=== PATIENT | female | born 1945 | race Caucasian/White ===

== ENCOUNTER 2022-07-03 14:50 | Outpatient (CLI) | payer MEDICARE, BC, SELFPAY ==
--- NOTE | 2022-07-03 15:00 | CRLHL7_ITS ---
For Patients: As a result of the 21st Century Cures Act, medical imaging exams and procedure reports are released immediately into your electronic medical record. You may view this report before your referring provider. If you have questions, please contact your health care provider. Indication: FOLLOW UP COLON/LUNG CANCER Technique: Noncontrast CT chest Please note that all CT scans at this facility use dose modulation, iterative reconstruction, and/or weight-based dosing when appropriate to reduce radiation dose to as low as reasonably achievable. Comparison: CT PET 10/20/2021. CT chest 10/04/2021 Findings: Large lobulated mass upper outer quadrant left breast adjacent to the implant is similar, measuring approximately 4.6 cm. Densely calcified breast implants bilaterally with chronic densities associated with the left breast implant, as before. Persistent small pericardial effusion. New left pleural effusion. Incidental splenule in the left upper quadrant. Small exophytic cyst arising from the upper pole of the right kidney. Fatty infiltration liver. Stable areas of low density within the left hepatic lobe adjacent to the falciform ligament. Streak artifact present from postop changes of the upper abdomen. Dense calcifications in the aorta. Mild fullness of the subcarinal space is similar. Similar bandlike density within the lingula extending from the hilum to the anterior pleura. Persistent air bronchograms adjacent to the left inferior hilum. Patchy ill-defined nodularity within the periphery of the left upper lobe is similar. Improved airspace opacities throughout the left lower lobe. Postop changes noted to the left chest. Similar appearance of bandlike scarring extending from the right hilum to the superolateral apical pleura. Linear scarring within the right middle lobe. Increased degenerative disc disease upper lumbar spine. Impression: Interval postoperative changes to the left lung. Moderate-size left pleural effusion is now present. Persistent densities extending from the left hilum to the anterior lateral left basilar pleura. Stable parenchymal densities extending from the right hilum to the superolateral apical pleura. Few scattered ill-defined nodular densities in the periphery of the lung are similar. Stable mild pericardial effusion, fullness of the subcarinal space and a large mass in the upper outer quadrant of the left breast. Please note that all CT scans at this facility use dose modulation, iterative reconstruction, and/or weight-based dosing when appropriate to reduce radiation dose to as low as reasonably achievable. Dictated by Branden Church MD @ 07/04/2022 11:20:47 AM (Electronically Signed)
== END 2022-07-03 14:51 | disposition home or self-care (01) ==
LOC: CT 14:54
PROVIDERS: PCP Family Medicine
DX: J84.9 Interstitial pulmonary disease, unspecified (principal); I31.39 Other pericardial effusion (noninflammatory); R91.1 Solitary pulmonary nodule
CPT/HCPCS: 71250

== ENCOUNTER 2023-08-09 15:39 | Outpatient (CLI) | payer MEDICARE, BC, SELFPAY ==
--- NOTE | 2023-08-09 16:00 | CRLHL7_ITS ---
For Patients: As a result of the Century Cures Act, medical imaging exams and procedure reports are released immediately into your electronic medical record. You may view this report before your referring provider. If you have questions, please contact your health care provider. Indication: infiltrate pulmonary not eosinophilic follow up and follow up effusion hx: lung and colon cancer Technique: CT chest without contrast Please note that all CT scans at this facility use dose modulation, iterative reconstruction, and/or weight-based dosing when appropriate to reduce radiation dose to as low as reasonably achievable. Comparison: 01/09/2023 Findings: Large left breast mass is similar measuring 3.7 cm. Chronic changes to the left breast implant again noted. Small pericardial effusion again noted. Left pleural effusion is slightly diminished. Extensive atherosclerotic changes. Hepatic steatosis is present. No adrenal lesion. Postop changes upper abdomen. Stable parenchymal densities in the left infrahilar lung and within the right suprahilar lung. No pneumothorax. No CHF. No destructive osseous lesion or fracture. Degenerative changes are present. Decreased size/conspicuity of density within the right middle lobe compared to the prior exam, series 3, image 56 Impression: Slightly decreased left pleural effusion since the prior study. Persistent small pericardial effusion. Decreased size/conspicuity of nodular density in the right middle lobe. Chronic areas of scarring within the right suprahilar lung and left infrahilar lung, unchanged. Stable large left breast parenchymal mass. Please note that all CT scans at this facility use dose modulation, iterative reconstruction, and/or weight-based dosing when appropriate to reduce radiation dose to as low as reasonably achievable. Dictated by Branden Church MD @ 08/10/2023 3:03:35 PM (Electronically Signed)
== END 2023-08-09 15:40 | disposition home or self-care (01) ==
LOC: CT 15:40
PROVIDERS: PCP Family Medicine; Visit Provider Internal Medicine
DX: R91.8 Other nonspecific abnormal finding of lung field (principal); J90 Pleural effusion, not elsewhere classified; N63.20 Unspecified lump in the left breast, unspecified quadrant
CPT/HCPCS: 71250

== ENCOUNTER 2024-05-30 13:14 | Outpatient (CLI) | payer MEDICARE, BC, SELFPAY | END 2024-05-30 13:15 | disposition home or self-care (01) | LOC: NFLDREF 06-03 23:25 | PROVIDERS: PCP Family Medicine; Referring Provider Family Medicine; Visit Provider Nurse Practitioner | DX: R30.0 Dysuria (principal) | CPT/HCPCS: 87086 ==

== ENCOUNTER 2024-06-09 15:14 | Emergency (ER) | payer MEDICARE, BC, SELFPAY ==
[2024-06-09 15:16] VITALS: BP 165/80; PULSE 94; RESP 18; TEMP 36.8; O2SAT 97; BMI 21.7
--- NOTE | 2024-06-09 15:47 | ED.GENADULT ---
HPI - General Adult General Chief complaint: Unspecified Complaint, Adult Stated complaint: Dark urine/Jaundice Time Seen by Provider: 06/09/24 15:30 Source: patient, RN notes reviewed and old records reviewed Mode of arrival: ambulatory Limitations: no limitations History of Present Illness HPI narrative: Patient is a 78-year-old woman with pertinent medical history of lung cancer with last note here documented in 2017, last imaging in 2021. She was seen in urgent care earlier last week with dark urine, a UA was done which showed bilirubin but no evidence of infection. She return to urgent care today because of jaundice and was sent here. She denies any abdominal pain. She has not noted easy bruising or bleeding. She has not had any fevers, vomiting or diarrhea. No history of jaundice. She denies alcohol use, denies significant Tylenol use. No recent travel. Related Data Home Medications ?Medication ?Instructions ?Recorded ?Confirmed amlodipine 5 mg tablet 5 mg PO DAILY 05/30/24 06/09/24 lisinopril 20 mg tablet 20 mg PO DAILY 05/30/24 06/09/24 Previous Rx's ?Medication ?Instructions ?Recorded potassium chloride 20 mEq 20 meq PO DIRECTED #20 tabs 06/09/24 tablet,extended release Allergies Allergy/AdvReac Type Severity Reaction Status Date / Time No Known Drug Allergies Allergy Verified 05/30/24 13:33 Review of Systems Status of ROS: Reports: 10 or more systems reviewed and unremarkable except as noted in History and below [facility] Social History Smoking Status: Never smoker How often do you have a drink containing alcohol: never How often do you have six or more drinks on one occasion: Never AUDIT-C Alcohol total score: 0 Non-prescribed substance use: denies use service: No Exam Narrative: Exam Narrative: Vital signs as noted above. In general, an alert, well-appearing patient. Head: Normocephalic, atraumatic. Eyes: Pupils are equal reactive. Extraocular movements are full. Scleral icterus. ENT: Mucous membranes are moist. Throat is normal. Neck: Supple without lymphadenopathy. Heart: Regular rate and rhythm. No murmur or rub. Lungs: Clear bilaterally. No increased work of breathing, crackles or wheezes. Abdomen: Soft and nontender. I do not feel significant organomegaly or masses. Extremities: Well perfused. No edema. No calf tenderness. Pulses intact. Neurologic: Patient is alert and oriented to person and place. Speech is fluent. Face is symmetric. Moves all extremities equally. Affect: Normal. Skin: Warm and dry. Well perfused. Jaundice noted particularly in her face. Const: Vital Signs, click to edit/add: Vital Signs - 24 hr 06/09/24 15:16 Temperature 98.2 F Pulse Rate [Right Pulse Oximeter] 94 Respiratory Rate 18 Blood Pressure [Ri ght Upper Arm] 165/80 H Pulse Oximetry 97 Oxygen Delivery Me thod Room Air Documenting provider has reviewed patient's vital signs: yes Course Course ED Course: Basic labs ordered to start as well as CT scan of the chest abdomen pelvis. My concern would be that this may be related to her prior diagnosis of lung cancer. Secondary cancers such as pancreatic cancer would be a consideration as well with painless jaundice. Will rule out hemolytic anemia as well. At this point she does not describe symptoms that are strongly suggestive of hepatitis otherwise, will await results of further testing before ordering additional liver testing. Lab and CT pending at the time of my departure, signed out to Dr. Vega to follow up on results and determine final diagnosis and plan. Vital Signs Vital signs: Initial Vital Signs Temperature 98.2 F 06/09/24 15:16 Temperature Source Temporal Artery Scan 06/09/24 15:16 Pulse Rate 94 06/09/24 15:16 Respiratory Rate 18 06/09/24 15:16 Blood Pressure 165/80 H 06/09/24 15:16 Blood Pressure Mean 108 H 06/09/24 15:16 Blood Pressure Position Sitting 06/09/24 15:16 Pulse Oximetry 97 06/09/24 15:16 Oxygen Delivery Method Room Air 06/09/24 15:16 Vital Signs Temperature 98.2 F 06/09/24 15:16 Pulse Rate 94 06/09/24 15:16 Respiratory Rate 18 06/09/24 15:16 Blood Pressure 165/80 H 06/09/24 15:16 Pulse Oximetry 97 06/09/24 15:16 Oxygen Delivery Method Room Air 06/09/24 15:16 Temperature 98.2 F 06/09/24 15:16 Pulse Rate 94 06/09/24 15:16 Respiratory Rate 18 06/09/24 15:16 Blood Pressure 165/80 H 06/09/24 15:16 Pulse Oximetry 97 06/09/24 15:16 Oxygen Delivery Method Room Air 06/09/24 15:16 Medications Administered Medications: Discontinued Medications Generic Name Dose Route Start Last Admin Trade Name Freq PRN Reason Stop Dose Admin Potassium Chloride 40 meq 06/09/24 16:20 06/09/24 16:31 Potassium Chloride 10 Meq Capsule Er PO 06/09/24 16:21 40 meq ONCE ONE Administration Medical Decision Making Lab Data Labs: Lab Results 06/09/24 06/09/24 Range/Units 15:52 16:36 WBC 6.77 (4.50-11.00) K/uL RBC 4.18 (4.00-5.20) m/uL Hgb 11.7 L (12.0-16.0) gm/dL Hct 35.9 (33.0-51.0) % MCV 86 (80-100) fL MCH 28 (26-34) pg MCHC 33 (32-36) gm/dL RDW Coeff of Shayan 14.7 (11.5-15.5) % Plt Count 298 (140-440) K/uL Neut % (Auto) 79.2 H (42.0-72.0) % Lymph % (Auto) 8.7 L (20-44) % [place] % (Auto) 10.3 (0.0-11.0) % Eos % (Auto) 0.7 (0.0-7.0) % Baso % (Auto) 0.7 (0.0-3.0) % Neut # (Auto) 5.40 (1.7-7.0) K/uL Lymph # (Auto) 0.60 L (0.90-2.90) K/uL [place] # (Auto) 0.70 (0.00-0.90) K/UL Eos # (Auto) 0.05 (0.00-0.50) K/uL Baso # (Auto) 0.05 (0.00-0.30) K/uL Abs Immat Gran (auto) 0.03 (0.00-0.30) K/uL Imm/Tot Granulo (auto) 0.4 % INR 0.94 (0.91-1.10) Sodium 139 (135-149) mmol/L Potassium 2.5 L* (3.6-5.1) mmol/L Chloride 99 (96-114) mmol/L Carbon Dioxide 27 (20-32) mmol/L Anion Gap 13 (7-15) mEq/L BUN 13 (7-30) mg/dL Creatinine 0.5 (0.5-1.5) mg/dL Estimated Creat Clear 34.99 Estimated GFR 96 ml/min Glucose 137 H (60-115) mg/dL Calcium 9.8 (8.4-10.6) mg/dL Total Bilirubin 12.7 H (0.1-1.5) mg/dL Direct Bilirubin 11.2 H (0.0-0.5) mg/dL AST 129 H (12-35) U/L ALT 71 H (4-35) U/L Alkaline Phosphatase 804 H (40-150) U/L C-Reactive Protein 0.6 (0.5-1.0) mg/dL Total Protein 7.9 (6.0-8.3) g/dL Albumin 4.5 (3.3-5.0) g/dL Lipase 575 H (23-300) U/L Urine Color Brown A (Yellow) Urine Appearance Clear (Clear) Urine pH 6.0 (5.0-8.5) Ur Specific [place] 1.020 (1.000-1.030) Urine Protein 1+ A (Negative) Urine Glucose (UA) Trace A (Negative) Urine Ketones Trace A (Negative) Urine Blood Negative (Negative) Urine Nitrite Negative (Negative) Urine Bilirubin 3+ A (Negative) Urine Urobilinogen 0.2 (0.2-1.0) Ur Leukocyte Esterase Negative (Negative) Urine RBC 0-2 (0-2) Urine WBC 2-5 (0-5) Ur Squamous Epith Cells Few (None-Few) Urine Bacteria Moderate A (None) Ethyl Alcohol < 0.01 L (0.01-0.03) % Lab Acknowledgement Test Added Discharge Plan Discharge Clinical Impression: Biliary obstruction, Jaundice Patient Disposition: Home w/ Parent or Adult Condition: Stable Instructions: Endoscopic Biliary Stent Placement (DC) Additional Instructions: As we discussed, there seems to be some sort of obstruction as to why your gallbladder, pancreas and liver are not draining properly. This is the cause of your jaundice. Unfortunately, the pictures that we were able to take were not ideal. This is because of the prior embolism coils that you had from your duodenal bleed. They create a large bladder over the area that we need to see. I am not certain what is causing the obstruction. It could be a tumor but it could be something more innocent like scar tissue from her prior bleed or a cyst. We need more information. The best way to do this is with an endoscopic ultrasound. Likely discussed, this is an ultrasound that is done through the endoscopy. Often, a stent will then be placed. This is an outpatient procedure. I spoke with Dr. Glez from the [facility] team. They will be calling you within the next 48 hours to set up an appointment this week. Remember that there will be nothing to eat or drink 8 hours before the procedure. They will give you additional information over the phone. If they do call tomorrow which I suspect that they will, please try to answer if you are able, otherwise call them back as soon as possible. Your potassium levels were low. I suspect that this is related to whatever is causing the obstruction. Your given oral potassium to replace this here in the emergency department. Take 2 more pills tonight before bed. He will then continue taking 1 pill 2 times daily for the next 3 days and then once daily until gone for the next couple of weeks. Remember not to take any the morning of your procedure. If you do not hear back from the GI team for some reason, please work with her primary care provider to set this up outpatient. Activity Level: No Restrictions Discharge Diet: Regular Prescriptions: New potassium chloride 20 mEq tablet extended release 20 meq PO DIRECTED Qty: 20 2RF Rx Instructions: 1 pill by mouth 2 times daily for the next 3 days, then once daily until gone. No Action amlodipine 5 mg tablet 5 mg PO DAILY lisinopril 20 mg tablet 20 mg PO DAILY Follow Up/Referrals: Candis Mars DO [Primary Care Provider] - Stand Alone Forms: [facility] Info Instructions
--- NOTE | 2024-06-09 15:50 | CRLHL7_ITS ---
For Patients: As a result of the 21st Century Cures Act, medical imaging exams and procedure reports are released immediately into your electronic medical record. You may view this report before your referring provider. If you have questions, please contact your health care provider. Indication: jaundice, no abd pain, hx lung CA Technique: CT of the chest, abdomen, and pelvis was obtained with 56 mL of Isovue 370 intravenous contrast. Please note that all CT scans at this facility use dose modulation, iterative reconstruction, and/or weight-based dosing when appropriate to reduce radiation dose to as low as reasonably achievable. Comparison: 08/09/2023, 07/30/2017. Findings: CHEST: Medical devices: None. Thyroid: Normal. Lymph nodes: No supraclavicular, axillary, mediastinal, or hilar lymphadenopathy. Vasculature: Aorta and main pulmonary artery diameters are within normal range. Moderate aortic calcification. 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 Heart: Mild coronary artery calcification. Small to moderate pericardial effusion. Other mediastinal structures: No significant abnormality. Lung parenchyma and pleura: Redemonstration of right upper lobe and left lower lobe areas of linear bandlike scarring. Mild centrilobular emphysema. Small cluster of nodules with the largest measuring 5 millimeter in the left upper lobe (3/33). Redemonstration of small to moderate left pleural effusion. Postsurgical changes of the left lung. Airways: No significant abnormality. Chest wall: Calcified bilateral breast prostheses. 3.6 centimeter left breast mass is again seen. ABDOMEN/PELVIS: Liver and biliary tree: Moderate intrahepatic biliary ductal dilation. Dilated common bile duct measuring up to 1.3 centimeter (2/141). Gallbladder: Mildly distended gallbladder. Spleen: Normal. Pancreas: Mildly prominent pancreatic duct measuring 3 millimeter (2/137). Streak artifact from adjacent embolic coils limit evaluation of the pancreatic head. Adrenal glands: Normal. Kidneys and ureters: No hydronephrosis. No obstructing renal calculi. 1.1 centimeter right renal cyst (2/142). Gastrointestinal tract: Postsurgical changes from partial sigmoid colectomy. Mild sigmoid colonic diverticulosis without CT evidence of acute diverticulitis. Moderate stool burden. Status post appendectomy. No evidence of bowel obstruction. Peritoneal cavity: Normal. Bladder: Normal. Pelvic organs: Postsurgical changes from hysterectomy. Vasculature: Moderate calcification. Lymph nodes: Normal. Abdominal wall: Normal. Musculoskeletal: Moderate degenerative changes of the bilateral hips. Moderate degenerative changes of the visualized spine. Mild anterolisthesis of L4 on L5. Impression: 1. Dilated common bile duct measuring up to 1.3 centimeter with moderate intrahepatic biliary ductal dilation. Mildly distended gallbladder and mildly prominent pancreatic duct measuring 3 millimeter. Streak artifact from adjacent embolic coils limit evaluation of the pancreatic head. Obstructing pancreatic head lesion is difficult to exclude. Consider further evaluation with ultrasound or MRCP, especially if there is bilirubinemia to suggest biliary obstruction. 2. 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 3. Redemonstration of right upper lobe and left lower lobe areas of pulmonary linear bandlike scarring may represent posttreatment change. 4. Small cluster of nodules with the largest measuring 5 millimeter in the left upper lobe. 5. Redemonstration of small to moderate left pleural effusion. 6. 3.6 centimeter left breast mass is again seen. Consider correlation with prior mammographic evaluation. Please note that all CT scans at this facility use dose modulation, iterative reconstruction, and/or weight-based dosing when appropriate to reduce radiation dose to as low as reasonably achievable. Dictated by Alberto Last MD @ 06/09/2024 5:25:47 PM (Electronically Signed)
[2024-06-09 16:00] LABS: Basophils Absolute Auto 0.05 K/uL (0.00-0.30); Basophils Percent Auto 0.7 % (0.0-3.0); Eosinophils Absolute Auto 0.05 K/uL (0.00-0.50); Eosinophils Percent Auto 0.7 % (0.0-7.0); Hematocrit 35.9 % (33.0-51.0); Hemoglobin* 11.7 gm/dL (12.0-16.0); Immature Granulocytes Abs Auto 0.03 K/uL (0.00-0.30); Immature Granulocytes Pct Auto 0.4 %; Lymphocytes Percent Auto 8.7 % (20-44); Mean Corpuscular HGB Conc 33 gm/dL (32-36); Mean Corpuscular Hemoglobin 28 pg (26-34); Mean Corpuscular Volume 86 fL (80-100); Monocytes Percent Auto 10.3 % (0.0-11.0); Neutrophils Percent Auto 79.2 % (42.0-72.0); Platelet Count* 298 K/uL (140-440); RDW Coefficient of Variation % 14.7 % (11.5-15.5); Red Blood Count 4.18 m/uL (4.00-5.20); White Blood Count* 6.77 K/uL (4.50-11.00)
[2024-06-09 16:03] LABS: Slide Review Reflex No
[2024-06-09 16:12] LABS: Albumin* 4.5 g/dL (3.3-5.0)
[2024-06-09 16:13] LABS: Chloride* 99 mmol/L (96-114); Sodium* 139 mmol/L (135-149)
[2024-06-09 16:15] LABS: Alkaline Phosphatase* 804 U/L (40-150); Aspartate Amino Transferase* 129 U/L (12-35); Bilirubin Direct* 11.2 mg/dL (0.0-0.5); Bilirubin Total* 12.7 mg/dL (0.1-1.5); Total Protein* 7.9 g/dL (6.0-8.3)
[2024-06-09 16:16] LABS: Alanine Aminotransferase* 71 U/L (4-35); Anion Gap 13 mEq/L (7-15); Carbon Dioxide* 27 mmol/L (20-32); Creatinine* 0.5 mg/dL (0.5-1.5); Est. Creatinine Clearance* 34.99; Estimated Glomerular Filt Rate 96 ml/min; Lipase* 575 U/L (23-300)
[2024-06-09 16:17] LABS: Blood Urea Nitrogen* 13 mg/dL (7-30); Calcium* 9.8 mg/dL (8.4-10.6); Glucose* 137 mg/dL (60-115)
[2024-06-09 16:18] LABS: C Reactive Protein* 0.6 mg/dL (0.5-1.0)
[2024-06-09 16:19] LABS: Ethanol* < 0.01 % (0.01-0.03); Potassium* 2.5 mmol/L (3.6-5.1)
[2024-06-09] MEDS: POTASSIUM CHLORIDE 10 MEQ CAPSULE ER 40 MEQ PO (16:31)
[2024-06-09 16:51] LABS: Appearance Urine Clear (Clear); Bilirubin Urine 3+ (Negative); Blood Urine Negative (Negative); Color Urine Brown (Yellow); Glucose Urine Trace (Negative); Ketones Urine Trace (Negative); Leukocyte Esterase Urine Negative (Negative); Nitrite Urine Negative (Negative); Protein Urine 1+ (Negative); Urobilinogen Urine 0.2 (0.2-1.0)
[2024-06-09 17:09] LABS: Bacteria Urine Moderate; RBC Urine 0-2 (0-2); Squamous Epithelial Cell Urine Few (None-Few)
[2024-06-09 19:03] LABS: INR 0.94 (0.91-1.10); Prothrombin Time 13.1 Seconds
== END 2024-06-09 19:10 | disposition home or self-care (01) ==
PROVIDERS: Emergency Medicine; Emergency Provider Family Medicine; PCP Family Medicine
DX: R17 Unspecified jaundice (principal); K83.1 Obstruction of bile duct
CPT/HCPCS: 36415; 71260; 74177; 80048; 80076; 81001; 82077; 83690; 85025; 85610; 86140; 87086; 99284; A9270; Q9967

== ENCOUNTER 2024-08-14 10:34 | Day surgery (SDC) | payer MEDICARE, BC, SELFPAY ==
[2024-08-14 10:56] VITALS: BP 109/63; PULSE 86; RESP 20; TEMP 36.6; O2SAT 100; BMI 21.7
[2024-08-14] MEDS: SODIUM CHLORIDE 0.9 % (FLUSH) 10 ML SYRINGE IVF (10:59)
--- NOTE | 2024-08-14 12:00 | CRLHL7_ITS ---
For Patients: As a result of the Century Cures Act, medical imaging exams and procedure reports are released immediately into your electronic medical record. You may view this report before your referring provider. If you have questions, please contact your health care provider. Indication: IBRAHIMA CATH PLACEMENT Technique: One fluoroscopic image of the chest. Fluoroscopic time 21.2 sec. IMPRESSION: Fluoroscopic guidance for Port-A-Cath placement. Dictated by Branden Church MD @ 08/14/2024 3:51:49 PM (Electronically Signed)
--- NOTE | 2024-08-14 12:11 | CRLHL7_ITS ---
For Patients: As a result of the Century Cures Act, medical imaging exams and procedure reports are released immediately into your electronic medical record. You may view this report before your referring provider. If you have questions, please contact your health care provider. INDICATION: Chest pain. TECHNIQUE: Chest 1 views. COMPARISON: CT chest abdomen and pelvis June 2024 FINDINGS/IMPRESSION: Interval placement of the right-sided Cieile-A-Wuzc catheter, tip projecting over the lower SVC. Redemonstration of moderate volume of left pleural effusion with adjacent compressive atelectasis. Chronic scarring/atelectasis at the right apex. Vascular calcification is identified along the left apex. Peripherally calcified breast implants are seen. Stable mild cardiomegaly without pulmonary edema. Dictated by Homer Jonas MD @ 08/14/2024 2:57:16 PM (Electronically Signed)
--- NOTE | 2024-08-14 12:16 | PM.GSCN ---
History of Present Illness Consult details Date Seen: 08/14/24 Consult date: 08/14/24 Narrative: The patient is a 78 year-old female with pancreatic cancer who presents today for a port. 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 She is undergoing chemotherapy for her new diagnosis of pancreatic cancer. Port placement was requested for chemotherapy. She has never had a port previously. No chest pain or shortness of breaths today. [facility] Social History Smoking Status: Former smoker How often do you have a drink containing alcohol: monthly or less How often do you have six or more drinks on one occasion: Never AUDIT-C Alcohol total score: 1 Non-prescribed substance use: denies use Caffeine: Yes service: No Meds Home Medications and Allergies Home Medications ?Medication ?Instructions ?Recorded ?Confirmed ?Type acetaminophen 500 mg tablet 500 mg PO Q6H PRN 07/07/24 08/14/24 History (Tylenol Extra Strength) albuterol sulfate 90 mcg/actuation 2 puff inhalation Q6H PRN 07/07/24 08/14/24 History aerosol inhaler hydroxyzine HCl 25 mg tablet 25 mg PO TID PRN 07/07/24 08/14/24 History diphenhydramine HCl 50 mg capsule 25 - 50 mg PO QHS PRN 07/21/24 08/14/24 History furosemide 20 mg tablet (Lasix) 20 mg PO QAM 07/21/24 08/14/24 History oxycodone 5 mg tablet 2.5 mg PO DAILY PRN 07/23/24 08/14/24 History pantoprazole 40 mg tablet,delayed 40 mg PO DAILY 07/23/24 08/14/24 History release Allergies Allergy/AdvReac Type Severity Reaction Status Date / Time amoxicillin (From Augmentin) Allergy Severe Anaphylaxis Verified 08/14/24 10:48 clavulanic acid (From Allergy Severe Anaphylaxis Verified 08/14/24 10:48 Augmentin) Penicillins Allergy Unknown Verified 08/14/24 10:48 prochlorperazine AdvReac Verified 08/14/24 10:48 Blood group specific Allergy Severe TREJO Uncoded 07/07/24 11:19 substance Exam Narrative: Exam Narrative: General: No acute distress HEENT: Patient with scleral icterus Skin: Patient appears jaundiced Respiratory: Breathing nonlabored on room air CV: Regular rate Chest: No scars noted in the upper chest. Const: Vital Signs, click to edit/add: Vital Signs - 24 hr 08/14/24 10:56 Temperature 97.9 F Pulse Rate 86 Respiratory Rate 20 Blood Pressure 109/63 Pulse Oximetry 100 Oxygen Delivery Me thod Room Air Results Labs Labs: Patient is anemic with a hemoglobin of 8.9. Platelets within normal limits at 177. Electrolytes within normal limits. Bilirubin is elevated at 2.9. This is down from 07/07/24 when it was 24. Imaging Additional studies: CT scan chest abdomen pelvis from 06/09/2024 was reviewed with the radiologist. Impression: 1. Dilated common bile duct measuring up to 1.3 centimeter with moderate intrahepatic biliary ductal dilation. Mildly distended gallbladder and mildly prominent pancreatic duct measuring 3 millimeter. Streak artifact from adjacent embolic coils limit evaluation of the pancreatic head. Obstructing pancreatic head lesion is difficult to exclude. Consider further evaluation with ultrasound or MRCP, especially if there is bilirubinemia to suggest biliary obstruction. 2. 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 3. Redemonstration of right upper lobe and left lower lobe areas of pulmonary linear bandlike scarring may represent posttreatment change. 4. Small cluster of nodules with the largest measuring 5 millimeter in the left upper lobe. 5. Redemonstration of small to moderate left pleural effusion. 6. 3.6 centimeter left breast mass is again seen. Consider correlation with prior mammographic evaluation. Please note that all CT scans at this facility use dose modulation, iterative reconstruction, and/or weight-based dosing when appropriate to reduce radiation dose to as low as reasonably achievable. Dictated by Alberto Last MD @ 06/09/2024 5:25:47 PM Progress Note:A&P Assessment and plan (1) Pancreatic cancer: Status: Acute Plan The patient is a 78-year-old female with pancreatic cancer here today for port placement. Risks and benefits as well as recovery were discussed with the patient. No contraindications to proceeding. The patient signed informed consent.
[2024-08-14] MEDS: 0.9 % SODIUM CHLORIDE 500 ML 500 ML 100 ML IV (12:45)
--- NOTE | 2024-08-14 13:11 | W.ANESCHARGE ---
Anesthesia Charges Start Date/Time Anesthesia Start Date: 08/14/24 Anesthesia Start Time: 13:14 Stop Date/Time Anesthesia Stop Date: 08/14/24 Anesthesia Stop Time: 14:16 Summary Extremes of Age - Over 70 or under 1: MDA
[2024-08-14] MEDS: CLINDAMYCIN 900 MG/50 ML-D5W IVPB (13:21)
[2024-08-14] MEDS: LIDOCAINE 1% MDV 20 ML INJECTION (13:41)
[2024-08-14] MEDS: HEPARIN 500 UNIT/5 ML SYRINGE IVF (13:41)
[2024-08-14] MEDS: BUPIVACAINE 0.5% 30 ML INJECTION (13:41)
[2024-08-14] MEDS: 0.9% SODIUM CHL 50 ML VIAL INJECTION (13:41)
--- NOTE | 2024-08-14 14:10 | PM.GSPRC ---
Operative Note Date of procedure: 08/14/24 Pre-op diagnosis: Pancreatic cancer Post-op diagnosis: Same Type of Procedure: Right IJ power port placement with ultrasound and fluoroscopic guidance Indications: The patient is a 78-year-old female who is undergoing chemotherapy for pancreatic cancer. The port has been requested for administration of this. After discussion, she has agreed to proceed. Procedure Description: After discussing the risks and benefits of the procedure, the patient signed informed consent.? The operative site was marked and the patient was brought to the operating room and placed on the operating table in supine position.? Care was taken to pad the patient's pressure points.?? The patient was then given sedation by anesthesia.?? The operative site was then prepped and draped in the usual sterile fashion.? A time-out was then performed. The patient's right internal jugular vein was visualized using ultrasound. Local anesthetic was injected into the skin overlying the vein. This was accessed percutaneously using ultrasound guidance. Using Seldinger technique, a guidewire was threaded through the needle. A skin juan carlos was made around the wire. Next, local anesthetic was injected into the skin below the clavicle and along the proposed tract to the neck incision. A skin incision was then made with a 15 blade and a pocket created in the subcutaneous tissue with cautery. A tunneler was then used to thread the catheter from the chest wall pocket to the neck incision. Once this was done fluoroscopy was brought into the field. Over the wire the tract was dilated using fluoroscopy. The wire and the dilator were then removed leaving the sheath in the vein. Through this, the catheter was threaded. Using fluoroscopy, the catheter was positioned into the distal SVC. The catheter was noted to flush and aspirate easily. The catheter was then connected to the port. The port was placed in the pocket and secured in place with 2 0 Prolene sutures. It was noted to flush and aspirate easily. This was then locked with heparinized saline. The skin was closed with absorbable suture. Glue was then applied. Instrument sponge and needle counts were correct at the end of the case. The patient was woken and taken to the recovery area in stable condition. ? The patient tolerated the procedure well. Findings: Right IJ power port placed in the low SVC Implants: Power port Anesthesia: MAC Surgeon: Domi Luna MD Estimated blood loss (mL): 5 Condition: stable Disposition: same day
--- NOTE | 2024-08-14 14:17 | W.ANESCHARGE ---
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
[2024-08-14 14:21] VITALS: BP 110/60; PULSE 82; RESP 16; TEMP 35.9; O2SAT 100
[2024-08-14 14:35] VITALS: BP 112/62; PULSE 80; RESP 16; TEMP 36.1; O2SAT 100
[2024-08-14 14:50] VITALS: BP 108/56; PULSE 76; RESP 16; O2SAT 98
--- NOTE | 2024-08-14 15:13 | CRLHL7_ITS ---
For Patients: As a result of the Century Cures Act, medical imaging exams and procedure reports are released immediately into your electronic medical record. You may view this report before your referring provider. If you have questions, please contact your health care provider. INDICATION: Status post port placement TECHNIQUE: 1 view chest radiograph COMPARISON: 08/14/2024, earlier the same day FINDINGS: Devices: New right IJ chest port distal tip is at the lower SVC. Lung volumes are overall good. Unchanged left mid to lower lung opacity. Unchanged small to moderate left pleural effusion. No pneumothorax. Heart size is similar to prior. Atherosclerotic vascular calcifications. Calcified breast prostheses. IMPRESSION: The right IJ chest port distal tip is at the low SVC. No pneumothorax. Dictated by Bev Mcfadden MD @ 08/14/2024 3:47:42 PM (Electronically Signed)
[2024-08-14 15:14] VITALS: BP 110/60; PULSE 77; RESP 18; O2SAT 99
[2024-08-14 15:30] VITALS: BP 119/63; PULSE 77; RESP 18; O2SAT 99
== END 2024-08-14 15:53 | disposition home or self-care (01) ==
PROVIDERS: PCP Family Medicine; Visit Provider Surgery
PROC: (CPT 36561; principal; 2024-08-14 12:00)
DX: Z45.2 Encounter for adjustment and management of vascular access device (principal); C25.9 Malignant neoplasm of pancreas, unspecified
CPT/HCPCS: 36561; 00532; 71045; 76000; 76998; 99100; J2003; C1788; J0665; J0736; J1100; J1642; J2704; J3010; J7030

== ENCOUNTER 2024-09-03 09:43 | Inpatient (IN) | payer MEDICARE, BC, SELFPAY ==
[2024-09-03] VITALS (33 sets, daily range): BP systolic 92–155; BP diastolic 70–90; PULSE 87–122; RESP 18–32; TEMP 36.4–37.4; O2SAT 90–99; BMI 21.7; BMI 22.3
--- OUTSIDE RECORDS SUMMARY | 2024-09-03 09:45 | XMS_ITS | Clinical Summary ---
Author Organization [facility] Address [place], [place] [address] Care Team Providers Care Clay Artist Name Role Phone Candis Mars DO Primary Care Provider [phone] Allergies Active Allergy Reactions Criticality Noted Date Comments Amoxicillin-Pot Clavulanate Throat Swelling/Closing 06/10/2013 Blood-Group Specific Substance *Unknown 06/30/2013 Patient has Anti-Jkb (Eagle b) and Non-specific antibodies. Blood product orders may be delayed. Please draw two red top and two purple top tubes for Type and Screen orders. Penicillins Anaphylaxis High 07/25/2016 Medications albuterol HFA (ProAir HFA) 90 mcg/actuation inhalerIndicati ons:Exercise-in duced bronchospasm,Ch ronic obstructive pulmonary disease, unspecified COPD type (HC) Inhale 1-2 Puffs by mouth every 4 hours if needed for Shortness Of Breath or Wheezing. 8.5 g 11 09/10/19 24 Active oxyCODONE (ROXICODONE) 5 mg immediate release tabletIndicatio ns:Cancer associated pain Take 1 Tablet (5 mg) by mouth every 4 hours if needed for Pain (Severe pain). 20 Tablet 08/13/20 24 Active hydrOXYzine HCL (ATARAX) 25 mg tabletIndicatio ns:Pruritus,Granda creatic mass,Hyperbilir ubinemia Take 1 Tablet (25 mg) by mouth every 8 hours if needed for Itching. 90 Tablet 2 08/13/20 24 Active potassium chloride (K-TAB) 20 mEq extended-releas e tablet Take 20 mEq by mouth. 06/09/20 24 Active pantoprazole (PROTONIX) 40 mg delayed-release tablet Take 40 mg by mouth. 07/15/20 24 Active furosemide (LASIX) 20 mg tablet Take 20 mg by mouth. 07/15/20 24 Active sertraline (ZOLOFT) 50 mg tablet Take 50 mg by mouth. 07/12/20 24 Active amLODIPine (NORVASC) 5 mg tabletIndicatio ns:Hypertension Take 1 Tablet (5 mg) by mouth once daily. 90 Tablet 3 09/10/19 24 024 Discontinued(*P atient states no longer taking) lisinopriL (PRINIVIL; ZESTRIL) 20 mg tabletIndicatio ns:Hypertension Take 1 Tablet (20 mg) by mouth once daily. 90 Tablet 3 09/10/19 24 024 Discontinued(*P atient states no longer taking) hydrOXYzine HCL (ATARAX) 25 mg tabletIndicatio ns:Pruritus,Granda creatic mass,Hyperbilir ubinemia Take 1 Tablet (25 mg) by mouth every 8 hours if needed for Itching (sleep). 20 Tablet 06/20/20 24 024 Discontinued hydrOXYzine HCL (ATARAX) 25 mg tabletIndicatio ns:Pruritus,Granda creatic mass,Hyperbilir ubinemia TAKE ONE TABLET BY MOUTH EVERY 8 HOURS NEEDED FOR ITCHING (SLEEP) 30 Tablet 08/08/20 24 024 Discontinued(*M edication adjustment) Active Problems Problem Noted Date Diagnosed Date Primary pancreatic cancer 08/13/2024 Malignant neoplasm metastatic to lung 03/28/2021 Chronic obstructive pulmonary disease 10/08/2017 Adenocarcinoma, lung 12/15/2016 Osteopenia 07/22/2015 GI bleed 06/23/2013 Hx of duodenal ulcer 06/23/2013 Overview (12/29/2013): EGD 06/2013 large duodenal ulcer, H. Pylori negative EGD 12/2013 complete healing of the ulcer Anemia 06/23/2013 ACP (advance care planning) 06/23/2013 Overview (06/23/2013): Patient has identified Health Care Agent(s): Yes Add Health Care Agents: Yes Health Care Agent(s): Patient does not want to be proxy Primary Health Care Agent: Yoselin Rivera Relationship: daughter Secondary Health Care Agent: Relationship: Phone: Conservator: Relationship: Phone: Guardian: Relationship: Phone: Patient has Advance Care Plan Documents (Health Care Directive, POLST): Yes Advance Care Plan Documents: Health Care Directive - old, from [place] Patient has identified Specific Treatment Preferences: Yes Specific Treatment Preferences: a.) Code Status: CPR/Attempt Resuscitation Hypertension 06/05/2011 History of colon cancer 06/09/2010 Overview (09/30/2015): Colonoscopy 06/09/10 - repeat in 5 years Colonoscopy 09/2015 polyp repeat in 5 years Encounters Date Type Department Care Team Description 08/14/2024 9:00 AM SUPERVISOR GAS METER REPAIR Office Visit [facility] [address] [place] [address] Domi Luna MD 08/14/2024 Orders Only [facility] Scanner 1 scan: (1-Ord) [facility], RT IJ POWER PORT PLACEMENT WITH US AND FLUOROSCOPIC GUIDANCE, 08/14/2024 08/13/2024 3:00 PM SUPERVISOR GAS METER REPAIR Office Visit [facility] [address] [place] [address] Candis Mars, DO Preoperative Exam (08/14/24 - Port placement - [facility] - Dr. 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) 08/13/2024 Travel 08/12/2024 Telephone [facility] [address] [place] [address] Domi Luna MD 08/04/2024 Refill [facility] [address] [place] [address] Candis Mars, Refill Request (Hydroxyzine Hcl) 06/09/2024 Nurse Triage [facility] Centralized Nurse Triage Pcp, No Jaundice from Last 3 Months Immunizations Name Administration Dates Next Due AMB Influenza, IIV3 (Age >=3 years)(Flu Clinic Only) 06/23/2008 COVID-19 VACCINE SPIKEVAX (M ODERNA 50MCG/0.5ML) 12YO+ PFS 06/18/2023 COVID-19 vaccine (Pfizer-Bio NTech 30mcg/0.3mL) PF, MDV 10/23/2020 Influenza A (H1N1), Inactiva steve (Age >=3 Years) 08/20/2009 Influenza, High-dose Inactivated 019,07/08/2018,06/20/2017,2015,07/07/2015,06/03/2015,05/27/2014 Influenza, High-dose Quadriv alent Inactivated 06/18/2023,07/28/2022,06/23/2021,2018,07/08/2018,06/25/2017,06/20/2017,1 ,07/07/2015,06/03/2015, 014,06/27/2013,06/05/2011,05/25/2010,,06/23/2008,06/14/2007 Influenza, IIV3 (Age 6-35 mos) 06/05/2011,2009 Influenza, IIV3 (Age >=3 years) 06/27/20 13,06/05/2011,06/23/2008,2006 Influenza, Inactivated AIIV4 (Age 65+ Years) Preserv Free 06/18/2023 Influenza, Inactivated IIV3 (Age 65+ Years) Preserv Free 07/08/2018 Pneumococcal Poly,23-Valent (Pneumovax) 07/20/2011 Pneumococcal conj 13-Valent (Prevnar 13) 07/22/2015 Td (Age >=7 Years) 10/08/2007 Td, Preservative Free (age > = 7 Years) 10/08/2007 Tdap 05/27/2014 Zoster (Shingrix-RZV, recombinant) 03/24/2024, Zoster (Zostavax-ZVL, live) 06/03/2012 Family History Medical History Relation Name Comments GI Disease Father duodenal ulcer Stroke Maternal Grandmother Cancer Mother lung Cancer-breast Other Maternal Cousin Cancer-breast Paternal Grandmother Cancer-ovarian No Family History Relation Name Status Comments Brother Alive Daughter 1 Alive Daughter 2 Alive Father accident Maternal Grandmother Mother lung Other Maternal Cousin Alive Paternal Grandmother Social History Tobacco Use Types Packs/Day Years Used Date Smoking Tobacco: Former Cigarettes Q uit: 09/03/2002 Smokeless Tobacco: Never Tobacco Cessation:Counseling Given: Yes Comments:15 pack year hx - quit 2002 Alcohol Use Standard Drinks/Week Comments Yes 0 (1 standard drink = 0.6 oz pur e alcohol) PHQ-2 Answer Date Recorded PHQ-2 TOTAL SCORE 0 09/10/2023 Financial Resource Strain Answer Date R ecorded Difficulty of Paying Living Expenses Not on file 09/03/2021 Difficulty of Paying Living Expenses Not on file 09/03/2021 Comments No Sex and Gender Information Value Date Recorded Sex Assigned at Not on file Legal Sex Female 7:15 AM SUPERVISOR GAS METER REPAIR Gender Identity Not on file Sexual Orientation Not on file Obstetrics History Last Filed Vital Signs Vital Sign Reading Time Taken Comments Blood Pressure 138/73 08/13/2024 3:17 PM SUPERVISOR GAS METER REPAIR Pulse 92 08/13/2024 3:17 PM SUPERVISOR GAS METER REPAIR Temperature 36.6 C (97.9 F) 01/06/2019 2:34 PM CDT Respiratory Rate 18 07/22/2015 1:00 PM SUPERVISOR GAS METER REPAIR Oxygen Saturation 100% 08/13/2024 3:17 PM SUPERVISOR GAS METER REPAIR Inhaled Oxygen Concentration - - Weight 52 kg (114 lb 9.6 oz) 08/13/2024 3:17 PM SUPERVISOR GAS METER REPAIR Height 160 cm (5' 2.99) 09/10/2023 3:28 PM SUPERVISOR GAS METER REPAIR Body Mass Index 20.31 09/10/2023 3:28 PM SUPERVISOR GAS METER REPAIR Plan of Treatment Health Maintenance Due Date Last Done Comments RSV vaccine for adults or (1 - 1-dose 75+ series) 2020 Medicare Wellness for age 65+ 06/01/2023, 03/28/2021, 07/22/2015, Additional history exists COVID-19 vaccine series ( season) 2024 06/18/2023, 05/30/2022, 12/27/2021, Additional history exists Influenza for age 65+ 05/04/2024 06/18/2023 , 06/18/2023, 07/28/2022, Additional history exists Tetanus booster 05/27/2024 05/27/2014, 01/2008, 10/08/2007 BMI (ht and wt on same day) for age 18+ 09/10/2024 09/10/2023, 05/31/2022, 03/28/2021, Additional history exists Depression screening for age 12+ 09/13/2024 09/13/2023, 09/10/2023, 05/31/2022, Additional history exists Tdap Completed 05/27/2014 Pneumococcal series for age 50+ Completed 5, 07/20/2011 DEXA/DXA scan for age 65+ Completed 08/03/2015, Hepatitis C screening for ag e 18-79 Completed 01/06/2019 Zoster (shingles) series for age 50+ Completed 03/24/2024, 12/27/2023, 06/03/2012 Goals Goal Patient Goal Type Associated Problems Recent Progress Patient-Stated? Author BLOOD PRESSURE - MAINTAINS BP less than 140/90 Blood Pressure No Digna Barney MD Procedures Procedure Name Priority Date/Time Associated Diagnosis Comments SCAN-OPERATIVE/PROC EDURE REPORT 08/14/2024 12:00 AM SUPERVISOR GAS METER REPAIR ANTI HCV Routine 01/06/2019 3:23 PM CDT Need for hepatitis C screening test XR DXA BONE DENSITY 2 SITES AXIAL Routine 08/03/2015 3:32 PM SUPERVISOR GAS METER REPAIR Osteopenia from Last 3 Months or Most Recently Relevant to Health Maintenance Results * SCAN-OPERATIVE/PROCEDURE REPORT (08/14/2024 12:00 AM SUPERVISOR GAS METER REPAIR) us Scanner OTHER Final Result * ANTI HCV (01/06/2019 3:23 PM CDT) HEPATITIS C ANTIBODY Non-React [place] Non-React [place] 01/06/2019 8:29 PM CDT [facility] Comment:Antibodies to HCV no t detected; does not exclude the possibility of exposure to HCV. Blood BLOOD SPECIMEN / Unknown Venipuncture / Unknown 01/06/2019 3:23 PM CDT 01/06/2019 3:23 PM CDT Digna Barney MD SEND OUTS Final Result [facility] [address] [place] [address], [place] * (ABNORMAL) XR DEXA BONE DENSITY 2 SITES [63953.1] (08/03/2015 3:32 PM SUPERVISOR GAS METER REPAIR) Anatomical Region Laterality Modality Spine, HIPS, HIPL, HIPR Other Narrative 08/04/2015 8:02 AM SUPERVISOR GAS METER REPAIR Please see scanned document for results of this study. Digna Barney MD DEXA Final Result from Last 3 Months or Most Recently Relevant to Health Maintenance Insurance MEDICARE PART A HB ONLY BLUE [employer] [place] BLUE MR PB ONLY MEDICARE PART B HB ONLY [employer] [place] [place] BLUE HB ONLY Advance Directives * Full Code (Latest Code Status on File) Date Activated Date Inactivated Comments 06/23/2013 6:16 PM 07/04/2013 3:49 PM Care Teams Clay Artist Relationship Specialty Start Date End Date Candis Mars DO [address] [place] [address] PCP - General Family Practice 08/13/24
--- OUTSIDE RECORDS SUMMARY | 2024-09-03 09:45 | XMS_ITS | Continuity of Care Document ---
Author Name [facility] User [facility] Address Unknown Organization Unknown Address Unknown Procedures FILTER APPLIED:Only known Procedures with Onset Date within the last 5 years Procedure Date Procedure Provider Additional Inform ation Status CT THORAX DX C- (88529) Completed Encounters FILTER APPLIED:Only known Encounters with Admission Date within the last 5 years Encounter Location Admission Discharge Billing Code Nipping Machine Operator [facility] In[facility]
--- OUTSIDE RECORDS SUMMARY | 2024-09-03 09:46 | XMS_ITS | Encounter Summary ---
Author Organization [facility] Address [address] [place] [id number] Care Team Providers Care Ball Racker Name Role Phone Elsewhere, Pcp Primary Care Provider Unavailabl e Encounter Details Date Type Department Care Team (Late st Contact Info) Description 06/30/2024 Clinical Communication Department of Oncology in [place], [place] [address] [place] [phone] eLo Cervantes M.D., Ph.D. [address] [place] [phone] Social History Tobacco Use Types Packs/Day Years Used Date Smoking Tobacco: Former Cigarettes 1 15 0 01/31/1988 - 01/30/2003 Smokeless Tobacco: Never Alcohol Use Standard Drinks/Week Comments Yes 7 (1 standard drink = 0.6 oz pur e alcohol) [facility] Utilities Answer Date Recorded In the past 12 months has e [employer], gas, oil, or water [employer] threatened to shut off services in your home? No 07/11/2024 Humiliation, Afraid, Rape, and Kick questionnair e Answer Date Recorded Within the last year, have y ou been afraid of your partner or ex-partner? No 07/11/2024 Within the last year, have y ou been humiliated or emotionally abused in other ways by your partner or ex-partner? No Within the last year, have y ou been kicked, hit, slapped, or otherwise physically hurt by your partner or ex-partner? No 07/11/2024 Within the last year, have y ou been raped or forced to have any kind of sexual activity by your partner or ex-partner? No 07/11/2024 Exercise Vital Sign Answer Date Recorde d On average, how many days pe r week do you engage in moderate to strenuous exercise (like a brisk walk)? 2 days 06/19/2024 On average, how many minutes do you engage in exercise at this level? 20 min 06/19/2024 Hunger Vital Sign Answer Date Recorded Within the past 12 months, y ou worried that your food would run out before you got the money to buy more. Never true 07/11/20 Within the past 12 months, t he food you bought just didn't last and you didn't have money to get more. Never true 07/11/2024 PRAPARE - Transportation Answer Date Re corded In the past 12 months, has l ack of transportation kept you from medical appointments or from getting medications? No 04/2024 In the past 12 months, has l ack of transportation kept you from meetings, work, or from getting things needed for daily living? No 07/11/2024 Nutrition Answer Date Recorded On average, how many serving s of fruits and vegetables do you eat per day (serving size is equal to 1 cup or approximately the size of a tennis ball)? 3-5 06/19/2024 Dental Answer Date Recorded Dental: Regular Dentist Yes 06/19/20 Employment Answer Date Recorded Employment status Retired 06/19/2024 Housing Stability Answer Date Recorded What is your living situation today? I have a [facility] place to live 07/11/2024 Comments No Sex and Gender Information Value Date Recorded Sex Assigned at Female 01/29/2018 3:57 PM CDT Legal Sex Female 11:37 PM MILLINERY WORKER Gender Identity Female 01/29/2018 3:57 PM CDT Sexual Orientation Straight 01/29/2018 3: 57 PM CDT documented as of this encounter Plan of Treatment Upcoming Encounters Date Type Department Care Team (Latest Contact Info) Description 09/11/2024 11:30 AM MILLINERY WORKER Clinical Communication Virtual Review in [place] [address] [place] [phone] 09/15/2024 7:50 AM MILLINERY WORKER Lab Department of Laboratory Medicine and Pathology, [facility], in [place], [place] [address] [place] [phone] Alexia Aguilar APRN, C.N.P., M.S. [address] [place] [phone] 09/15/2024 9:45 AM MILLINERY WORKER Appointment Department of Radiology, [facility], in [place], [place] [address] [place] [phone] Alexia Aguilar APRN, C.N.P., M.S. [address] [place] [phone] 09/15/2024 10:30 AM MILLINERY WORKER Office Visit Department of Medical Genetics in [place], [place] [address] [place] [phone] Eddy Byrd M.D. [address] [place] [phone] Stefani Montenegro M.S., [facility] [address] [place] [phone] 09/15/2024 12:00 PM MILLINERY WORKER Appointment Department of Radiology, [facility], in [place], [place] [address] [place] [phone] Alexia Aguilar APRN, C.N.P., M.S. [address] [place] [phone] 09/16/2024 9:20 AM MILLINERY WORKER Office Visit Department of Oncology in [place], [place] [address] [place] [phone] Alexia Aguilar APRN, C.NPierce., M.S. [address] [place] [phone] 09/16/2024 11:00 AM MILLINERY WORKER Comprehensive Visit Division of Hepatobiliary and Pancreas Surgery in [place], [place] [address] [place] [phone] Asiya Catalan M.D. [address] [place] [phone] 09/17/2024 10:42 AM MILLINERY WORKER Hospital Encounter [facility] 01 4 AM ADMIT [address] [place] [phone] Asiya Catalan M.D. [address] [place] [phone] 09/17/2024 10:42 AM MILLINERY WORKER - 09/17/2024 12:22 PM MILLINERY WORKER Surgery [facility] MAIN OR [address] [place] [phone] Asiya Catalan M.D. [address] [place] [phone] LAPAROSCOPIC EXPLORATION - DIAGNOSTIC - cytology - including peritoneal CEA, CA 19-9 & KRAS 10/30/2024 2:20 PM MILLINERY WORKER Virtual Visit Division of Gastroenterology in [place], [place] [address] [place] [phone] Shira Mendiola M.B.B.S., M.S. [address] [place] [phone] Scheduled Procedures Name Priority Associated Diagnoses Date/Ti me LAPAROSCOPIC EXPLORATION - DIAGNOSTIC Malignant Neoplasm Of Pancreas Head (HCC) 09/17/2024 10:42 AM MILLINERY WORKER documented as of this encounter Visit Diagnoses Not on filedocumented in this encounter Care Teams Ball Racker Relationship Specialty Start Date End Date Elsewhere, Pcp PCP - General Internal Medicine 11/14/21 documented as of this encounter
--- OUTSIDE RECORDS SUMMARY | 2024-09-03 09:46 | XMS_ITS ---
Author Organization [facility] Address [address] [place] [address] Care Team Providers Care Corporate Sales Representative Name Role Phone Elsewhere, Pcp Primary Care Provider Unavailabl e Active Problems * This document contains information received from the source organization and may not represent a complete record from that organization. 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 on 02/13/2022 Cancer Lung Primary Personal History 08/21/2016 Cancer Staging:Clinical:Stage IIIA(T2b, N2, M0) - Signed by Alka Collier M.SSkyla, R.N., C.M.S.R.N. on 02/13/2022 Anemia 06/23/2013 Hypertension Essential Primary 06/05/2011 Hypertension Essential Primary Current Oncology Plans Gemcitabine / Paclitaxel Protein - Bound (Biweekly) (GI)* Plan Start Date: 07/02/2024 Plan Provider:Leo Cervantes M.D., Ph.D. Linked Problems Malignant Neoplasm Of Pancre as Head (HCC) Treatment Medications Current Day (Pre-T reatment Tasks - Planned for 07/02/2024) Next Day (Day 1, Cycle 1 - Planned for 07/16/2024) gemcitabine (Gemzar)gemcitabine (Gemzar) IVPB (Gemzar)PACLitaxel protein-bound (Abraxane) No medications scheduled. gemcitabine 1,600 mg in NaCl 0.9% 292.08 mL IVPB (Gemzar) Past Plans No past plan information found. Radiation Treatments * No radiation treatments are documented for this patient in [facility]. Treatments may have been administered in another system. Lifetime Dose Tracking * Chemical Lifetime Dose Automatic Entry Manual Entr y Radiation 309.12 mGy 309.12 mGy 0 mGy Fluoro Time 23.95 minutes 23.95 minutes 0 minutes Resolved Problems Problem Noted Date Diagnosed Date Resolved Date Malignant Neoplasm Of Unspec ified Part Of Lung Laterality Unknown 08/16/2016 10/06/2021
--- OUTSIDE RECORDS SUMMARY | 2024-09-03 09:46 | XMS_ITS | Clinical Summary ---
Author Organization [facility] Address [address] [place] [address] Care Team Providers Care Children'S Counselor Name Role Phone Elsewhere, Pcp Primary Care Provider Unavailabl e Source Comments Patient records contain information from all sites at [facility]. For routine questions regarding patient records, call [phone] during business hours, M-F 8:00 AM - 5:00 PM Central Time. Record requests for emergency care only can be directed to [phone] at any time.[facility] Allergies Active Allergy Reactions Criticality Noted Date Comments Amoxicillin-Pot Clavulanate Anaphylaxis High 06/10/2013 Blood-Group Specific Substance Other (see comments) High 06/30/2013 Patient has Anti-Jkb (Eagle b) and Non-specific antibodies. Blood product orders may be delayed. Penicillins Anaphylaxis High 07/25/2016 Medications * This document contains information received from the source organization and may not represent a complete record from that organization. albuterol (for_PROVENTIL HFA,VENTOLIN HFA) 90 mcg/actuation inhaler Inhale 1-2 puffs every 6 (six) hours as needed for wheezing or shortness of breath. 7 Active diphenhydrAMINE (BENADRYL) 50 mg capsule Take 50 mg by mouth daily as needed for allergies. Active hydrOXYzine (Atarax) 25 mg tablet Take 1 tablet (25 mg total) by mouth every 8 (eight) hours as needed for itching. 60 tablet 4 Active sertraline (Zoloft) 50 mg tablet Take 1 tablet (50 mg total) by mouth daily. 30 tablet 4 Active furosemide (Lasix) 20 mg tablet Take 1 tablet (20 mg total) by mouth daily. 30 tablet 5 4 Active pantoprazole (Protonix) 40 mg EC tablet Take 1 tablet (40 mg total) by mouth daily before morning meal. 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 on 02/13/2022 Cancer Lung Primary Personal History 08/21/2016 Cancer Staging:Clinical:Stage IIIA(T2b, N2, M0) - Signed by Alka Collier M.S.N., R.N., C.M.S.R.N. on 02/13/2022 Anemia 06/23/2013 Hypertension Essential Primary 06/05/2011 Hypertension Essential Primary Resolved Problems Problem Noted Date Diagnosed Date Resolved Date Malignant Neoplasm Of Unspec ified Part Of Lung Laterality Unknown 08/16/2016 10/06/2021 Encounters * This document contains information received from the source organization and may not represent a complete record from that organization. Date Type Department Care Team Description 08/21/2024 Clinical Communication Division of Hepatobiliary and Pancreas Surgery in [place], [place] [address] [place] [address] Asiya Catalan M.D. 07/15/2024 2:20 PM DIRECTOR INDEX Office Visit Division of Gastroenterology in [place], [place] [address] [place] [address] Shira Mendiola M.B.B.S., M.S. Obstruction Common Bile Duct (HCC) (Primary Dx) 07/15/2024 10:40 AM DIRECTOR INDEX Office Visit Department of Oncology in [place], [place] [address] [place] [address] Alexia Aguilar, Dandy WORRELL., M.S. Malignant Neoplasm Of Pancreas Head (HCC) (Primary Dx) 07/11/2024 Orders Only Department of Oncology in [place], [place] [address] [place] [address] Octavio Maciel M.D. 07/11/2024 Orders Only Pharmacy Prior Auth RO [phone] Riya Armijo 07/11/2024 Clinical Communication [facility] [address] [place] [phone] Benjamin Hart PPerlita.-C., M.S. 07/10/2024 Clinical Communication Division of Gastroenterology in [place], [place] [address] [place] [address] Tia Reynaga M.D. 07/09/2024 Orders Only Department of Medical Genetics in [place], [place] [address] [place] [address] Stefani Montenegro M.S., [facility] 07/07/2024 3:23 PM DIRECTOR INDEX - 07/11/2024 2:11 PM DIRECTOR INDEX Hospital Encounter [facility], [facility], Fifth Floor [address] [place] [address] Jeovany Padilla M.D. Meehan, Anne M, M.B., B.Ch., Ph.D. Ely Alves M.D., M.B.A. Jaundice (Primary Dx); Hypokalemia; Hypomagnesemia; Cancer Pancreas Primary Personal History Discharge Disposition: Home or Self Care 07/02/2024 12:59 PM CDT Anesthesia Event [facility] [address] [place] [address] Paresh Isabel APRN, CRNA, DNAP Randell Jovel M.D. 07/02/2024 12:10 PM CDT Ancillary Procedure Department of Gastroenterology 07/02/2024 11:56 AM CDT - 07/02/2024 11:59 PM CDT Hospital Encounter Department of Radiology, [facility] in [address] [phone] Katia Issa APRN, C.NPierce., M.S.N. Malignant Neoplasm Of Pancreas Head (HCC) Discharge Disposition: Home or Self Care 07/02/2024 10:04 AM CDT - 07/02/2024 3:24 PM CDT Hospital Encounter Division of Gastroenterology in [address] [address] Katia Issa APRN, Shyla.N.P., M.S.N. Paresh Isabel APRN, CRNA, DNAEmmie Malignant Neoplasm Of Pancreas Head (HCC) Discharge Disposition: Home or Self Care 07/02/2024 Orders Only Division of Hepatobiliary and Pancreas Surgery in [place], [place] [address] [place] [phone] Katia Issa APRN, C.N.P., M.S.N. 07/02/2024 Orders Only Division of Hepatobiliary and Pancreas Surgery in [place], [place] [address] [place] [phone] Katia Issa APRN, C.N.PSalo, M.S.N. Malignant Neoplasm Of Pancreas Head (HCC) (Primary Dx) 07/01/2024 4:09 PM CDT - 07/01/2024 11:59 PM CDT Hospital Encounter Department of Laboratory Medicine and Pathology, [facility], in [place], [place] [address] [place] [address] Asiya Catalan M.D. Mass Pancreas Discharge Disposition: Home or Self Care 07/01/2024 2:30 PM CDT Comprehensive Visit Division of Hepatobiliary and Pancreas Surgery in [place], [place] [address] [place] [address] Asiya Catalan M.D. Mass Pancreas (Primary Dx) 07/01/2024 8:54 AM CDT - 07/01/2024 4:08 PM CDT Hospital Encounter Department of Laboratory Medicine and Pathology, [facility], in [place], [place] [address] [place] [address] Radha Najera APRN, C.N.P., D.N.P. Anemia Discharge Disposition: Home or Self Care 07/01/2024 8:00 AM CDT Comprehensive Visit Preoperative Evaluation Center in [place], [place] [address] [place] [address] Asiya Catalan M.D. Lizbeth Guan APRN, C.N.P. Preanesthetic Medical Exam (Primary Dx); Mass Pancreas; Malignant Neoplasm Of Pancreas Head (HCC); Chronic Obstructive Pulmonary Disease (HCC); Cancer Lung Primary Personal History; Anemia; Hypertension Essential Primary; Allergy Penicillin Antibiotic Personal History 06/30/2024 Orders Only Department of Oncology in [place], [place] [address] [place] [phone] Leo Cervantes M.D., Ph.D. 06/30/2024 Clinical Communication Department of Oncology in [place], [place] [address] [place] [phone] Leo Cervantes M.D., Ph.D. 06/26/2024 11:50 AM CDT Comprehensive Visit Department of Oncology in [place], [place] [address] [place] [phone] Leo Cervantes M.D., Ph.D. Malignant Neoplasm Of Pancreas Head (HCC) (Primary Dx); Mass Pancreas 06/26/2024 Orders Only Preoperative Evaluation Center in [place], [place] [address] [place] [phone] Abdullahi Conner M.S.N., R.N. Anemia (Primary Dx) 06/26/2024 Orders Only Preoperative Evaluation Center in [place], [place] [address] [place] [phone] Bertha Norman APRN, C.NSaloPSalo Anemia (Primary Dx); Allergy Penicillin Antibiotic Personal History 06/26/2024 Clinical Communication Division of Hepatobiliary and Pancreas Surgery in [address] [phone] Asiya Catalan M.D. 06/25/2024 1:35 PM CDT Ancillary Procedure Department of Gastroenterology 06/25/2024 1:31 PM CDT Anesthesia Event Division of Gastroenterology in [address] [phone] Bridget Almonte APRN, CRNA, Aziza Aden M.D. 06/25/2024 1:30 PM CDT Ancillary Procedure Department of Gastroenterology 06/25/2024 12:22 PM CDT - 06/25/2024 11:59 PM CDT Hospital Encounter Department of Radiology, [facility] in [address] [phone] Magali Cui M.D. Mass Pancreas Discharge Disposition: Home or Self Care 06/25/2024 10:13 AM CDT - 06/25/2024 12:21 PM CDT Hospital Encounter Division of Gastroenterology in [address] [phone] Magali Cui M.D. Law, Ryan J, D.O. Ballenger, Erin R, APRN, CRNA, DNAP Mass Pancreas Discharge Disposition: Home or Self Care 06/23/2024 12:50 PM CDT - 06/23/2024 11:59 PM CDT Hospital Encounter Department of Radiology, [facility] in [place], [place] [address] [place] [address] Alexia Aguilar APRN, C.N.P., M.S. Mass Pancreas Discharge Disposition: Home or Self Care 06/20/2024 Orders Only Department of Oncology in [place], [place] [address] [place] [phone] Alexia Aguilar APRN, C.N.P., M.S. Mass Pancreas (Primary Dx) 06/19/2024 10:22 AM CDT - 06/19/2024 11:59 PM CDT Hospital Encounter Department of Laboratory Medicine and Pathology, [place], [place] [address] [place] [phone] Eddy Byrd M.D. Malignant Neoplasm Of Lung Upper Lobe Or Bronchus Left (HCC) Discharge Disposition: Home or Self Care 06/19/2024 10:00 AM CDT Comprehensive Visit Department of Medical Genetics in [place], [place] [address] [place] [phone] Magali Cui M.D. Kalscheur, Carolyn S, M.S., CGC Malignant Neoplasm Of Lung Upper Lobe Or Bronchus Left (HCC) (Primary Dx) 06/19/2024 9:30 AM CDT Comprehensive Visit Department of Medical Genetics in [place], [place] [address] [place] [phone] Magali Cui M.D. Ruchi Singh Mass Pancreas 06/19/2024 7:40 AM CDT Comprehensive Visit Division of Gastroenterology in [place], [place] [address] [place] [phone] Shira Mendiola M.B.BSaloS., M.S. Mass Pancreas (Primary Dx) 06/19/2024 Clinical Communication Department of Medical Genetics in [place], [place] [address] [place] [phone] Stefani Montenegro, M.S., CGC genetic testing 06/18/2024 11:03 AM CDT - 06/18/2024 11:59 PM CDT Hospital Encounter Department of Radiology, [facility], in [place], [place] [address] [place] [phone] Magali Cui M.D. Mass Pancreas Discharge Disposition: Home or Self Care 06/18/2024 8:44 AM CDT - 06/18/2024 11:02 AM CDT Hospital Encounter Department of Laboratory Medicine and Pathology, [facility], in [place], [place] [address] [place] [address] Magali Cui M.D. Mass Pancreas Discharge Disposition: Home or Self Care 06/12/2024 1:20 PM CDT Virtual Visit Division of Gastroenterology in [place], [place] [address] [place] [address] Rochelle Mejia R.N. Mass Pancreas 06/10/2024 Clinical Communication Division of Gastroenterology in [place], [place] [address] [place] [phone] Prescheduling, Provider 06/10/2024 Orders Only Division of Gastroenterology in [place], [place] [address] [place] [address] [facility], Provider, Mass Pancreas from Last 3 Months Immunizations Name Administration Dates Next Due H1N1 Inj 08/20/2009 HZV (ZOSTAVAX) 06/03/2012 Influenza TIV (IM) 07/08/2018, 3,06/05/2011,2006 Influenza high dose QV(65 ye ars or older) (PF) 06/23/2021,06/07/2020 PCV13 07/22/2015 PPSV23 07/20/2011 RZV (SHINGRIX) 03/13/2022(Deferred: Other - WILL GET AT A LATER TIME) Td Preservative Free (TENIVA C, DECAVAC) 10/08/2007 Tdap 05/27/2014 influenza trivalent high dos e (HD)(PF) 05/12/2019,07/08/2018,06/25/2017,2016,06/06/2016,07/07/2015,06/03/2015,0 05/27/2014 Family History Medical History Relation Name Comments Lung cancer Maternal Cousin 1 Non-smoker Brain cancer Maternal Cousin 2 Lung cancer Mother Tobacco use, Me ts to bone and brain Breast cancer Paternal Grandmother Relation Name Status Comments Brother Alive Hx of prostate issues a while back Daughter 1 Alive Daughter 2 Alive Father (Age 50s) d. accide nt Father's Brother Alive Limited inf ormation Grandchild Alive THREE Grandson Alive Maternal Cousin 1 (Age 70) Maternal Cousin 2 (Age 60s) Maternal Cousin 3 Alive Maternal Grandfather Maternal Grandmother Mother (Age 62) d. cancer Mother's Brother Mother's Sister Niece/Nephew Alive TWO Paternal Cousin 1 Alive Paternal Cousin 2 Alive Paternal Grandfather d. alco holism Paternal Grandmother (Age 80s) d . other concerns Social History Tobacco Use Types Packs/Day Years Used Date Smoking Tobacco: Former Cigarettes 1 15 0 01/31/1988 - 01/30/2003 Smokeless Tobacco: Never Alcohol Use Standard Drinks/Week Comments Not Currently 7 (1 standard drink = 0.6 oz pur e alcohol) [facility] Utilities Answer Date Recorded In the past 12 months has [facility] waygum, gas, oil, or water [employer] threatened to shut off services in your [...] money to buy more. Never true 07/11/20 24 Within the past 12 months, t he [...] your living situation today? I have a [facility] place to live 07/11/2024 Comments No Sex and Gender Information Value Date Recorded Sex Assigned at Female 01/29/2018 3:57 PM CDT Legal Sex Female 11:37 PM DIRECTOR INDEX Gender Identity Female 01/29/2018 3:57 PM CDT Sexual Orientation Straight 01/29/2018 3: 57 PM CDT Last Filed Vital Signs Vital Sign Reading Time Taken Comments Blood Pressure 92/67 07/11/2024 1:46 PM DIRECTOR INDEX Pulse 67 07/11/2024 1:46 PM DIRECTOR INDEX Temperature 36.5 C (97.7 F) 07/11/2024 1:46 PM DIRECTOR INDEX Respiratory Rate 19 07/11/2024 1:46 PM DIRECTOR INDEX Oxygen Saturation 97% 07/11/2024 1:46 PM DIRECTOR INDEX Inhaled Oxygen Concentration - - Weight 54.4 kg (119 lb 14.9 oz) 07/11/2024 3:38 AM DIRECTOR INDEX Height 154 cm (5' 0.63) 07/08/2024 3:57 PM DIRECTOR INDEX Body Mass Index 22.94 07/08/2024 3:57 PM DIRECTOR INDEX Plan of Treatment Upcoming Encounters Date Type Department Care Team (Latest Contact Info) Description 09/11/2024 11:30 AM DIRECTOR INDEX Clinical Communication Virtual Review in [place], [place] [address] [place] [address] 09/15/2024 7:50 AM DIRECTOR INDEX Lab Department of Laboratory Medicine and Pathology, [facility], in [place], [place] [address] [place] [address] Alexia Aguilar APRN, C.N.P., M.S. [address] [place] [phone] 09/15/2024 9:45 AM DIRECTOR INDEX Appointment Department of Radiology, [facility], in [place], [place] [address] [place] [address] Alexia Aguilar APRN, C.N.P., M.S. [address] [place] [phone] 09/15/2024 10:30 AM DIRECTOR INDEX Office Visit Department of Medical Genetics in [place], [place] [address] [place] [address] Eddy Byrd M.D. [address] [place] [phone] Stefani Montenegro M.S., [facility] [address] [place] [phone] 09/15/2024 12:00 PM DIRECTOR INDEX Appointment Department of Radiology, [facility], in [place], [place] [address] [place] [address] Alexia Aguilar APRN, C.N.P., M.S. [address] [place] [phone] 09/16/2024 9:20 AM DIRECTOR INDEX Office Visit Department of Oncology in [place], [place] [address] [place] [address] Alexia Aguilar APRN, C.N.P., M.S. [address] [place] [phone] 09/16/2024 11:00 AM DIRECTOR INDEX Comprehensive Visit Division of Hepatobiliary and Pancreas Surgery in [place], [place] [address] [place] [address] Asiya Catalan M.D. [address] [place] [phone] 09/17/2024 10:42 AM DIRECTOR INDEX Hospital Encounter [facility] 01 4 AM ADMIT [address] [place] [phone] Asiya Catalan M.D. [address] [place] [phone] 09/17/2024 10:42 AM DIRECTOR INDEX - 09/17/2024 12:22 PM DIRECTOR INDEX Surgery [facility] [address] [place] [address] Asiya Catalan M.D. [address] [place] [phone] LAPAROSCOPIC EXPLORATION - DIAGNOSTIC - cytology - including peritoneal CEA, CA 19-9 & KRAS 10/30/2024 2:20 PM DIRECTOR INDEX Virtual Visit Division of Gastroenterology in [place], [place] [address] [place] [phone] Shira Mendiola M.B.B.S., M.S. [address] [place] [phone] Scheduled Procedures Name Priority Associated Diagnoses Date/Ti me LAPAROSCOPIC EXPLORATION - DIAGNOSTIC Malignant Neoplasm Of Pancreas Head (HCC) 09/17/2024 10:42 AM DIRECTOR INDEX Health Maintenance Due Date Last Done Comments Hepatitis C Screening 1945 RSV vaccine - (32-36 weeks) or 60+ years (1 - 1-dose 75+ series) 2020 Depression Screening (Annual PHQ-2) 09/03/2023 COVID-19 Vaccine ( season) 2024 06/18/2023, 05/30/2022, 12/27/2021, Additional history exists DTaP,Tdap,and Td Vaccines (2 - Td or Tdap) 05/27/2024 05/27/2014, 10/08/2007 Influenza Vaccine (#1) 2024 , 07/28/2022, 06/23/2021, Additional history exists Office Visit for Blood Pressure Check / Re-check 07/01/2025 07/01/2024 Creatinine Level (Kidney Function Test) 07/15/2025 07/15/2024, 07/11/2024, 07/10/2024, Additional history exists Potassium Level 07/15/2025 07/15/2024, 11/0 04/2024, 07/10/2024, Additional history exists Sodium Level 07/15/2025 07/15/2024, 11/0 04/2024, 07/10/2024, Additional history exists Pneumococcal vaccine (50+ years) Completed 07/22/2015, 07/20/2011 Bone Density Scan (Osteoporosis Screen) Discontinued 08/03/2015 Mammogram Discontinued 03/14/2022, 11/02, 03/28/2021, Additional history exists Zoster Vaccines Completed 03/24/2024, 12/03, 06/03/2012 Fall Risk Screen (Annual) Completed 07/02/2024 IPV Vaccines Aged Out No longer eligi ble based on patient's age to complete this topic Medical Devices Implanted Type Area Software Technician Device Identifier Shelf Expiration Date Model / Serial / Lot Stnt Phuc Vbl Shrt Wr 10x40 - [id number] Implanted:Qty : 1 on 07/02/2024 by Sonu Correa M.D. at [facility] Biliary Stent N/A: Bile Duct [place] [id number] / / Stneileen Zmm Otw 7x7 - [id number] Implanted:Qty : 1 on 07/02/2024 by Sonu Correa M.D. at [facility] Biliary Stent N/A: Bile Duct [employer] 12/30/2026 [id number] / / [id number] Breast Implant Breast Implant Bilateral : Breast Explanted Type Area Software Technician Device Identifier Shelf Expiration Date Model / Serial / Lot Stnt Phuc Vbl Shrt Wr 10x40 - [id number] - [id number] Implanted:Qty: 1 on 06/25/2024 by Leo Rockwell D.O. at [facility] Dial/Gonda Explanted:Qty: 1 on 07/02/2024 by Sonu Correa M.D. at [facility] Biliary Stent [place] 04/06/2027 [id number] / [id number] / Procedures Procedure Name Priority Date/Time Associated Diagnosis Comments PROTHROMBIN TIME (PT), P Routine 07/15/2024 11:49 AM DIRECTOR INDEX Jaundice COMPREHENSIVE METABOLIC PANEL, S/P Routine 07/15/2024 11:49 AM DIRECTOR INDEX Jaundice COMPREHENSIVE METABOLIC PANEL, S/P Timed 07/11/2024 8:06 AM DIRECTOR INDEX CBC NO CALL BACK, REFLEX T/S Timed 07/11/2024 8:06 AM DIRECTOR INDEX DX CHEST AP OR PA AND LATERAL 2 VIEWS RAD - Emergent (Fastest; for the most critically ill patients) 07/11/2024 3:34 AM DIRECTOR INDEX DX CHEST PORTABLE 1 VIEW RAD - Semiurgent (Fast; most ED patients; some inpatients) 07/11/2024 1:25 AM DIRECTOR INDEX CBC NO CALL BACK, REFLEX T/S Routine 07/10/2024 12:17 AM DIRECTOR INDEX COMPREHENSIVE METABOLIC PANEL, S/P Routine 07/10/2024 12:17 AM DIRECTOR INDEX LACTATE DEHYDROGENASE (LD), S Routine 07/10/2024 12:17 AM DIRECTOR INDEX TRANSFUSE RED BLOOD CELLS Routine 07/09/2024 8:38 PM DIRECTOR INDEX PREPARE RED BLOOD CELLS Routine 07/09/2024 3:37 PM DIRECTOR INDEX ANTIBODY IDENTIFICATION STAT 07/09/2024 3:37 PM DIRECTOR INDEX TYPE AND SCREEN STAT 07/09/2024 3:37 PM DIRECTOR INDEX MR ABDOMEN MRCP WITHOUT AND WITH IV CONTRAST RAD - Routine (most inpatients and all outpatients) 07/09/2024 2:04 PM DIRECTOR INDEX MAGNESIUM, S Routine 07/09/2024 11:22 AM DIRECTOR INDEX PHOSPHORUS (INORGANIC), S Routine 07/09/2024 11:22 AM DIRECTOR INDEX CBC NO CALL BACK, REFLEX T/S Routine 07/09/2024 11:22 AM DIRECTOR INDEX COMPREHENSIVE METABOLIC PANEL, S/P Routine 07/09/2024 11:22 AM DIRECTOR INDEX US THORACENTESIS LEFT WITH IMAGING GUIDANCE RAD - Routine (most inpatients and all outpatients) 07/08/2024 11:17 AM DIRECTOR INDEX CYTOLOGY NON-EVENT HOST Timed 07/08/2024 10:54 AM DIRECTOR INDEX Jaundice Hypokalemia Hypomagnesemia Cancer Pancreas Primary Personal History CELL COUNT AND DIFFERENTIAL, BF Timed 07/08/2024 10:54 AM DIRECTOR INDEX Jaundice Hypokalemia Hypomagnesemia Cancer Pancreas Primary Personal History PROTEIN, TOTAL, BF Timed 07/08/2024 10:54 AM DIRECTOR INDEX Jaundice Hypokalemia Hypomagnesemia Cancer Pancreas Primary Personal History LACTATE DEHYDROGENASE (LD), BF Timed 07/08/2024 10:54 AM DIRECTOR INDEX Jaundice Hypokalemia Hypomagnesemia Cancer Pancreas Primary Personal History BACTERIAL CULTURE, AEROBIC + SUSC Timed 07/08/2024 10:54 AM DIRECTOR INDEX Jaundice Hypokalemia Hypomagnesemia Cancer Pancreas Primary Personal History GRAM STAIN Timed 07/08/2024 10:54 AM DIRECTOR INDEX Jaundice Hypokalemia Hypomagnesemia Cancer Pancreas Primary Personal History PROTHROMBIN TIME (PT), P STAT 07/08/2024 10:13 AM DIRECTOR INDEX (TTE) 2D ECHO DOPPLER COLOR Routine 07/08/2024 9:40 AM DIRECTOR INDEX PROCALCITONIN, S STAT 07/08/2024 12:53 AM DIRECTOR INDEX NT-PRO B-TYPE NATRIURETIC PEPTIDE (BNP), S Routine 07/08/2024 12:53 AM DIRECTOR INDEX POTASSIUM, S/P STAT 07/08/2024 12:53 AM DIRECTOR INDEX CORTISOL, FREE AND TOTAL Routine 07/08/2024 12:53 AM DIRECTOR INDEX ACTH, P Routine 07/08/2024 12:53 AM DIRECTOR INDEX MAGNESIUM, S Routine 07/08/2024 12:53 AM DIRECTOR INDEX CBC WITH DIFFERENTIAL, B Routine 07/08/2024 12:53 AM DIRECTOR INDEX COMPREHENSIVE METABOLIC PANEL, S/P Routine 07/08/2024 12:53 AM DIRECTOR INDEX POTASSIUM, S/P STAT 07/07/2024 8:03 PM DIRECTOR INDEX DIPSTICK, U STAT 07/07/2024 5:11 PM DIRECTOR INDEX HC OSMOLALITY ASSAY URINE STAT 07/07/2024 5:11 PM DIRECTOR INDEX MICROSCOPIC MANUAL STAT 07/07/2024 5: 11 PM DIRECTOR INDEX PH, RANDOM, U STAT 07/07/2024 5:11 PM DIRECTOR INDEX URINALYSIS WITH MICROSCOPIC STAT 07/07/2024 5:11 PM DIRECTOR INDEX BACTERIAL CULTURE, AEROBIC + SUSC, URINE STAT 07/07/2024 5:11 PM DIRECTOR INDEX HEPATIC FUNCTION PANEL, S STAT 07/07/2024 4:52 PM DIRECTOR INDEX DX CHEST PORTABLE 1 VIEW RAD - Semiurgent (Fast; most ED patients; some inpatients) 07/07/2024 4:20 PM DIRECTOR INDEX VBG & LYTES CG8+, POCT, B STAT 07/07/2024 3:44 PM DIRECTOR INDEX GLUCOSE POCT, B STAT 07/07/2024 3:44 PM DIRECTOR INDEX MAGNESIUM, S STAT 07/07/2024 3:44 PM DIRECTOR INDEX CBC WITH DIFFERENTIAL, B STAT 07/07/2024 3:44 PM DIRECTOR INDEX BASIC METABOLIC PANEL, S/P STAT 07/07/2024 3:44 PM DIRECTOR INDEX ECG STAT 07/07/2024 3:33 PM DIRECTOR INDEX FL FLUORO LESS THAN 1 HOUR RAD - Routine (most inpatients and all outpatients) 07/02/2024 1:48 PM CDT Malignant Neoplasm Of Pancreas Head (HCC) LDA ANE ENDOTRACHEAL AIRWAY Routine 07/02/2024 1:08 PM CDT GASTROENTEROLOGY IMAGE EXAM Routine 07/02/2024 12:10 PM CDT ERCP Routine 07/02/2024 12:07 PM CDT Malignant Neoplasm Of Pancreas Head (HCC) ERCP Routine 07/02/2024 12:07 PM CDT Malignant Neoplasm Of Pancreas Head (HCC) PROTHROMBIN TIME (PT), P Routine 07/01/2024 4:22 PM CDT Mass Pancreas HEPATIC FUNCTION PANEL, S Routine 07/01/2024 4:22 PM CDT Mass Pancreas RETICULOCYTE PROFILE, B Routine 07/01/2024 9:07 AM CDT IRON AND TOT IRON-BINDING CAPACITY, S/P Routine 07/01/2024 9:07 AM CDT FERRITIN, S Routine 07/01/2024 9:07 AM CDT C-REACTIVE PROTEIN (CRP), S/P Routine 07/01/2024 9:07 AM CDT CBC-PREOP WITH REFLEX ANEMIA PANEL Routine 07/01/2024 9:07 AM CDT Anemia FL FLUORO LESS THAN 1 HOUR RAD - Routine (most inpatients and all outpatients) 06/25/2024 2:56 PM CDT Mass Pancreas CYTOLOGY FINE NEEDLE ASPIRATION (INCLUDES CORE BIOPSIES Routine 06/25/2024 2:10 PM CDT LDA ANE ENDOTRACHEAL AIRWAY Routine 06/25/2024 1:39 PM CDT GASTROENTEROLOGY IMAGE EXAM Routine 06/25/2024 1:35 PM CDT ERCP Routine 06/25/2024 1:30 PM CDT Mass Pancreas ERCP Routine 06/25/2024 1:30 PM CDT Mass Pancreas UPPER EUS Routine 06/25/2024 1:30 PM CDT Mass Pancreas ENDOSCOPIC ULTRASOUND (EUS) Routine 06/25/2024 1:30 PM CDT Mass Pancreas GASTROENTEROLOGY IMAGE EXAM Routine 06/25/2024 1:30 PM CDT MMR PROTEIN, IHC ONLY, TUMOR Routine 06/25/2024 10:[address] SKULL TO THIGH RAD - Routine (most inpatients and all outpatients) 06/23/2024 3:29 PM CDT Mass Pancreas MISC AMBRY GENETICS Routine 06/19/2024 10:[address] ABDOMEN PELVIS WITH IV CONTRAST RAD - Routine (most inpatients and all outpatients) 06/18/2024 12:17 PM CDT Mass Pancreas CT CHEST WITH IV CONTRAST RAD - Routine (most inpatients and all outpatients) 06/18/2024 12:17 PM CDT Mass Pancreas PROTHROMBIN TIME (PT), P Routine 06/18/2024 9:05 AM CDT Mass Pancreas COMPREHENSIVE METABOLIC PANEL, S/P Routine 06/18/2024 9:05 AM CDT Mass Pancreas CBC WITH DIFFERENTIAL, B Routine 06/18/2024 9:05 AM CDT Mass Pancreas CARBOHYDRATE AG 19-9 (CA 19-9), S Routine 06/18/2024 9:05 AM CDT Mass Pancreas PREALBUMIN (PAB), S Routine 06/18/2024 9 :05 AM CDT Mass Pancreas HEMOGLOBIN A1C, B Routine 06/18/2024 9:0 5 AM CDT Mass Pancreas CFDNA KRAS 12, 13, 61, 146 BLOOD Routine 06/18/2024 9:05 AM CDT Mass Pancreas BILIRUBIN DIRECT, S/P Routine 06/18/2024 9:05 AM CDT Mass Pancreas OUTSIDE CT BODY Routine 06/09/2024 4:30 PM CDT MR BREAST BILATERAL WITHOUT AND WITH IV CONTRAST RAD - Routine (most inpatients and all outpatients) 03/14/2022 9:00 AM CDT Rupture Breast Implant Subsequent Lump In The Left Breast Unspecified Quadrant from Last 3 Months or Most Recently Relevant to Health Maintenance Results * Prothrombin Time (PT) (07/15/2024 11:49 AM DIRECTOR INDEX) Only the most recent of4 resultswithin the time period is included. Prothrombin Time, P 11.2 9.4 - 12.5 sec 07/15/2024 12:03 PM DIRECTOR INDEX METH INR 1.0 0.9 - 1.1 07/15/2024 12:03 PM DIRECTOR INDEX METH Comment: ----ADDITIONAL INFORMATION---- Standard intensity warfarin therapeutic range: 2.0 to 3.0 High intensity warfarin therapeutic range: 2.5 to 3.5 Blood (Blood, Venous) 07/15/2024 11:49 AM DIRECTOR INDEX 07/15/2024 11:55 AM DIRECTOR INDEX Benjamin Hart P.A.-C., M.S. LAB BLOOD ADD-ON Fin al Result [facility] [address] [place] [address], [facility] METH [facility] [address] [place] [address] * (ABNORMAL) Comprehensive Metabolic Panel (07/15/2024 11:49 AM DIRECTOR INDEX) Only the most recent of6 resultswithin the time period is included. Potassium, S 3.6 3.6 - 5.2 mmol/L 07/15/2024 12:40 PM DIRECTOR INDEX DTL Sodium, S 141 135 - 145 mmol/L 07/15/2024 12:40 PM DIRECTOR INDEX DTL Chloride, S 107 98 - 107 mmol/L 07/15/2024 12:40 PM DIRECTOR INDEX DTL Bicarbonate, S 22 22 - 29 mmol/L 07/15/2024 12:40 PM DIRECTOR INDEX DTL Anion Gap 12 7 - 15 07/15/2024 12:40 PM DIRECTOR INDEX DTL BUN (Blood Urea Nitrogen), S 19 6 - 21 mg/dL 07/15/2024 12:40 PM DIRECTOR INDEX DTL Creatinine 0.76 0.59 - 1.04 mg/dL 07/15/2024 12:40 PM DIRECTOR INDEX DTL Estimated GFR (eGFR) 80 >=60 mL/min/BS A 07/15/2024 12:40 PM DIRECTOR INDEX DTL Comment: Estimated GFR calculated using the 2020 CKD_EPI creatinine equation. Calcium, Total, S 8.6(L) 8.8 - 10.2 mg/dL 07/15/2024 12:40 PM DIRECTOR INDEX DTL Glucose, S 104 70 - 140 mg/dL 07/15/2024 12:40 PM DIRECTOR INDEX DTL Protein, Total, S 5.6(L) 6.3 - 7.9 g/dL 07/15/2024 12:40 PM DIRECTOR INDEX DTL Albumin, S 3.5 3.5 - 5.0 g/dL 07/15/2024 12:40 PM DIRECTOR INDEX DTL Aspartate Aminotransferase (AST), S 34 8 - 43 U/L 07/15/2024 12:40 PM DIRECTOR INDEX DTL Alkaline Phosphatase, S 506(H) 35 - 104 U/L 07/15/2024 12:40 PM DIRECTOR INDEX DTL Alanine Aminotransferase (ALT), S 16 7 - 45 U/L 07/15/2024 12:40 PM DIRECTOR INDEX DTL Bilirubin, Total, S 12.1(H) 0.0 - 1.2 mg/dL 07/15/2024 12:40 PM DIRECTOR INDEX DTL Blood (Blood, Venous) 07/15/2024 11:49 AM DIRECTOR INDEX 07/15/2024 12:22 PM DIRECTOR INDEX Benjamin Hart P.A.-C., M.S. LAB BLOOD ADD-ON Fin al Result [facility] [address] [place] [address], [facility] [address] [place] [address] * (ABNORMAL) CBC no call back, reflex T/S HGB <8 (07/11/2024 8:06 AM DIRECTOR INDEX) Only the most recent of3 resultswithin the time period is included. Hemoglobin 8.0(L) 11.6 - 15.0 g/dL 07/11/2024 8:38 AM DIRECTOR INDEX DTL Hematocrit 23.6(L) 35.5 - 44.9 % 07/11/2024 8:38 AM DIRECTOR INDEX DTL Erythrocytes 2.81(L) 3.92 - 5.13 x10(12)/L 07/11/2024 8:38 AM DIRECTOR INDEX DTL MCV 84.0 78.2 - 97.9 fL 07/11/2024 8:38 AM DIRECTOR INDEX DTL RBC Distrib Width 18.7(H) 12.2 - 16.1 % 07/11/2024 8:38 AM DIRECTOR INDEX DTL Platelet Count 341 157 - 371 x10(9)/L 07/11/2024 8:38 AM DIRECTOR INDEX DTL Leukocytes 8.7 3.4 - 9.6 x10(9)/L 07/11/2024 8:38 AM DIRECTOR INDEX DTL Neutrophils 6.92(H) 1.56 - 6.45 x10(9)/L 07/11/2024 8:38 AM DIRECTOR INDEX DHPM Lymphocytes 0.64(L) 0.95 - 3.07 x10(9)/L 07/11/2024 8:38 AM DIRECTOR INDEX DTL Monocytes 1.01(H) 0.26 - 0.81 x10(9)/L 07/11/2024 8:38 AM DIRECTOR INDEX DTL Eosinophils 0.10 0.03 - 0.48 x10(9)/L 07/11/2024 8:38 AM DIRECTOR INDEX DTL Basophils 0.04 0.01 - 0.08 x10(9)/L 07/11/2024 8:38 AM DIRECTOR INDEX DTL Blood (Blood, Venous) 07/11/2024 8:06 AM DIRECTOR INDEX 07/11/2024 8:22 AM DIRECTOR INDEX Benjamin Hart P.A.-C., M.S. LAB BLOOD NON ADD-ON Final Result [facility] [address] [place] [address], [facility] DTL [facility] [address] [place] [address] DHPM [facility] [address] [place] [address] * DX Chest AP or PA and Lateral 2 Views (07/11/2024 3:34 AM DIRECTOR INDEX) Anatomical Region Laterality Modality Chest, Thoracic RST LOS, Tho racic ARZ LOS, Thoracic FLA LOS N/A Digital Radiography Impressions 07/11/2024 9:36 AM DIRECTOR INDEX Since earlier today, resolved apparent widening of the superior mediastinum, which was likely positional. Remainder relatively unchanged. Moderate layering left pleural effusion with compressive atelectasis. Superimposed consolidation cannot entirely be excluded. Postoperative changes left midlung. Right lung apex postradiation fibrosis. Calcified and tortuous aorta. Cardiac silhouette is obscured. Bilateral breast implants with peripheral calcifications. Upper abdominal embolization coils and stent. Narrative 07/11/2024 9:36 AM DIRECTOR INDEX EXAM: DX CHEST AP OR PA AND LATERAL 2 VIEWS Procedure Note Linda Vital M.D. - 07/11/2024 EXAM: DX CHEST AP OR PA AND LATERAL 2 VIEWS IMPRESSION: Since earlier today, resolved apparent widening of the superiormediastinum, which was likely positional. Remainder relatively unchanged.Moderate layering left pleural effusion with compressive atelectasis.Superimposed consolidation cannot entirely be excluded. Postoperative changes left midlung. Right lung apexpostradiation fibrosis. Calcified and tortuous aorta. Cardiac silhouetteis obscured. Bilateral breast implants with peripheral calcifications.Upper abdominal embolization coils and stent. Hayley Christianson M.D. IMMaru DIAGNOSTIC IMAGIN G PROCEDURES Final Result * DX Chest Portable 1 View (07/11/2024 1:25 AM DIRECTOR INDEX) Only the most recent of2 resultswithin the time period is included. Anatomical Region Laterality Modality Chest, Thoracic RST LOS, Tho racic ARZ LOS, Thoracic FLA LOS N/A Digital Radiography Impressions 07/11/2024 9:52 AM DIRECTOR INDEX Since 07/07/2024, mild relative widening of the upper mediastinum is indeterminate and may be related to position versus pulmonary vascular congestion, among other entities. Remainder relatively unchanged. Moderate layering left pleural effusion with compressive atelectasis. Superimposed consolidation cannot entirely be excluded. Postoperative changes left midlung. Right apex postradiation fibrosis. Cardiac silhouette is obscured. Aortic calcifications. Bilateral breast implants with peripheral calcifications. Narrative 07/11/2024 9:52 AM DIRECTOR INDEX EXAM: DX CHEST PORTABLE 1 VIEW Procedure Note Linda Vital M.D. - 07/11/2024 EXAM: DX CHEST PORTABLE 1 VIEW IMPRESSION: Since 07/07/2024, mild relative widening of the upper mediastinum isindeterminate and may be related to position versus pulmonary vascularcongestion, among other entities. Remainder relatively unchanged. Moderatelayering left pleural effusion with compressive atelectasis. Superimposed consolidation cannotentirely be excluded. Postoperative changes left midlung. Right apexpostradiation fibrosis. Cardiac silhouette is obscured. Aorticcalcifications. Bilateral breast implants with peripheral calcifications. Hayley Christianson M.D. IMG DIAGNOSTIC IMAGIN G PROCEDURES Final Result * LD (Lactate Dehydrogenase) (07/10/2024 12:17 AM DIRECTOR INDEX) [facility] LD 208 122 - 222 U/L 07/10/2024 1:16 AM DIRECTOR INDEX DTL Blood (Blood, Venous) 07/10/2024 12:17 AM DIRECTOR INDEX 07/10/2024 1:00 AM DIRECTOR INDEX Benjamin Hart P.A.-C., M.S. LAB BLOOD NON ADD-ON Final Result [facility] [address] [place] [address], [facility] [address] [place] [address] * Transfuse Red Blood Cells : (07/09/2024 10:48 PM DIRECTOR INDEX) Benjamin Hart P.A.-C., M.S. BLOOD TRANSFUSION OR DERABLES Final Result * Antibody Identification, Erythrocytes (07/09/2024 3:37 PM DIRECTOR INDEX) [facility] Antibody Identification Anti-Jkb, Anti-K 07/09/2024 8:26 PM DIRECTOR INDEX DT 07/09/2024 3:37 PM DIRECTOR INDEX 07/09/2024 3:48 PM DIRECTOR INDEX Narrative [facility] - 07/09/2024 8:26 PM DIRECTOR INDEX Specimen Information: Specimen ID: [id number] Specimen Collection Start Date: 07/09/2024 3:37 PM Specimen Received Date: 07/09/2024 3:48 PM Specimen ID: [id number] Specimen Collection Start Date: 07/09/2024 3:37 PM Specimen Received Date: 07/09/2024 3:48 PM Benjamin Hart P.A.-C., M.S. LAB BLOOD BANK TEST ORDERABLES Final Result Performing Organization Address City/[facility]/ZIP Co de Phone Number [facility] [address] [place] [address], [facility] DTL [facility] [address] [place] [address] * Type and Screen (with Reflex Antibody ID) (07/09/2024 3:37 PM DIRECTOR INDEX) ABORh O Neg Not applicable 07/09/2024 4:50 PM DIRECTOR INDEX ETRM Antibody Screen Positive Negative 07/09/2024 5:26 PM DIRECTOR INDEX ETRM Type & Screen Expiration 07/12/2024 23:59 07/09/2024 4:50 PM DIRECTOR INDEX ETRM Testing Location [place] 07/09/2024 3:48 PM DIRECTOR INDEX ETRM Blood 07/09/2024 3:37 PM DIRECTOR INDEX 07/09/2024 3:48 PM DIRECTOR INDEX Benjamin Hart P.A.-C., M.S. LAB BLOOD BANK TEST ORDERABLES Final Result [facility] [address] [place] [address], [facility] ETRM [facility] [address] [place] [address] * MR Abdomen MRCP without and with IV Contrast (07/09/2024 2:04 PM DIRECTOR INDEX) Anatomical Region Laterality Modality Abdomen, Abdominal RST LOS, Abdominal ARZ LOS, Abdominal FLA LOS N/A Magnetic Resonance Impressions 07/09/2024 3:14 PM DIRECTOR INDEX 1. Redemonstrated is mass in the pancreatic uncinate process measuring up to 24 mm, consistent with pancreatic ductal adenocarcinoma. Abutment of the superior mesenteric artery and vein: Not significantly changed since 06/18/2024. 2. Interval placement of common bile duct stent with resolution of intrahepatic and extra hepatic biliary dilatation. Soft tissue extends into the distal aspect of the stent with near occlusion. 3. No evidence of metastatic disease in the abdomen. Narrative 07/09/2024 3:14 PM DIRECTOR INDEX EXAM: MR ABDOMEN MRCP WITHOUT AND WITH IV CONTRAST 3D maximum intensity projections/volume renderings were created on an independent workstation with or without AI assistance as ordered by the treating provider and reviewed by the radiologist for biliary and pancreatic duct visualization. COMPARISON: FDG PET/CT 06/23/[address] abdomen 06/18/2024. FINDINGS: Mass in the uncinate process of the pancreas measuring 22 x 24 x 10 mm (series 12, image 213/series 13, image 70) Associated obstructive atrophy of the pancreas with dilatation of the pancreatic duct. Interval placement of common bile duct stent with resolution of intrahepatic and extra hepatic bile duct dilatation appreciated on 06/23/2024. Soft tissue extends into the distal aspect of the stent with near occlusion. Local staging is best performed on dedicated CT pancreas. Solid soft-tissue abuts the superior mesenteric vein. This remains widely patent. Soft tissue extends the 1st branch. Subtle abutment of the superior mesenteric artery is best appreciated on CT 06/18/2024. No definite abutment of the portal vein. 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 No solid soft tissue tumor abutment of any artery. No abdominal lymphadenopathy. No peritoneal nodularity or thickening in the abdomen. No ascites. No suspicious hepatic lesions. Cyst in the right liver. The spleen, adrenals are negative. Bilateral renal cysts. No suspicious osseous lesions. Procedure Note Gage Bowen M.B., B.Ch., B.A.O. - 07/09/2024 EXAM: MR ABDOMEN MRCP WITHOUT AND WITH IV CONTRAST 3D maximum intensity projections/volume renderings were created on anindependent workstation with or without AI assistance as ordered by thetreating provider and reviewed by the radiologist for biliary andpancreatic duct visualization. COMPARISON: FDG PET/CT 06/23/[address] abdomen 06/18/2024. FINDINGS: Mass in the uncinate process of the pancreas measuring 22 x 24 x 10 mm(series 12, image 213/series 13, image 70) Associated obstructive atrophy of the pancreas with dilatation of thepancreatic duct. Interval placement of common bile duct stent with resolution ofintrahepatic and extra hepatic bile duct dilatation appreciated on06/23/2024. Soft tissue extends into the distal aspect of the stent withnear occlusion. Local staging is best performed on dedicated CT pancreas. Solid soft-tissue abuts the superior mesenteric vein. This remains widelypatent. Soft tissue extends the 1st branch. Subtle abutment of the superior mesenteric artery is best appreciated onCT 06/18/2024. No definite abutment of the portal vein. 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 Nosolid soft tissue tumor abutment of any artery. No abdominal lymphadenopathy. No peritoneal nodularity or thickening in the abdomen. No ascites. No suspicious hepatic lesions. Cyst in the right liver. The spleen,adrenals are negative. Bilateral renal cysts. No suspicious osseous lesions. IMPRESSION: 1. Redemonstrated is mass in the pancreatic uncinate process measuring upto 24 mm, consistent with pancreatic ductal adenocarcinoma. Abutment ofthe superior mesenteric artery and vein: Not significantly changed since06/18/2024. 2. Interval placement of common bile duct stent with resolution ofintrahepatic and extra hepatic biliary dilatation. Soft tissue extendsinto the distal aspect of the stent with near occlusion. 3. No evidence of metastatic disease in the abdomen. Benjamin Hart P.A.-C., M.S. IMG MRI PROCEDURES F inal Result * Phosphorus Inorganic (07/09/2024 11:22 AM DIRECTOR INDEX) Phosphorus (Inorganic), S 3.5 2.5 - 4.5 mg/dL 07/09/2024 12:14 PM DIRECTOR INDEX DTL Blood (Blood, Venous) 07/09/2024 11:22 AM DIRECTOR INDEX 07/09/2024 11:52 AM DIRECTOR INDEX Benjamin Hart P.A.-C., M.S. LAB BLOOD ADD-ON Fin al Result Performing Organization Address City/[facility] Co de Phone Number [facility] [address] [place] [address] * Magnesium (07/09/2024 11:22 AM DIRECTOR INDEX) Only the most recent of3 resultswithin the time period is included. Magnesium, S 1.9 1.7 - 2.3 mg/dL 07/09/2024 12:14 PM DIRECTOR INDEX DTL Blood (Blood, Venous) 07/09/2024 11:22 AM DIRECTOR INDEX 07/09/2024 11:52 AM DIRECTOR INDEX us Benjamin Hart P.A.-C., M.S. LAB BLOOD ADD-ON Fin al Result Performing Organization Address [facility] Co de Phone Number [facility] [address] [place] [address] * US Thoracentesis Left with Imaging Guidance (07/08/2024 11:17 AM DIRECTOR INDEX) Anatomical Region Laterality Modality Chest, Ultrasound RST LOS, U ltrasound ARZ LOS, Procedure FLA LOS, Abdominal FLA LOS, Procedural, Procedural NWWI LOS Left Ultrasound Impressions 07/08/2024 11:43 AM DIRECTOR INDEX Ultrasound-guided left pleural space thoracentesis. EP Narrative 07/08/2024 11:43 AM DIRECTOR INDEX EXAM: US THORACENTESIS LEFT WITH IMAGING GUIDANCE PRE-PROCEDURE: Patient seen and evaluated. Allergies, pertinent medications, and history reviewed. Discussed risks, benefits, alternatives for procedure, and obtained informed consent. Patient understands information and questions answered. Immediately prior to starting the procedure, in the presence of the assisting personnel, procedural pause was conducted to verify correct patient identity and verification of procedure to be performed, and as applicable, correct side and site, correct patient position, availability of implants, special equipment, or special requirements, and all image and specimen identification data. The roles and responsibilities of care team members, residents, and fellows were discussed. TECHNIQUE: Sterile. 1% lidocaine for local anesthesia. Location: Left pleural space. Needle size: 5 Fr centesis catheter. Volume aspirated: 250 cc Appearance of aspirate: Clear, light brown. Complication: None. Blood loss: None. Purpose: Diagnostic and therapeutic. PATIENT INSTRUCTIONS: Patient may be dismissed from the radiology department when dismissal criteria met. POST-PROCEDURE DIAGNOSIS: Pleural effusion. Procedure Note Octavio Reich M.B., B.Ch. - 07/08/2024 EXAM: US THORACENTESIS LEFT WITH IMAGING GUIDANCE PRE-PROCEDURE: Patient seen and evaluated. Allergies, pertinentmedications, and history reviewed. Discussed risks, benefits, alternativesfor procedure, and obtained informed consent. Patient understandsinformation and questions answered. Immediately prior to starting the procedure, in the presence of the assistingpersonnel, procedural pause was conducted to verify correct patientidentity and verification of procedure to be performed, and as applicable,correct side and site, correct patient position, availability of implants, special equipment, or specialrequirements, and all image and specimen identification data. The rolesand responsibilities of care team members, residents, and fellows werediscussed. TECHNIQUE: Sterile. 1% lidocaine for local anesthesia. Location: Left pleural space. Needle size: 5 Fr centesis catheter. Volume aspirated: 250 cc Appearance of aspirate: Clear, light brown. Complication: None. Blood loss: None. Purpose: Diagnostic and therapeutic. PATIENT INSTRUCTIONS: Patient may be dismissed from the radiologydepartment when dismissal criteria met. POST-PROCEDURE DIAGNOSIS: Pleural effusion. IMPRESSION: Ultrasound-guided left pleural space thoracentesis. EP us Benjamin Hart P.A.-C. M.S. IMG US PROCEDURES Fi nal Result * Cytology Non-EVENT HOST (07/08/2024 10:54 AM DIRECTOR INDEX) 07/09/2024 3:07 PM DIRECTOR INDEX DTL Participated in the Interpretation Patricia LiraBSaloS. -Pathology Resident 07/09/2024 3:07 PM DIRECTOR INDEX DTL Report electronically signed by Hernan Espino M.D. I verify that I have examined all relevant slides/materi als for the specimen(s) and rendered or confirmed the diagnosis. 07/09/2024 3:07 PM DIRECTOR INDEX DTL Gross Description Received 100 cc of bloody fluid. 07/09/2024 3:07 PM DIRECTOR INDEX DTL Source A. Pleural, Left, fluid 07/09/2024 3:07 PM DIRECTOR INDEX DTL Interpretation A. Pleural, Left, fluid (ThinPrep): Negative for malignancy. Acute on chronic inflammation. 07/09/2024 3:07 PM DIRECTOR INDEX DTL Fluid (Pleural Fluid, Left) 07/08/2024 10:54 AM DIRECTOR INDEX us Benjamin Hart P.A.-C., M.S. LAB SURG PATH ORDERA BLES Final Result [facility] [address] [place] [address], [facility] DTL [address] [facility] [address] [place] [address] * Protein, Total, Body Fluid (07/08/2024 10:54 AM DIRECTOR INDEX) Protein, Total, BF See Below See Comment g/dL 07/08/2024 2:11 PM DIRECTOR INDEX DTL Comment: Sample received icteric. The measured total protein was 1.8 g/dL, however, internal [facility] validation studies show this values to be about 0.4 g/dL falsely low given the elevated bilirubin. A total protein concentration of 2.2 g/dL should be used for clinical interpretation. ----ADDITIONAL INFORMATION---- A pleural fluid total protein to serum total protein ratio >0.5 is most consistent with exudative effusion. A peritoneal fluid total protein > 2.5 g/dL in patients with a high serum ascites albumin gradient can be caused by heart failure. A peritoneal fluid total protein > 1.0 g/dL helps to differentiate secondary from spontaneous bacterial peritonitis in conjunction with other laboratory, imaging, and clinical findings. All other fluids refer to [email or web address].com for further interpretive information. This test has been modified from the granulator operator's instructions. Its performance characteristics were determined by [facility] in a manner consistent with CLIA requirements. This test has not been cleared or approved by the U.S. Food and Drug Administration. Fluid Type, Protein, Total Fluid, Pleural Fluid, Left 07/08/2024 11:28 AM DIRECTOR INDEX DTL Fluid (Pleural Fluid, Left) 07/08/2024 10:54 AM DIRECTOR INDEX Benjamin Hart P.A.-C., M.S. LAB BODY FLUIDS AND STOOLS ORDERABLES Final Result Performing Organization Address [facility] Co de Phone Number [address] [address], [address] [address] * Bacterial Culture, Aerobic + Susceptibility (07/08/2024 10:54 AM DIRECTOR INDEX) Bacterial Culture, Aerobic + Susc No growth after 5 days of incubation. 07/13/2024 8:48 AM DIRECTOR INDEX DTL Fluid (Pleural Fluid, Left) 07/08/2024 10:54 AM DIRECTOR INDEX Narrative [facility] - 07/13/2024 8:48 AM DIRECTOR INDEX Bacterial Culture: Received Bactec aerobic and Bactec anaerobic bottles Benjamin Hart P.A.-C., M.S. LAB MICROBIOLOGY - G ENERAL ORDERABLES Final Result Performing Organization Address City/[facility] Co de Phone Number [facility] [address] [place] [address], [address] [address] * Cell Count and Differential, Body Fluid (07/08/2024 10:54 AM DIRECTOR INDEX) Fluid Type Left; Pleural/Th oracentesi s 07/08/2024 11:51 AM DIRECTOR INDEX DHPM Gross Appearance Serous 07/08/20 11:51 AM DIRECTOR INDEX DHPM Total Nucleated Cells 570 /mcL 07/08/2024 11:51 AM DIRECTOR INDEX DHPM Comment: ----REFERENCE VALUE---- Synovial: <150 /mcL Peritoneal: <500 /mcL Pleural: <500 /mcL Pericardial: <500 /mcL ----ADDITIONAL INFORMATION---- This test has been modified from the granulator operator's instructions. Its performance characteristics were determined by [facility] in a manner consistent with CLIA requirements. This test has not been cleared or approved by the U.S. Food and Drug Administration. Neutrophils 34 % 07/08/2024 12:20 PM DIRECTOR INDEX DHPM Comment: ----REFERENCE VALUE---- Synovial: <25% Peritoneal: <25% Pleural: <25% Pericardial: <25% Lymphocytes 34 Synovial <75% % 07/08/2024 12:20 PM DIRECTOR INDEX DHPM Monocytes/Macropha ges 32 Synovial <70% % 07/08/2024 12:20 PM DIRECTOR INDEX DHPM Comment See Comment 07/08/2024 12:20 PM DIRECTOR INDEX DHPM Comment:No blasts or maligna nt cells seen. Reviewed by: Tech 07/08/2024 12:20 PM DIRECTOR INDEX DHPM Fluid (Pleural Fluid, Left) 07/08/2024 10:54 AM DIRECTOR INDEX Benjamin Hart P.A.-C., M.S. LAB BODY FLUIDS AND STOOLS ORDERABLES Final Result [address] [address], [facility] [address] [place] [address] * Gram Stain (07/08/2024 10:54 AM DIRECTOR INDEX) Gram Stain No organisms seen. White blood cells, Rare 07/08/2024 5:25 PM DIRECTOR INDEX DTL Fluid (Pleural Fluid, Left) 07/08/2024 10:54 AM DIRECTOR INDEX Narrative [facility] - 07/08/2024 5:25 PM DIRECTOR INDEX Bacterial Culture: Received Bactec aerobic and Bactec anaerobic bottles us Benjamin Hart P.A.-C., M.S. LAB MICROBIOLOGY - G ENERAL ORDERABLES Final Result Performing Organization Address [facility]/State/ZIP Co de Phone Number [facility] [address] [place] [address], [facility] [address] [place] [address] * Lactate Dehydrogenase (LD), Body Fluid (07/08/2024 10:54 AM DIRECTOR INDEX) Pathologist [facility] Lactate Dehydrogenase (LD), BF 157 See Comment U/L 07/08/2024 12:38 PM DIRECTOR INDEX DTL Comment: ----ADDITIONAL INFORMATION---- Pleural fluid lactate dehydrogenase (LDH) to serum LDH ratio >0.6 are most consistent with exudative effusions. Peritoneal fluid LDH > 220 U/L suggest secondary rather than spontaneous bacterial peritonitis in conjunction with other laboratory, imaging, and clinical findings. Synovial fluid lactate dehydrogenase (LDH) may be elevated greater than plasma or serum LDH due to inflammatory causes. Values should be interpreted in conjunction with other clinical findings. All other fluids refer to [email or web address] for further interpretive information. This test has been modified from the granulator operator's instructions. Its performance characteristics were determined by [facility] in a manner consistent with CLIA requirements. This test has not been cleared or approved by the U.S. Food and Drug Administration. Fluid Type, Lactate Dehydrogenase Fluid, Pleural Fluid, Left 07/08/2024 11:28 AM DIRECTOR INDEX DTL Fluid (Pleural Fluid, Left) 07/08/2024 10:54 AM DIRECTOR INDEX Benjamin Hart P.A.-C., M.S. LAB BODY FLUIDS AND STOOLS ORDERABLES Final Result [facility] [address] [place] [address], [facility] [address] [place] [address] * (TTE) 2D ECHO DOPPLER COLOR (07/08/2024 9:40 AM DIRECTOR INDEX) Pathologist [facility] Ejection Fraction 65 MC CV EIMS Mid-Ascending Aorta 33 MC CV EIMS LV Mass Index 60 MC CV EIMS LV End-Diastolic Diameter 46 MC CV EIMS LV End-Systolic Diameter 31 MC CV EIMS LV End-Diastolic Volume 93 MC CV EIMS LV End-Systolic Volume 32 MC CV EIMS MV E Velocity 0.8 MC CV EIMS MV A Velocity 0.6 MC CV EIMS MV E/A 1.33 MC CV EIMS MV e' Velocity Medial 0.07 MC CV EIMS MV e' Velocity Lateral 0.08 MC CV EIMS MV E/e' Medial 11.4 MC CV EIMS MV E/e' Lateral 10 MC CV EIMS Left ventricular stroke volume index 46 MC CV EIMS Cardiac Output 4.89 MC CV EIMS Cardiac Index 3.28 MC CV EIMS LV Global Longitudinal Strain -24 MC CV EIMS LV Interventricular Septal Wall Thickness 7 MC CV EIMS LV Posterior Wall Thickness 6 MC CV EIMS LV Relative Wall Thickness 26 MC CV EIMS RV 4-Chamber Basal Diameter 42 MC CV EIMS RV 4-Chamber Mid Diameter 23 MC CV EIMS RV 4-Chamber Length 71 MC CV EIMS Tricuspid Annular S 0.13 MC CV EIMS TR Vmax 2.94 MC CV EIMS RA Pressure 10 MC CV EIMS RV Systolic Pressure 45 MC CV EIMS Estimated diastolic pulmonary artery pressure 13 MC CV EIMS AV mean gradient 2 MC CV EIMS Aortic valve area 2.87 MC CV EIMS Aortic Valve Dimensionless Index 0.83 MC CV EIMS LA Volume Index 31 MC CV EIMS Aortic Valve Systolic Peak Velocity 1.1 MC CV EIMS Anatomical Region Laterality Modality Other 07/08/2024 8:02 AM DIRECTOR INDEX Impressions 07/08/2024 10:35 AM DIRECTOR INDEX There are no previous [facility] echocardiograms available for comparison. LEFT VENTRICLE:Normal left ventricular chamber size. Focal thickening of the mid anterior and lateral levy of unclear clinical significance. Clinical correlation recommended. Calculated 2-D biplane volumetric left ventricular ejection fraction of 65% with the use of ultrasound enhancing agent. Global averaged left ventricular longitudinal peak systolic strain is normal at -24% (normal = more negative than -18%). No regional wall motion abnormalities. Normal left ventricular filling pressure. Anomalous left ventricular chord. RIGHT VENTRICLE:Mildly enlarged right ventricular chamber size. Normal right ventricular systolic function. Estimated right ventricular systolic pressure 45 mmHg (right atrial pressure of 10 mmHg). ATRIA:Normal left atrial size. Left atrial volume index 31 ml/m2. Enlarged right atrial size by visual estimate. CARDIAC VALVES:Trileaflet aortic valve. Sclerotic aortic valve. Trivial aortic valve regurgitation. Thickened mitral valve. Mild mitral valve regurgitation. Normal pulmonary valve. Normal pulmonary valve systolic velocities. Trivial pulmonary valve regurgitation. Normal tricuspid valve. Mild-moderate tricuspid valve regurgitation. OTHER ECHO FINDINGS:Normal inferior vena cava size with reduced inspiratory collapse (<50%). Normal mid ascending aorta diameter of 33 mm. Abdominal aorta incompletely visualized. Normal abdominal aorta Doppler flow pattern. No atrial level shunt by color flow imaging. No intracardiac mass or thrombus, but the left atrial appendage cannot be visualized adequately with transthoracic echo to exclude thrombus in this location. No pericardial effusion. Attempts were made to optimize the echocardiographic images and two or more left ventricular segments were not visualized adequately to evaluate cardiac structure. The patient's current allergies and medications have been screened. Intravenous Definity ultrasound enhancement agent(s) administered to enhance endocardial border definition. Imaging enhancement agent administered per Echocardiography Contrast Administration Protocol Reference Document [id number] Rev 12/15/2021. Patient met an inclusion criterion and did not have contraindications in screening sections. For the complete report, see the Order-Level Documents. Narrative 07/08/2024 10:35 AM DIRECTOR INDEX For the complete report, see the Order-Level Documents. Hemodynamics Heart Rate: 65 BPM Blood Pressure: 117 / 60 mmHg ECG: Sinus rhythm with ectopics Final Impressions 1. Normal left ventricular chamber size , no regional wall motion abnormalities. Calculated ejection fraction 65%. 2. Focal thickening of the mid anterior and lateral levy of unclear clinical significance suspected. Se comments. 3. Global averaged left ventricular longitudinal peak systolic strain is normal at -24% (normal = more negative than -18%). 4. Mildly enlarged right ventricular chamber size with normal systolic function. Estimated right ventricular systolic pressure 45 mmHg. 5. Mild-moderate tricuspid valve regurgitation. 6. Normal inferior vena cava size with reduced inspiratory collapse (<50%). 7. No pericardial effusion. 8. There are no previous [facility] echocardiograms available for comparison. Comments Focal thickening of the mid anterior and lateral levy of unclear clinical significance. Artifactual changes not excluded, particularly when we take the short axis ultrasound-enhanced images into account. Clinical and radiographic correlation recommended. [facility] Chong Bailey M.D. - 07/08/2024 For the complete report, see the Order-Level Documents. Hemodynamics Heart Rate: 65 BPM Blood Pressure: 117 / 60 mmHg ECG: Sinus rhythm with ectopics Final Impressions 1. Normal left ventricular chamber size , no regional wall motionabnormalities. Calculated ejection fraction 65%. 2. Focal thickening of the mid anterior and lateral levy of unclearclinical significance suspected. Se comments. 3. Global averaged left ventricular longitudinal peak systolic strain isnormal at -24% (normal = more negative than -18%). 4. Mildly enlarged right ventricular chamber size with normal systolicfunction. Estimated right ventricular systolic pressure 45 mmHg. 5. Mild-moderate tricuspid valve regurgitation. 6. Normal inferior vena cava size with reduced inspiratory collapse(<50%). 7. No pericardial effusion. 8. There are no previous [facility] echocardiograms available forcomparison. Comments Focal thickening of the mid anterior and lateral levy of unclear clinicalsignificance. Artifactual changes not excluded, particularly when we takethe short axis ultrasound-enhanced images into account. Clinical andradiographic correlation recommended. Bssp Findings There are no previous [facility] echocardiograms available forcomparison. LEFT VENTRICLE:Normal left ventricular chamber size. Focal thickening ofthe mid anterior and lateral levy of unclear clinical significance.Clinical correlation recommended. Calculated 2-D biplane volumetric leftventricular ejection fraction of 65% with the use of ultrasound enhancingagent. Global averaged left ventricular longitudinal peak systolic strainis normal at -24% (normal = more negative than -18%). No regional wallmotion abnormalities. Normal left ventricular filling pressure. Anomalousleft ventricular chord. RIGHT VENTRICLE:Mildly enlarged right ventricular chamber size. Normalright ventricular systolic function. Estimated right ventricular systolicpressure 45 mmHg (right atrial pressure of 10 mmHg). ATRIA:Normal left atrial size. Left atrial volume index 31 ml/m2. Enlargedright atrial size by visual estimate. CARDIAC VALVES:Trileaflet aortic valve. Sclerotic aortic valve. Trivialaortic valve regurgitation. Thickened mitral valve. Mild mitral valveregurgitation. Normal pulmonary valve. Normal pulmonary valve systolicvelocities. Trivial pulmonary valve regurgitation. Normal tricuspid valve.Mild-moderate tricuspid valve regurgitation. OTHER ECHO FINDINGS:Normal inferior vena cava size with reducedinspiratory collapse (<50%). Normal mid ascending aorta diameter of 33 mm.Abdominal aorta incompletely visualized. Normal abdominal aorta Dopplerflow pattern. No atrial level shunt by color flow imaging. No intracardiacmass or thrombus, but the left atrial appendage cannot be visualizedadequately with transthoracic echo to exclude thrombus in this location.No pericardial effusion. Attempts were made to optimize theechocardiographic images and two or more left ventricular segments werenot visualized adequately to evaluate cardiac structure. The patient'scurrent allergies and medications have been screened. Intravenous Definityultrasound enhancement agent(s) administered to enhance endocardial borderdefinition. Imaging enhancement agent administered per EchocardiographyContrast Administration Protocol Reference Document [id number] Rev12/15/2021. Patient met an inclusion criterion and did not havecontraindications in screening sections. For the complete report, see the Order-Level Documents. us Feroz Tierney M.D. CV ECHO PROCEDURES Final Result * (ABNORMAL) Cortisol, Free and Total (07/08/2024 12:53 AM DIRECTOR INDEX) Cortisol, Free, S 1.455(H) 6:00-10:30 AM Collection 0.121-1.065 mcg/dL mcg/dL 07/15/2024 4:01 PM [facility] Comment: ----ADDITIONAL INFORMATION---- This test was developed and its performance characteristics determined by [facility] in a manner consistent with CLIA requirements. This test has not been cleared or approved by the U.S. Food and Drug Administration. Cortisol, S, LC-MS/MS 25 mcg/dL 07/08/2024 11:18 PM [facility] Comment: ----REFERENCE VALUE---- Pediatric ranges not established Adult ranges: a.m.: 5-25 p.m.: 2-14 Blood (Blood, Venous) 07/08/2024 12:53 AM DIRECTOR INDEX 07/08/2024 12:06 PM DIRECTOR INDEX us Feorz Tierney M.D. LAB BLOOD NON ADD-ON Final Resul t [facility] [address] [place] [address] [facility] [address] [place] [address] [place] [address] * (ABNORMAL) NT-Pro B-Type Natriuretic Peptide (BNP) (07/08/2024 12:53 AM DIRECTOR INDEX) Pathologist [facility] NT-Pro BNP 2036(H) <=540 pg/mL 07/08/2024 3:29 AM DIRECTOR INDEX DTL Comment: NT-proBNP values less than 300 pg/mL have a 99% negative predictive value for excluding acute congestive heart failure. A cutoff of 1200 pg/mL for patients with an eGFR<60 yields a diagnostic sensitivity and specificity of 89% and 72% for acute congestive heart failure. A diagnostic NT-proBNP cutoff of 1800 pg/mL has been suggested in adults over 75 years of age in the absence of renal failure. Blood (Blood, Venous) 07/08/2024 12:53 AM DIRECTOR INDEX 07/08/2024 1:23 AM DIRECTOR INDEX eFroz Tierney M.D. LAB BLOOD ADD-ON Final Result Performing Organization Address City/[facility]/ZIP Co de Phone Number [facility] [address] [place] [address], [facility] DTL [facility] [address] [place] [address] * Procalcitonin (07/08/2024 12:53 AM DIRECTOR INDEX) [facility] Procalcitonin, S 0.18 0.00 - 0.24 ng/mL 07/08/2024 1:48 AM DIRECTOR INDEX DTL Comment: Procalcitonin <0.25 ng/mL may indicate lower probability of bacteremia or bacterial pneumonia. Intracellular bacteria, viruses, and fungi do not cause elevation of procalcitonin, so low values (<0.25 ng/mL) do not rule out other infections. Blood (Blood, Venous) 07/08/2024 12:53 AM DIRECTOR INDEX 07/08/2024 1:23 AM DIRECTOR INDEX Feroz Tierney M.D. LAB BLOOD ADD-ON Final Result Performing Organization Address [facility]/ZIP Co de Phone Number [facility] [address] [place] [address], [place] DTL [facility] [address] [place] [address] * ACTH (Adrenocorticotropic Hormone) (07/08/2024 12:53 AM DIRECTOR INDEX) [facility] Adrenocorticotropic Hormone, P 26 7.2-63 (a.m. collectio n) pg/mL 07/08/2024 3:57 PM DIRECTOR INDEX [facility] Blood (Blood, Venous) 07/08/2024 12:53 AM DIRECTOR INDEX 07/08/2024 7:56 AM DIRECTOR INDEX us Feroz Tierney M.D. LAB BLOOD NON ADD-ON Final Resul t [facility] [address] [place] [address] [facility] [address] [place] [address] * (ABNORMAL) CBC with Differential, Blood (07/08/2024 12:53 AM DIRECTOR INDEX) Only the most recent of3 resultswithin the time period is included. [facility] Hemoglobin 8.0(L) 11.6 - 15.0 g/dL 07/08/2024 1:14 AM DIRECTOR INDEX DTL Hematocrit 22.7(L) 35.5 - 44.9 % 07/08/2024 1:14 AM DIRECTOR INDEX DTL Erythrocytes 2.93(L) 3.92 - 5.13 x10(12)/L 07/08/2024 1:14 AM DIRECTOR INDEX DTL MCV 77.5(L) 78.2 - 97.9 fL 07/08/2024 1:14 AM DIRECTOR INDEX DTL RBC Distrib Width 19.9(H) 12.2 - 16.1 % 07/08/2024 1:14 AM DIRECTOR INDEX DTL Platelet Count 418(H) 157 - 371 x10(9)/L 07/08/2024 1:14 AM DIRECTOR INDEX DTL Leukocytes 13.1(H) 3.4 - 9.6 x10(9)/L 07/08/2024 1:14 AM DIRECTOR INDEX DTL Neutrophils 11.06(H) 1.56 - 6.45 x10(9)/L 07/08/2024 1:14 AM DIRECTOR INDEX DHPM Lymphocytes 0.54(L) 0.95 - 3.07 x10(9)/L 07/08/2024 1:14 AM DIRECTOR INDEX DTL Monocytes 1.40(H) 0.26 - 0.81 x10(9)/L 07/08/2024 1:14 AM DIRECTOR INDEX DTL Eosinophils 0.07 0.03 - 0.48 x10(9)/L 07/08/2024 1:14 AM DIRECTOR INDEX DTL Basophils 0.05 0.01 - 0.08 x10(9)/L 07/08/2024 1:14 AM DIRECTOR INDEX DTL Blood (Blood, Venous) 07/08/2024 12:53 AM DIRECTOR INDEX 07/08/2024 1:08 AM DIRECTOR INDEX Feroz Tierney M.D. LAB BLOOD ADD-ON Final Result [facility] [address] [place] [address], [facility] DTL [facility] [address] [place] [address] DHPM [facility] [address] [place] [address] * (ABNORMAL) Potassium (07/08/2024 12:53 AM DIRECTOR INDEX) Only the most recent of2 resultswithin the time period is included. [facility] Potassium, P 3.1(L) 3.6 - 5.2 mmol/L 07/08/2024 1:12 AM DIRECTOR INDEX METH Blood (Blood, Venous) 07/08/2024 12:53 AM DIRECTOR INDEX 07/08/2024 1:12 AM DIRECTOR INDEX us Feroz Tierney M.D. LAB BLOOD ADD-ON Final Result [facility] [address] [place] [address], [facility] [place] [address] * Osmolality, Urine (07/07/2024 5:11 PM DIRECTOR INDEX) [facility] Osmolality, U 512 150 - 1150 mOsm/kg 07/07/2024 6:15 PM DIRECTOR INDEX DTL Urine 07/07/2024 5:11 PM DIRECTOR INDEX 07/07/2024 5:39 PM DIRECTOR INDEX Danny Pearson P.A.-C. LAB URINE ORDERABLES Jazzmine l Result Performing Organization Address City/[facility] Co de Phone Number [facility] [address] [place] [address], [facility] [address] [place] [address] * (ABNORMAL) Dipstick, Urine (07/07/2024 5:11 PM DIRECTOR INDEX) Pathologist [facility] Hemoglobin, QL, U Negative Negative 07/07/2024 5:54 PM DIRECTOR INDEX DTL Leukocyte Esterase, U Trace(A) Negative 07/07/2024 5:54 PM DIRECTOR INDEX DTL Nitrite, U Negative Negative 07/07/2024 5:54 PM DIRECTOR INDEX DTL Ketone, U Negative Negative mg/dL 07/07/2024 5:54 PM DIRECTOR INDEX DTL Glucose, U 70(A) Negative mg/dL 07/07/2024 5:54 PM DIRECTOR INDEX DTL Urine 07/07/2024 5:11 PM DIRECTOR INDEX 07/07/2024 5:39 PM DIRECTOR INDEX Danny JaffeCSalo LAB URINE ORDERABLES Jazzmine l Result Performing Organization Address [facility] Co de Phone Number [facility] [address] [place] [address], [facility] [address] [place] [address] * pH, Random, Urine (07/07/2024 5:11 PM DIRECTOR INDEX) Pathologist [facility] pH, Random, U 5.9 4.5 - 8.0 07/07/2024 6:15 PM DIRECTOR INDEX DTL Urine 07/07/2024 5:11 PM DIRECTOR INDEX 07/07/2024 5:39 PM DIRECTOR INDEX Danny Pearson P.A.-C. LAB URINE ORDERABLES Jazzmine l Result Performing Organization Address City/[facility] Co de Phone Number [facility] [address] [place] [address], [facility] [address] [place] [address] * (ABNORMAL) Microscopic Manual (07/07/2024 5:11 PM DIRECTOR INDEX) Microscopy Abnormal 07/07/2024 6:19 PM DIRECTOR INDEX DTL RBC <3 <3 /hpf 07/07/2024 6:19 PM DIRECTOR INDEX DTL WBC 4-10 /hpf 07/07/2024 6:19 PM DIRECTOR INDEX DTL Comment: ----REFERENCE VALUE---- <4 (Males) <11 (Females) Casts, Hyaline 1-3 /lpf 07/07/2024 6:19 PM DIRECTOR INDEX DTL Renal Epithelial Cells 1-3(A) /hpf 07/07/2024 6:19 PM DIRECTOR INDEX DTL Squamous Epithelial Cells, U 4-10 /hpf 07/07/2024 6:19 PM DIRECTOR INDEX DTL Bacteria Present(A) 07/07/2024 6:19 PM DIRECTOR INDEX DTL Crystals Leucine crystals present 07/07/2024 6:19 PM DIRECTOR INDEX DTL Urine 07/07/2024 5:11 PM DIRECTOR INDEX 07/07/2024 5:39 PM DIRECTOR INDEX Danny Pearson P.A.-C. LAB URINE ORDERABLES Jazzmine l Result Performing Organization Address City/[facility]/ZIP Co de Phone Number [facility] [address] [place] [address], [facility] [address] [place] [address] * Bacterial Culture, Aerobic + Susceptibility, Urine (07/07/2024 5:11 PM DIRECTOR INDEX) Urine Culture No growth after 1 day of incubation. 07/09/2024 7:10 AM DIRECTOR INDEX DTL Urine (Urine, Midstream) 07/07/2024 5:11 PM DIRECTOR INDEX 07/07/2024 7:40 PM DIRECTOR INDEX Comment:Specimen Source Site : Urine Jeovany Padilla M.D. LAB MICROBIOLOGY - GENERAL ORDERABLES Final Result Performing Organization Address [facility] Co de Phone Number [facility] [address] [place] [address], [facility] [address] [place] [address] * (ABNORMAL) Urinalysis, with Microscopic: Urine, Midstream (07/07/2024 5:11 PM DIRECTOR INDEX) Source Urine, Urine, Midstream 07/07/2024 5:38 PM DIRECTOR INDEX DTL Color, U Anika(A) 07/07/2024 5:39 PM DIRECTOR INDEX DTL Clarity, U Cloudy(A) 07/07/2024 5:39 PM DIRECTOR INDEX DTL Protein, U 47(H) <26 mg/dL 07/07/2024 6:25 PM DIRECTOR INDEX DTL Protein/Osmol ality 0.92(H) <0.42 ratio 07/07/2024 6:25 PM DIRECTOR INDEX DTL Predicted 24 HR Protein, U 619(H) <229 mg/24 h 07/07/2024 6:25 PM DIRECTOR INDEX DTL Predicted Range 153-2506 mg/24 h 07/07/2024 6:25 PM DIRECTOR INDEX DTL Urine (Urine, Midstream) 07/07/2024 5:11 PM DIRECTOR INDEX 07/07/2024 5:38 PM DIRECTOR INDEX Jeovany Padilla M.D. LAB URINE ORDERABLE S Final Result Performing Organization Address City/[facility]/ZIP Co de Phone Number [facility] [address] [place] [address], [facility] [address] [place] [address] * (ABNORMAL) Hepatic Function Panel (07/07/2024 4:52 PM DIRECTOR INDEX) Only the most recent of2 resultswithin the time period is included. Bilirubin, Total, S 23.8(H) 0.0 - 1.2 mg/dL 07/07/2024 5:49 PM DIRECTOR INDEX DTL Bilirubin, Direct, S 20.7(H) 0.0 - 0.3 mg/dL 07/07/2024 7:05 PM DIRECTOR INDEX DTL Aspartate Aminotransferase (AST), S 36 8 - 43 U/L 07/07/2024 5:49 PM DIRECTOR INDEX DTL Alanine Aminotransferase (ALT), S 14 7 - 45 U/L 07/07/2024 5:49 PM DIRECTOR INDEX DTL Alkaline Phosphatase, S 623(H) 35 - 104 U/L 07/07/2024 5:49 PM DIRECTOR INDEX DTL Albumin, S 3.2(L) 3.5 - 5.0 g/dL 07/07/2024 5:49 PM DIRECTOR INDEX DTL Protein, Total, S 4.7(L) 6.3 - 7.9 g/dL 07/07/2024 5:49 PM DIRECTOR INDEX DTL Blood (Blood, Venous) 07/07/2024 4:52 PM DIRECTOR INDEX 07/07/2024 5:19 PM DIRECTOR INDEX us Tricia Steele M.D. LAB BLOOD ADD-ON Final Re sult [address] [address], [address] [address] * (ABNORMAL) Venous Blood Gas and Electrolytes CG8+, POCT (07/07/2024 3:44 PM DIRECTOR INDEX) Pathologist [facility] Sample Site, POCT Venstick 07/07/2024 3:53 PM DIRECTOR INDEX PCSM Comment: ----ADDITIONAL INFORMATION---- Performed at the Point of Care pH, Venous, POCT, B 7.38 7.32 - 7.43 07/07/2024 3:53 PM DIRECTOR INDEX PCSM Comment: ----ADDITIONAL INFORMATION---- Performed at the Point of Care pCO2, Venous, POCT, B 41 41 - 51 mm Hg 07/07/2024 3:53 PM DIRECTOR INDEX PCSM Comment: ----ADDITIONAL INFORMATION---- Performed at the Point of Care pO2, Venous, POCT, B 23 Not Applicable mm Hg 07/07/2024 3:53 PM DIRECTOR INDEX PCSM Comment: ----ADDITIONAL INFORMATION---- Performed at the Point of Care Base Excess, Venous, POCT, B -1 Not Applicable mmol/L 07/07/2024 3:53 PM DIRECTOR INDEX PCSM Comment: ----ADDITIONAL INFORMATION---- Performed at the Point of Care HCO3, Venous, POCT, B 24 Not Applicable mmol/L 07/07/2024 3:53 PM DIRECTOR INDEX PCSM Comment: ----ADDITIONAL INFORMATION---- Performed at the Point of Care Sodium, POCT, B 137 135 - 145 mmol/L 07/07/2024 3:53 PM DIRECTOR INDEX PCSM Comment: ----ADDITIONAL INFORMATION---- Performed at the Point of Care Potassium, POCT, B 2.2(CL) 3.6 - 5.2 mmol/L 07/07/2024 3:53 PM DIRECTOR INDEX PCSM Comment: ----ADDITIONAL INFORMATION---- Performed at the Point of Care Calcium, Ionized, POCT, B 4.30(L) 4.65 - 5.30 mg/dL 07/07/2024 3:53 PM DIRECTOR INDEX PCSM Comment: ----ADDITIONAL INFORMATION---- Performed at the Point of Care Glucose, POCT, B 136 70 - 140 mg/dL 07/07/2024 3:53 PM DIRECTOR INDEX PCSM Comment: ----ADDITIONAL INFORMATION---- Performed at the Point of Care Hematocrit, POCT, B 27.0(L) 35.5 - 44.9 % 07/07/2024 3:53 PM DIRECTOR INDEX PCSM Comment: ----ADDITIONAL INFORMATION---- Performed at the Point of Care Blood (Blood, Venous) 07/07/2024 3:44 PM DIRECTOR INDEX 07/07/2024 3:45 PM DIRECTOR INDEX us Danny Pearson P.A.-C. LAB POCT ORDERABLES - DEV ICE Final Result POC RST [facility] [address] [place] [address], [facility] [address] [place] [address] * Glucose, POCT (07/07/2024 3:44 PM DIRECTOR INDEX) Pathologist [facility] Glucose, POCT, B 139 70 - 140 mg/dL 07/07/2024 3:48 PM DIRECTOR INDEX PCLX Site Artstick 07/07/2024 3:48 PM DIRECTOR INDEX PCLX Blood (Blood, Capillary) 07/07/2024 3:44 PM DIRECTOR INDEX 07/07/2024 3:44 PM DIRECTOR INDEX us Jeovany Padilla M.D. LAB POCT ORDERABLES -MANUAL Final Result POC [facility] [address] [place] [address], [place] PCLX [facility] POC [address] [place] [address] * (ABNORMAL) Basic Metabolic Panel (07/07/2024 3:44 PM DIRECTOR INDEX) Pathologist [facility] Potassium, P 2.3(CL) 3.6 - 5.2 mmol/L 07/07/2024 4:53 PM DIRECTOR INDEX STMA Sodium, P 136 135 - 145 mmol/L 07/07/2024 4:53 PM DIRECTOR INDEX STMA Chloride, P 97(L) 98 - 107 mmol/L 07/07/2024 4:53 PM DIRECTOR INDEX STMA Bicarbonate, P 24 22 - 29 mmol/L 07/07/2024 4:40 PM DIRECTOR INDEX STMA Anion Gap, P 15 7 - 15 07/07/2024 4:53 PM DIRECTOR INDEX STMA BUN (Blood Urea Nitrogen), P 17 6 - 21 mg/dL 07/07/2024 4:40 PM DIRECTOR INDEX STMA Creatinine 0.63 0.59 - 1.04 mg/dL 07/07/2024 5:22 PM DIRECTOR INDEX DTL Estimated GFR (eGFR) >90 >=60 mL/min/BSA 07/07/2024 5:22 PM DIRECTOR INDEX DTL Comment: Estimated GFR calculated using the 2020 CKD_EPI creatinine equation. Calcium, Total, P 8.0(L) 8.8 - 10.2 mg/dL 07/07/2024 4:40 PM DIRECTOR INDEX STMA Glucose, P 142(H) 70 - 140 mg/dL 07/07/2024 4:40 PM DIRECTOR INDEX STMA Blood (Blood, Venous) 07/07/2024 3:44 PM DIRECTOR INDEX 07/07/2024 3:54 PM DIRECTOR INDEX Jeovany Padilla M.D. LAB BLOOD ADD-ON Fi nal Result Performing Organization Address [facility] Co de Phone Number [facility] [address] [place] [address], [facility] STMA [facility] [address] [place] [address] DTL [facility] [address] [place] [address] * ECG 12 Lead (07/07/2024 3:33 PM DIRECTOR INDEX) Ventricular Rate ECG/Min 71 BPM MUSE [place] Interval 156 ms MUSE QRSD Interval 90 ms MUSE QT Interval 362 ms MUSE QTC Interval 393 ms MUSE P [place] 98 degrees MUSE R [place] 80 degrees MUSE T Wave [place] 143 degrees MUSE 07/07/2024 3:33 PM DIRECTOR INDEX 07/07/2024 3:47 PM DIRECTOR INDEX Impressions MUSE - 07/07/2024 3:47 PM DIRECTOR INDEX Normal sinus rhythm ST and T wave abnormality, consider inferolateral ischemia When compared with ECG of 21-Mar-2022 09:22, T wave inversion now evident in Inferior leads Reviewed by PRATIMA York Narrative Procedure Note Branden Roger M.D., Ph.D. - 07/07/2024 IMPRESSION: Normal sinus rhythm ST and T wave abnormality, consider inferolateral ischemia When compared with ECG of 21-Mar-2022 09:22, T wave inversion now evident in Inferior leads Reviewed by PRATIMA York Jeovany Padilla M.D. ECG ORDERABLES Fin al Result Performing Organization Address [facility] Co de Phone Number MUSE NA * FL Fluoro Less Than 1 Hour (07/02/2024 1:48 PM CDT) Only the most recent of2 resultswithin the time period is included. Narrative ERCP LOS RST - 07/02/2024 1:57 PM CDT This exam does not require a radiologist review or interpretation. Please refer to the patient's medical record on this date for clinical details. us Katia Issa APRN, C.N.P., M.S.N. IMG FLUOROS COPY PROCEDURES Final Result ERCP LOS RST * LDA ANE ENDOTRACHEAL AIRWAY (07/02/2024 1:08 PM CDT) Narrative Paresh Isabel APRN, CRNA, DNAP - 07/02/2024 1:08 PM CDT Paresh Isabel APRN, CRNA, DNAP 07/02/2024 1:14 PM Airway Date/Time: 07/02/2024 1:08 PM Performed by: Paresh Isabel APRN, CRNA, DNAP Authorized by: Paresh Isabel APRN, CRNA, DNAP Patient location during procedure: OR / Procedure Area PROCEDURE DETAILS: Mask difficulty assessment: easy mask Final airway type: video laryngoscope Laryngeal Manipulation: no Final best view of glottic structures - Cormack/Lehane Score: grade 1 ETT location: oral VL device: glide scope Marion scope blade size: 3 Tube size: 7 ETT distance at teeth/gum: 21 Oral tube type: standard ETT Cuffed: yes Number of attempt to successful placement: 1 Airway confirmation: bilateral breath sounds, positive ETCO2 and bilateral chest rise Other previous techniques attempted: none PRE PROCEDURE DETAILS: Pre evaluation for airway management: procedure Urgency: elective Preop assessment of probable difficulty: no difficulty anticipated Preoxygenation: bag valve mask SEDATION / ANESTHESIA Anesthesia method: anesthesia POST PROCEDURE DETAILS: Procedure outcome: successful Notable Events: no complications us Paresh Isabel APRN, CRNA, DNAP ANESTHESIA ORDER ELSA Final Result * ERCP-Gastroenterology Image Exam (07/02/2024 12:10 PM CDT) Only the most recent of3 resultswithin the time period is included. Narrative [facility] - 07/02/2024 5:09 PM CDT This order has been created and auto-finalized to support the import of images acquired without order. The clinical documentation to support these images can be found on the encounter that produced images. us Provider Not In System IMG NON RAD IMAGING PROCE DURES Final Result [facility] NA * ERCP (07/02/2024 12:07 PM CDT) 07/02/2024 12:0 7 PM CDT Impressions [facility] - 07/02/2024 5:00 PM CDT Post-op Diagnoses: - Benign-appearing esophageal stenosis. Balloon dilated to facilitate duodenoscope insertion. - No gross lesions in the entire stomach. - Non-bleeding malignant appearing medial D2 duodenal ulcer with no stigmata of bleeding. - Lateral D2 duodenal ulcer, suspect related to metal stent impaction. - One down migrated and impacted stent from the biliary tree was seen extending from the major papilla. Removed. - Dual localized biliary strictures in the lower third of the main bile duct within pancreatic mass. - The cystic duct, middle and proximal extrahepatic duct, left and right main hepatic ducts were dilated. - One covered metal stent was placed into the common bile duct from middle third to 1 cm above duodenum. - One plastic double pigtail stent was placed through metal stent to prevent upward or downward impaction. Narrative [facility] - 07/02/2024 5:00 PM CDT Jac 6 GI GI Patient Name: Gladys Tejada Date of : 1945 Age: 78 Procedure Date: 07/02/2024 Procedure: ERCP Providers: Sonu Correa MD Referring Provider: Katia Issa Pre-op Diagnoses: Periampullary tumor, Jaundice, Malignant tumor of the head of pancreas Recommendation: - Observe patient's clinical course. - Return to referring physician. Findings: A single metal biliary stent was visible on the public relations coordinator film. The esophagus was successfully intubated under direct vision without detailed examination of the pharynx, larynx, and associated structures. As on the prior procedure, advancement beyond the most proximal esophagus was not feasible to start. Contrast through the endoscope demonstrated a modestly narrowed proximal duodenum to about 10-12 mm, beginning around 25 cm from the incisors. This stenosis measured 1 cm (inner diameter) x 5 cm (in length). A TTS dilator was passed through the duodenoscope with a lengthy leading guidewire. Dilation with a 12-13.5-15 mm balloon dilator was performed to 13.5 mm under fluoroscopic guidance in the entire esophagus. The upper GI tract was then traversed under direct vision with the guidewire and deflated dilation balloon leading the way to maintain appropriate longitudinal direction, without detailed examination. No gross lesions were noted in the entire examined stomach. Two non-bleeding cratered duodenal ulcers with no stigmata of bleeding was found in the second portion of the duodenum. One 10 mm lesion in largest dimension was on the lateral duodenal wall just below the ampulla, with the recently placed biilary stent impacted against the floor of the ulcer. The second excavating ulcer overlay the proximal end of a very large minor papilla, presumably a consequence of malignancy. A short angled hydrophilic (Navipro) guidewire was through the downward migrated stent and passed into the biliary tree. The 12 mm occlusion balloon catheter was passed over the guidewire and the bile duct was then deeply cannulated. Contrast was injected. I personally interpreted the bile duct images. There was brisk flow of contrast through the ducts. Image quality was excellent. Contrast extended to the entire biliary tree. The upper half of the main bile duct, the downstream cystic duct near the common duct, and the left and right main hepatic ducts were diffusely dilated upstream from the stenosis and the impacted stent. The metal stent was removed from the common bile duct using a snare. A wire was passed into the biliary tree. The bile duct was then deeply cannulated over the guidewire. Contrast was injected. The lower third of the main bile duct contained multiple localized stenoses. One 10 mm by 4 cm covered metal Viabil stent was placed 5 cm into the common bile duct. Bile flowed through the stent, which was in good position. One 7 Fr by 7 cm double pigtail stent was then placed through the new SEMS into the common bile duct. Pigtail loops at the upper and lower ends above and below the metal stent should prevent obstruction from impaction of the fully covered stent. Bile flowed through the pigtail stent, which was also in good position. Procedural Details: The patient was seen, evaluated, history reviewed, airway and heart-lung exams were performed by licensed provider and were satisfactory for planned level of sedation care. The risks, benefits and alternatives for the procedure and sedation were discussed and informed consent was obtained. A procedural pause was conducted in the presence of assisting personnel to verify the correct patient identity and procedure to be performed. Throughout the procedure, the patient's blood pressure, pulse, and oxygen saturations were monitored continuously. The Duodenoscope was introduced under direct vision through the mouth, and used to inject contrast into the bile duct. The ERCP was somewhat difficult due to the nature of the pathologic findings. The patient tolerated the procedure well. Estimated Blood Loss: Estimated blood loss was minimal. Complications: No immediate complications. 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 Sonu Correa MD 07/02/2024 5:00:01 PM This report has been signed electronically. Number of Addenda: 0 us Katia Issa APRN, C.N.P., M.S.N. GI PROCEDUR E ORDERABLES Final Result Performing Organization Address City/State/[facility] Co [facility] Number [facility] NA * (ABNORMAL) Reticulocyte Profile (07/01/2024 9:07 AM CDT) Reticulocytes, B 2.10 0.60 - 2.71 % 07/01/2024 11:43 AM CDT DTL Absolute Reticulocyte 76.0 30.4 - 110.9 x10(9)/L 07/01/2024 11:43 AM CDT DTL Immature Reticulocyte Fraction 5.8 3.0 - 15.9 % 07/01/2024 11:43 AM CDT DTL Reticulocyte Hemoglobin 31.4 30.0 - 37.6 pg 07/01/2024 11:43 AM CDT DTL Erythrocytes 3.59(L) 3.92 - 5.13 x10(12)/L 07/01/2024 10:44 AM CDT DTL Blood 07/01/2024 9:07 AM CDT 07/01/2024 9:29 AM CDT us Radha Najera APRN, C.N.P., D.N.P. LAB BLOO D ADD-ON Final Result [facility] [address] [place] [address], [facility] DTL [facility] [address] [place] [address] * (ABNORMAL) CBC-Preop with reflex anemia panel (07/01/2024 9:07 AM CDT) Hemoglobin 9.7(L) 11.6 - 15.0 g/dL 07/01/2024 10:44 AM CDT DTL Hematocrit 27.9(L) 35.5 - 44.9 % 07/01/2024 10:44 AM CDT DTL Erythrocytes 3.59(L) 3.92 - 5.13 x10(12)/L 07/01/2024 10:44 AM CDT DTL MCV 77.7(L) 78.2 - 97.9 fL 07/01/2024 10:44 AM CDT DTL RBC Distrib Width 20.6(H) 12.2 - 16.1 % 07/01/2024 10:44 AM CDT DTL Platelet Count 546(H) 157 - 371 x10(9)/L 07/01/2024 10:44 AM CDT DTL Leukocytes 11.3(H) 3.4 - 9.6 x10(9)/L 07/01/2024 10:44 AM CDT DTL Blood (Blood, Venous) 07/01/2024 9:07 AM CDT 07/01/2024 9:39 AM CDT Narrative [facility] - 07/01/2024 10:44 AM CDT Specimen Information: Specimen ID: [id number] Specimen Type: Blood Specimen Collection Start Date: 07/01/2024 9:07 AM Specimen Received Date: 07/01/2024 9:39 AM Specimen ID: [id number] Specimen Type: Blood Specimen Collection Start Date: 07/01/2024 9:07 AM Specimen Received Date: 07/01/2024 9:29 AM us Radha Najera APRN C.N.P., D.N.P. LAB BLOO D ADD-ON Final Result [facility] [address] [place] [address] * Iron and Total Iron-Binding Capacity (07/01/2024 9:07 AM CDT) Iron 75 35 - 145 mcg/dL 07/01/2024 11:09 AM CDT DTL Total Iron Binding Capacity 300 250 - 400 mcg/dL 07/01/2024 11:09 AM CDT DTL Percent Saturation 25 14 - 50 % 07/01/2024 11:09 AM CDT DT Blood 07/01/2024 9:07 AM CDT 07/01/2024 9:39 AM CDT us Radha Najera APRN, Shyla.N.P., D.N.P. LAB BLOO D ADD-ON Final Result Performing Organization Address City/[facility]/ZIP Co de Phone Number [facility] [address] [facility] [address] [place] [address] * CRP (C-Reactive Protein) (07/01/2024 9:07 AM CDT) C-Reactive Protein (CRP), S <3.0 <5.0 mg/L 07/01/2024 11:09 AM CDT DTL Blood 07/01/2024 9:07 AM CDT 07/01/2024 9:39 AM CDT us Radha Najera APRN, C.N.P., D.N.P. LAB BLOO D ADD-ON Final Result [facility] [address] DTL [facility] [address] * (ABNORMAL) Ferritin (07/01/2024 9:07 AM CDT) Ferritin, S 2488(H) 11 - 328 mcg/L 07/01/2024 11:28 AM CDT DTL Blood 07/01/2024 9:07 AM CDT 07/01/2024 9:39 AM CDT us Radha Najera APRN, C.N.P., D.N.P. LAB BLOO D ADD-ON Final Result [address] [address], [facility] [place] [address] * (ABNORMAL) Cytology Fine Needle Aspiration (including core biopsies) (06/25/2024 2:10 PM CDT) (A ) 06/27/2024 4:06 PM CDT DTL Participated in the Interpretation Robel Fonseca M.D.-Patholog y Fellow(A) 06/27/2024 4:06 PM CDT DTL Report electronically signed by Ro Stuart M.D. I verify that I have examined all relevant slides/materi als for the specimen(s) and rendered or confirmed the diagnosis. (A) 06/27/2024 4:06 PM CDT DTL Gross Description Received 4 spray-fixed smears, 4 Diff-Quik stained smears, and 5cc of blood-tinged fluid. Specimen evaluated for adequacy on site. (A) 06/27/2024 4:06 PM CDT DTL Source A. Pancreas, Uncinate mass, EUS fine needle aspiration(A) 06/27/2024 4:06 PM CDT DTL Addendum The following test(s) will be performed in the [facility]: MMR Protein, IHC Only, Tumor (IHC) Results will be reported separately in the patient's medical record. Signed by Mildred Baca M.D. 07/04/2024 5:42 PM (A) 07/04/2024 5:42 PM CDT DTL Comment:REVISED RESULTS Interpretation REVISION DESCRIPTION: to correct clerical error; no change in diagnosis A. Pancreas, Uncinate mass, EUS fine needle aspiration (smears/cell block): Positive for malignancy. Adenocarcinom a. Immunohistoch emical stains were performed at [facility] (block A1). Neoplastic cells are positive for CDX2 and negative for TTF1(8G7G3/1) , supporting the above diagnosis. Digital imaging was used in the diagnostic assessment of this case. (A) 07/04/2024 5:42 PM CDT DTL Comment: REVISED RESULTS ----PREVIOUSLY REPORTED ---- A. Pancreas, Uncinate mass, EUS fine needle aspiration (smears/cell block): Positive for malignancy. Adenocarcinoma, c Digital imaging was used in the diagnostic assessment of this case. with pancreas primary. Immunohistochemical stains were performed at [facility] (block A1). Neoplastic cells are positive for CDX2 and negative for TTF1(8G7G3/1), supporting the above diagnosis. Flagged as: Abnormal (Reported 06/26/2024 17:50) Aspirate (Pancreas) 06/25/2024 2:10 PM CDT us Leo Rockwell D.O. LAB SURG PATH ORDERABLES Edited Result - Final [facility] [address] [place] [address], [facility] DT 200 [facility] [address] [place] [address] * LDA ANE ENDOTRACHEAL AIRWAY (06/25/2024 1:39 PM CDT) Narrative Bridget Almonte APRN, CRNA DNAP - 06/25/2024 1:39 PM CDT Bridget Almonte APRN, CRNA, DNAP 06/25/2024 1:49 PM Airway Date/Time: 06/25/2024 1:39 PM Performed by: Bridget Almonte APRN, CRNA, DNAP Authorized by: Bridget Almonte APRN, CRNA, DNAP Patient location during procedure: OR / Procedure Area PROCEDURE DETAILS: Mask difficulty assessment: easy mask Final airway type: video laryngoscope Laryngeal Manipulation: no Final best view of glottic structures - Cormack/Lehane Score: grade 1 ETT location: oral VL device: glide scope Marion scope blade size: 3 Tube size: 7 ETT distance at teeth/gum: 21 Oral tube type: standard ETT Cuffed: yes Number of attempt to successful placement: 1 Airway confirmation: bilateral breath sounds, positive ETCO2 and bilateral chest rise Other previous techniques attempted: none PRE PROCEDURE DETAILS: Pre evaluation for airway management: procedure Urgency: elective Preop assessment of probable difficulty: no difficulty anticipated Preoxygenation: bag valve mask SEDATION / ANESTHESIA Anesthesia method: anesthesia POST PROCEDURE DETAILS: Procedure outcome: successful Notable Events: no complications us Bridget Almonte MANAGER GROUP, EXECUTIVE CONSULTANT, DNAP ANESTHESIA ORD ERABLES Final Result * ERCP (06/25/2024 1:30 PM CDT) 06/25/2024 1:[address] [facility] - 06/25/2024 5:43 PM CDT Post-op Diagnoses: - Distal malignant biliary stricture - Sphincterotomy and 10mm x 4cm covered metal stent (Viabil) placed - There was excellent flow of bile and contrast endoscopically and radiographically at the conclusion of the procedure. [facility]ative 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 - Discharge patient to home. - Watch for pancreatitis, bleeding, perforation, and cholangitis. - This stent can remain in place and does not require routine exchange in the absence of recurrent biliary symptoms or liver enzyme abnormalities. Findings: The public relations coordinator film was normal. The esophagus was successfully intubated under direct vision. The scope was advanced to a normal major papilla in the descending duodenum without detailed examination of the pharynx, larynx and associated structures, and upper GI tract. The upper GI tract was grossly normal. A 0.035 inch angled Glidewire was passed into the ventral pancreatic duct initially. The guidewire was brought back and then passed into the biliary tree. The short-nosed traction sphincterotome was passed over the guidewire and the bile duct was then deeply cannulated. Contrast was injected. I personally interpreted the bile duct images. Ductal flow of contrast was adequate. Image quality was adequate. Contrast extended to the bifurcation. The common bile duct contained a single severe stenosis. The upstream main bile duct, cystic duct and hepatic duct bifurcation were diffusely dilated. A 5 mm biliary sphincterotomy was made with a monofilament traction (standard) sphincterotome using [employer] electrocautery. There was no post-sphincterotomy bleeding. One 10 mm by 4 cm covered metal stent (Viabil) was placed into the common bile duct. Bile flowed through the stent. The stent was in good position. Procedural Details: The patient was seen, evaluated, history reviewed, airway and heart-lung exams were performed by licensed provider and were satisfactory for planned level of sedation care. The risks, benefits and alternatives for the procedure and sedation were discussed and informed consent was obtained. A procedural pause was conducted in the presence of assisting personnel to verify the correct patient identity and procedure to be performed. Throughout the procedure, the patient's blood pressure, pulse, and oxygen saturations were monitored continuously. The Duodenoscope was introduced through the mouth, and advanced to the duodenum and used to inject contrast into the bile duct. The ERCP was accomplished without difficulty. The patient tolerated the procedure well. Complications: No immediate complications. Estimated Blood Loss: none. Attending Participation: I was present and participated during the entire procedure, including non-dunham portions. Leo Rockwell DO 06/25/2024 5:43:41 PM This report has been signed electronically. Number of Addenda: 0 Note Initiated On: 06/25/2024 1:30 PM us Magali Cui M.D. GI PROCEDURE ORDERABLES Final Result [facility] * Upper EUS (06/25/2024 1:30 PM CDT) 06/25/2024 1:30 PM CDT Impressions [facility] - 06/25/2024 5:43 PM CDT Post-op Diagnoses: - 26mm pancreatic uncinate mass with upstream biliary dilation - preliminary cytology diagnostic for adenocarcinoma - Benign-appearing esophageal stenosis which prevented initial passage of endosonoscope (14.7mm maximum diameter) - dilated to 15mm with gastroscope prior to EUS exam Narrative [facility] - 06/25/2024 5:43 PM CDT Gonda 2 GI Patient Name: Gladys Tejada Date of : 1945 Age: 78 Procedure Date: 06/25/2024 Procedure: Upper EUS Providers: Leo Rockwell DO, Allyssa Lea MD (Fellow) Referring Provider: Magali Cui MD Pre-op Diagnoses: Suspected mass in pancreas on CT scan, Elevated liver enzymes, Suspected solid pancreatic neoplasm Recommendation: - Await cytology results. - Referral to oncology. - Perform an ERCP today. - See ERCP notes for details on follow up. Findings: ENDOSCOPIC FINDING: : There was initial resistance to passage of the endosonoscope. We thus switched out to gastroscope. One benign-appearing, intrinsic moderate stenosis was found 28 to 32 cm from the incisors. This stenosis measured 1.1 cm (inner diameter). The stenosis was traversed. A TTS dilator was passed through the scope. Dilation with a 12-13.5-15 mm balloon dilator was performed to 15 mm under fluoroscopic guidance. ENDOSONOGRAPHIC FINDING: : An irregular mass was identified in the uncinate process of the pancreas. The mass was hypoechoic. The mass measured 26 mm in maximal cross-sectional diameter. The endosonographic borders were poorly-defined. The remainder of the pancreas was examined. The endosonographic appearance of parenchyma and the upstream pancreatic duct indicated duct dilation, a maximum duct diameter of 5 mm and parenchymal atrophy. Fine needle aspiration for cytology was performed. Color Doppler imaging was utilized prior to needle puncture to confirm a lack of significant vascular structures within the needle path. Four passes were made with the 22 gauge needle using a transduodenal approach. A stylet was used. A set up mechanic coil winding machines was present to evaluate the adequacy of the specimen. Preliminary cytology is suspicious for adenocarcinoma (final results are pending). There was dilation in the common bile duct, in the cystic duct and diffusely throughout the intrahepatic bile duct(s). Procedural Details: The patient was seen, evaluated, history reviewed, airway and heart-lung exams were performed by licensed provider and were satisfactory for planned level of sedation care. The risks, benefits and alternatives for the procedure and sedation were discussed and informed consent was obtained. A procedural pause was conducted in the presence of assisting personnel to verify the correct patient identity and procedure to be performed. Throughout the procedure, the patient's blood pressure, pulse, and oxygen saturations were monitored continuously. The gastroscpe and then endosonoscope was introduced through the mouth, and advanced to the second part of duodenum. The upper EUS was accomplished without difficulty. The patient tolerated the procedure well. Complications: No immediate complications. Estimated Blood Loss: none. Attending Participation: I was present and participated during the entire procedure, including non-dunham portions. Leo Rockwell DO 06/25/2024 5:43:13 PM This report has been signed electronically. Number of Addenda: 0 Note Initiated On: 06/25/2024 1:30 PM us Magali Cui M.D. GI PROCEDURE ORDERABLES Final Result [facility] NA * Mismatch Repair (MMR) Protein Immunohistochemistry Only, Tumor (06/25/2024 10:27 AM CDT) MLH1 IHC Performed 07/10/2024 4:50 PM DIRECTOR INDEX DTL MSH2 IHC Performed 07/10/2024 4:50 PM DIRECTOR INDEX DTL MSH6 IHC Performed 07/10/2024 4:50 PM DIRECTOR INDEX DTL PMS2 IHC Performed 07/10/2024 4:50 PM DIRECTOR INDEX DTL Result Provided diagnosis: pancreas adenocarcinoma IHC: Normal expression of MLH1, MSH2, MSH6, and PMS2 07/10/2024 4:50 PM DIRECTOR INDEX DTL Specimen Tissue, Tumor 07/10/2024 4:50 PM DIRECTOR INDEX DTL Tissue ID [id number] 07/10/2024 4:50 PM DIRECTOR INDEX DTL Released By Sabine Leija M.D., Ph.D. 07/10/2024 4:50 PM DIRECTOR INDEX DTL Result Summary INTACT PROTEIN EXPRESSION 07/10/2024 4:50 PM DIRECTOR INDEX DTL Interpretation These results suggest the presence of normal DNA mismatch repair function within the tumor. However, these results do not completely rule out the possibility of defective DNA mismatch repair within the tumor because approximately 5% of cases with defective mismatch repair do not show absence of protein expression by IHC (Mod Pathol. 2019;33(5):871-879 (PMID: [id number])). THERAPEUTIC IMPLICATIONS Current data suggest that in advanced stage solid tumors, targeted immunotherapies such as anti-PD-1 therapies are more likely to be effective in mismatch repair-deficient tumors than in mismatch repair-proficient tumors (Science. 2017 Mar 30;357(9125):409- 413 (PMID 64103042); J Clin Oncol. 2018 Sep 22:[id number] (PMID 85477418)). For interpretation of therapeutic implications of these results, consider MSI analysis to confirm ÁNGEL/MSI-L status in this tumor due to the possibility of discordance between IHC and MSI results. HEREDITARY IMPLICATIONS These results do not rule out a diagnosis of Emmanuel syndrome (LS) since the majority of information available on the ability of MSI/IHC testing to identify individuals with LS relates to testing that is performed on colon cancer. Although colon tumors are the preferred specimen for assessing an individual's risk, testing of other tumors typically associated with LS (e.g. endometrial, sebaceous carcinoma, gastric, or upper tract urothelial carcinoma) may be useful if a colon tumor is unavailable. This additional testing may provide more definitive evidence regarding whether or not this individual or family is likely to have an inherited colon cancer syndrome due to defective DNA mismatch repair (Emmanuel syndrome). These results also do not rule out the possibility that this individual's tumor is due to an inherited defect in another gene not involved in mismatch repair. A significant fraction of clinically defined LS cases (30% or more) do not have defective DNA mismatch repair as the underlying genetic basis of their disease. Additionally, these results do not rule out the possibility that this tumor could represent a sporadic occurrence. A genetic consultation may be of benefit. ADDITIONAL INFORMATION Consideration of these results, in light of other clinical information, may aid in clinical management decisions for this patient. These data should be interpreted in the context of the histopathologic findings. A surgical pathology consult may be ordered separately. 07/10/2024 4:50 PM DIRECTOR INDEX DTL Comment: ----ADDITIONAL INFORMATION---- Immunohistochemical staining (IHC) is used to determine the presence or absence of protein expression for one or more of the following: MLH1, MSH2, MSH6, and PMS2. Lymphocytes and normal epithelium exhibit strong nuclear staining to serve as positive internal controls for staining of these proteins. Test results should be interpreted in the context of clinical findings, family history, and other laboratory data. If results obtained do not match other clinical or laboratory findings, please contact the laboratory for possible interpretation. Misinterpretation of results may occur if the information provided is inaccurate or incomplete. This test was developed and its performance characteristics determined by [facility] in a manner consistent with CLIA requirements. This test has not been cleared or approved by the U.S. Food and Drug Administration. 06/25/2024 10:2 7 AM CDT 07/09/2024 11:51 AM DIRECTOR INDEX us Ryan Fried M.D. LAB GENETIC TESTING Fin al Result Performing Organization Address City/State/[facility] Co de Phone Number [facility] [address] [place] [address], [facility] [address] [place] [address] * PET CT Skull to Thigh FDG (06/23/2024 3:29 PM CDT) Anatomical Region Laterality Modality Body, Nuclear Medicine PET R ST LOS, PET ARZ LOS, Nuclear Medicine PET FLA LOS, Nuclear Medicine N/A Positron Emission Tomography (PET), Positron Emission Tomography (PET) Impressions 06/23/2024 5:07 PM CDT 1. Moderate to intensely FDG avid primary pancreatic malignancy in the uncinate. 2. Mild focal uptake to the left of the mass near midline could be secondary to locoregional extension or metastasis. 3. No other evidence of FDG avid metastatic disease. Narrative 06/23/2024 5:07 PM CDT EXAM: PET CT SKULL TO THIGH FDG Serum glucose at time of F-18 FDG injection was 106 mg/dL. Patient followed standard dietary/fasting requirements for this exam. RADIOPHARMACEUTICAL/MEDS: Route: intravenous fludeoxyglucose F 18 injection HALFWAY (FDG F-18),14.92 millicurie TECHNIQUE: F-18 FDG PET/CT scan was performed from the orbits through the thighs with low dose, non-contrast, free-breathing CT images for attenuation correction and anatomic localization (AC/AL), with imaging beginning at approximately 60 minutes after radiotracer injection. COMPARISON: Recent diagnostic CT chest and abdomen/pelvis 06/18/2024. Multiple prior PET/CT examinations, most recently 10/15/2018. INDICATION: Staging newly diagnosed pancreatic cancer in the uncinate process. Initial treatment strategy. 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 Additional history of colon cancer status post resection. The patient reports no recent vaccinations. FINDINGS: Ill-defined mass in the uncinate process of the pancreas seen on CT is moderate-intensely avid with SUVmax 6.3. Apparent separate mild uptake to the left of the mass between the aorta and SMA (image 150; see screen capture), potentially representing locoregional extension or metastasis. Dilation of the upstream biliary system. No other evidence of FDG avid metastatic disease. Similar heterogeneous FDG avid soft tissue in the left upper outer breast and left axilla, likely benign given stability since 2018, potentially representing silicosis or other inflammatory/granulomatous response in the setting of breast implants. Postradiation/posttreatment changes in both lungs. Scattered physiologic or inflammatory bowel activity. Significant incidental findings on the low-dose unenhanced CT images: No significant incidental findings in the head/neck. Incidental findings otherwise not significantly changed since recent diagnostic CT exams. Procedure Note Seth Delaney M.D. - 06/23/2024 EXAM: PET CT SKULL TO THIGH FDG Serum glucose at time of F-18 FDG injection was 106 mg/dL. Patientfollowed standard dietary/fasting requirements for this exam. RADIOPHARMACEUTICAL/MEDS: Route: intravenous fludeoxyglucose F 18 injection HALFWAY (FDG F-18),14.92 millicurie TECHNIQUE: F-18 FDG PET/CT scan was performed from the orbits through thethighs with low dose, non-contrast, free-breathing CT images forattenuation correction and anatomic localization (AC/AL), with imagingbeginning at approximately 60 minutes after radiotracer injection. COMPARISON: Recent diagnostic CT chest and abdomen/pelvis 06/18/2024.Multiple prior PET/CT examinations, most recently 10/15/2018. INDICATION: Staging newly diagnosed pancreatic cancer in the uncinateprocess. Initial treatment strategy. Prior history of synchronousadenocarcinoma of the lungs status post chemotherapy and bilateralradiation. Additional history of colon cancer status post resection. The patient reports no recent vaccinations. FINDINGS: Ill-defined mass in the uncinate process of the pancreas seen on CT ismoderate-intensely avid with SUVmax 6.3. Apparent separate mild uptake tothe left of the mass between the aorta and SMA (image 150; see screencapture), potentially representing locoregional extension or metastasis. Dilation of the upstream biliarysystem. No other evidence of FDG avid metastatic disease. Similar heterogeneous FDG avid soft tissue in the left upper outer breastand left axilla, likely benign given stability since 2018, potentiallyrepresenting silicosis or other inflammatory/granulomatous response in thesetting of breast implants. Postradiation/posttreatment changes in both lungs. Scattered physiologicor inflammatory bowel activity. Significant incidental findings on the low-dose unenhanced CT images: Nosignificant incidental findings in the head/neck. Incidental findingsotherwise not significantly changed since recent diagnostic CT exams. IMPRESSION: 1. Moderate to intensely FDG avid primary pancreatic malignancy in theuncinate. 2. Mild focal uptake to the left of the mass near midline could besecondary to locoregional extension or metastasis. 3. No other evidence of FDG avid metastatic disease. Alexia Aguilar APRN C.N.P., M.S. [facility] ZAYRA DOBBS Final Result * [facility] [employer] (06/19/2024 10:43 AM CDT) Test Name [employer]- Cancer +RNAinsight 06/19/2024 2:48 PM CDT AMBR Result SEE COMMENT 07/25/2024 10:14 AM DIRECTOR INDEX AMBR Comment: REVISED RESULTS Revised Report has been issued by performing laboratory. The revision has been sent to the patient record. ----PREVIOUSLY REPORTED ---- For final report, select Lab-Send Out Lab Results hyperlink below. Flagged as: N/A (Reported 07/08/2024 14:28) 06/19/2024 10:4 3 AM CDT 06/19/2024 2:48 PM CDT us Eddy Byrd M.D. LAB MISC ORDERABLES Edited Result - Final [facility] [address], [place] [address], [facility] AMBR [employer] [address] [place] [address] * CT Abdomen Pelvis with IV Contrast (06/18/2024 12:17 PM CDT) Anatomical Region Laterality Modality Abdomen, Pelvis, Abdominal R ST LOS, Abdominal ARZ LOS, Abdominal FLA LOS N/A Computed Tomograp hy, Computed Tomography 06/18/2024 12:1 7 PM CDT Impressions 06/18/2024 2:49 PM CDT 1. Ill-defined hypoenhancing mass in the uncinate process of the pancreas, concerning for pancreatic ductal adenocarcinoma. A lung cancer metastasis is less likely. The mass abuts the superior mesenteric vein and superior mesenteric artery for less than or equal to 180 degrees. The mass causes marked intrahepatic and extrahepatic biliary ductal dilation. 2. No evidence of metastatic disease in the abdomen or pelvis. Narrative 06/18/2024 2:49 PM CDT EXAM: CT ABDOMEN PELVIS WITH IV CONTRAST COMPARISON: Outside CT of the abdomen and pelvis 06/09/2024 FINDINGS: There is an ill-defined hypoenhancing mass in the uncinate process of the pancreas that measures 2.5 x 2.3 x 1.7 cm (series 3, image 151; series 5, image 72). The full extent of the mass is partially obscured by streak artifact from a nearby embolization coil. The upstream main pancreatic duct is dilated up to 5 mm. No substantial atrophy of the body and tail of the pancreas. The mass abuts the superior mesenteric vein and superior mesenteric artery for less than or equal to 180 degrees. There is marked intrahepatic and extrahepatic biliary ductal dilation to the level of the pancreatic mass. The extrahepatic bile duct measures 2.1 cm. No calcified common bile duct stone. The gallbladder is moderately distended. An ill-defined area of hypoattenuation in hepatic segment 4B likely is focal steatosis (series 4, image 101). No worrisome liver lesion. No enlarged lymph nodes. No peritoneal nodularity. No ascites. The spleen and adrenal glands are normal in appearance. Right renal cyst. Mild bilateral renal parenchymal scarring. No hydronephrosis. Normal caliber aorta with extensive atherosclerotic calcification. Rectal anastomotic staple line. The small bowel and colon are normal caliber. Hysterectomy. No adnexal mass. The urinary bladder appears normal. Multilevel degenerative disc disease of the lumbar spine. No worrisome bone lesion. This examination was performed in conjunction with a CT of the chest, which will be reported separately. Procedure Note Benjamin Murray M.D. - 06/18/2024 EXAM: CT ABDOMEN PELVIS WITH IV CONTRAST COMPARISON: Outside CT of the abdomen and pelvis 06/09/2024 FINDINGS: There is an ill-defined hypoenhancing mass in the uncinateprocess of the pancreas that measures 2.5 x 2.3 x 1.7 cm (series 3, ; series 5, image 72). The full extent of the mass is partiallyobscured by streak artifact from a nearby embolization coil. The upstream main pancreatic duct is dilated up to 5mm. No substantial atrophy of the body and tail of the pancreas. The massabuts the superior mesenteric vein and superior mesenteric artery for lessthan or equal to 180 degrees. There is marked intrahepatic and extrahepatic biliary ductal dilation tothe level of the pancreatic mass. The extrahepatic bile duct measures 2.1cm. No calcified common bile duct stone. The gallbladder is moderatelydistended. An ill-defined area of hypoattenuation in hepatic segment 4B likely isfocal steatosis (series 4, image 101). No worrisome liver lesion. No enlarged lymph nodes. No peritoneal nodularity. No ascites. The spleen and adrenal glands are normal in appearance. Right renal cyst.Mild bilateral renal parenchymal scarring. No hydronephrosis. Normalcaliber aorta with extensive atherosclerotic calcification. Rectal anastomotic staple line. The small bowel and colon are normalcaliber. Hysterectomy. No adnexal mass. The urinary bladder appearsnormal. Multilevel degenerative disc disease of the lumbar spine. No worrisomebone lesion. This examination was performed in conjunction with a CT of the chest,which will be reported separately. IMPRESSION: 1. Ill-defined hypoenhancing mass in the uncinate process of the pancreas,concerning for pancreatic ductal adenocarcinoma. A lung cancer metastasisis less likely. The mass abuts the superior mesenteric vein and superiormesenteric artery for less than or equal to 180 degrees. The mass causes marked intrahepatic andextrahepatic biliary ductal dilation. 2. No evidence of metastatic disease in the abdomen or pelvis. Magali GARCIA CT PROCEDURES Final Result * CT Chest with IV Contrast (06/18/2024 12:17 PM CDT) Anatomical Region Laterality Modality Chest, Thoracic RST LOS, Tho racic ARZ LOS, Thoracic ARZ LOS, Thoracic FLA LOS N/A Computed Tomography, Compute d Tomography 06/18/2024 12:1 7 PM CDT Impressions 06/18/2024 1:48 PM CDT 1. No interval change. A few stable small lung nodules and small left pleural effusion.. 2. No thoracic lymphadenopathy. Narrative 06/18/2024 1:48 PM CDT EXAM: CT CHEST WITH IV CONTRAST COMPARISON: 06/09/2024 FINDINGS: Trachea and central bronchi are patent. No central endobronchial lesion. Wedge resection changes in left lower lobe and lingula with adjacent scarring. Unchanged scarring in the right upper lobe. A few small lung nodules are unchanged. For example, 5 mm nodule in posterior left upper lobe (3/211). Persistent small left pleural effusion with atelectasis. No pleural thickening or nodularity. No pneumothorax. No thoracic lymphadenopathy. A few subcentimeter mediastinal and anterior diaphragmatic lymph nodes. Calcified right anterior diaphragmatic lymph node. Visualized thyroid gland is normal. Tiny hiatal hernia. No cardiomegaly. Small pericardial effusion. No pericardial thickening or calcifications. Small amount of coronary arterial calcifications. The thoracic aorta is normal in course and caliber with extensive atherosclerotic changes, especially in descending thoracic aorta. The central pulmonary arteries are normal in caliber. Degenerative changes of the spine. No suspicious osseous abnormality. Bilateral calcified breast implants. Unchanged 40 x 38 mm mass along the superior aspect of left implant. A few prominent left axillary lymph nodes are unchanged. This examination was performed in conjunction with a CT of the abdomen, which will be reported separately. Procedure Note Carroll Goldstein M.B.B.S., M.D. - 06/18/2024 EXAM: CT CHEST WITH IV CONTRAST COMPARISON: 06/09/2024 FINDINGS: Trachea and central bronchi are patent. No central endobronchial lesion.Wedge resection changes in left lower lobe and lingula with adjacentscarring. Unchanged scarring in the right upper lobe. A few small lungnodules are unchanged. For example, 5 mm nodule in posterior left upper lobe (3/211). Persistent small left pleuraleffusion with atelectasis. No pleural thickening or nodularity. Nopneumothorax. No thoracic lymphadenopathy. A few subcentimeter mediastinal and anteriordiaphragmatic lymph nodes. Calcified right anterior diaphragmatic lymphnode. Visualized thyroid gland is normal. Tiny hiatal hernia. No cardiomegaly. Small pericardial effusion. No pericardial thickening orcalcifications. Small amount of coronary arterial calcifications. Thethoracic aorta is normal in course and caliber with extensiveatherosclerotic changes, especially in descending thoracic aorta. The central pulmonary arteries are normal incaliber. Degenerative changes of the spine. No suspicious osseous abnormality.Bilateral calcified breast implants. Unchanged 40 x 38 mm mass along thesuperior aspect of left implant. A few prominent left axillary lymph nodesare unchanged. This examination was performed in conjunction with a CT of the abdomen,which will be reported separately. IMPRESSION: 1. No interval change. A few stable small lung nodules and small leftpleural effusion.. 2. No thoracic lymphadenopathy. Magali Cui M.D. [facility] CT PROCEDURES Final Result * Cell-free DNA KRAS 12, 13, 61,146, Blood (06/18/2024 9:05 AM CDT) Pathologist [facility] Result Summary NEGATIVE 06/25/2024 1:47 PM CDT DTL Result Negative 06/25/2024 1:47 PM CDT DTL Specimen WB, Whole Blood 06/25/2024 1:47 PM CDT DTL Released By Andry Pierce, MSc., Ph.D. 06/25/2024 1:47 PM CDT DTL Interpretation The absence of a detectable KRAS mutation in the blood of this patient does not rule out the presence of a KRAS mutation in the patient's tumor. Additional testing of the tumor sample is recommended if available. 06/25/2024 1:47 PM CDT DTL Comment: ----ADDITIONAL INFORMATION---- Cell-free DNA was isolated from the plasma and evaluated for the presence KRAS G12A, G12C, G12D, G12R, G12S, G12V, G13D, Q61K, Q61L, Q61R, Q61H, and A146 mutations using digital droplet PCR analysis. The limit of detection of this assay for the detection of the KRAS mutations (G12A, G12C, G12D, G12R, G12S, G12V, G13D, Q61K, Q61L, Q61R, Q61H, and A146T) is influenced by the amount of cfDNA in the blood. This is a biological variable that cannot be controlled. This assay was designed to detect the KRAS G12A, G12C, G12D, G12R, G12S, G12V, G13D, Q61K, Q61L, Q61R, Q61H, and A146 mutations. This test has been evaluated by our laboratory as an alternative to assessing paraffin embedded tumor specimens for KRAS mutations in patients with advanced colorectal cancer. Those studies revealed that this assay has a high positive predictive value (100% in our study) for the presence of a KRAS mutation in the patient's tumor and high concordance in the specific mutation type observed in the patient's plasma and tumor. Patients with a negative test result may still harbor a KRAS mutation at codons 12, 13, 61, or 146, and mutation testing of a tissue specimen for KRAS mutations is recommended. This test has not been clinically validated for use as a tool to monitor response to therapy or for early detection of tumors. TEST CLASSIFICATION This test was developed and its performance characteristics determined by [facility] in a manner consistent with CLIA requirements. This test has not been cleared or approved by the U.S. Food and Drug Administration. Blood (Blood, Venous) 06/18/2024 9:05 AM CDT 06/18/2024 10:48 AM CDT [facility] - 06/25/2024 1:47 PM CDT Specimen Information: Specimen ID: [id number] Specimen Type: Blood Specimen Collection Start Date: 06/18/2024 9:05 AM Specimen Received Date: 06/18/2024 10:48 AM Specimen ID: [id number] Specimen Type: Blood Specimen Collection Start Date: 06/18/2024 9:05 AM Specimen Received Date: 06/18/2024 10:48 AM Magali Cui M.D. LAB GENETIC TESTING Fin al Result Performing Organization Address [facility] Co de Phone Number [facility] [address] [place] [address], [facility] [address] [facility] [address] [place] [address] * (ABNORMAL) Carbohydrate Antigen 19-9 (CA 19-9) (06/18/2024 9:05 AM CDT) Carbohydrate Ag 19-9, S 519(H) <35 U/mL 06/18/2024 3:08 PM CDT [facility] Comment: ----ADDITIONAL INFORMATION---- The testing method is an immunoenzymatic assay manufactured by [employer] and performed on the [employer] D[employer]I 800. Values obtained with different assay methods or kits may be different and cannot be used interchangeably. Test results cannot be interpreted as absolute evidence for the presence or absence of malignant disease. Blood (Blood, Venous) 06/18/2024 9:05 AM CDT 06/18/2024 2:15 PM CDT Magali Cui M.D. LAB BLOOD ADD-ON Final Result Performing Organization Address City/[facility] Co de Phone Number [facility] [address] [place] [address] [facility] [address] [place] [address] * (ABNORMAL) Prealbumin (PAB) (06/18/2024 9:05 AM CDT) Prealbumin (PAB), S 15(L) 19 - 38 mg/dL 06/19/2024 10:08 AM CDT [facility] Blood (Blood, Venous) 06/18/2024 9:05 AM CDT 06/19/2024 6:13 AM CDT us Magali Cui M.D. LAB BLOOD ADD-ON Final Result [facility] [address] [place] [address] [facility] [address] [place] [place] [address] * Hemoglobin A1c (06/18/2024 9:05 AM CDT) Hemoglobin A1c, B 4.9 4.0 - 5.6 % 06/18/2024 10:24 AM CDT DTL Blood (Blood, Venous) 06/18/2024 9:05 AM CDT 06/18/2024 9:31 AM CDT us Magali Cui M.D. LAB BLOOD ADD-ON Final Result [facility] [address] [place] [address], [facility] [address] [place] [address] * (ABNORMAL) Bilirubin, Direct (06/18/2024 9:05 AM CDT) Bilirubin, Direct, S 15.7(H) 0.0 - 0.3 mg/dL 06/18/2024 11:32 AM CDT DTL Blood (Blood, Venous) 06/18/2024 9:05 AM CDT 06/18/2024 9:49 AM CDT us Magali Cui M.D. LAB BLOOD ADD-ON Final Result [facility] [address] [place] [address], [facility] [address] [place] [address] * CT chest abdomen pelv w con-Outside CT Body (06/09/2024 4:30 PM CDT) 06/09/2024 4:28 PM CDT Narrative [facility]IM[facility] - 06/09/2024 5:57 PM CDT This order has been created and auto-finalized to support the import of outside images. If available, original interpretation can be found on the Media Tab in Chart Review, in Document Viewer, as an image in QREADS or as an Addendum. If a re-interpretation or overread is required please follow defined workflow. us Provider Not In System IMG CT PROCEDURES Final R esult [facility]IMS NA * (ABNORMAL) MR Breast Bilateral without and with IV Contrast (03/14/2022 9:00 AM CDT) Anatomical Region Laterality Modality Breast, Breast Imaging RST L OS, Breast Imaging ARZ LOS, Breast Imaging FLA LOS Bilateral Magnetic Resonance 03/14/2022 10:4 4 AM CDT Impressions 03/14/2022 3:53 PM CDT 1. Bilateral intra- and extracapsular rupture of the retroglandular silicone implants. 2. Multiple bilateral mildly enhancing areas of extracapsular silicone, the largest in the upper left breast. 3. Probable silicone within low left axillary/left axillary tail lymph nodes. These will be further evaluated with ultrasound. 4. Probably benign enhancing foci within nonenhancing intracapsular masses in the inferior medial and inferior lateral left breast. RECOMMENDATION: Short-Term Follow-Up 6 Month A 6 month follow-up breast MRI is recommended to assess stability of the probably benign enhancing foci in the medial and lateral left breast. Ultrasound (and possibly biopsy) of the palpable mass/lymph node in the low left axilla/axillary tail is scheduled for later today. ASSESSMENT: BI-RADS: 3: Probably Benign. Narrative 03/14/2022 3:53 PM CDT EXAM: MR BREAST BILATERAL WITHOUT AND WITH IV CONTRAST INDICATION: Abnormal outside breast MRI. HISTORY: 76-year-old female with bilateral ruptured silicone implants and other abnormalities identified on outside breast MRI and outside PET/CT. HORMONAL STATUS: Postmenopausal. COMPARISON: Outside breast MRI dated 12/16/2021, outside PET/CT dated 10/20/2021 and prior mammograms and breast ultrasound examinations. TECHNIQUE: Dynamic enhanced protocol using IV contrast administration with T1 and T2- weighted images and CAD image analysis. FIBROGLANDULAR TISSUE: c. Heterogeneous fibroglandular tissue. BACKGROUND PARENCHYMAL ENHANCEMENT: b. Mild FINDINGS: RIGHT BREAST: No MRI findings of malignancy in the right breast. The retroglandular silicone implant is ruptured and there is extracapsular silicone superior/posterior, medial and lateral to the implant capsule. There is mild enhancement of the extracapsular silicone. RIGHT AXILLA: No right axillary lymphadenopathy. LEFT BREAST: Intracapsular and extracapsular rupture of the retroglandular silicone implant. In the upper breast there is a 4.3 x 4.2 x 3.0 cm mildly enhancing mass of extracapsular silicone adjacent to the fibrous capsule. Posterior to this mass of extracapsular silicone is a 1.2 cm mildly enhancing mass of extracapsular silicone/silicone granuloma (series 4 image 5) which I believe corresponds with a focal area of FDG uptake on the outside PET/CT. Just below or along the inferior aspect of a normal-appearing low axillary/axillary tail lymph node there is a 2.2 x 1.4 mass that may contain extracapsular silicone (series 4 image 10). This area may correspond with the palpable abnormality. Within the lower medial and lower outer breast there are 2 heterogeneous, nonenhancing masses that appear to be within the fibrous capsule. These masses do not signal like silicone on the silicone selective sequences and are causing mass effect on the residual central silicone. Within each of these masses there are small foci of enhancement which are T2 hyperintense and have not changed in appearance since the outside MRI dated 12/16/2021 (medial foci seen on post Lit images 79- 80 and lateral foci on images 84 - 85). LEFT AXILLA: No left axillary lymphadenopathy. CHEST WALL: Mildly prominent left internal mammary lymph nodes unchanged since outside MRI. Procedure Note Kaity Quinones M.D. - 03/14/2022 EXAM: MR BREAST BILATERAL WITHOUT AND WITH IV CONTRAST INDICATION: Abnormal outside breast MRI. HISTORY: 76-year-old female with bilateral ruptured silicone implants andother abnormalities identified on outside breast MRI and outside PET/CT. HORMONAL STATUS: Postmenopausal. COMPARISON: Outside breast MRI dated 12/16/2021, outside PET/CT dated10/20/2021 and prior mammograms and breast ultrasound examinations. TECHNIQUE: Dynamic enhanced protocol using IV contrast administrationwith T1 and T2-weighted images and CAD image analysis. FIBROGLANDULAR TISSUE: c. Heterogeneous fibroglandular tissue. BACKGROUND PARENCHYMAL ENHANCEMENT: b. Mild FINDINGS: RIGHT BREAST: No MRI findings of malignancy in the right breast. Theretroglandular silicone implant is ruptured and there is extracapsular siliconesuperior/posterior, medial and lateral to the implant capsule. There is mild enhancement of the extracapsularsilicone. RIGHT AXILLA: No right axillary lymphadenopathy. LEFT BREAST: Intracapsular and extracapsular rupture of theretroglandular silicone implant. In the upper breast there is a 4.3 x 4.2 x 3.0 cm mildly enhancing mass ofextracapsular silicone adjacent to the fibrous capsule. Posterior to this mass of extracapsular siliconeis a 1.2 cm mildly enhancing mass of extracapsular silicone/silicone granuloma (series 4image 5) which I believe corresponds with a focal area of FDG uptake on the outside PET/CT. Just below or along the inferior aspect of a normal-appearing lowaxillary/axillary tail lymph node there is a 2.2 x 1.4 mass that may contain extracapsular silicone (series4 image 10). This area may correspond with the palpable abnormality. Within the lower medial and lower outer breast there are 2 heterogeneous,nonenhancing masses that appear to be within the fibrous capsule. These masses do not signal likesilicone on the silicone selective sequences and are causing mass effect on the residual centralsilicone. Within each of these masses there are small foci of enhancement which are T2 hyperintenseand have not changed in appearance since the outside MRI dated 12/16/2021 (medial foci seen onpost Lit images 79- 80 and lateral foci on images 84 - 85). LEFT AXILLA: No left axillary lymphadenopathy. CHEST WALL: Mildly prominent left internal mammary lymph nodes unchangedsince outside MRI. IMPRESSION: 1. Bilateral intra- and extracapsular rupture of the retroglandularsilicone implants. 2. Multiple bilateral mildly enhancing areas of extracapsular silicone,the largest in the upper left breast. 3. Probable silicone within low left axillary/left axillary tail lymphnodes. These will be further evaluated with ultrasound. 4. Probably benign enhancing foci within nonenhancing intracapsular massesin the inferior medial and inferior lateral left breast. RECOMMENDATION: Short-Term Follow-Up 6 Month A 6 month follow-up breast MRI is recommended to assess stability of theprobably benign enhancing foci in the medial and lateral left breast. Ultrasound (and possibly biopsy) of the palpable mass/lymph node in thelow left axilla/axillary tail is scheduled for later today. ASSESSMENT: BI-RADS: 3: Probably Benign. Jodee GARCIA MRI PROCEDURES Final R esult from Last 3 Months or Most Recently Relevant to Health Maintenance Insurance [facility] MEDIC[facility] Advance Directives For more information, please contact: [phone] * Full Code (Latest Code Status on File) Date Activated Date Inactivated Comments 07/08/2024 12:31 AM 07/11/2024 4:16 PM Question Answer Comments Full Code: Discussed * Full Code Date Activated Date Inactivated Comments 03/23/2022 11:46 AM 03/24/2022 4:08 PM Question Answer Comments Full Code: Not Discussed Due to: Patient not available Care Teams Children'S Counselor Relationship Specialty Start Date End Date Elsewhere, Pcp PCP - General Internal Medicine 11/14/21
--- OUTSIDE RECORDS SUMMARY | 2024-09-03 09:46 | XMS_ITS | Encounter Summary ---
Author Organization [facility] Address [address] [place] [id number] Care Team Providers Care Janitor Cleaner Name Role Phone Elsewhere, Pcp Primary Care Provider Unavailabl e Reason for Referral * Outpatient (Routine) - Authorized Specialty Diagnoses / Procedures Referred By Contact Referred To Contact Gastroenterology and Hepatology Ivan Mendiola M.B.B.S., M.S. [address] [place] [phone] Phone: tel: fax: [facility] Referral ID Status Reason Start Date Expiration Date V isits Requested Visits Authorized [id number] Authorized 07/23/2024 01/22/2026 1 1 FILER Encounter Details Date Type Department Care Team (Latest Contact Info) Description 07/15/2024 2:20 PM CARD FILER Office Visit Division of Gastroenterology in [place], [place] [address] [place] [phone] Ivan Mendiola M.B.BSaloS., M.S. [address] [place] [phone] Obstruction Common Bile Duct (HCC) (Primary Dx) Social History Tobacco Use Types Packs/Day Years Used Date Smoking Tobacco: Former Cigarettes 1 15 0 01/31/1988 - 01/30/2003 Smokeless Tobacco: Never Alcohol Use Standard Drinks/Week Comments Not Currently 7 (1 standard drink = 0.6 oz pur e alcohol) [facility] Utilities Answer Date Recorded In the past 12 months has e electric, gas, oil, or water company threatened to shut off services in your [...] your living situation today? I have a [facility] place to live 07/11/2024 Comments No Sex and Gender Information Value Date Recorded Sex Assigned at Female 01/29/2018 3:57 PM CDT Legal Sex Female 11:37 PM CARD FILER Gender Identity Female 01/29/2018 3:57 PM CDT Sexual Orientation Straight 01/29/2018 3: 57 PM CDT documented as of this encounter Consult Notes * Ivan Mendiola M.B.B.S., M.S. - 07/15/2024 2:20 PM CST Gastroenterology & Hepatology Clinic Note DATE: 07/15/2024 REFERRING PROVIDER: No ref. provider found PRIMARY CARE PROVIDER: Primary Care Providers: Elsewhere, Pcp (General) No address on file SUBJECTIVE Supervising Inventory Assistant: Dr. Brandt CHIEF COMPLAINT / REASON FOR VISIT Follow up for biliary obstruction secondary to pancreatic cancer HISTORY OF PRESENT ILLNESS Ms. Tejada is a 78 y.o. female from [facility] [place] [facility] who presents to [facility] for follow up of pancreatic cancer. I met with Gladys 06/19/2024 when she presented to [facility] for second opinion regarding obstructive jaundice in the setting of suspected pancreatic cancer. Please see my note 06/19/2024 for more details. 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 For the biliary obstruction she underwent 2 ERCPs. First one was on 06/25/24 with sphincterotomy and placement of covered metal stent with excellent flow. Due to persistent obstruction and high bilirubin, another ERCP was pursued 07/02/2024 showing esophageal stenosis s/p dilation, malignant appearing duodenal ulcer and another duodenal ulcer suspect 2/2 metal stent impaction, migrated blocked stent s/p removal and placement covered metal stent coaxial plastic double pigtail stent placement to prevent upward or downward impaction. Patient reports eating well. She still suffers from itching on p.r.n. hydroxyzine but does feel thatitching is overall somewhat better. Bilirubin downtrending from 25.8 (07/01/2024) to 12.1 today. Patient is planned to start neoadjuvant gemcitabine and nab-paclitaxel and [facility] and is followingwith [facility] surgeon Dr. Catalan. OBJECTIVE VITAL SIGNS There were no vitals filed for this visit. PHYSICAL EXAMINATION Physical Exam DIAGNOSTIC WORKUP: Labs: Reviewed. ASSESSMENT / PLAN It was a pleasure to meet Ms. Tejada, a 78 y.o. female who presents to [facility] for evaluation of biliary obstruction in the setting of pancreatic malignancy. # Biliary obstruction in the setting of pancreatic adenocarcinoma s/p ERCP with covered metallic stent with coaxial plastic double pigtail stent # Duodenal ulcer # Hyperbilirubinemia, improving # Itching Patient has biliary obstruction in the setting of pancreatic adenocarcinoma. Bilirubin is downtrending after recent ERCP with covered metallic stent placement and coaxial plastic double pigtail stent. There seemed to have evidence of duodenal ulceration, one of which was malignant appearing and the second was likely related to direct pressure from the metal stent. On most recent ERCP, the plasticcoaxial stent was placed to prevent stent impaction. Patient is planned to receive local neoadjuvant therapy at [facility]. I have ordered next ERCP for end of August to exchange the plastic stent.I also advised him to receive a PPI daily for at least 6-8 weeks hoping that this helps with duodenal ulcer healing. Patient will continue to follow with oncology for further care. They can assist with we ordering ERCP if needed. Recommendations: Daily Protonix to assist with duodenal ulcer healing. ERCP for plastic stent exchange. I ordered that for end august. Further care with our Oncology colleagues. No specific need for GI follow up. However, can be referred back if needed or if any concern from the patient or providers. Addendum: Discussed with the advanced endoscopist. It seems that the plastic double pigtail was placed to prevent impaction of the fully covered stent against a mucosal wall either above or below. Hence, It does not need to be exchanged as a sole indication for a procedure, as the larger covered stent has a much larger channel and is intended to maintain patency. However Dr. Correa was a bit disappointedwith the slower decline in bilirubin 12. Recommended follow up of bilirubin and if this is not declining further, to perform an ERCP to potentially add a second metal stent extending downward a further 2-3 cm to duodenal wall. This is since the current stent is through the main stricture but still above the duodenal and perhaps is or could be partially obstructed with in the pancreas. If the bilirubin continued to down trend, favored observation. Update recommendation: Daily Protonix to assist with duodenal ulcer healing. Continue to monitor bilirubin. If it does not decline further or increase, could consider an ERCP to place a second metal stent extending downward into the duodenal wall. Further care with our Oncology colleagues. We will order a one time follow up to ensure bilirubin is downtrending. We will cancel the ERCP order for now. Update 07/29/2024 Called the patient. Seems like bilirubin has been going steadily and although the patient could notremember she said the most recent reading is almost 2. Thus, she does not need the scheduled ERCP and will only do it as needed if there is suspicion for infection or again biliary obstruction. I personally spent over half of total 25 minutes in counseling and discussion with the patient and coordination of care as described above. Patient and family including partner and daughter expressedunderstanding and agreement with the proposed care plan. I will forward this note to . Further recommendation will be communicated with the patient. CC: No ref. provider found -- Kranthi Carlisle, MSc PGY-4 Gastroenterology and Hepatology Fellow FILER FILER FILER documented in this encounter Miscellaneous Notes * Addendum Note - Ivan Mendiola M.B.B.S., M.S. - 07/15/2024 2:20 PM CARD FILER Addended by: IVAN MENDIOLA on: 07/23/2024 11:37 AM Modules accepted: Orders FILER documented in this encounter Plan of Treatment Upcoming Encounters Date Type Department Care Team (Latest Contact Info) Description 09/11/2024 11:30 AM CARD FILER Clinical Communication Virtual Review in [place], [place] [address] [place] [phone] 09/15/2024 7:50 AM CARD FILER Lab Department of Laboratory Medicine and Pathology, [facility], in [place], [place] [address] [place] [phone] Alexia Aguilar APRN, C.NPierce., M.S. [address] [place] [phone] 09/15/2024 9:45 AM CARD FILER Appointment Department of Radiology, [facility], in [place], [place] [address] [place] [phone] Alexia Aguilar APRN, C.NPierce., M.S. [address] [place] [phone] 09/15/2024 10:30 AM CARD FILER Office Visit Department of Medical Genetics in [place], [place] [address] [place] [phone] Eddy Byrd M.D. [address] [place] [phone] Stefani Montenegro M.S., [facility] [address] [place] [phone] 09/15/2024 12:00 PM CARD FILER Appointment Department of Radiology, [facility], in [place], [place] [address] [place] [phone] Alexia Aguilar APRN, C.N.P., M.S. [address] [place] [phone] 09/16/2024 9:20 AM CARD FILER Office Visit Department of Oncology in [place], [place] [address] [place] [phone] Alexia Aguilar APRN, C.Tiffany., M.S. [address] [place] [phone] 09/16/2024 11:00 AM CARD FILER Comprehensive Visit Division of Hepatobiliary and Pancreas Surgery in [place], [place] [address] [place] [phone] Asiya Catalan M.D. [address] [place] [phone] 09/17/2024 10:42 AM CARD FILER Hospital Encounter [facility] 01 4 AM ADMIT [address] [place] [phone] Asiya Catalan M.D. [address] [place] [phone] 09/17/2024 10:42 AM CARD FILER - 09/17/2024 12:22 PM CARD FILER Surgery [facility] [address] [place] [phone] Asiya Catalan M.D. [address] [place] [phone] LAPAROSCOPIC EXPLORATION - DIAGNOSTIC - cytology - including peritoneal CEA, CA 19-9 & KRAS 10/30/2024 2:20 PM CARD FILER Virtual Visit Division of Gastroenterology in [place], [place] [address] [place] [phone] Ivan Mendiola M.B.B.S., M.S. [address] [place] [phone] Scheduled Procedures Name Priority Associated Diagnoses Date/Ti me LAPAROSCOPIC EXPLORATION - DIAGNOSTIC Malignant Neoplasm Of Pancreas Head (HCC) 09/17/2024 10:42 AM CARD FILER Scheduled Referrals Name Type Priority Associated Diagnoses Order Schedule Gastroenterology and Hepatology office visit (clinic) Outpatient Referral Routine Expected: 10/23/2024, Expires: 10/23/2025 documented as of this encounter Visit Diagnoses Diagnosis Obstruction Common Bile Duct (HCC)- Primary Malignant Neoplasm Of Pancreas Head (HCC) documented in this encounter Care Teams Janitor Cleaner Relationship Specialty Start Date End Date Elsewhere, Pcp PCP - General Internal Medicine 11/14/21 documented as of this encounter
--- OUTSIDE RECORDS SUMMARY | 2024-09-03 09:46 | XMS_ITS | Encounter Summary ---
Author Organization [facility] Address [address] [place] [phone] Care Team Providers Care Coremaker Pipe Name Role Phone Elsewhere, Pcp Primary Care Provider Unavailabl e Encounter Details Date Type Department Care Team (Latest Contact Info) Description 08/21/2024 Clinical Communication Division of Hepatobiliary and Pancreas Surgery in [place], [place] [address] [place] [address] Asiya Catalan M.D. [address] [place] [address] Social History Tobacco Use Types Packs/Day Years Used Date Smoking Tobacco: Former Cigarettes 1 15 0 01/31/1988 - 01/30/2003 Smokeless Tobacco: Never Alcohol Use Standard Drinks/Week Comments Not Currently 7 (1 standard drink = 0.6 oz pur e alcohol) [facility] Utilities Answer Date Recorded In the past 12 months has e [employer], gas, oil, or water [employer] threatened to shut off services in your [...] your living situation today? [facility] live 07/11/2024 Comments No Sex and Gender Information Value Date Recorded Sex Assigned at Female 01/29/2018 3:57 PM CDT Legal Sex Female 11:37 PM POLICE CADET Gender Identity Female 01/29/2018 3:57 PM CDT Sexual Orientation Straight 01/29/2018 3: 57 PM CDT documented as of this encounter Miscellaneous Notes * Telephone Encounter - Jocelin Vidal R.N. - 08/21/2024 12:14 PM POLICE CADET SUBJECTIVE CHIEF COMPLAINT / REASON FOR CALL No chief complaint on file. PLAN The following information was provided: Called Mrs. Tejada to discuss scheduling a diagnostic laparoscopy after her visit with Dr. Catalan on 09/16. Mrs. Tejada was getting her chemo infusion so I spoke with her Floyd. Floyd sharedwith me how Gladys has been doing. She had her first round of chemo with only gemcitabine due to herelevated bilirubin, which Gladys tolerated well. She is currently receiving her second round with the other medication (abraxane) added. I shared with Floyd that we are looking ahead at Gladys's appointments and Dr. Catalan is recommendingthat we proceed with the diagnostic laparoscopy at her restaging visit. I shared that we can pre-list this so we have it on the books, and if appointments or things need to be adjusted, we would be happy to accommodate. We will plan to discuss this at her next restaging visit, but we will have her listed for the following day. Floyd shared he will discuss with Gladys, but he is sure she would like to undergo this procedure. I encouraged Floyd to call back with any questions or concerns they may have prior to their restaging visits. Floyd was appreciative for the call and had no further questions at this time. Information/Education: patient/caller able to teach back The following references were used: nursing clinical judgement CE CADET documented in this encounter Plan of Treatment Upcoming Encounters Date Type Department Care Team (Latest Contact Info) Description 09/11/2024 11:30 AM POLICE CADET Clinical Communication Virtual Review in [address] [phone] 09/15/2024 7:50 AM POLICE CADET Lab Department of Laboratory Medicine and Pathology, [address] [phone] Alexia Aguilar, GM, C.N.P., M.S. [address] [place] [phone] 09/15/2024 9:45 AM POLICE CADET Appointment Department of Radiology, [facility], in [address] [phone] Alexia Aguilar APRN, C.N.P., M.S. [address] [place] [phone] 09/15/2024 10:30 AM POLICE CADET Office Visit Department of Medical Genetics in [place], [place] [address] [place] [phone] Eddy Byrd M.D. [address] [place] [phone] Stefani Montenegro, M.S., [facility] [address] [place] [phone] 09/15/2024 12:00 PM POLICE CADET Appointment Department of Radiology, [facility], in [place], [place] [address] [place] [phone] Alexia Aguilar APRN, C.N.P., M.S. [address] [place] [phone] 09/16/2024 9:20 AM POLICE CADET Office Visit Department of Oncology in [place], [place] [address] [place] [phone] Alexia Aguilar APRN, C.NPierce., M.S. [address] [place] [phone] 09/16/2024 11:00 AM POLICE CADET Comprehensive Visit Division of Hepatobiliary and Pancreas Surgery in [place], [place] [address] [place] [phone] Asiya Catalan M.D. [address] [place] [phone] 09/17/2024 10:42 AM POLICE CADET Hospital Encounter [facility] 01 4 AM ADMIT 200 [facility] [address] Asiya Catalan M.D. [address] [place] [phone] 09/17/2024 10:42 AM POLICE CADET - 09/17/2024 12:22 PM POLICE CADET Surgery [facility]IN OR [address] [place] [address] Asiya Catalan M.D. [address] [place] [address] LAPAROSCOPIC EXPLORATION - DIAGNOSTIC - cytology - including peritoneal CEA, CA 19-9 & KRAS 10/30/2024 2:20 PM POLICE CADET Virtual Visit Division of Gastroenterology in [place], [place] [address] [place] [phone] Shira Mendiola M.B.B.S., M.S. [address] [place] [phone] Scheduled Procedures Name Priority Associated Diagnoses Date/Ti me LAPAROSCOPIC EXPLORATION - DIAGNOSTIC Malignant Neoplasm Of Pancreas Head (HCC) 09/17/2024 10:42 AM POLICE CADET documented as of this encounter Visit Diagnoses Diagnosis Malignant Neoplasm Of Pancreas Head (HCC)- Primary Malignant Neoplasm Of Pancreas Head (HCC)- Primary Malignant Neoplasm Of Pancreas Head (HCC) documented in this encounter Care Teams Coremaker Pipe Relationship Specialty Start Date End Date Elsewhere, Pcp PCP - General Internal Medicine 11/14/21 documented as of this encounter
--- OUTSIDE RECORDS SUMMARY | 2024-09-03 09:46 | XMS_ITS | Encounter Summary ---
Author Organization [facility] Address [address] [place] [address] Care Team Providers Care Wood Boatbuilder Name Role Phone Elsewhere, Pcp Primary Care Provider Unavailabl e Reason for Visit * Reason Onset Date Comments genetic testing 06/19/2024 Encounter Details Date Type Department Care Team (Latest Contact Info) Description 06/19/2024 Clinical Communication Department of Medical Genetics in [place], [place] [address] [place] [address] Stefani Montenegro M.S., [facility] [address] [place] [phone] genetic testing Social History Tobacco Use Types Packs/Day Years Used Date Smoking Tobacco: Former Cigarettes 1 15 0 01/31/1988 - 01/30/2003 Smokeless Tobacco: Never Alcohol Use Standard Drinks/Week Comments Yes 7 (1 standard drink = 0.6 oz pur e alcohol) [facility] Utilities Answer Date Recorded In the [...] your living situation today? [facility] live 07/11/2024 Comments No Sex and Gender Information Value Date Recorded Sex Assigned at Female 01/29/2018 3:57 PM CDT Legal Sex Female 11:37 PM POLICE CAPTAIN SENIOR Gender Identity Female 01/29/2018 3:57 PM CDT Sexual Orientation Straight 01/29/2018 3: 57 PM CDT documented as of this encounter Plan of Treatment Upcoming Encounters Date Type Department Care Team (Latest Contact Info) Description 09/11/2024 11:30 AM POLICE CAPTAIN SENIOR Clinical Communication Virtual Review in [place], [place] 200 [place] [address] 09/15/2024 7:50 AM POLICE CAPTAIN SENIOR Lab Department of Laboratory Medicine and Pathology, [facility], in [place], [place] [address] [place] [phone] Alexia Aguilar APRN, C.N.P., M.S. [address] [place] [phone] 09/15/2024 9:45 AM POLICE CAPTAIN SENIOR Appointment Department of Radiology, [facility], in [place], [place] [address] [place] [phone] Alexia Aguilar APRN, C.N.Emmie., M.S. [address] [place] [phone] 09/15/2024 10:30 AM POLICE CAPTAIN SENIOR Office Visit Department of Medical Genetics in [place], [place] [address] [place] [phone] Eddy Byrd M.D. [address] [place] [phone] Stefani Montenegro M.S., [facility] [address] [place] [phone] 09/15/2024 12:00 PM POLICE CAPTAIN SENIOR Appointment Department of Radiology, [facility], in [place], [place] [address] [place] [phone] Alexia Aguilar APRN, C.N.P., M.S. [address] [place] [phone] 09/16/2024 9:20 AM POLICE CAPTAIN SENIOR Office Visit Department of Oncology in [place], [place] [address] [place] [phone] Alexia Aguilar APRN, C.N.P., M.S. [address] [place] [phone] 09/16/2024 11:00 AM POLICE CAPTAIN SENIOR Comprehensive Visit Division of Hepatobiliary and Pancreas Surgery in [place], [place] [address] [place] [phone] Asiya Catalan M.D. [address] [place] [phone] 09/17/2024 10:42 AM POLICE CAPTAIN SENIOR Hospital Encounter [facility] 01 4 AM ADMIT [address] [place] [phone] Asiya Catalan M.D. [address] [place] [phone] 09/17/2024 10:42 AM POLICE CAPTAIN SENIOR - 09/17/2024 12:22 PM POLICE CAPTAIN SENIOR Surgery [facility] MAIN OR [address] [place] [phone] Asiya Catalan M.D. [address] [place] [phone] LAPAROSCOPIC EXPLORATION - DIAGNOSTIC - cytology - including peritoneal CEA, CA 19-9 & KRAS 10/30/2024 2:20 PM POLICE CAPTAIN SENIOR Virtual Visit Division of Gastroenterology in [place], [place] [address] [place] [phone] Shira Mendiola M.B.B.S., M.S. [address] [place] [phone] Scheduled Procedures Name Priority Associated Diagnoses Date/Ti me LAPAROSCOPIC EXPLORATION - DIAGNOSTIC Malignant Neoplasm Of Pancreas Head (HCC) 09/17/2024 10:42 AM POLICE CAPTAIN SENIOR documented as of this encounter Visit Diagnoses Not on filedocumented in this encounter Care Teams Wood Boatbuilder Relationship Specialty Start Date End Date Elsewhere, Pcp PCP - General Internal Medicine 11/14/21 documented as of this encounter
--- OUTSIDE RECORDS SUMMARY | 2024-09-03 09:46 | XMS_ITS ---
Author Organization [facility] Address [address] [place] [address] Care Team Providers Care Ship'S Surveyor Name Role Phone Unavailable Unavailable Unavailable Surgery Details Not on file Complications Check Surgery Details section. Procedure Estimated Blood Loss Check Surgery Details section. Procedure Findings Check Surgery Details section. Procedure Specimens Taken Check Surgery Details section.
--- OUTSIDE RECORDS SUMMARY | 2024-09-03 09:46 | XMS_ITS | Encounter Summary ---
Author Organization [facility] Address [address] [place] [address] Care Team Providers Care Supervisor Varnish Name Role Phone Elsewhere, Pcp Primary Care Provider Unavailabl e Reason for Referral * Outpatient (Routine) - Authorized Specialty Diagnoses / Procedures Referred By Contgil t Referred To Contact Diagnoses Mass Pancreas Alonzo Candelaria MD [facility] Referral ID Status Reason Start Date Expiration Date V isits Requested Visits Authorized [id number] Authorized 06/10/2024 12/10/2025 1 1 Encounter Details Date Type Department Care Team (Late st Contact Info) Description 06/10/2024 Orders Only Division of Gastroenterology in [place], [place] [address] [place] [address] Dial Alonzo Bowles MD Mass Pancreas Social History Tobacco Use Types Packs/Day Years Used Date Smoking Tobacco: Former Cigarettes 1 15 0 01/31/1988 - 01/30/2003 Smokeless Tobacco: Never Alcohol Use Standard Drinks/Week Comments Yes 5 (1 standard drink = 0.6 oz pur e alcohol) Nutrition Answer Date Recorded Nutrition: EVOO Fat Source 13 03/30 Nutrition: Servings of Fruits/Vegetables per Day Not on file 03/30/2020 Dental Answer Date Recorded Dental: Regular Dentist Unknown 10/26/19 21 Comments No Sex and Gender Information Value Date Recorded Sex Assigned at Female 01/29/2018 3:57 PM CDT Legal Sex Female 11:37 PM SOFTWARE DEVELOPMENT ANALYST Gender Identity Female 01/29/2018 3:57 PM CDT Sexual Orientation Straight 01/29/2018 3: 57 PM CDT documented as of this encounter Plan of Treatment Upcoming Encounters Date Type Department Care Team (Latest Contact Info) Description 09/11/2024 11:30 AM SOFTWARE DEVELOPMENT ANALYST Clinical Communication Virtual Review in [place], [place] 200 [place] [address] 09/15/2024 7:50 AM SOFTWARE DEVELOPMENT ANALYST Lab Department of Laboratory Medicine and Pathology, [facility] in [place], [place] [address] [place] [phone] Alexia Aguilar APRN, C.N.P., M.S. [address] [place] [phone] 09/15/2024 9:45 AM SOFTWARE DEVELOPMENT ANALYST Appointment Department of Radiology, [facility] in [place], [place] [address] [place] [phone] Alexia Aguilar APRN, C.N.P., M.S. [address] [place] [phone] 09/15/2024 10:30 AM SOFTWARE DEVELOPMENT ANALYST Office Visit Department of Medical Genetics in [address] [phone] Eddy Byrd M.D. [address] [place] [phone] Stefani Montenegro M.S., [facility] [address] [place] [phone] 09/15/2024 12:00 PM SOFTWARE DEVELOPMENT ANALYST Appointment Department of Radiology, [facility], in [place], [place] [address] [place] [phone] Alexia Aguilar APRN, C.N.P., M.S. [address] [place] [phone] 09/16/2024 9:20 AM SOFTWARE DEVELOPMENT ANALYST Office Visit Department of Oncology in [place], [place] [address] [place] [phone] Alexia Aguilar, GM CSaloNSaloP., M.S. [address] [place] [phone] 09/16/2024 11:00 AM SOFTWARE DEVELOPMENT ANALYST Comprehensive Visit Division of Hepatobiliary and Pancreas Surgery in [place], [place] [address] [place] [phone] Asiya Catalan M.D. [address] [place] [phone] 09/17/2024 10:42 AM SOFTWARE DEVELOPMENT ANALYST Hospital Encounter [facility] 01 4 AM ADMIT [address] [place] [phone] Asiya Catalan M.D. [address] [place] [phone] 09/17/2024 10:42 AM SOFTWARE DEVELOPMENT ANALYST - 09/17/2024 12:22 PM SOFTWARE DEVELOPMENT ANALYST Surgery T [facility] MAIN OR [address] [place] [phone] Asiya Catalan M.D. 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
--- OUTSIDE RECORDS SUMMARY | 2024-09-03 09:46 | XMS_ITS | Referral Summary ---
Author Organization [facility] Address [address] [place] [address] Care Team Providers Care Information Systems Supervisor Name Role Phone Elsewhere, Pcp Primary Care Provider Unavailabl e Source Comments Patient records contain information from all sites at [facility]. For routine questions regarding patient records, call [phone] during business hours, M-F 8:00 AM - 5:00 PM Central Time. Record requests for emergency care only can be directed to [phone] at any time.[facility] Encounters * This document contains information received from the source organization and may not represent a complete record from that organization. Date Type Department Care Team Description 08/21/2024 Clinical Communication Division of Hepatobiliary and Pancreas Surgery in [place], [place] [address] [place] [phone] Asiya Catalan M.D. 07/15/2024 10:40 AM [employer] Office Visit Department of Oncology in [place], [place] [address] [place] [phone] Alexia Aguilar, GM, C.N.P., M.S. 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 Obstruction Common Bile Duct (HCC) (Primary Dx) 07/11/2024 Orders Only Department of Oncology in [place], [place] [address] [place] [address] Octavio Maciel M.D. 07/11/2024 Orders Only Pharmacy Prior Auth [phone] Riya Armijo 07/11/2024 Clinical Communication [facility] [address] [place] [address] Benjamin Hart P.A.-C., M.S. 07/07/2024 3:23 PM [employer] - 07/11/2024 2:11 PM [employer] Hospital Encounter [facility], [facility], Fifth Floor [address] [place] [address] Jeovany Padilla M.D. Sandy Beal M.B., B.Ch., Ph.D. Ely Alves M.D., M.B.A. Jaundice (Primary Dx); Hypokalemia; Hypomagnesemia; Cancer Pancreas Primary Personal History Discharge Disposition: Home or Self Care 07/10/2024 Clinical Communication Division of Gastroenterology in [place], [place] [address] [place] [address] Tia Reynaga M.D. 07/09/2024 Orders Only Department of Medical Genetics in [place], [place] [address] [place] [address] Stefani Montenegro M.S., [facility] 07/02/2024 12:10 PM CDT Ancillary Procedure Department of Gastroenterology 07/02/2024 11:56 AM CDT - 07/02/2024 11:59 PM CDT Hospital Encounter Department of Radiology, [facility], in [place], [place] [address] [place] [address] Katia Issa APRN, C.N.P., M.S.N. Malignant Neoplasm Of Pancreas Head (HCC) Discharge Disposition: Home or Self Care 07/02/2024 Orders Only Division of Hepatobiliary and Pancreas Surgery in [place], [place] [address] [place] [address] Katia Issa APRN, C.N.P., M.S.N. 07/02/2024 10:04 AM CDT - 07/02/2024 3:24 PM CDT Hospital Encounter Division of Gastroenterology in [place], [place] [address] [place] [address] Katia Issa APRN, C.N.P., M.S.N. Paresh Isabel APRN, LASHAWN, DNAP Malignant Neoplasm Of Pancreas Head (HCC) Discharge Disposition: Home or Self Care 07/02/2024 Orders Only Division of Hepatobiliary and Pancreas Surgery in [place], [place] [address] [place] [address] Katia Issa APRN, C.N.P., M.S.N. 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 07/01/2024 4:09 PM CDT - 07/01/2024 11:59 PM CDT Hospital Encounter Department of Laboratory Medicine and Pathology, [place], [place] [address] [place] [address] Asiya Catalan M.D. Mass Pancreas Discharge Disposition: Home or Self Care 07/01/2024 8:54 AM CDT - 07/01/2024 4:08 PM CDT Hospital Encounter Department of Laboratory Medicine and Pathology, [facility] in [place], [place] [address] [place] [address] Radha Najera APRN C.NFlower, D.N.P. Anemia Discharge Disposition: Home or Self Care 07/01/2024 8:00 AM CDT Comprehensive Visit Preoperative Evaluation Center in [place], [place] [address] [place] [address] Asiya Catalan M.D. Nelson, Janelle R, APRN, C.N.P. Preanesthetic Medical Exam (Primary Dx); Mass Pancreas; Malignant Neoplasm Of Pancreas Head (HCC); Chronic Obstructive Pulmonary Disease (HCC); Cancer Lung Primary Personal History; Anemia; Hypertension Essential Primary; Allergy Penicillin Antibiotic Personal History 07/01/2024 2:30 PM CDT Comprehensive Visit Division of Hepatobiliary and Pancreas Surgery in [place], [place] [address] [place] [address] Asiya Catalan M.D. Mass Pancreas (Primary Dx) 06/30/2024 Orders Only Department of Oncology in [place], [place] [address] [place] [phone] Leo Cervantes M.D., Ph.D. 06/30/2024 Clinical Communication Department of Oncology in [place], [place] [address] [place] [phone] Leo Cervantes M.D., Ph.D. 06/26/2024 Orders Only Preoperative Evaluation Center in [place], [place] [address] [place] [phone] Abdullahi Conner M.S.Marixa., R.N. Anemia (Primary Dx) 06/26/2024 Orders Only Preoperative Evaluation Center in [place], [place] [address] [place] [address] Bertha Norman APRN C.N.P. Anemia (Primary Dx); Allergy Penicillin Antibiotic Personal History 06/26/2024 Clinical Communication Division of Hepatobiliary and Pancreas Surgery in [place], [place] [address] [place] [address] Asiya Catalan M.D. 06/26/2024 11:50 AM CDT Comprehensive Visit Department of Oncology in [place], [place] [address] [place] [phone] Loe Cervantes M.D., Ph.D. 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 Mass Pancreas Discharge Disposition: Home or Self Care 06/25/2024 10:13 AM CDT - 06/25/2024 12:21 PM CDT Hospital Encounter Division of Gastroenterology in [place], [place] [address] [place] [phone] Magali Cui M.D. Law, Ryan J, D.O. Ballenger, Erin R, APRN, LASHAWN, DNAEmmie Mass Pancreas Discharge Disposition: Home or Self Care 06/25/2024 1:31 PM CDT Anesthesia Event Division of Gastroenterology in [place], [place] [address] [place] [address] Bridget Almonte APRN, LASHAWN, DNAP Azzia Catalan M.D. 06/23/2024 12:50 PM CDT - 06/23/2024 11:59 PM CDT Hospital Encounter Department of Radiology, [facility] in [place], [place] [address] [place] [address] Alexia Aguilar APRN, C.N.P., M.S. Mass Pancreas Discharge Disposition: Home or Self Care 06/20/2024 Orders Only Department of Oncology in [place], [place] [address] [place] [phone] Alexia Aguilar APRN, C.N.P., M.S. Mass Pancreas (Primary Dx) 06/19/2024 10:22 AM CDT - 06/19/2024 11:59 PM CDT Hospital Encounter Department of Laboratory Medicine and Pathology, [facility] in [place], [place] [address] [place] [phone] Eddy Byrd M.D. 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 Ruchi Singh Mass Pancreas 06/19/2024 7:40 AM CDT Comprehensive Visit Division of Gastroenterology in [place], [place] [address] [place] [phone] Shira Mendiola M.B.B.S., M.S. Mass Pancreas (Primary Dx) 06/18/2024 8:44 AM CDT - 06/18/2024 11:02 AM CDT Hospital Encounter Department of Laboratory Medicine and Pathology, [facility] in [place], [place] [address] [place] [phone] Magali Cui M.D. Mass Pancreas Discharge Disposition: Home or Self Care 06/18/2024 11:03 AM CDT - 06/18/2024 11:59 PM CDT Hospital Encounter Department of Radiology, [facility], in [place], [place] [address] [place] [phone] Magali Cui M.D. Mass Pancreas Discharge Disposition: Home or Self Care 06/12/2024 1:20 PM CDT Virtual Visit Division of Gastroenterology in [place], [place] [address] [place] [phone] Rochelle Mejia R.N. Mass Pancreas 06/10/2024 Clinical Communication Division of Gastroenterology in [place], [place] [address] [place] [phone] Prescheduling, Provider 06/10/2024 Orders Only Division of Gastroenterology in [place], [place] [address] [place] [address] [facility], Provider, Mass Pancreas from Last 3 Months Allergies Active Allergy Reactions Criticality Noted Date [...] Allergy Penicillin Antibiotic Personal History 1 Other Cylinder Grinder Current Drug Therapy 06/26/2024 Nodule Pulmonary 03/14/2022 Overview (03/14/2022): Added automatically from request for surgery [id number] Rupture Breast Implant Subsequent 07/22/2018 Lymphadenopathy Axillary [...] Part Of Lung Laterality Unknown 08/16/2016 10/06/2021 Immunizations Name Administration Dates Next Due H1N1 Inj 08/20/2009 HZV (ZOSTAVAX) 06/03/2012 Influenza TIV (IM) 07/08/2018, 3,06/05/2011,2006 Influenza high dose QV(65 ye ars or older) (PF) 06/23/2021,06/07/2020 PCV13 07/22/2015 PPSV23 07/20/2011 RZV (SHINGRIX) 03/13/2022(Deferred: Other - WILL GET AT A LATER TIME) Td Preservative Free (TENIVA C, DECAVAC) 10/08/2007 Tdap 05/27/2014 influenza trivalent high dos e (HD)(PF) 05/12/2019,07/08/2018,06/25/2017,2016,06/06/2016,07/07/2015,06/03/2015,0 05/27/2014 Social History Tobacco Use Types Packs/Day Years Used Date Smoking Tobacco: Former Cigarettes 1 15 0 01/31/1988 - 01/30/2003 Smokeless Tobacco: Never Alcohol Use Standard Drinks/Week Comments Not Currently 7 (1 standard drink = 0.6 oz pur e alcohol) [facility] Utilities Answer Date Recorded In the past 12 months has e electric, gas, oil, or water Lynk threatened to [...] your living situation today? I have a [facility] place to live 07/11/2024 Comments No Sex and Gender Information Value Date Recorded Sex Assigned at Female 01/29/2018 3:57 PM CDT Legal Sex Female 11:37 PM [employer] Gender Identity Female 01/29/2018 3:57 PM CDT Sexual Orientation Straight 01/29/2018 3: 57 PM CDT Last Filed Vital Signs Vital Sign Reading Time Taken Comments Blood Pressure 92/67 07/11/2024 1:46 PM [employer] Pulse 67 07/11/2024 1:46 PM [employer] Temperature 36.5 C (97.7 F) 07/11/2024 1:46 PM [employer] Respiratory Rate 19 07/11/2024 1:46 PM [employer] Oxygen Saturation 97% 07/11/2024 1:46 PM [employer] Inhaled Oxygen Concentration - - Weight 54.4 kg (119 lb 14.9 oz) 07/11/2024 3:38 AM [employer] Height 154 cm (5' 0.63) 07/08/2024 3:57 PM [employer] Body Mass Index 22.94 07/08/2024 3:57 PM [employer] Plan of Treatment Upcoming Encounters Date Type Department Care Team (Latest Contact Info) Description 09/11/2024 11:30 AM [employer] Clinical Communication Virtual Review in [place], [place] [address] [place] [address] 09/15/2024 7:50 AM [employer] Lab Department of Laboratory Medicine and Pathology, [place], [place] [address] [place] [phone] Alexia Aguilar APRN, C.N.P., M.S. [address] [place] [phone] 09/15/2024 9:45 AM [employer] Appointment Department of Radiology, [facility] in [place], [place] [address] [place] [phone] Alexia Aguilar APRN, C.N.P., M.S. [address] [place] [phone] 09/15/2024 10:30 AM [employer] Office Visit Department of Medical Genetics in [place], [place] [address] [place] [address] Eddy Byrd M.D. [address] [place] [phone] Stefani Montenegro M.S., [facility] [address] [place] [phone] 09/15/2024 12:00 PM [employer] Appointment Department of Radiology, [facility], in [place], [place] [address] [place] [phone] Alexia Agiular APRN, C.N.P., M.S. [address] [place] [phone] 09/16/2024 9:20 AM [employer] Office Visit Department of Oncology in [place], [place] [address] [place] [phone] Alexia Aguilar APRN, C.N.P., M.S. [address] [place] [phone] 09/16/2024 11:00 AM [employer] Comprehensive Visit Division of Hepatobiliary and Pancreas Surgery in [place], [place] [address] [place] [phone] Asiya Catalan M.D. [address] [place] [phone] 09/17/2024 10:42 AM [employer] Hospital Encounter [facility] 01 4 AM ADMIT [address] [place] [phone] Asiya Catalan M.D. [address] [place] [phone] 09/17/2024 10:42 AM [employer] - 09/17/2024 12:22 PM [employer] Surgery [facility] OR [address] [place] [address] Asiya Catalan M.D. [address] [place] [phone] LAPAROSCOPIC EXPLORATION - DIAGNOSTIC - cytology - including peritoneal CEA, CA 19-9 & KRAS 10/30/2024 2:20 PM [employer] Virtual Visit Division of Gastroenterology in [place], [place] [address] [place] [address] Shira Mendiola M.B.B.S., M.S. [address] [place] [address] Scheduled Procedures Name Priority Associated Diagnoses Date/Ti mn LAPAROSCOPIC EXPLORATION - DIAGNOSTIC Malignant Neoplasm Of Pancreas Head (HCC) 09/17/2024 10:42 AM [employer] Medical Devices Implanted Type Area Machine Bander And Cellophaner Helper Device Identifier Shelf Expiration Date Model / Serial / Lot Stnt [facility]uc [facility]bl [facility] 10[facility] - [id number] Implanted:Qty : 1 on 07/02/2024 by Sonu Correa M.D. at [facility] Biliary Stent N/A: Bile Duct [place] [id number] / / Stnt [facility] Otw 7x7 - [id number] Implanted:Qty : 1 on 07/02/2024 by Sonu Correa M.D. at [facility] Biliary Stent N/A: Bile Duct [employer] 12/30/2026 [id number] / / [id number] Breast Implant Breast Implant Bilateral : Breast Explanted Type Area Machine Bander And Cellophaner Helper Device Identifier Shelf Expiration Date Model / Serial / Lot Stnt Phuc [facility]bl [facility] Wr 10x40 - [id number] - [id number] Implanted:Qty: 1 on 06/25/2024 by Leo Rockwell D.O. at [facility] Explanted:Qty: 1 on 07/02/2024 by Sonu Correa M.D. at [facility] Biliary Stent [place] 04/06/2027 [id number] / [id number] / Procedures Procedure Name Priority Date/Time Associated Diagnosis Comments PROTHROMBIN TIME (PT), P Routine 07/15/2024 11:49 AM [employer] Jaundice COMPREHENSIVE METABOLIC PANEL, S/P Routine 07/15/2024 11:49 AM [employer] Jaundice COMPREHENSIVE METABOLIC PANEL, S/P Timed 07/11/2024 8:06 AM [employer] CBC NO CALL BACK, REFLEX T/S Timed 07/11/2024 8:06 AM [employer] DX CHEST AP OR PA AND LATERAL 2 VIEWS RAD - Emergent (Fastest; for the most critically ill patients) 07/11/2024 3:34 AM [employer] DX CHEST PORTABLE 1 VIEW RAD - Semiurgent (Fast; most ED patients; some inpatients) 07/11/2024 1:25 AM [employer] CBC NO CALL BACK, REFLEX T/S Routine 07/10/2024 12:17 AM [employer] COMPREHENSIVE METABOLIC PANEL, S/P Routine 07/10/2024 12:17 AM [employer] LACTATE DEHYDROGENASE (LD), S Routine 07/10/2024 12:17 AM [employer] TRANSFUSE RED BLOOD CELLS Routine 07/09/2024 8:38 PM [employer] PREPARE RED BLOOD CELLS Routine 07/09/2024 3:37 PM [employer] ANTIBODY IDENTIFICATION STAT 07/09/2024 3:37 PM [employer] TYPE AND SCREEN STAT 07/09/2024 3:37 PM [employer] MR ABDOMEN MRCP WITHOUT AND WITH IV CONTRAST RAD - Routine (most inpatients and all outpatients) 07/09/2024 2:04 PM [employer] MAGNESIUM, S Routine 07/09/2024 11:22 AM [employer] PHOSPHORUS (INORGANIC), S Routine 07/09/2024 11:22 AM [employer] CBC NO CALL BACK, REFLEX T/S Routine 07/09/2024 11:22 AM [employer] COMPREHENSIVE METABOLIC PANEL, S/P Routine 07/09/2024 11:22 AM [employer] US THORACENTESIS LEFT WITH IMAGING GUIDANCE RAD - Routine (most inpatients and all outpatients) 07/08/2024 11:17 AM [employer] CYTOLOGY NON-SALES AND IN HOME DELIVERY SPECIALIST Timed 07/08/2024 10:54 AM [employer] Jaundice Hypokalemia Hypomagnesemia Cancer Pancreas Primary Personal History CELL COUNT AND DIFFERENTIAL, BF Timed 07/08/2024 10:54 AM [employer] Jaundice Hypokalemia Hypomagnesemia Cancer Pancreas Primary Personal History PROTEIN, TOTAL, BF Timed 07/08/2024 10:54 AM [employer] Jaundice Hypokalemia Hypomagnesemia Cancer Pancreas Primary Personal History LACTATE DEHYDROGENASE (LD), BF Timed 07/08/2024 10:54 AM [employer] Jaundice Hypokalemia Hypomagnesemia Cancer Pancreas Primary Personal History BACTERIAL CULTURE, AEROBIC + SUSC Timed 07/08/2024 10:54 AM [employer] Jaundice Hypokalemia Hypomagnesemia Cancer Pancreas Primary Personal History GRAM STAIN Timed 07/08/2024 10:54 AM [employer] Jaundice Hypokalemia Hypomagnesemia Cancer Pancreas Primary Personal History PROTHROMBIN TIME (PT), P STAT 07/08/2024 10:13 AM [employer] (TTE) 2D ECHO DOPPLER COLOR Routine 07/08/2024 9:40 AM [employer] PROCALCITONIN, S STAT 07/08/2024 12:53 AM [employer] NT-PRO B-TYPE NATRIURETIC PEPTIDE (BNP), S Routine 07/08/2024 12:53 AM [employer] POTASSIUM, S/P STAT 07/08/2024 12:53 AM [employer] CORTISOL, FREE AND TOTAL Routine 07/08/2024 12:53 AM [employer] ACTH, P Routine 07/08/2024 12:53 AM [employer] MAGNESIUM, S Routine 07/08/2024 12:53 AM [employer] CBC WITH DIFFERENTIAL, B Routine 07/08/2024 12:53 AM [employer] COMPREHENSIVE METABOLIC PANEL, S/P Routine 07/08/2024 12:53 AM [employer] POTASSIUM, S/P STAT 07/07/2024 8:03 PM [employer] DIPSTICK, U STAT 07/07/2024 5:11 PM [employer] HC OSMOLALITY ASSAY URINE STAT 07/07/2024 5:11 PM [employer] MICROSCOPIC MANUAL STAT 07/07/2024 5: 11 PM [employer] PH, RANDOM, U STAT 07/07/2024 5:11 PM [employer] URINALYSIS WITH MICROSCOPIC STAT 07/07/2024 5:11 PM [employer] BACTERIAL CULTURE, AEROBIC + SUSC, URINE STAT 07/07/2024 5:11 PM [employer] HEPATIC FUNCTION PANEL, S STAT 07/07/2024 4:52 PM [employer] DX CHEST PORTABLE 1 VIEW RAD - Semiurgent (Fast; most ED patients; some inpatients) 07/07/2024 4:20 PM [employer] VBG & LYTES CG8+, POCT, B STAT 07/07/2024 3:44 PM [employer] GLUCOSE POCT, B STAT 07/07/2024 3:44 PM [employer] MAGNESIUM, S STAT 07/07/2024 3:44 PM [employer] CBC WITH DIFFERENTIAL, B STAT 07/07/2024 3:44 PM [employer] BASIC METABOLIC PANEL, S/P STAT 07/07/2024 3:44 PM [employer] ECG STAT 07/07/2024 3:33 PM [employer] FL FLUORO LESS THAN 1 HOUR RAD [...] outpatients) 06/23/2024 3:29 PM CDT [facility] Routine 06/19/2024 10:43 AM CDT [...] * Prothrombin Time (PT) (07/15/2024 11:49 AM [employer]) Only the most recent of4 resultswithin the time period is included. Prothrombin Time, P 11.2 9.4 - 12.5 sec 07/15/2024 12:03 PM [employer] METH INR 1.0 0.9 - 1.1 07/15/2024 12:03 PM [employer] METH Comment: ----ADDITIONAL INFORMATION---- Standard intensity warfarin therapeutic range: 2.0 to 3.0 High intensity warfarin therapeutic range: 2.5 to 3.5 Blood (Blood, Venous) 07/15/2024 11:49 AM [employer] 07/15/2024 11:55 AM [employer] us Benjamin Hart P.A.-C., M.S. LAB BLOOD ADD-ON Fin al Result [facility] [address] [place] [address], [facility] [address] [place] [address] * (ABNORMAL) Comprehensive Metabolic Panel (07/15/2024 11:49 AM [employer]) Only the most recent of6 resultswithin the time period is included. Potassium, S 3.6 3.6 - 5.2 mmol/L 07/15/2024 12:40 PM [employer] DTL Sodium, S 141 135 - 145 mmol/L 07/15/2024 12:40 PM [employer] DTL Chloride, S 107 98 - 107 mmol/L 07/15/2024 12:40 PM [employer] DTL Bicarbonate, S 22 22 - 29 mmol/L 07/15/2024 12:40 PM [employer] DTL Anion Gap 12 7 - 15 07/15/2024 12:40 PM [employer] DTL BUN (Blood Urea Nitrogen), S 19 6 - 21 mg/dL 07/15/2024 12:40 PM [employer] DTL Creatinine 0.76 0.59 - 1.04 mg/dL 07/15/2024 12:40 PM [employer] DTL Estimated GFR (eGFR) 80 >=60 mL/min/BS A 07/15/2024 12:40 PM [employer] DTL Comment: Estimated GFR calculated using the 2020 CKD_EPI creatinine equation. Calcium, Total, S 8.6(L) 8.8 - 10.2 mg/dL 07/15/2024 12:40 PM [employer] DTL Glucose, S 104 70 - 140 mg/dL 07/15/2024 12:40 PM [employer] DTL Protein, Total, S 5.6(L) 6.3 - 7.9 g/dL 07/15/2024 12:40 PM [employer] DTL Albumin, S 3.5 3.5 - 5.0 g/dL 07/15/2024 12:40 PM [employer] DTL Aspartate Aminotransferase (AST), S 34 8 - 43 U/L 07/15/2024 12:40 PM [employer] DTL Alkaline Phosphatase, S 506(H) 35 - 104 U/L 07/15/2024 12:40 PM [employer] DTL Alanine Aminotransferase (ALT), S 16 7 - 45 U/L 07/15/2024 12:40 PM [employer] DTL Bilirubin, Total, S 12.1(H) 0.0 - 1.2 mg/dL 07/15/2024 12:40 PM [employer] DTL Blood (Blood, Venous) 07/15/2024 11:49 AM [employer] 07/15/2024 12:22 PM [employer] us Benjamin Hart P.A.-C., M.S. LAB BLOOD ADD-ON Fin al Result Performing Organization Address City/State/[facility] Co de Phone Number [facility] [address] [facility] [address] [place] [address] * (ABNORMAL) CBC no call back, reflex T/S HGB <8 (07/11/2024 8:06 AM [employer]) Only the most recent of3 resultswithin the time period is included. Hemoglobin 8.0(L) 11.6 - 15.0 g/dL 07/11/2024 8:38 AM [employer] DTL Hematocrit 23.6(L) 35.5 - 44.9 % 07/11/2024 8:38 AM [employer] DTL Erythrocytes 2.81(L) 3.92 - 5.13 x10(12)/L 07/11/2024 8:38 AM [employer] DTL MCV 84.0 78.2 - 97.9 fL 07/11/2024 8:38 AM [employer] DTL RBC Distrib Width 18.7(H) 12.2 - 16.1 % 07/11/2024 8:38 AM [employer] DTL Platelet Count 341 157 - 371 x10(9)/L 07/11/2024 8:38 AM [employer] DTL Leukocytes 8.7 3.4 - 9.6 x10(9)/L 07/11/2024 8:38 AM [employer] DTL Neutrophils 6.92(H) 1.56 - 6.45 x10(9)/L 07/11/2024 8:38 AM [employer] DHPM Lymphocytes 0.64(L) 0.95 - 3.07 x10(9)/L 07/11/2024 8:38 AM [employer] DTL Monocytes 1.01(H) 0.26 - 0.81 x10(9)/L 07/11/2024 8:38 AM [employer] DTL Eosinophils 0.10 0.03 - 0.48 x10(9)/L 07/11/2024 8:38 AM [employer] DTL Basophils 0.04 0.01 - 0.08 x10(9)/L 07/11/2024 8:38 AM [employer] DTL Blood (Blood, Venous) 07/11/2024 8:06 AM [employer] 07/11/2024 8:22 AM [employer] Benjamin Hart P.A.-C., M.S. LAB BLOOD NON ADD-ON Final Result [facility] [address] [place] [address], [facility] DTL [facility] [address] [place] [address] [facility] [address] [place] [address] * DX Chest AP or PA and Lateral 2 Views (07/11/2024 3:34 AM [employer]) Anatomical Region Laterality Modality Chest, Thoracic RST LOS, Tho racic ARZ LOS, Thoracic FLA LOS N/A Digital Radiography Impressions 07/11/2024 9:36 AM [employer] Since earlier today, resolved apparent widening of [...] coils and stent. Narrative 07/11/2024 9:36 AM [employer] EXAM: DX CHEST AP OR PA AND [...] embolization coils and stent. Hayley Christianson M.D. IMG DIAGNOSTIC IMAGIN G PROCEDURES Final Result * DX Chest Portable 1 View (07/11/2024 1:25 AM [employer]) Only the most recent of2 resultswithin the time period is included. Anatomical Region Laterality Modality Chest, Thoracic RST LOS, Tho racic ARZ LOS, Thoracic FLA LOS N/A Digital Radiography Impressions 07/11/2024 9:52 AM [employer] Since 07/07/2024, mild relative widening of the [...] with peripheral calcifications. Narrative 07/11/2024 9:52 AM [employer] EXAM: DX CHEST PORTABLE 1 VIEW Procedure [...] * LD (Lactate Dehydrogenase) (07/10/2024 12:17 AM [employer]) [facility] LD 208 122 - 222 U/L 07/10/2024 1:16 AM [employer] DTL Blood (Blood, Venous) 07/10/2024 12:17 AM [employer] 07/10/2024 1:00 AM [employer] Benjamin Hart P.A.-C., M.S. LAB BLOOD NON ADD-ON Final Result Performing Organization Address City/State/[facility] [place] [address], [facility] [address] [place] [address] * Transfuse Red Blood Cells : (07/09/2024 10:48 PM [employer]) Benjamin Hart P.A.-C., M.S. BLOOD TRANSFUSION OR DERABLES Final Result * Antibody Identification, Erythrocytes (07/09/2024 3:37 PM [employer]) [facility] Antibody Identification Anti-Jkb, Anti-K 07/09/2024 8:26 PM [employer] DTL 07/09/2024 3:37 PM [employer] 07/09/2024 3:48 PM [employer] Narrative [facility] - 07/09/2024 8:26 PM [employer] Specimen Information: Specimen ID: [id number] Specimen Collection Start Date: 07/09/2024 3:37 PM Specimen Received Date: 07/09/2024 3:48 PM Specimen ID: [id number] Specimen Collection Start Date: 07/09/2024 3:37 PM Specimen Received Date: 07/09/2024 3:48 PM Benjamin Hart P.A.-C., M.S. LAB BLOOD BANK TEST ORDERABLES Final Result Performing Organization Address [facility] Co de Phone Number [facility] [address] [place] [address], [facility] DTL [facility] [address] [place] [address] * Type and Screen (with Reflex Antibody ID) (07/09/2024 3:37 PM [employer]) ABORh O Neg Not applicable 07/09/2024 4:50 PM [employer] ETRM Antibody Screen Positive Negative 07/09/2024 5:26 PM [employer] ETRM Type & Screen Expiration 07/12/2024 23:59 07/09/2024 4:50 PM [employer] ETRM Testing Location [place] DEFAULT 07/09/2024 3:48 PM [employer] ETRM Blood 07/09/2024 3:37 PM [employer] 07/09/2024 3:48 PM [employer] Benjamin Hart P.A.-C., M.S. LAB BLOOD BANK TEST ORDERABLES Final Result Performing Organization Address [facility] Co de Phone Number [facility] [address] [place] [address], [facility] ETRM [facility] [address] [place] [address] * MR Abdomen MRCP without and with IV Contrast (07/09/2024 2:04 PM [employer]) Anatomical Region Laterality Modality Abdomen, Abdominal RST LOS, Abdominal ARZ LOS, Abdominal FLA LOS N/A Magnetic Resonance Impressions 07/09/2024 3:14 PM [employer] 1. Redemonstrated is mass in the pancreatic [...] in the abdomen. Narrative 07/09/2024 3:14 PM [employer] EXAM: MR ABDOMEN MRCP WITHOUT AND WITH [...] Result * Phosphorus Inorganic (07/09/2024 11:22 AM [employer]) Pathologist [facility] Phosphorus (Inorganic), S 3.5 2.5 - 4.5 mg/dL 07/09/2024 12:14 PM [employer] DTL Blood (Blood, Venous) 07/09/2024 11:22 AM [employer] 07/09/2024 11:52 AM [employer] Benjamin Hart P.A.-C., M.S. LAB BLOOD ADD-ON Fin al Result [facility] [address] [place] [address], [facility] [address] [place] [address] * Magnesium (07/09/2024 11:22 AM [employer]) Only the most recent of3 resultswithin the time period is included. Magnesium, S 1.9 1.7 - 2.3 mg/dL 07/09/2024 12:14 PM [employer] DTL Blood (Blood, Venous) 07/09/2024 11:22 AM [employer] 07/09/2024 11:52 AM [employer] Benjamin Hart P.A.-C., M.S. LAB BLOOD ADD-ON Fin al Result [facility] [address] [place] [address], [facility] [address] [place] [address] * US Thoracentesis Left with Imaging Guidance (07/08/2024 11:17 AM [employer]) Anatomical Region Laterality Modality Chest, Ultrasound RST LOS, U ltrasound ARZ LOS, Procedure FLA LOS, Abdominal FLA LOS, Procedural, Procedural NWWI LOS Left Ultrasound Impressions 07/08/2024 11:43 AM [employer] Ultrasound-guided left pleural space thoracentesis. EP Narrative 07/08/2024 11:43 AM [employer] EXAM: US THORACENTESIS LEFT WITH IMAGING GUIDANCE [...] met. POST-PROCEDURE DIAGNOSIS: Pleural effusion. Procedure Note Moynagh, Octavio R, M.B., B.. - 07/08/2024 EXAM: US THORACENTESIS LEFT WITH [...] pleural space thoracentesis. EP us Benjamin Hart P.A.-C., M.S. IMG US PROCEDURES Fi nal Result * Cytology Non-SALES AND IN HOME DELIVERY SPECIALIST (07/08/2024 10:54 AM [employer]) 07/09/2024 3:07 PM [employer] DTL Participated in the Interpretation Liza Lira.B.S. -Pathology Resident 07/09/2024 3:07 PM [employer] DTL Report electronically signed by Hernan Espino, M.D. I verify that I have examined all relevant slides/materi als for the specimen(s) and rendered or confirmed the diagnosis. 07/09/2024 3:07 PM [employer] DTL Gross Description Received 100 cc of bloody fluid. 07/09/2024 3:07 PM [employer] DTL Source A. Pleural, Left, fluid 07/09/2024 3:07 PM [employer] DTL Interpretation A. Pleural, Left, fluid (ThinPrep): Negative for malignancy. Acute on chronic inflammation. 07/09/2024 3:07 PM [employer] DTL Fluid (Pleural Fluid, Left) 07/08/2024 10:54 AM [employer] Benjamin Hart P.A.-C., M.S. LAB SURG PATH ORDERA BLES Final Result [facility] [address] [place] [address], [place] DTL [address] [place] [address] * Protein, Total, Body Fluid (07/08/2024 10:54 AM [employer]) Protein, Total, BF See Below See Comment g/dL 07/08/2024 2:11 PM [employer] DTL Comment: Sample received icteric. The measured total protein was 1.8 g/dL, however, internal [facility] validation studies show this values to be [...] clinical findings. All other fluids refer to [email or web address] for further interpretive information. This test has been modified from the parachute supervisor's instructions. Its performance characteristics were determined by [facility] in a manner consistent with CLIA requirements. This test has not been cleared or approved by the U.S. Food and Drug Administration. Fluid Type, Protein, Total Fluid, Pleural Fluid, Left 07/08/2024 11:28 AM [employer] DTL Fluid (Pleural Fluid, Left) 07/08/2024 10:54 AM [employer] Benjamin Hart P.A.-C., M.S. LAB BODY FLUIDS AND STOOLS ORDERABLES Final Result Performing Organization Address [facility] Co de Phone Number [facility] [address] [place] [address] * Bacterial Culture, Aerobic + Susceptibility (07/08/2024 10:54 AM [employer]) Bacterial Culture, Aerobic + Susc No growth after 5 days of incubation. 07/13/2024 8:48 AM [employer] DTL Fluid (Pleural Fluid, Left) 07/08/2024 10:54 AM [employer] Narrative [facility] - 07/13/2024 8:48 AM [employer] Bacterial Culture: Received Bactec aerobic and Bactec anaerobic bottles Benjamin Hart P.A.-C., M.S. LAB MICROBIOLOGY - G ENERAL ORDERABLES Final Result Performing Organization Address City/[facility] Co de Phone Number [facility] [address] [place] [address] * Cell Count and Differential, Body Fluid (07/08/2024 10:54 AM [employer]) Fluid Type Left; Pleural/Th oracentesi s 07/08/2024 11:51 AM [employer] DHPM Gross Appearance Serous 07/08/20 24 11:51 AM [employer] DHPM Total Nucleated Cells 570 /mcL 07/08/2024 11:51 AM [employer] DHPM Comment: ----REFERENCE VALUE---- Synovial: <150 /mcL Peritoneal: <500 /mcL Pleural: <500 /mcL Pericardial: <500 /mcL ----ADDITIONAL INFORMATION---- This test has been modified from the parachute supervisor's instructions. Its performance characteristics were determined by [facility] in a manner consistent with CLIA requirements. This test has not been cleared or approved by the U.S. Food and Drug Administration. Neutrophils 34 % 07/08/2024 12:20 PM [employer] DHPM Comment: ----REFERENCE VALUE---- Synovial: <25% Peritoneal: <25% Pleural: <25% Pericardial: <25% Lymphocytes 34 Synovial <75% % 07/08/2024 12:20 PM [employer] DHPM Monocytes/Macropha ges 32 Synovial <70% % 07/08/2024 12:20 PM [employer] DHPM Comment See Comment 07/08/2024 12:20 PM [employer] DHPM Comment:No blasts or maligna nt cells seen. Reviewed by: Tech 07/08/2024 12:20 PM [employer] DHPM Fluid (Pleural Fluid, Left) 07/08/2024 10:54 AM [employer] Benjamin Hart P.A.-C., M.S. LAB BODY FLUIDS AND STOOLS ORDERABLES Final Result Performing Organization Address [facility] Co de Phone Number [facility] [address] [place] [address], [facility] [address] [place] [address] * Gram Stain (07/08/2024 10:54 AM [employer]) Gram Stain No organisms seen. White blood cells, Rare 07/08/2024 5:25 PM [employer] DTL Fluid (Pleural Fluid, Left) 07/08/2024 10:54 AM [employer] Narrative [facility] - 07/08/2024 5:25 PM [employer] Bacterial Culture: Received Bactec aerobic and Bactec anaerobic bottles Benjamin Hart P.A.-C., M.S. LAB MICROBIOLOGY - G ENERAL ORDERABLES Final Result Performing Organization Address City/[facility]/ZIP Co de Phone Number [facility] [address] [place] [address], [facility] [address] [place] [address] * Lactate Dehydrogenase (LD), Body Fluid (07/08/2024 10:54 AM [employer]) Lactate Dehydrogenase (LD), BF 157 See Comment U/L 07/08/2024 12:38 PM [employer] DTL Comment: ----ADDITIONAL INFORMATION---- Pleural fluid lactate [...] clinical findings. All other fluids refer to [email or web address] for further interpretive information. This test has been modified from the parachute supervisor's instructions. Its performance characteristics were determined by [facility] in a manner consistent with CLIA requirements. This test has not been cleared or approved by the U.S. Food and Drug Administration. Fluid Type, Lactate Dehydrogenase Fluid, Pleural Fluid, Left 07/08/2024 11:28 AM [employer] DTL Fluid (Pleural Fluid, Left) 07/08/2024 10:54 AM [employer] Benjamin Hart P.A.-C., M.S. LAB BODY FLUIDS AND STOOLS ORDERABLES Final Result [place] [address] [place] [address], [facility] [place] [place] [address] * (TTE) 2D ECHO DOPPLER COLOR (07/08/2024 9:40 AM [employer]) Ejection Fraction 65 MC CV EIMS Mid-Ascending [...] Region Laterality Modality Other 07/08/2024 8:02 AM [employer] Impressions 07/08/2024 10:35 AM [employer] There are no previous [facility] echocardiograms available for comparison. LEFT VENTRICLE:Normal left [...] per Echocardiography Contrast Administration Protocol Reference Document [id number] Rev 12/15/2021. Patient met an inclusion criterion and did not have contraindications in screening sections. For the complete report, see the Order-Level Documents. Narrative 07/08/2024 10:35 AM [employer] For the complete report, see the Order-Level [...] pericardial effusion. 8. There are no previous [facility] echocardiograms available for comparison. Comments Focal thickening of the mid anterior and lateral levy of unclear clinical significance. Artifactual changes not excluded, particularly when we take the short axis ultrasound-enhanced images into account. Clinical and radiographic correlation recommended. [facility] Note Chong Bailey M.D. - 07/08/2024 [...] pericardial effusion. 8. There are no previous [facility] echocardiograms available forcomparison. Comments Focal thickening of the mid anterior and lateral levy of unclear clinicalsignificance. Artifactual changes not excluded, particularly when we takethe short axis ultrasound-enhanced images into account. Clinical andradiographic correlation recommended. Bssp Findings There are no previous [facility] echocardiograms available forcomparison. LEFT VENTRICLE:Normal left ventricular [...] administered per EchocardiographyContrast Administration Protocol Reference Document [id number] Rev12/15/2021. Patient met an inclusion criterion and did not havecontraindications in screening sections. For the complete report, see the Order-Level Documents. us Feroz Tierney M.D. CV ECHO PROCEDURES Final Result * (ABNORMAL) Cortisol, Free and Total (07/08/2024 12:53 AM [employer]) Cortisol, Free, S 1.455(H) 6:00-10:30 AM Collection 0.121-1.065 mcg/dL mcg/dL 07/15/2024 4:01 PM [employer] [facility] Comment: ----ADDITIONAL INFORMATION---- This test was developed and its performance characteristics determined by [facility] in a manner consistent with CLIA requirements. This test has not been cleared or approved by the U.S. Food and Drug Administration. Cortisol, S, LC-MS/MS 25 mcg/dL 07/08/2024 11:18 PM [employer] [facility] Comment: ----REFERENCE VALUE---- Pediatric ranges not established Adult ranges: a.m.: 5-25 p.m.: 2-14 Blood (Blood, Venous) 07/08/2024 12:53 AM [employer] 07/08/2024 12:06 PM [employer] us Feroz Tierney M.D. LAB BLOOD NON ADD-ON Final Resul t [facility] [address] [place] [address] [facility] [address] [place] [address] [place] [address] * (ABNORMAL) NT-Pro B-Type Natriuretic Peptide (BNP) (07/08/2024 12:53 AM [employer]) Pathologist [facility] NT-Pro BNP 2035(H) <=540 pg/mL 07/08/2024 3:29 AM [employer] DTL Comment: NT-proBNP values less than 300 [...] failure. Blood (Blood, Venous) 07/08/2024 12:53 AM [employer] 07/08/2024 1:23 AM [employer] Feroz Tierney M.D. LAB BLOOD ADD-ON Final Result Performing Organization Address [facility] Co de Phone Number [facility] [address] [place] [address] * Procalcitonin (07/08/2024 12:53 AM [employer]) Procalcitonin, S 0.18 0.00 - 0.24 ng/mL 07/08/2024 1:48 AM [employer] DT Comment: Procalcitonin <0.25 ng/mL may indicate lower probability of bacteremia or bacterial pneumonia. Intracellular bacteria, viruses, and fungi do not cause elevation of procalcitonin, so low values (<0.25 ng/mL) do not rule out other infections. Blood (Blood, Venous) 07/08/2024 12:53 AM [employer] 07/08/2024 1:23 AM [employer] Feroz Tierney M.D. LAB BLOOD ADD-ON Final Result Performing Organization Address [facility] Co de Phone Number [facility] [address] [place], [place] [address] [place] [address] [address] [place] [address] * ACTH (Adrenocorticotropic Hormone) (07/08/2024 12:53 AM [employer]) Adrenocorticotropic Hormone, P 26 7.2-63 (a.m. collectio n) pg/mL 07/08/2024 3:57 PM [employer] [facility] Blood (Blood, Venous) 07/08/2024 12:53 AM [employer] 07/08/2024 7:56 AM [employer] us Feroz Tierney M.D. LAB BLOOD NON ADD-ON Final Resul t [facility] [address] [place] [address] [facility] [address] [place] [address] * (ABNORMAL) CBC with Differential, Blood (07/08/2024 12:53 AM [employer]) Only the most recent of3 resultswithin the time period is included. Hemoglobin 8.0(L) 11.6 - 15.0 g/dL 07/08/2024 1:14 AM [employer] DTL Hematocrit 22.7(L) 35.5 - 44.9 % 07/08/2024 1:14 AM [employer] DTL Erythrocytes 2.93(L) 3.92 - 5.13 x10(12)/L 07/08/2024 1:14 AM [employer] DTL MCV 77.5(L) 78.2 - 97.9 fL 07/08/2024 1:14 AM [employer] DTL RBC Distrib Width 19.9(H) 12.2 - 16.1 % 07/08/2024 1:14 AM [employer] DTL Platelet Count 418(H) 157 - 371 x10(9)/L 07/08/2024 1:14 AM [employer] DTL Leukocytes 13.1(H) 3.4 - 9.6 x10(9)/L 07/08/2024 1:14 AM [employer] DTL Neutrophils 11.06(H) 1.56 - 6.45 x10(9)/L 07/08/2024 1:14 AM [employer] DHPM Lymphocytes 0.54(L) 0.95 - 3.07 x10(9)/L 07/08/2024 1:14 AM [employer] DTL Monocytes 1.40(H) 0.26 - 0.81 x10(9)/L 07/08/2024 1:14 AM [employer] DTL Eosinophils 0.07 0.03 - 0.48 x10(9)/L 07/08/2024 1:14 AM [employer] DTL Basophils 0.05 0.01 - 0.08 x10(9)/L 07/08/2024 1:14 AM [employer] DTL Blood (Blood, Venous) 07/08/2024 12:53 AM [employer] 07/08/2024 1:08 AM [employer] Feroz Tierney M.D. LAB BLOOD ADD-ON Final Result Performing Organization Address [facility] Co de Phone Number [facility] [address] [facility] [address] [place] [address] [facility] [address] [place] [address] * (ABNORMAL) Potassium (07/08/2024 12:53 AM [employer]) Only the most recent of2 resultswithin the time period is included. Potassium, P 3.1(L) 3.6 - 5.2 mmol/L 07/08/2024 1:12 AM [employer] METH Blood (Blood, Venous) 07/08/2024 12:53 AM [employer] 07/08/2024 1:12 AM [employer] Feroz Tierney M.D. LAB BLOOD ADD-ON Final Result Performing Organization Address [facility] de Phone Number [facility] [address] [place] [address], [facility] METH [facility] [address] [place] [address] * Osmolality, Urine (07/07/2024 5:11 PM [employer]) Osmolality, U 512 150 - 1150 mOsm/kg 07/07/2024 6:15 PM [employer] DTL Urine 07/07/2024 5:11 PM [employer] 07/07/2024 5:39 PM [employer] Danny Pearson P.A.-C. LAB URINE ORDERABLES Jazz[employer] l Result Performing Organization Address City/[facility]/ZIP Co de Phone Number [facility] [address] [place] [address], [facility] [address] [place] [address] * (ABNORMAL) Dipstick, Urine (07/07/2024 5:11 PM [employer]) Hemoglobin, QL, U Negative Negative 07/07/2024 5:54 PM [employer] DTL Leukocyte Esterase, U Trace(A) Negative 07/07/2024 5:54 PM [employer] DTL Nitrite, U Negative Negative 07/07/2024 5:54 PM [employer] DTL Ketone, U Negative Negative mg/dL 07/07/2024 5:54 PM [employer] DTL Glucose, U 70(A) Negative mg/dL 07/07/2024 5:54 PM [employer] DTL Urine 07/07/2024 5:11 PM [employer] 07/07/2024 5:39 PM [employer] Danny JaffeC. LAB URINE ORDERABLES [employer] l Result Performing Organization Address City/[facility]/ZIP Co de Phone Number [facility] [address] [place] [address], [facility] [address] [place] [address] * pH, Random, Urine (07/07/2024 5:11 PM [employer]) pH, Random, U 5.9 4.5 - 8.0 07/07/2024 6:15 PM [employer] DTL Urine 07/07/2024 5:11 PM [employer] 07/07/2024 5:39 PM [employer] Danny JaffeC. LAB URINE ORDERABLES Jazz[employer] l Result [facility] [address] [place] [address], [facility] [address] [place] [address] * (ABNORMAL) Microscopic Manual (07/07/2024 5:11 PM [employer]) Microscopy Abnormal 07/07/2024 6:19 PM [employer] DTL RBC <3 <3 /hpf 07/07/2024 6:19 PM [employer] DTL WBC 4-10 /hpf 07/07/2024 6:19 PM [employer] DTL Comment: ----REFERENCE VALUE---- <4 (Males) <11 (Females) Casts, Hyaline 1-3 /lpf 07/07/2024 6:19 PM [employer] DTL Renal Epithelial Cells 1-3(A) /hpf 07/07/2024 6:19 PM [employer] DTL Squamous Epithelial Cells, U 4-10 /hpf 07/07/2024 6:19 PM [employer] DTL Bacteria Present(A) 07/07/2024 6:19 PM [employer] DTL Crystals Leucine crystals present 07/07/2024 6:19 PM [employer] DTL Urine 07/07/2024 5:11 PM [employer] 07/07/2024 5:39 PM [employer] Danny Pearson P.A.-C. LAB URINE ORDERABLES Jazz[employer] l Result Performing Organization Address City/[facility]/ZIP Co de Phone Number [facility] [address] [place] [address] * Bacterial Culture, Aerobic + Susceptibility, Urine (07/07/2024 5:11 PM [employer]) Urine Culture No growth after 1 day of incubation. 07/09/2024 7:10 AM [employer] DTL Urine (Urine, Midstream) 07/07/2024 5:11 PM [employer] 07/07/2024 7:40 PM [employer] Comment:Specimen Source Site : Urine Jeovany Padilla M.D. LAB MICROBIOLOGY - GENERAL ORDERABLES Final Result Performing Organization Address City/[facility]/ZIP Co de Phone Number [facility] [address] [place] [address] * (ABNORMAL) Urinalysis, with Microscopic: Urine, Midstream (07/07/2024 5:11 PM [employer]) Source Urine, Urine, Midstream 07/07/2024 5:38 PM [employer] DTL Color, U Anika(A) 07/07/2024 5:39 PM [employer] DTL Clarity, U Cloudy(A) 07/07/2024 5:39 PM [employer] DTL Protein, U 47(H) <26 mg/dL 07/07/2024 6:25 PM [employer] DTL Protein/Osmol ality 0.92(H) <0.42 ratio 07/07/2024 6:25 PM [employer] DTL Predicted 24 HR Protein, U 619(H) <229 mg/24 h 07/07/2024 6:25 PM [employer] DTL Predicted Range 153-2506 mg/24 h 07/07/2024 6:25 PM [employer] DTL Urine (Urine, Midstream) 07/07/2024 5:11 PM [employer] 07/07/2024 5:38 PM [employer] us Jeovany Padilla M.D. LAB URINE ORDERABLE S Final Result [facility] [address] [place] [address], [facility] [address] [place] [address] * (ABNORMAL) Hepatic Function Panel (07/07/2024 4:52 PM [employer]) Only the most recent of2 resultswithin the time period is included. Bilirubin, Total, S 23.8(H) 0.0 - 1.2 mg/dL 07/07/2024 5:49 PM [employer] DTL Bilirubin, Direct, S 20.7(H) 0.0 - 0.3 mg/dL 07/07/2024 7:05 PM [employer] DTL Aspartate Aminotransferase (AST), S 36 8 - 43 U/L 07/07/2024 5:49 PM [employer] DTL Alanine Aminotransferase (ALT), S 14 7 - 45 U/L 07/07/2024 5:49 PM [employer] DTL Alkaline Phosphatase, S 623(H) 35 - 104 U/L 07/07/2024 5:49 PM [employer] DTL Albumin, S 3.2(L) 3.5 - 5.0 g/dL 07/07/2024 5:49 PM [employer] DTL Protein, Total, S 4.7(L) 6.3 - 7.9 g/dL 07/07/2024 5:49 PM [employer] DTL Blood (Blood, Venous) 07/07/2024 4:52 PM [employer] 07/07/2024 5:19 PM [employer] us Tricia Steele M.D. LAB BLOOD ADD-ON Final Re sult [facility] [address] [address], [place] [address] [address] * (ABNORMAL) Venous Blood Gas and Electrolytes CG8+, POCT (07/07/2024 3:44 PM [employer]) Sample Site, POCT Venstick 07/07/2024 3:53 PM [employer] PCSM Comment: ----ADDITIONAL INFORMATION---- Performed at the Point of Care pH, Venous, POCT, B 7.38 7.32 - 7.43 07/07/2024 3:53 PM [employer] PCSM Comment: ----ADDITIONAL INFORMATION---- Performed at the Point of Care pCO2, Venous, POCT, B 41 41 - 51 mm Hg 07/07/2024 3:53 PM [employer] PCSM Comment: ----ADDITIONAL INFORMATION---- Performed at the Point of Care pO2, Venous, POCT, B 23 Not Applicable mm Hg 07/07/2024 3:53 PM [employer] PCSM Comment: ----ADDITIONAL INFORMATION---- Performed at the Point of Care Base Excess, Venous, POCT, B -1 Not Applicable mmol/L 07/07/2024 3:53 PM [employer] PCSM Comment: ----ADDITIONAL INFORMATION---- Performed at the Point of Care HCO3, Venous, POCT, B 24 Not Applicable mmol/L 07/07/2024 3:53 PM [employer] PCSM Comment: ----ADDITIONAL INFORMATION---- Performed at the Point of Care Sodium, POCT, B 137 135 - 145 mmol/L 07/07/2024 3:53 PM [employer] PCSM Comment: ----ADDITIONAL INFORMATION---- Performed at the Point of Care Potassium, POCT, B 2.2(CL) 3.6 - 5.2 mmol/L 07/07/2024 3:53 PM [employer] PCSM Comment: ----ADDITIONAL INFORMATION---- Performed at the Point of Care Calcium, Ionized, POCT, B 4.30(L) 4.65 - 5.30 mg/dL 07/07/2024 3:53 PM [employer] PCSM Comment: ----ADDITIONAL INFORMATION---- Performed at the Point of Care Glucose, POCT, B 136 70 - 140 mg/dL 07/07/2024 3:53 PM [employer] PCSM Comment: ----ADDITIONAL INFORMATION---- Performed at the Point of Care Hematocrit, POCT, B 27.0(L) 35.5 - 44.9 % 07/07/2024 3:53 PM [employer] PCSM Comment: ----ADDITIONAL INFORMATION---- Performed at the Point of Care Blood (Blood, Venous) 07/07/2024 3:44 PM [employer] 07/07/2024 3:45 PM [employer] Danny Pearson P.A.-C. LAB POCT ORDERABLES - DEV ICE Final Result POC [facility] [address] [place] [address], [facility] [address] [place] [address] * Glucose, POCT (07/07/2024 3:44 PM [employer]) [facility] Glucose, POCT, B 139 70 - 140 mg/dL 07/07/2024 3:48 PM [employer] PCLX Site Artstick 07/07/2024 3:48 PM [employer] PCLX Blood (Blood, Capillary) 07/07/2024 3:44 PM [employer] 07/07/2024 3:44 PM [employer] us Jeovany Padilla M.D. LAB POCT ORDERABLES -MANUAL Final Result Performing Organization Address City/[facility]/ZIP Co de Phone Number POC [facility] [address] [place] [address], [place] PCLX [facility] POC [address] [place] [address] * (ABNORMAL) Basic Metabolic Panel (07/07/2024 3:44 PM [employer]) Pathologist [facility] Potassium, P 2.3(CL) 3.6 - 5.2 mmol/L 07/07/2024 4:53 PM [employer] STMA Sodium, P 136 135 - 145 mmol/L 07/07/2024 4:53 PM [employer] STMA Chloride, P 97(L) 98 - 107 mmol/L 07/07/2024 4:53 PM [employer] STMA Bicarbonate, P 24 22 - 29 mmol/L 07/07/2024 4:40 PM [employer] STMA Anion Gap, P 15 7 - 15 07/07/2024 4:53 PM [employer] STMA BUN (Blood Urea Nitrogen), P 17 6 - 21 mg/dL 07/07/2024 4:40 PM [employer] STMA Creatinine 0.63 0.59 - 1.04 mg/dL 07/07/2024 5:22 PM [employer] DTL Estimated GFR (eGFR) >90 >=60 mL/min/BSA 07/07/2024 5:22 PM [employer] DTL Comment: Estimated GFR calculated using the 2020 CKD_EPI creatinine equation. Calcium, Total, P 8.0(L) 8.8 - 10.2 mg/dL 07/07/2024 4:40 PM [employer] STMA Glucose, P 142(H) 70 - 140 mg/dL 07/07/2024 4:40 PM [employer] STMA Blood (Blood, Venous) 07/07/2024 3:44 PM [employer] 07/07/2024 3:54 PM [employer] us Jeovany Padilla M.D. LAB BLOOD ADD-ON Fi nal Result [facility] [address] [place] [address], [facility] STMA [facility] [address] [place] [address] DTL [facility] [address] [place] [address] * ECG 12 Lead (07/07/2024 3:33 PM [employer]) Ventricular Rate ECG/Min 71 BPM MUSE IL Interval 156 ms MUSE QRSD Interval 90 ms MUSE QT Interval 362 ms MUSE QTC Interval 393 ms MUSE P [place] 98 degrees MUSE R [place] 80 degrees MUSE T Wave [place] 143 degrees MUSE 07/07/2024 3:33 PM [employer] 07/07/2024 3:47 PM [employer] Impressions MUSE - 07/07/2024 3:47 PM [employer] Normal sinus rhythm ST and T wave [...] in Inferior leads Reviewed by PRATIMA York us Jeovany Padilla M.D. ECG ORDERABLES Fin al Result MUSE NA * FL Fluoro Less Than [...] ETT location: oral VL device: glide scope [place] scope blade size: 3 Tube size: 7 [...] CDT) 07/02/2024 12:0 7 PM CDT Impressions [facility] - 07/02/2024 5:00 PM CDT Post-op Diagnoses: [...] to prevent upward or downward impaction. Narrative [facility] - 07/02/2024 5:00 PM CDT Jac 6 [...] metal biliary stent was visible on the wool tamper film. The esophagus was successfully intubated under [...] minimal. Complications: No immediate complications. 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 Sonu Correa MD 07/02/2024 5:00:01 PM This report has been signed electronically. Number of Addenda: 0 us Katia Issa APRN, C.N.P., M.S.N. GI PROCEDUR E ORDERABLES Final Result Performing Organization Address City/[facility]/ZIP Co de Phone Number [facility] NA * (ABNORMAL) Reticulocyte Profile (07/01/2024 9:07 AM CDT) Pathologist [facility] Reticulocytes, B 2.10 0.60 - 2.71 % [...] D ADD-ON Final Result Performing Organization Address [facility]/ZIP Co de Phone Number [facility] [address] [place] [address], [facility] DTL [facility] [address] [place] [address] * (ABNORMAL) CBC-Preop with reflex anemia panel (07/01/2024 9:07 AM CDT) Pathologist [facility] Hemoglobin 9.7(L) 11.6 - 15.0 g/dL 07/01/2024 [...] AM CDT 07/01/2024 9:39 AM CDT Narrative [facility] - 07/01/2024 10:44 AM CDT Specimen Information: Specimen ID: [id number] Specimen Type: Blood Specimen Collection Start Date: 07/01/2024 9:07 AM Specimen Received Date: 07/01/2024 9:39 AM Specimen ID: [id number] Specimen Type: Blood Specimen Collection Start Date: 07/01/2024 9:07 AM Specimen Received Date: 07/01/2024 9:29 AM us Radha Najera APRN, C.N.P., D.N.P. LAB BLOO D ADD-ON Final Result [facility] [address] [place] [address], [facility] [address] [place] [address] * Iron and Total Iron-Binding Capacity (07/01/2024 9:07 AM CDT) Pathologist [facility] Iron 75 35 - 145 mcg/dL 07/01/2024 11:09 AM CDT DTL Total Iron Binding Capacity 300 250 - 400 mcg/dL 07/01/2024 11:09 AM CDT DTL Percent Saturation 25 14 - 50 % 07/01/2024 11:09 AM CDT DTL Blood 07/01/2024 9:07 AM CDT 07/01/2024 9:39 AM CDT Radha Najera APRN, C.N.P., D.N.P. LAB BLOO D ADD-ON Final Result Performing Organization Address City/[facility]/ZIP Co de Phone Number [facility] [address] [place] [address] * CRP (C-Reactive Protein) (07/01/2024 9:07 AM CDT) [facility] C-Reactive Protein (CRP), S <3.0 <5.0 mg/L 07/01/2024 11:09 AM CDT DT Blood 07/01/2024 9:07 AM CDT 07/01/2024 9:39 AM CDT Radha Najera APRN, C.N.P., D.N.P. LAB BLOO D ADD-ON Final Result [facility] [address] [place], [place] [id number] [place] [address] [facility] [address] [place] [address] * (ABNORMAL) Ferritin (07/01/2024 9:07 AM CDT) Pathologist [facility] Ferritin, S 2488(H) 11 - 328 mcg/L 07/01/2024 11:28 AM CDT DTL Blood 07/01/2024 9:07 AM CDT 07/01/2024 9:39 AM CDT us Shyla Dutta APRN.N.P., D.N.P. LAB BLOO D ADD-ON Final Result [facility] [address] [place] [address], [place] DTL [facility] [address] [place] [address] * (ABNORMAL) Cytology Fine Needle Aspiration (including [...] a. Immunohistoch emical stains were performed at [facility] (block A1). Neoplastic cells are positive for [...] pancreas primary. Immunohistochemical stains were performed at [facility] (block A1). Neoplastic cells are positive for CDX2 and negative for TTF1(8G7G3/1), supporting the above diagnosis. Flagged as: Abnormal (Reported 06/26/2024 17:50) Aspirate (Pancreas) 06/25/2024 2:10 PM CDT us Leo Rockwell D.O. LAB SURG PATH ORDERABLES Edited Result - Final [facility] [address] [place] [address], [facility] DTL [address] [place] [address] * LDA ANE ENDOTRACHEAL AIRWAY (06/25/2024 1:39 PM CDT) Narrative Bridget Almonte APRN, CRNA, DNAP - 06/25/2024 1:39 PM CDT Bridget [...] ETT location: oral VL device: glide scope [place] scope blade size: 3 Tube size: 7 [...] Notable Events: no complications us Bridget Almonte EXPERIENCED TRUCK DRIVER, MANAGED CARE DIRECTOR, DNAP ANESTHESIA ORD ERABLES Final Result * ERCP (06/25/2024 1:30 PM CDT) 06/25/2024 1:30 PM CDT Impressions [facility] - 06/25/2024 5:43 PM CDT Post-op Diagnoses: - Distal malignant biliary stricture - Sphincterotomy and 10mm x 4cm covered metal stent (Viabil) placed - There was excellent flow of bile and contrast endoscopically and radiographically at the conclusion of the procedure. N[facility]ative [facility] 06/25/[facility]24 5:43 PM CDT Gonda 2 [...] symptoms or liver enzyme abnormalities. Findings: The wool tamper film was normal. The esophagus was successfully [...] 0 Note Initiated On: 06/25/2024 1:30 PM Magali Cui M.D. GI PROCEDURE ORDERABLES Final Result Performing Organization Address City/State/[facility] Co de Phone Number [facility] NA * Upper EUS (06/25/2024 1:30 PM CDT) 06/25/2024 1:30 PM CDT Impressions [facility] - 06/25/2024 5:43 PM CDT Post-op Diagnoses: - 26mm pancreatic uncinate mass with upstream biliary dilation - preliminary cytology diagnostic for adenocarcinoma - Benign-appearing esophageal stenosis which prevented initial passage of endosonoscope (14.7mm maximum diameter) - dilated to 15mm with gastroscope prior to EUS exam Narrative [facility] - 06/25/2024 5:43 PM CDT Gonda 2 [...] transduodenal approach. A stylet was used. A transformation consultant was present to evaluate the adequacy of [...] Cui M.D. GI PROCEDURE ORDERABLES Final Result [facility] NA * Mismatch Repair (MMR) Protein Immunohistochemistry Only, Tumor (06/25/2024 10:27 AM CDT) MLH1 IHC Performed 07/10/2024 4:50 PM [employer] DTL MSH2 IHC Performed 07/10/2024 4:50 PM [employer] DTL MSH6 IHC Performed 07/10/2024 4:50 PM [employer] DTL PMS2 IHC Performed 07/10/2024 4:50 PM [employer] DTL Result Provided diagnosis: pancreas adenocarcinoma IHC: Normal expression of MLH1, MSH2, MSH6, and PMS2 07/10/2024 4:50 PM [employer] DTL Specimen Tissue, Tumor 07/10/2024 4:50 PM [employer] DTL Tissue ID [id number] 07/10/2024 4:50 PM [employer] DTL Released By Sabine Leija M.D., Ph.D. 07/10/2024 4:50 PM [employer] DTL Result Summary INTACT PROTEIN EXPRESSION 07/10/2024 4:50 PM [employer] DTL Interpretation These results suggest the presence of normal DNA mismatch repair function within the tumor. However, these results do not completely rule out the possibility of defective DNA mismatch repair within the tumor because approximately 5% of cases with defective mismatch repair do not show absence of protein expression by IHC (Mod Pathol. 2019;33(5):871-879 (PMID: 92381905)). THERAPEUTIC IMPLICATIONS Current data suggest that in advanced stage solid tumors, targeted immunotherapies such as anti-PD-1 therapies are more likely to be effective in mismatch repair-deficient tumors than in mismatch repair-proficient tumors (Science. 2017 Mar 30;357(4369):409- 413 (PMID 04289204); J Clin Oncol. 2018 Sep 22:[id number] (PMID 04033806)). For interpretation of therapeutic implications of these [...] may be ordered separately. 07/10/2024 4:50 PM [employer] DTL Comment: ----ADDITIONAL INFORMATION---- Immunohistochemical staining (IHC) [...] developed and its performance characteristics determined by [facility] in a manner consistent with CLIA requirements. This test has not been cleared or approved by the U.S. Food and Drug Administration. 06/25/2024 10:2 7 AM CDT 07/09/2024 11:51 AM [employer] us Ryan Fried M.D. LAB GENETIC TESTING Fin al Result [facility] [address] [place] [address], [facility] DTL [address] [place] [address] * PET CT Skull to Thigh FDG [...] RADIOPHARMACEUTICAL/MEDS: Route: intravenous fludeoxyglucose F 18 injection RESIDENTIAL (FDG F-18),14.92 millicurie TECHNIQUE: F-18 FDG PET/CT [...] RADIOPHARMACEUTICAL/MEDS: Route: intravenous fludeoxyglucose F 18 injection RESIDENTIAL (FDG F-18),14.92 millicurie TECHNIQUE: F-18 FDG PET/CT [...] metastatic disease. Alexia Aguilar APRN C.N.P., M.S. [facility] FABRIZIO DOBBS Final Result * [place] [employer] (06/19/2024 10:43 AM CDT) Test Name CustomNext- Cancer +RNAinsight 06/19/2024 2:48 PM CDT AMBR Result SEE COMMENT 07/25/2024 10:14 AM [employer] AMBR Comment: REVISED RESULTS Revised Report has been issued by performing laboratory. The revision has been sent to the patient record. ----PREVIOUSLY REPORTED ---- For final report, select Lab-Send Out Lab Results hyperlink below. Flagged as: N/A (Reported 07/08/2024 14:28) 06/19/2024 10:4 3 AM CDT 06/19/2024 2:48 PM CDT Eddy Byrd M.D. LAB [facility] ORDERABLES Edited Result - Final [address] [place] [address], [facility] AMBR [facility] [address] [place] [address] * CT Abdomen Pelvis with IV Contrast [...] x 2.3 x 1.7 cm (series 3, [id number]; series 5, image 72). The full extent [...] disease in the abdomen or pelvis. Magali Cui M.D. [facility] PROCEDURES Final Result * CT Chest [...] reported separately. Procedure Note Carroll Goldstein M.B.B.S., M.Yadira. - 06/18/2024 EXAM: CT CHEST WITH IV [...] 2. No thoracic lymphadenopathy. Magali Cui M.D. [facility] PROCEDURES Final Result * Cell-free DNA KRAS 12, 13, 61,146, Blood (06/18/2024 9:05 AM CDT) Pathologist [facility] Result Summary NEGATIVE 06/25/2024 1:47 PM CDT [...] developed and its performance characteristics determined by [facility] in a manner consistent with CLIA requirements. This test has not been cleared or approved by the U.S. Food and Drug Administration. Blood (Blood, Venous) 06/18/2024 9:05 AM CDT 06/18/2024 10:48 AM CDT [facility] - 06/25/2024 1:47 PM CDT Specimen Information: Specimen ID: [id number] Specimen Type: Blood Specimen Collection Start Date: 06/18/2024 9:05 AM Specimen Received Date: 06/18/2024 10:48 AM Specimen ID: [id number] Specimen Type: Blood Specimen Collection Start Date: 06/18/2024 9:05 AM Specimen Received Date: 06/18/2024 10:48 AM Magali Cui M.D. LAB GENETIC TESTING Fin al Result Performing Organization Address City/[facility]/ZIP Co de Phone Number [facility] [address] [place] [address], [place] DTL [address] [place] [address] * (ABNORMAL) Carbohydrate Antigen 19-9 (CA 19-9) (06/18/2024 9:05 AM CDT) Carbohydrate Ag 19-9, S 519(H) <35 U/mL 06/18/2024 3:08 PM CDT [facility] Comment: ----ADDITIONAL INFORMATION---- The testing method is an immunoenzymatic assay manufactured by [employer] and performed on the retickr DxI 800. Values obtained with different assay methods or kits may be different and cannot be used interchangeably. Test results cannot be interpreted as absolute evidence for the presence or absence of malignant disease. Blood (Blood, Venous) 06/18/2024 9:05 AM CDT 06/18/2024 2:15 PM CDT Magali Cui M.D. LAB BLOOD ADD-ON Final Result Performing Organization Address [facility] Co de Phone Number [facility] [address] [place] [address] [facility] [address] [place] [address] * (ABNORMAL) Prealbumin (PAB) (06/18/2024 9:05 AM CDT) Prealbumin (PAB), S 15(L) 19 - 38 mg/dL 06/19/2024 10:08 AM CDT [facility] Blood (Blood, Venous) 06/18/2024 9:05 AM CDT 06/19/2024 6:13 AM CDT Magali Cui M.D. LAB BLOOD ADD-ON Final Result Performing Organization Address City/[facility]/ZIP Co de Phone Number [facility] [address] [place] [address] [facility] [address] [place] [address] * Hemoglobin A1c (06/18/2024 9:05 AM CDT) Hemoglobin A1c, B 4.9 4.0 - 5.6 % 06/18/2024 10:24 AM CDT DT Blood (Blood, Venous) 06/18/2024 9:05 AM CDT 06/18/2024 9:31 AM CDT Magali Cui M.D. LAB BLOOD ADD-ON Final Result Performing Organization Address [facility] [place] [address] * (ABNORMAL) Bilirubin, Direct (06/18/2024 9:05 AM CDT) Bilirubin, Direct, S 15.7(H) 0.0 - 0.3 mg/dL 06/18/2024 11:32 AM CDT DT Blood (Blood, Venous) 06/18/2024 9:05 AM CDT 06/18/2024 9:49 AM CDT Magali Cui M.D. LAB BLOOD ADD-ON Final Result Performing Organization Address City/[facility] Co de Phone Number [address] [address] * CT chest abdomen pelv w con-Outside [...] today. ASSESSMENT: BI-RADS: 3: Probably Benign. Jodee Macedo M.D. IMG MRI PROCEDURES Final R esult from Last 3 Months or Most Recently Relevant to Health Maintenance Insurance [facility] MEDIC[facility] Advance Directives For more information, please contact: [phone] * Full Code (Latest Code Status on File) Date Activated Date Inactivated Comments 07/08/2024 12:31 AM 07/11/2024 4:16 PM Question Answer Comments Full Code: Discussed * Full Code Date Activated Date Inactivated Comments 03/23/2022 11:46 AM 03/24/2022 4:08 PM Question Answer Comments Full Code: Not Discussed Due to: Patient not available Care Teams Information Systems Supervisor Relationship Specialty Start Date End Date Elsewhere, Pcp PCP - General Internal Medicine 11/14/21
--- NOTE | 2024-09-03 10:04 | CRLHL7_ITS ---
For Patients: As a result of the Century Cures Act, medical imaging exams and procedure reports are released immediately into your electronic medical record. You may view this report before your referring provider. If you have questions, please contact your health care provider. Indication: Dyspnea. Technique: One view(s) of the chest. Comparison: 08/14/2024, 06/09/2024. Findings: Right IJ port is unchanged in position. Cardiomediastinal silhouette is unchanged. Mild elevation of the left hemidiaphragm. Right apical scarring/consolidation is unchanged. Patchy left basilar airspace opacities have increased. Small left pleural effusion is unchanged. No pneumothorax. Bones and soft tissues are unchanged with calcified bilateral breast implants. Impression: 1. Increased patchy opacities in the left mid/lower lung with unchanged small left pleural effusion. Differential considerations include atelectasis and/or pneumonia. 2. Otherwise similar appearance of the chest. Dictated by Gena Bolaños MD @ 09/03/2024 10:47:59 AM (Electronically Signed)
--- NOTE | 2024-09-03 10:05 | ED_ITS ---
HPI - SOB/Dyspnea General Time Seen by Provider: 10:05 Date Seen: 09/03/24 Chief Complaint: Shortness of Breath/Dyspnea Stated Complaint: Shortness of breath/wheezing Time Seen by Provider: 09/03/24 10:04 Source: patient, family and RN notes reviewed Mode of arrival: ambulatory Limitations: no limitations History of Present Illness HPI Narrative: This 78-year-old female is coming in with shortness of breath and difficulty breathing for last couple days. She denies a history of COPD or wheezing but it reportedly is a diagnosis in her chart. She has been coughing, has had some low back pain. Nursing staff called me to see her shortly after arrival due to her work of breathing, audible wheezing and wet sounding lungs. She has had a history of lung cancer per her about 8 years ago, was treated with radiation and reportedly has been in remission. She is being treated for pancreatic cancer currently. She had lunch recently was someone that had tested positive for COVID about 9 days prior to that lunch. Patient has not had any fevers. She is followed here with oncology. 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 She is getting gemcitabine and Abraxane, reportedly had a a treatment just recently per . Cycle 2 is noted in the last note to a been scheduled for 08/21/2024, could not do it on the as she required 2 units of packed red blood cells due to hemoglobin of 7.5. Patient has known trejo antibody. Has a history of smoking. Related Data Home Medications ?Medication ?Instructions ?Recorded ?Confirmed acetaminophen 500 mg tablet 500 mg PO Q6H PRN 07/07/24 09/03/24 (Tylenol Extra Strength) albuterol sulfate 90 mcg/actuation 2 puff inhalation Q6H PRN 07/07/24 09/03/24 aerosol inhaler hydroxyzine HCl 25 mg tablet 25 mg PO TID PRN 07/07/24 09/03/24 diphenhydramine HCl 50 mg capsule 25 - 50 mg PO QHS PRN 07/21/24 09/03/24 furosemide 20 mg tablet (Lasix) 20 mg PO DAILY 07/21/24 09/03/24 oxycodone 5 mg tablet 2.5 mg PO DAILY PRN 07/23/24 09/03/24 pantoprazole 40 mg tablet,delayed 40 mg PO DAILY 07/23/24 09/03/24 release potassium chloride 20 mEq 20 meq PO Q48H 09/03/24 09/03/24 tablet,extended release Previous Rx's ?Medication ?Instructions ?Recorded ondansetron HCl 4 mg tablet 4 mg PO Q6H PRN nausea and 07/17/24 vomiting #40 tabs Allergies Allergy/AdvReac Type Severity Reaction Status Date / Time amoxicillin (From Augmentin) Allergy Severe Anaphylaxis Verified 09/03/24 11:35 clavulanic acid (From Allergy Severe Anaphylaxis Verified 09/03/24 11:35 Augmentin) Penicillins Allergy Unknown Verified 09/03/24 11:35 prochlorperazine AdvReac Verified 09/03/24 11:35 Blood group specific Allergy Severe TREJO Uncoded 09/03/24 11:35 substance Review of Systems Status of ROS: Reports: 6 or more systems reviewed and unremarkable except as noted in History and below PFSH PFS Social History What is your current living situation?: I presently have a place to live Problems where you live: no known problems Problems where you live details: na In the past 12 months, utilities in danger of being shut off: no In past 12 months, lack of transportation kept you from medical appts, meetings, work, or getting things needed for daily living: no In the past 12 mos, have been you worried that your food would run out before you had money to buy more?: never true In the past 12 mos, the food you bought just didn't last and you didn't have money to buy more?: never true Highest level of school completed/degree received: high school graduate Smoking Status: Former smoker Do you use any of these nicotine containing products: None How often do you have a drink containing alcohol: never How often do you have six or more drinks on one occasion: Never AUDIT-C Alcohol total score: 0 Non-prescribed substance use: denies use Caffeine: No How often does anyone, including family, friends and others, physically hurt you : never How often does anyone, including family, friends and others, insult or talk down to you: never How often does anyone, including family, friends and others, threaten you with harm: never How often does anyone, including family, friends and others, scream or curse at you: never service: No Exam Const: Vital Signs, click to edit/add: Vital Signs - 24 hr 09/03/24 09:49 09/03/24 09:52 09/03/24 09:53 Temperature 99.3 F Pulse Rate 115 H Pulse Rate [Right Pulse Oximeter] 116 H Respiratory Rate 18 Blood Pressure 155/76 H Blood Pressure [Ri ght Upper Arm] 155/76 H Pulse Oximetry 92 92 Oxygen Delivery Me thod Room Air Oxygen Flow Rate 09/03/24 10:09 09/03/24 10:10 09/03/24 10:15 Temperature Pulse Rate 119 H 115 H Pulse Rate [Right Pulse Oximeter] Respiratory Rate Blood Pressure Blood Pressure [Ri ght Upper Arm] Pulse Oximetry 95 90 93 Oxygen Delivery Me thod Oxygen Flow Rate 09/03/24 10:30 09/03/24 10:45 09/03/24 10:54 Temperature Pulse Rate 116 H 115 H Pulse Rate [Right Pulse Oximeter] Respiratory Rate Blood Pressure Blood Pressure [Ri ght Upper Arm] Pulse Oximetry 92 92 95 Oxygen Delivery Me thod Nasal Cannula Nasal Cannula Oxygen Flow Rate 1 1 09/03/24 11:00 09/03/24 11:05 09/03/24 11:06 Temperature Pulse Rate 114 H 116 H 114 H Pulse Rate [Right Pulse Oximeter] Respiratory Rate Blood Pressure 110/80 Blood Pressure [Ri ght Upper Arm] Pulse Oximetry 96 95 97 Oxygen Delivery Me thod Nasal Cannula Nasal Cannula Oxygen Flow Rate 1 1 09/03/24 11:15 09/03/24 11:30 09/03/24 11:49 Temperature Pulse Rate 119 H 114 H 117 H Pulse Rate [Right Pulse Oximeter] Respiratory Rate Blood Pressure Blood Pressure [Ri ght Upper Arm] Pulse Oximetry 97 98 98 Oxygen Delivery Me thod Nasal Cannula Nasal Cannula Oxygen Flow Rate 1 1 09/03/24 11:52 09/03/24 12:00 09/03/24 12:01 Temperature Pulse Rate 114 H 113 H Pulse Rate [Right Pulse Oximeter] Respiratory Rate 32 H Blood Pressure Blood Pressure [Ri ght Upper Arm] Pulse Oximetry 98 96 Oxygen Delivery Me thod Nasal Cannula Nasal Cannula Oxygen Flow Rate 1 1 09/03/24 12:05 09/03/24 12:15 09/03/24 12:23 Temperature Pulse Rate 112 H 110 H 107 H Pulse Rate [Right Pulse Oximeter] Respiratory Rate Blood Pressure 117/70 Blood Pressure [Ri ght Upper Arm] Pulse Oximetry 96 96 96 Oxygen Delivery Me thod Nasal Cannula Nasal Cannula Nasal Cannula Oxygen Flow Rate 1 1 1 09/03/24 12:30 09/03/24 12:31 09/03/24 12:45 Temperature Pulse Rate 105 H 106 H 101 H Pulse Rate [Right Pulse Oximeter] Respiratory Rate Blood Pressure 118/78 Blood Pressure [Ri ght Upper Arm] Pulse Oximetry 97 98 98 Oxygen Delivery Me thod Nasal Cannula Nasal Cannula Nasal Cannula Oxygen Flow Rate 1 1 1 09/03/24 13:00 09/03/24 13:01 Temperature Pulse Rate 98 98 Pulse Rate [Right Pulse Oximeter] Respiratory Rate Blood Pressure 92/75 Blood Pressure [Ri ght Upper Arm] Pulse Oximetry 99 99 Oxygen Delivery Me thod Nasal Cannula Nasal Cannula Oxygen Flow Rate 1 1 This 78-year-old female is alert, interactive, conversive but in short phrases. She has significant tachypnea, significant upper airway sound in transmission. Can hear audible wheezing. Sclera look mildly jaundice, symmetrical facial function, conjugate gaze of eyes. Speech is not hoarse. Using accessory muscles of her neck. No neck masses or adenopathy noted. Lungs with distant breath sounds, prolonged expiratory phase and crackles heard throughout, wheezing is not heard on auscultation but is certainly heard with the ear with patient at rest. CV fast, distant heart sounds, do not appreciate a murmur at this time. Abdomen is soft, nontender, nondistended. She has a port in her right upper chest wall. Legs without any edema, no calf tenderness. Documenting provider has reviewed patient's vital signs: yes Course Course ED Course: Her for finger oximetry probe was not registering, hands are somewhat cool. Did put the forehead probe on it and are getting better readings, oxygenation is in the low 90s but she is tachypneic. Portable chest x-ray done, there might be some mild congestive changes but there is obliteration of her left heart border in costophrenic angle. Right costophrenic angle is normal appearing. Will give DuoNeb, am going to give her some IV steroids as certainly could be some component of COPD. Infectious etiology, cancer issues need to be considered. Does not seem typical presentation for thromboembolic disease such as pulmonary embolus but this will be considered. Full complement of labs will be obtained. Will see how she responds to the DuoNeb here. Reevaluation(s) Time of Reevaluation #1: 10:26 Reevaluation #1: Looking at recent chest x-rays, has had a mild left pleural effusion seen earlier in August. We are going to proceed with chest CT PE protocol to f jimther evaluate underlying respiratory and lung issues. Time of Reevaluation #2: 10:36 Reevaluation #2: Patient is actively getting her DuoNeb now, 40 mg IV Solu-Medrol as being given. Her port has been access, blood work has been obtained. Have reviewed with her that she is going to get a chest CT PE protocol for full evaluation of her current respiratory status. She feels the DuoNeb is helping some. She has an albuterol inhaler at home that has not been helping, does not have a nebulizer. She still has tachypnea. Her aeration on auscultation is improving. Do here and expiratory wheezing, less crackles throughout. Time of Reevaluation #3: 10:56 Reevaluation #3: Patient still has increased work of breathing, overall maybe feels slightly better. Do hear more active wheezing. Will do another DuoNeb. Looking at her pulse oximetry she historically runs 99-100%. She is 90-92% currently. Will give her 1 L nasal cannula oxygen as she is relatively hypoxic considering her baseline. Additional Reevaluation(s): 11:15 a.m.: Patient complaining of low back pain. Went in to talk to her about this. She is having low back pain, this is not new for her. She used Tylenol early this morning, probably 3-5 a.m. sometime. She also did take an oxycodone earlier this morning. Will give her some Tylenol and oxycodone. Consultations Consultation #1: Have spoken with hospitalist Roxanne Davila, she accepts the patient. Will start IV doxycycline given her history of anaphylaxis with penicillins. Will wait on radiology read of CT imaging. Her proBNP is up, certain aspects of her clinical exam with the crackles just potential lung fluid overload. Her procalcitonin is certainly elevated which would suggest respiratory bacterial infection. We will initiate antibiotics for probable community-acquired pneumonia. Will hold on IV fluids or diuretics at this time until we have radiology CT imaging. She may likely need some initial fluids and then possibly subsequent diuresis, hospitalist is aware of this and likely something that they will further evaluate there. Time: 12:07 Vital Signs Vital signs: Initial Vital Signs Temperature 99.3 F 09/03/24 09:49 Temperature Source Temporal Artery Scan 09/03/24 09:49 Pulse Rate 116 H 09/03/24 09:49 Pulse Rhythm Regular 09/03/24 09:49 Respiratory Rate 18 09/03/24 09:49 Blood Pressure 155/76 H 09/03/24 09:49 Blood Pressure Mean 102 09/03/24 09:49 Blood Pressure Position Sitting 09/03/24 09:49 Pulse Oximetry 92 09/03/24 09:49 Oxygen Delivery Method Room Air 09/03/24 09:49 Vital Signs Temperature 99.3 F 09/03/24 09:49 Pulse Rate 116 H 09/03/24 09:49 Respiratory Rate 18 09/03/24 09:49 Blood Pressure 155/76 H 09/03/24 09:49 Pulse Oximetry 92 09/03/24 09:49 Oxygen Delivery Method Room Air 09/03/24 09:49 Temperature 98.2 F 09/03/24 14:21 Pulse Rate 97 09/03/24 14:21 Respiratory Rate 20 09/03/24 14:21 Blood Pressure 135/86 09/03/24 14:21 Pulse Oximetry 98 09/03/24 14:21 Oxygen Delivery Method Nasal Cannula 09/03/24 14:21 Oxygen Flow Rate 1 09/03/24 14:21 Medications Administered Medications: Discontinued Medications Generic Name Dose Route Start Last Admin Trade Name Freq PRN Reason Stop Dose Admin Acetaminophen 1,000 mg 09/03/24 11:16 09/03/24 11:20 Acetaminophen 500 Mg Tablet PO 09/03/24 11:17 1,000 mg ONCE ONE Administration Albuterol/Ipratropium 1 neb 09/03/24 10:09 09/03/24 10:14 Iprat-Albut 0.5-2.5 Mg/3 Ml Neb IH 09/03/24 10:10 1 neb ONCE ONE Administration Albuterol/Ipratropium 1 neb 09/03/24 10:54 09/03/24 10:58 Iprat-Albut 0.5-2.5 Mg/3 Ml Neb IH 09/03/24 10:55 1 neb ONCE ONE Administration Doxycycline Hyclate 100 mg/ 100 mls @ 100 mls/hr 09/03/24 12:09 09/03/24 12:22 Sodium Chloride IVPB 09/03/24 12:10 100 mls/hr ONCE ONE Administration Methylprednisolone Sodium Succinate 40 mg 09/03/24 10:22 09/03/24 10:33 Methylprednisolone Sod Succ 40 Mg/Ml IVP 09/03/24 10:23 40 mg ONCE ONE Administration Oxycodone HCl 5 mg 09/03/24 11:16 09/03/24 11:20 Oxycodone 5 Mg Tablet PO 09/03/24 11:17 5 mg ONCE ONE Administration MDM - SOB/Dyspnea Lab Data Attestation: I reviewed the patient's lab results. Labs: Lab Results 09/03/24 09/03/24 09/03/24 Range/Units 10:10 10:42 10:47 WBC 10.18 (4.50-11.00) K/uL RBC 3.48 L (4.00-5.20) m/uL Hgb 9.8 L (12.0-16.0) gm/dL Hct 30.7 L (33.0-51.0) % MCV 88 (80-100) fL MCH 28 (26-34) pg MCHC 32 (32-36) gm/dL RDW Coeff of Shayan 15.7 H (11.5-15.5) % Plt Count 116 L (140-440) K/uL Neut % (Auto) 94.2 H (42.0-72.0) % Lymph % (Auto) 1.2 L (20-44) % Wilbarger % (Auto) 3.8 (0.0-11.0) % Eos % (Auto) 0.0 (0.0-7.0) % Baso % (Auto) 0.1 (0.0-3.0) % Neut # (Auto) 9.60 H (1.7-7.0) K/uL Lymph # (Auto) 0.10 L (0.90-2.90) K/uL Wilbarger # (Auto) 0.40 (0.00-0.90) K/UL Eos # (Auto) 0.00 (0.00-0.50) K/uL Baso # (Auto) 0.01 (0.00-0.30) K/uL Abs Immat Gran (auto) 0.07 (0.00-0.30) K/uL Imm/Tot Granulo (auto) 0.7 % D-Dimer Quant (PE/DVT) 2.47 H (0.00-0.50) ug/ml VBG pH 7.326 (7.32-7.43) VBG pCO2 43 (40-50) mmHG VBG pO2 < 30.1 (25-47) mmHG VBG HCO3 22 (21-28) mmol/L Sodium 127 L (135-149) mmol/L Potassium 4.9 (3.6-5.1) mmol/L Chloride 92 L (96-114) mmol/L Carbon Dioxide 22 (20-32) mmol/L Anion Gap 13 (7-15) mEq/L BUN 23 (7-30) mg/dL Creatinine 0.8 (0.5-1.5) mg/dL Estimated Creat Clear 34.99 Estimated GFR 75 ml/min Glucose 146 H (60-115) mg/dL Lactate 3.3 H (0.5-1.9) mmol/L Calcium 9.0 (8.4-10.6) mg/dL Total Bilirubin 2.6 H (0.1-1.5) mg/dL Direct Bilirubin 2.1 H (0.0-0.5) mg/dL AST 35 (12-35) U/L ALT 23 (4-35) U/L Alkaline Phosphatase 272 H (40-150) U/L Troponin I 0.02 (0.01-0.04) ng/mL C-Reactive Protein 26.1 H (0.5-1.0) mg/dL NT-Pro-B Natriuret Pep 8770 pg/mL Total Protein 6.9 (6.0-8.3) g/dL Albumin 3.8 (3.3-5.0) g/dL Procalcitonin 2.25 H (<0.50) ng/mL SARS-CoV-2 (PCR) Negative SARS-CoV-2 (Negative) Influenza Type A (PCR) Negative PCR FLU A (Negative) Influenza Type B (PCR) Negative PCR FLU B (Negative) RSV (PCR) Negative PCR RSV (Negative) Imaging Data Chest x-ray: Attestation: I have reviewed the pertinent imaging results. My impression: Obliterated left costophrenic angle and heart border. Radiologist's impression: Patient: LILA SUERO Facility:?[facility] Patient ID:?[id number] Site Patient ID:?[id number]. Site :?1945 Study:?XRay-Chest PORTABLE-09/03/2024 10:23:58 AM Ordering Physician:?Rajinder Amador Final Report: Indication: Dyspnea. Technique: One view(s) of the chest. Comparison: 08/14/2024, 06/09/2024. Findings: Right IJ port is unchanged in position. Cardiomediastinal silhouette is unchanged. Mild elevation of the left hemidiaphragm. Right apical scarring/consolidation is unchanged. Patchy left basilar airspace opacities have increased. Small left pleural effusion is unchanged. No pneumothorax. Bones and soft tissues are unchanged with calcified bilateral breast implants. Impression: 1. Increased patchy opacities in the left mid/lower lung with unchanged small left pleural effusion. Differential considerations include atelectasis and/or pneumonia. 2. Otherwise similar appearance of the chest. Dictated by Gena Bolaños MD @ 09/03/2024 10:47:59 AM (Electronic Signature) CT scan - chest: Attestation: I have reviewed the pertinent imaging results. Radiologist's impression: Patient: LILA SUERO Facility:?[facility] Patient ID:?[id number] Site Patient ID:?[id number]. Site :?1945 Study:?CT-Chest Angio W/ 95CC ISOVUE-370 PE PROTOCOL-09/03/2024 11:46:47 AM Ordering Physician:Arcadio Amador Final Report: INDICATION: Tachycardia cough pancreatic cancer TECHNIQUE: CT chest with 95 mL Isovue 370 contrast. COMPARISON: CT chest abdomen pelvis 06/09/2024, 08/09/2023 FINDINGS: Lungs and pleura: Bandlike consolidation right lung apex is stable and could be related to posttreatment changes. Left perihilar upper lobe change bandlike consolidation appears increased with increased thickening with patchy opacities in the upper and lower lobe. There is increasing dense consolidation in the left lower lobe. There is also tree-in-bud nodularity in the right lower lobe there is bibasilar bronchial wall thickening this probably is infectious/inflammatory This process extends into the hilum with soft tissue thickening a small right effusion. Partially loculated this is unchanged from the prior study there appears be wedge resection in the lateral left upper and lower lobe again seen. Heart and vasculature: The heart is mildly enlarged. Normal caliber thoracic aorta. No pulmonary emboli seen Lymph nodes/mediastinum: No adenopathy. Chest wall: Bilateral calcified breast implants with findings of intra and extracapsular rupture on the left with likely large extracapsular silicone collection in the left lateral breast again seen. Upper abdomen: Unremarkable Bones: Unremarkable for age. IMPRESSION: 1. No pulmonary emboli. 2. Stable right apical bandlike opacity could be related to posttreatment changes Bandlike extension into the 3. Left perihilar soft tissue thickening with there is also patchy opacities left study mid and lower lung in the upper and lower. This appears increased from the prior lobe with increasing consolidation in the left lower lobe. A small partially loculated left effusion appears unchanged. Findings could represent evolving posttreatment changes correlation with clinical history recommended. There may be superimposed infection. Additionally there is subtle centrilobular nodularity right lower lobe as well as in the left lower lobe which likely is infectious/inflammatory. Short interval follow-up recommended. Please note that all CT scans at this facility use dose modulation, iterative reconstruction, and/or weight-based dosing when appropriate to reduce radiation dose to as low as reasonably achievable. Dictated by Dianne Blanchard MD @ 09/03/2024 12:36:40 PM (Electronic Signature) ECG Data Attestation: I personally reviewed and interpreted this ECG as follows: (Sinus tachycardia, 115 beats per minute. Significant artifact but flipped T-waves throughout precordial leads as well as 1 in aVL. Do not appreciate significant ST segment changes but difficult given the tracing.) ECG interpretation date: 09/03/24 ECG interpretation time: 11:10 Prior ECG tracings: not available for review
[2024-09-03] MEDS: IPRAT-ALBUT 0.5-2.5 MG/3 ML NEB 1 NEB IH ×4 (10:14→22:46)
--- NOTE | 2024-09-03 10:24 | CRLHL7_ITS ---
For Patients: As a result of the Century Cures Act, medical imaging exams and procedure reports are released immediately into your electronic medical record. You may view this report before your referring provider. If you have questions, please contact your health care provider. INDICATION: Tachycardia cough pancreatic cancer TECHNIQUE: CT chest with 95 mL Isovue 370 contrast. COMPARISON: CT chest abdomen pelvis 06/09/2024, 08/09/2023 FINDINGS: Lungs and pleura: Bandlike consolidation right lung apex is stable and could be related to posttreatment changes. Left perihilar upper lobe change bandlike consolidation appears increased with increased thickening with patchy opacities in the upper and lower lobe. There is increasing dense consolidation in the left lower lobe. There is also tree-in-bud nodularity in the right lower lobe there is bibasilar bronchial wall thickening this probably is infectious/inflammatory This process extends into the hilum with soft tissue thickening a small right effusion. Partially loculated this is unchanged from the prior study there appears be wedge resection in the lateral left upper and lower lobe again seen. Heart and vasculature: The heart is mildly enlarged. Normal caliber thoracic aorta. No pulmonary emboli seen Lymph nodes/mediastinum: No adenopathy. Chest wall: Bilateral calcified breast implants with findings of intra and extracapsular rupture on the left with likely large extracapsular silicone collection in the left lateral breast again seen. Upper abdomen: Unremarkable Bones: Unremarkable for age. IMPRESSION: 1. No pulmonary emboli. 2. Stable right apical bandlike opacity could be related to posttreatment changes Bandlike extension into the 3. Left perihilar soft tissue thickening with there is also patchy opacities left study mid and lower lung in the upper and lower. This appears increased from the prior lobe with increasing consolidation in the left lower lobe. A small partially loculated left effusion appears unchanged. Findings could represent evolving posttreatment changes correlation with clinical history recommended. There may be superimposed infection. Additionally there is subtle centrilobular nodularity right lower lobe as well as in the left lower lobe which likely is infectious/inflammatory. Short interval follow-up recommended. Please note that all CT scans at this facility use dose modulation, iterative reconstruction, and/or weight-based dosing when appropriate to reduce radiation dose to as low as reasonably achievable. Dictated by Dianne Blanchard MD @ 09/03/2024 12:36:40 PM (Electronically Signed)
[2024-09-03] MEDS: METHYLPREDNISOLONE SOD SUCC 40 MG/ML IVP (10:33)
[2024-09-03 10:55] LABS: HCO3 VBG 22 mmol/L (21-28); Lactate* 3.3 mmol/L (0.5-1.9); PCO2 VBG 43 mmHG (40-50); PO2 VBG < 30.1 mmHG (25-47); pH VBG 7.326 (7.32-7.43)
[2024-09-03 10:57] LABS: PCR FLU A Negative PCR FLU A (Negative); PCR FLU B Negative PCR FLU B (Negative); PCR RSV Negative PCR RSV (Negative); SARS PCR* Negative SARS-CoV-2 (Negative)
[2024-09-03 11:00] LABS: Basophils Absolute Auto 0.01 K/uL (0.00-0.30); Basophils Percent Auto 0.1 % (0.0-3.0); Hematocrit 30.7 % (33.0-51.0); Hemoglobin* 9.8 gm/dL (12.0-16.0); Immature Granulocytes Abs Auto 0.07 K/uL (0.00-0.30); Immature Granulocytes Pct Auto 0.7 %; Lymphocytes Percent Auto 1.2 % (20-44); Mean Corpuscular HGB Conc 32 gm/dL (32-36); Mean Corpuscular Hemoglobin 28 pg (26-34); Mean Corpuscular Volume 88 fL (80-100); Monocytes Percent Auto 3.8 % (0.0-11.0); Neutrophils Percent Auto 94.2 % (42.0-72.0); Platelet Count* 116 K/uL (140-440); RDW Coefficient of Variation % 15.7 % (11.5-15.5); Red Blood Count 3.48 m/uL (4.00-5.20); White Blood Count* 10.18 K/uL (4.50-11.00)
[2024-09-03 11:01] LABS: Slide Review Reflex No
[2024-09-03] MEDS: ACETAMINOPHEN 500 MG TABLET 1000 MG PO (11:20)
[2024-09-03] MEDS: OXYCODONE 5 MG TABLET PO (11:20)
[2024-09-03 11:21] LABS: Albumin* 3.8 g/dL (3.3-5.0); Chloride* 92 mmol/L (96-114); Sodium* 127 mmol/L (135-149)
[2024-09-03 11:22] LABS: Potassium* 4.9 mmol/L (3.6-5.1)
[2024-09-03 11:23] LABS: Creatinine* 0.8 mg/dL (0.5-1.5); Est. Creatinine Clearance* 34.99; Estimated Glomerular Filt Rate 75 ml/min
[2024-09-03 11:24] LABS: Alanine Aminotransferase* 23 U/L (4-35); Alkaline Phosphatase* 272 U/L (40-150); Anion Gap 13 mEq/L (7-15); Aspartate Amino Transferase* 35 U/L (12-35); Bilirubin Direct* 2.1 mg/dL (0.0-0.5); Bilirubin Total* 2.6 mg/dL (0.1-1.5); Blood Urea Nitrogen* 23 mg/dL (7-30); Carbon Dioxide* 22 mmol/L (20-32); Glucose* 146 mg/dL (60-115); Total Protein* 6.9 g/dL (6.0-8.3)
[2024-09-03 11:27] LABS: D Dimer Quantitative* 2.47 ug/ml (0.00-0.50)
[2024-09-03 11:36] LABS: Troponin I* 0.02 ng/mL (0.01-0.04)
[2024-09-03 11:41] LABS: Procalcitonin* 2.25 ng/mL (<0.50)
[2024-09-03 11:46] LABS: C Reactive Protein* 26.1 mg/dL (0.5-1.0); NT Pro B Type NatriureticPept* 8770 pg/mL
[2024-09-03] MEDS: DOXYCYCLINE HYCLATE 100 MG in 0.9 % SODIUM CHLORIDE Mini-bag 100 ML IVPB (12:22)
--- NOTE | 2024-09-03 13:13 | ED.NURSE ---
Pt report given to serene RN, pt to room 256.
--- NOTE | 2024-09-03 15:43 | PC.NURSE ---
Pt arrived to the floor at 1315, alert, oriented and vitally stable. Pt sats 95-100 on 1L o2. Inspiratory and expiatory rhonchi noted upon auscultation of lung sounds. Pt states cough with output. SOB upon exertion noted. Pt states no pain. Pt in bed, call light within reach.
--- NOTE | 2024-09-03 16:30 | P.IMHP_ITS ---
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 She is getting gemcitabine and Abraxane. Next treatment scheduled for 09/04/2024. Presented to ED with increasing shortness of breath and difficulty breathing over the last couple of days. Has been wheezing as well as experiencing a productive cough. Reports a bandlike tightness across the lower half of her ribcage both anterior and posterior. Denies recent fevers. Denies headaches or dizziness. Denies recent nausea or vomiting. No diarrhea but has been constipated as of late. Denies urinary symptoms. Quit smoking 40 years ago. Rare alcohol use. Wishes to be full code. Followed by Dr. Vazquez, Oncology here in [place]. PCP is Dr. Mars Review of Systems Narrative: REVIEW OF SYSTEMS: Complete review of systems performed and negative unless otherwise stated in HPI or below. [facility] Medical History (Updated 09/03/24 @ 17:03 by Roxanne Oswald PA-C) Pruritus ?L29.9 - Pruritus, unspecified (ICD-10) History of duodenal ulcer ?Z87.19 - Personal history of other diseases of the digestive system (ICD-10) History of colon cancer ?Z85.038 - Personal history of other malignant neoplasm of large intestine (ICD-10) Adenocarcinoma, lung ?C34.90 - Malignant neoplasm of unspecified part of unspecified bronchus or lung (ICD-10) COPD (chronic obstructive pulmonary disease) ?J44.9 - Chronic obstructive pulmonary disease, unspecified (ICD-10) Osteopenia ?M85.80 - Other specified disorders of bone density and structure, unspecified site (ICD-10) Anemia ?D64.9 - Anemia, unspecified (ICD-10) Hypertension ?I10 - Essential (primary) hypertension (ICD-10) Low back pain ?M54.50 - Low back pain, unspecified (ICD-10) Surgical History History of colectomy ?Z90.49 - Acquired absence of other specified parts of digestive tract (ICD- 10) H/O breast augmentation ?Z98.82 - Breast implant status (ICD-10) History of appendectomy ?Z90.49 - Acquired absence of other specified parts of digestive tract (ICD- 10) Social History What is your current living situation?: I presently have a place to live Problems where you live: no known problems Problems where you live details: na In the past 12 months, utilities in danger of being shut off: no In past 12 months, lack of transportation kept you from medical appts, meetings, work, or getting things needed for daily living: no In the past 12 mos, have been you worried that your food would run out before you had money to buy more?: never true In the past 12 mos, the food you bought just didn't last and you didn't have money to buy more?: never true Highest level of school completed/degree received: high school graduate Smoking Status: Former smoker Do you use any of these nicotine containing products: None How often do you have a drink containing alcohol: never How often do you have six or more drinks on one occasion: Never AUDIT-C Alcohol total score: 0 Non-prescribed substance use: denies use Caffeine: No How often does anyone, including family, friends and others, physically hurt you : never How often does anyone, including family, friends and others, insult or talk down to you: never How often does anyone, including family, friends and others, threaten you with harm: never How often does anyone, including family, friends and others, scream or curse at you: never service: No Meds Home Medications and Allergies Home Medications ?Medication ?Instructions ?Recorded ?Confirmed ?Type acetaminophen 500 mg tablet 500 mg PO Q6H PRN 07/07/24 09/03/24 History (Tylenol Extra Strength) albuterol sulfate 90 mcg/actuation 2 puff inhalation Q6H PRN 07/07/24 09/03/24 History aerosol inhaler hydroxyzine HCl 25 mg tablet 25 mg PO TID PRN 07/07/24 09/03/24 History diphenhydramine HCl 50 mg capsule 25 - 50 mg PO QHS PRN 07/21/24 09/03/24 History furosemide 20 mg tablet (Lasix) 20 mg PO DAILY 07/21/24 09/03/24 History oxycodone 5 mg tablet 2.5 mg PO DAILY PRN 07/23/24 09/03/24 History pantoprazole 40 mg tablet,delayed 40 mg PO DAILY 07/23/24 09/03/24 History release potassium chloride 20 mEq 20 meq PO Q48H 09/03/24 09/03/24 History tablet,extended release Allergies Allergy/AdvReac Type Severity Reaction Status Date / Time amoxicillin (From Augmentin) Allergy Severe Anaphylaxis Verified 09/03/24 11:35 clavulanic acid (From Allergy Severe Anaphylaxis Verified 09/03/24 11:35 Augmentin) Penicillins Allergy Unknown Verified 09/03/24 11:35 prochlorperazine AdvReac Verified 09/03/24 11:35 Blood group specific Allergy Severe TREJO Uncoded 09/03/24 11:35 substance Exam Narrative: Exam Narrative: PHYSICAL EXAM General: Frail, thin, mild distress with dyspnea HEENT: Normocephalic, atraumatic, sclera icterus, EOMI Cardiovascular: RRR, S1S2. No pitting edema Pulmonary: Audible wheezes, coarse, wet throughout. Dyspnea Abdominal: Soft, nondistended, NTTP Neurological: Alert, answering questions appropriately, cranial nerves intact, no focal findings Extremities: No gross joint deformity or swelling. AROMI. Neurovascularly intact Skin: Warm, dry, jaundice Const: Vital Signs, click to edit/add: Vital Signs - 24 hr 09/03/24 09:49 09/03/24 09:52 09/03/24 09:53 Temperature 99.3 F Pulse Rate 115 H Pulse Rate [Pulse Oximeter] Pulse Rate [Right Pulse Oximeter] 116 H Respiratory Rate 18 Blood Pressure 155/76 H Blood Pressure [Ri ght Arm] Blood Pressure [Ri ght Upper Arm] 155/76 H Pulse Oximetry 92 92 Oxygen Delivery Me thod Room Air Oxygen Flow Rate 09/03/24 10:09 09/03/24 10:10 09/03/24 10:15 Temperature Pulse Rate 119 H 115 H Pulse Rate [Pulse Oximeter] Pulse Rate [Right Pulse Oximeter] Respiratory Rate Blood Pressure Blood Pressure [Ri ght Arm] Blood Pressure [Ri ght Upper Arm] Pulse Oximetry 95 90 93 Oxygen Delivery Me thod Oxygen Flow Rate 09/03/24 10:30 09/03/24 10:45 09/03/24 10:54 Temperature Pulse Rate 116 H 115 H Pulse Rate [Pulse Oximeter] Pulse Rate [Right Pulse Oximeter] Respiratory Rate Blood Pressure Blood Pressure [Ri ght Arm] Blood Pressure [Ri ght Upper Arm] Pulse Oximetry 92 92 95 Oxygen Delivery Me thod Nasal Cannula Nasal Cannula Oxygen Flow Rate 1 1 09/03/24 11:00 09/03/24 11:05 09/03/24 11:06 Temperature Pulse Rate 114 H 116 H 114 H Pulse Rate [Pulse Oximeter] Pulse Rate [Right Pulse Oximeter] Respiratory Rate Blood Pressure 110/80 Blood Pressure [Ri ght Arm] Blood Pressure [Ri ght Upper Arm] Pulse Oximetry 96 95 97 Oxygen Delivery Me thod Nasal Cannula Nasal Cannula Oxygen Flow Rate 1 1 09/03/24 11:15 09/03/24 11:30 09/03/24 11:49 Temperature Pulse Rate 119 H 114 H 117 H Pulse Rate [Pulse Oximeter] Pulse Rate [Right Pulse Oximeter] Respiratory Rate Blood Pressure Blood Pressure [Ri ght Arm] Blood Pressure [Ri ght Upper Arm] Pulse Oximetry 97 98 98 Oxygen Delivery Me thod Nasal Cannula Nasal Cannula Oxygen Flow Rate 1 1 09/03/24 11:52 09/03/24 12:00 09/03/24 12:01 Temperature Pulse Rate 114 H 113 H Pulse Rate [Pulse Oximeter] Pulse Rate [Right Pulse Oximeter] Respiratory Rate 32 H Blood Pressure Blood Pressure [Ri ght Arm] Blood Pressure [Ri ght Upper Arm] Pulse Oximetry 98 96 Oxygen Delivery Me thod Nasal Cannula Nasal Cannula Oxygen Flow Rate 1 1 09/03/24 12:05 09/03/24 12:15 09/03/24 12:23 Temperature Pulse Rate 112 H 110 H 107 H Pulse Rate [Pulse Oximeter] Pulse Rate [Right Pulse Oximeter] Respiratory Rate Blood Pressure 117/70 Blood Pressure [Ri ght Arm] Blood Pressure [Ri ght Upper Arm] Pulse Oximetry 96 96 96 Oxygen Delivery Me thod Nasal Cannula Nasal Cannula Nasal Cannula Oxygen Flow Rate 1 1 1 09/03/24 12:30 09/03/24 12:31 09/03/24 12:45 Temperature Pulse Rate 105 H 106 H 101 H Pulse Rate [Pulse Oximeter] Pulse Rate [Right Pulse Oximeter] Respiratory Rate Blood Pressure 118/78 Blood Pressure [Ri ght Arm] Blood Pressure [Ri ght Upper Arm] Pulse Oximetry 97 98 98 Oxygen Delivery Me thod Nasal Cannula Nasal Cannula Nasal Cannula Oxygen Flow Rate 1 1 1 09/03/24 13:00 09/03/24 13:01 09/03/24 14:21 Temperature 98.2 F Pulse Rate 98 98 Pulse Rate [Pulse Oximeter] 97 Pulse Rate [Right Pulse Oximeter] Respiratory Rate 20 Blood Pressure 92/75 Blood Pressure [Ri ght Arm] 135/86 Blood Pressure [Ri ght Upper Arm] Pulse Oximetry 99 99 98 Oxygen Delivery Me thod Nasal Cannula Nasal Cannula Nasal Cannula Oxygen Flow Rate 1 1 1 09/03/24 14:21 09/03/24 15:00 Temperature 97.5 F L Pulse Rate Pulse Rate [Pulse Oximeter] 87 Pulse Rate [Right Pulse Oximeter] Respiratory Rate 20 20 Blood Pressure Blood Pressure [Ri ght Arm] 98/78 Blood Pressure [Ri ght Upper Arm] Pulse Oximetry 98 99 Oxygen Delivery Me thod Nasal Cannula Room Air Oxygen Flow Rate 1 Hospitalist - H&P: Result Labs Labs: Short CBC 09/03/24 Range/Units 10:47 WBC 10.18 (4.50-11.00) K/uL Hgb 9.8 L (12.0-16.0) gm/dL Hct 30.7 L (33.0-51.0) % Plt Count 116 L (140-440) K/uL BMP 09/03/24 10:47 Sodium 127 L Potassium 4.9 Chloride 92 L Carbon Dioxide 22 BUN 23 Creatinine 0.8 Glucose 146 H Calcium 9.0 Cardiac Enzymes 09/03/24 Range/Units 10:47 Troponin I 0.02 (0.01-0.04) ng/mL Liver Function 09/03/24 Range/Units 10:47 Total Bilirubin 2.6 H (0.1-1.5) mg/dL Direct Bilirubin 2.1 H (0.0-0.5) mg/dL AST 35 (12-35) U/L ALT 23 (4-35) U/L Alkaline Phosphatase 272 H (40-150) U/L Albumin 3.8 (3.3-5.0) g/dL ECG Attestation: I personally reviewed and interpreted this ECG as follows: ECG interpretation date: 09/03/24 Interpretation: Sinus tachycardia, ventricular rate 115, QTC 426 Imaging CTA chest: Attestation: I have reviewed the pertinent imaging results. Radiologist's impression: Lungs and pleura: Bandlike consolidation right lung apex is stable and could be related to posttreatment changes. Left perihilar upper lobe change bandlike consolidation appears increased with increased thickening with patchy opacities in the upper and lower lobe. There is increasing dense consolidation in the left lower lobe. There is also tree-in-bud nodularity in the right lower lobe there is bibasilar bronchial wall thickening this probably is infectious/inflammatory This process extends into the hilum with soft tissue thickening a small right effusion. Partially loculated this is unchanged from the prior study there appears be wedge resection in the lateral left upper and lower lobe again seen. Heart and vasculature: The heart is mildly enlarged. Normal caliber thoracic aorta. No pulmonary emboli seen Lymph nodes/mediastinum: No adenopathy. Chest wall: Bilateral calcified breast implants with findings of intra and extracapsular rupture on the left with likely large extracapsular silicone collection in the left lateral breast again seen. Upper abdomen: Unremarkable Bones: Unremarkable for age. IMPRESSION: 1. No pulmonary emboli. 2. Stable right apical bandlike opacity could be related to posttreatment changes Bandlike extension into the 3. Left perihilar soft tissue thickening with there is also patchy opacities left study mid and lower lung in the upper and lower. This appears increased from the prior lobe with increasing consolidation in the left lower lobe. A small partially loculated left effusion appears unchanged. Findings could represent evolving posttreatment changes correlation with clinical history recommended. There may be superimposed infection. Additionally there is subtle centrilobular nodularity right lower lobe as well as in the left lower lobe which likely is infectious/inflammatory. Short interval follow-up recommended. Chest x-ray: Attestation: I have reviewed the pertinent imaging results. Radiologist's impression: Right IJ port is unchanged in position. Cardiomediastinal silhouette is unchanged. Mild elevation of the left hemidiaphragm. Right apical scarring/consolidation is unchanged. Patchy left basilar airspace opacities have increased. Small left pleural effusion is unchanged. No pneumothorax. Bones and soft tissues are unchanged with calcified bilateral breast implants. Impression: 1. Increased patchy opacities in the left mid/lower lung with unchanged small left pleural effusion. Differential considerations include atelectasis and/or pneumonia. 2. Otherwise similar appearance of the chest. Assessment and Plan Assessment and plan (1) Acute respiratory distress: Problem comment: -in setting of acute CAP, history of COPD, history of lung cancer, suspected fluid overload -without hypoxia. Normal O2 sats 99-100%, 92-93% in ED -dyspneic, tachypneic -oxygen supplementation to maintain saturations > 92%, weaning as able -hold home furosemide, IV diuresis. Strict I&Os, daily weights -RT for pulmonary support Status: Acute (2) CAP (community acquired pneumonia): Problem comment: -CT shows Left perihilar soft tissue thickening with there is also patchy opacities left study mid and lower lung in the upper and lower. This appears i ncreased from the prior lobe with increasing consolidation in the left lower lobe -afebrile, tachypneic, dyspneic -no leukocytosis, procalcitonin 2.25, CRP 26.1 -levofloxacin IV, given initial dose of doxycycline in the ED -Mucinex, aerobika, incentive spirometry -avoiding IVF resuscitation given concern for fluid overload at this time Status: Acute (3) COPD (chronic obstructive pulmonary disease): Problem comment: -schedule DuoNebs, albuterol nebs Status: Acute (4) Pancreatic cancer: Problem comment: -Followed by Dr. Vazquez, Onoclogy -treatment with gemcitabine and Abraxane - next date which is tomorrow 09/04/2024 -abnormal LFTs, jaundice Status: Acute (5) Low back pain: Problem comment: -chronic. Pain management as needed Status: Acute (6) Hypertension: Problem comment: -noted, no current home meds Status: Acute (7) Anemia: Problem comment: -hemoglobin 9.8, most recent 9.7. Continue to monitor Status: Acute (8) Adenocarcinoma, lung: Problem comment: Malignant Neoplasm Of Lung Upper Lobe Or Bronchus Left (HCC) 07/20/2016Critical Imaging:CT C/A/P: Significant interval increase in size of a lingular mass measuring ~3.8 cm (previously 2 cm) -2 separate spiculated nodules in the RUL -mild mediastinal and left hilar lymphadenopathy Status: Acute (9) Hyponatremia: Problem comment: -sodium 127, most recently 135 -fluid restriction -monitoring Status: Acute (10) Pruritus: Problem comment: -hydroxyzine p.r.n. Status: Acute Total Time Spent Total Time Spent: Total time spent caring for the patient today was 75 minutes. This includes time spent for the visit reviewing the chart, time spent during the visit, time spent after the visit and documentation and planning in coordination of care.
[2024-09-03] MEDS: FUROSEMIDE 10 MG/ML inj 40 MG IVP (16:45)
[2024-09-03] MEDS: guaiFENesin 600 MG TAB.ER.12H 1200 MG PO ×2 (16:45→22:45)
[2024-09-03] MEDS: levoFLOXacin 500 MG/100 ML D5W 500 MG/100 ML PIGGYBACK 100 MG IVPB (16:46)
[2024-09-03] MEDS: SODIUM CHLORIDE 0.9 % (FLUSH) 10 ML SYRINGE IVF ×2 (16:53→19:36)
[2024-09-03] MEDS: ALBUTEROL SULFATE 2.5 MG/3 ML VIAL.NEB NEB ×2 (17:51→20:51)
[2024-09-03] MEDS: MAGNESIUM IV 2 GM/50 ML PIGGYBACK IVPB (17:52)
[2024-09-03] MEDS: HEPARIN 500 UNIT/5 ML SYRINGE IVF (19:36)
[2024-09-03] MEDS: ENOXAPARIN 40 MG/0.4 ML INJ SUBCUT (20:51)
[2024-09-03] MEDS: SENNOSIDES/DOCUSATE TABLET 1 TAB PO (20:51)
[2024-09-03] MEDS: SODIUM CHLORIDE 0.9 % (FLUSH) 10 ML SYRINGE 5 ML IVF (20:52)
[2024-09-03] MEDS: OXYCODONE 5 MG TABLET 2.5 MG PO (21:04)
--- NOTE | 2024-09-03 23:30 | PC.NURSE ---
End of shift: Pt AxOx4, cooperative, and pleasant. Pt sats 95-100 on RA. Inspiratory and expiatory wheezing noted upon auscultation of lung sounds. Pt has a productive cough, sputum sample collected. Awaiting urine sample. SOB upon exertion noted. Pt stated back pain 8/10, life underwriter utilized PRN pain medication. Pt moves SBA, tolerating well. Tolerating reg diet/fluid restriction well. Pt in bed, call light within reach.
[2024-09-03 23:49] LABS: Appearance Urine Slightly Cloudy (Clear); Bilirubin Urine Negative (Negative); Blood Urine Negative (Negative); Color Urine Yellow (Yellow); Glucose Urine Negative (Negative); Ketones Urine Negative (Negative); Leukocyte Esterase Urine Negative (Negative); Nitrite Urine Negative (Negative); Protein Urine Negative (Negative); Specific Gravity Urine 1.015 (1.000-1.030); pH Urine 5.5 (5.0-8.5)
[2024-09-03 23:57] LABS: Amorphous Sediment Urine Few; Bacteria Urine Few; Mucus Urine Few; RBC Urine 0-2 (0-2); Squamous Epithelial Cell Urine Moderate (None-Few)
[2024-09-04] VITALS (17 sets, daily range): BP systolic 62–141; BP diastolic 51–103; PULSE 82–142; RESP 26–33; TEMP 36.8–37.9; O2SAT 79–99
[2024-09-04 01:06] LABS: Legionella pneumo Ag Urine L. pneumo Negative (Negative); S pneumo Ag Urine S. pneumo Negative (Negative)
[2024-09-04] MEDS: IPRAT-ALBUT 0.5-2.5 MG/3 ML NEB 1 NEB IH (05:15)
--- NOTE | 2024-09-04 06:54 | PC.NURSE ---
End of shift [id number] - RN took over pt care at approximately 2300. Pt alert, oriented, pleasant. Up to bathroom with standby assistance. Pt tolerating O2 via nasal cannula at 1L to maintain O2 saturation above 90%. Breathing noted to be tachypneic during shift with audible inspiratory and expiratory wheezing noted. Pt reported pain in back as 6-7/10. Aqua K pad given with pt reporting improved comfort. RN provided education regarding nebulizer use with pt verbalizing understanding. Appears to be resting comfortably at end of shift with call light within reach.
[2024-09-04] MEDS: ALBUTEROL SULFATE 2.5 MG/3 ML VIAL.NEB NEB ×3 (07:05→08:00)
[2024-09-04 07:12] LABS: Hematocrit 30.1 % (33.0-51.0); Hemoglobin* 9.8 gm/dL (12.0-16.0); Mean Corpuscular HGB Conc 33 gm/dL (32-36); Mean Corpuscular Hemoglobin 29 pg (26-34); Mean Corpuscular Volume 88 fL (80-100); Platelet Count* 159 K/uL (140-440); Red Blood Count 3.44 m/uL (4.00-5.20); White Blood Count* 14.29 K/uL (4.50-11.00)
[2024-09-04 07:25] LABS: Lab Add On Test New Spec Needed
[2024-09-04 07:31] LABS: Albumin* 3.9 g/dL (3.3-5.0); Chloride* 91 mmol/L (96-114)
[2024-09-04 07:32] LABS: Potassium* 4.3 mmol/L (3.6-5.1); Slide Review Reflex No; Sodium* 127 mmol/L (135-149)
[2024-09-04 07:34] LABS: Creatinine* 0.7 mg/dL (0.5-1.5); Est. Creatinine Clearance* 34.99; Estimated Glomerular Filt Rate 88 ml/min
[2024-09-04] MEDS: METHYLPREDNISOLONE SOD SUCC 62.5 MG/ML (125) 125 MG IVP (07:34)
[2024-09-04 07:35] LABS: Alanine Aminotransferase* 22 U/L (4-35); Alkaline Phosphatase* 271 U/L (40-150); Anion Gap 17 mEq/L (7-15); Aspartate Amino Transferase* 31 U/L (12-35); Bilirubin Direct* 1.9 mg/dL (0.0-0.5); Bilirubin Total* 2.2 mg/dL (0.1-1.5); Blood Urea Nitrogen* 28 mg/dL (7-30); Carbon Dioxide* 19 mmol/L (20-32); Glucose* 145 mg/dL (60-115); Total Protein* 7.2 g/dL (6.0-8.3)
[2024-09-04 07:36] LABS: Calcium* 9.1 mg/dL (8.4-10.6)
--- NOTE | 2024-09-04 07:52 | PC.NURSE ---
Note addendum - at shift change pt requested something to help me breathe, now and indicated increased work of breathing. RN provided medication per MAR and notified MD and oncoming RN.
[2024-09-04 08:10] LABS: HCO3 VBG 18 mmol/L (21-28); PCO2 VBG 50 mmHG (40-50); PO2 VBG 51.1 mmHG (25-47)
[2024-09-04] MEDS: FUROSEMIDE 10 MG/ML inj 40 MG IVP (08:18)
[2024-09-04 08:35] LABS: C Reactive Protein* 34.1 mg/dL (0.5-1.0)
[2024-09-04 09:45] LABS: HCO3 VBG 13 mmol/L (21-28); PCO2 VBG 48 mmHG (40-50); PO2 VBG 47.3 mmHG (25-47)
[2024-09-04 09:47] LABS: Lactate* 11.4 mmol/L (0.5-1.9); pH VBG 7.032 (7.32-7.43)
--- NOTE | 2024-09-04 09:59 | CRLHL7_ITS ---
For Patients: As a result of the Century Cures Act, medical imaging exams and procedure reports are released immediately into your electronic medical record. You may view this report before your referring provider. If you have questions, please contact your health care provider. INDICATION: Acute respiratory distress. TECHNIQUE: Chest 1 views COMPARISON: August 14, 2024 FINDINGS: Tubes and devices: Stable right port. Cardiovascular and mediastinum: Stable normal heart and mediastinum. Lungs and pleural spaces: Stable opacification on the left with pleural effusion and opacification of the mid and lower hemithorax. New patchy opacification in the right lung more marked inferiorly Bones and soft tissues: No significant findings. Bilateral breast implants calcified capsules. IMPRESSION: New patchy opacification in the right lung more marked inferiorly consistent with developing infiltrates Stable left pleural effusion and opacification left mid and lower lung Dictated by Ryan Brizuela MD @ 09/04/2024 10:38:12 AM (Electronically Signed)
[2024-09-04 10:19] LABS: Albumin* 4.1 g/dL (3.3-5.0); Chloride* 92 mmol/L (96-114); Sodium* 128 mmol/L (135-149)
[2024-09-04 10:20] LABS: Potassium* 5.4 mmol/L (3.6-5.1)
[2024-09-04 10:22] LABS: Alkaline Phosphatase* 259 U/L (40-150); Anion Gap 25 mEq/L (7-15); Aspartate Amino Transferase* 40 U/L (12-35); Bilirubin Total* 2.5 mg/dL (0.1-1.5); Blood Urea Nitrogen* 28 mg/dL (7-30); Carbon Dioxide* 11 mmol/L (20-32); Est. Creatinine Clearance* 34.99; Estimated Glomerular Filt Rate 58 ml/min; Total Protein* 7.4 g/dL (6.0-8.3)
[2024-09-04 10:23] LABS: Glucose* 82 mg/dL (60-115)
[2024-09-04 10:29] LABS: Alanine Aminotransferase* 28 U/L (4-35)
[2024-09-04] MEDS: VANCOMYCIN 1.25 GM/250 ML 1.25 GM/250 ML PIGGYBACK IVPB (10:31)
[2024-09-04 10:39] LABS: Procalcitonin* 3.64 ng/mL (<0.50)
--- NOTE | 2024-09-04 11:02 | REH.PT ---
PT evaluation and treat order received. Nursing reports change in medical status and patient not appropriate for PT or OT today. Will check status tomorrow.
[2024-09-04 11:11] LABS: C Reactive Protein* 33.2 mg/dL (0.5-1.0)
--- NOTE | 2024-09-04 11:17 | NUTR.NU ---
RDN with nutrition screen related to patient currently undergoing cancer treatment. Patient admitted for shortness of breath and difficulty breathing, found to have community acquired pneumonia. 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 He next cancer treatment was scheduled for today, 09/04/24. Current weight 117lb 12.688oz; height 5ft 1in; BMI 22.3 kg/m2. Weight history is only available for the past 3 months, however weight has been stable. MST score is 0. Current diet is Regular with a 1500 mL fluid restriction. Meal intake x1 since admit was at 100%. During IDT, MD to discuss goals of care with patient. Nursing reports change in patient's medical status. Patient is not appropriate to visit with at this time. RDN will continue to monitor and follow-up prn.
[2024-09-04] MEDS: SODIUM CHLORIDE 0.9 % (FLUSH) 10 ML SYRINGE 5 ML IVF (11:30)
[2024-09-04] MEDS: 0.9 % SODIUM CHLORIDE 500 ML 500 ML IV (11:32)
--- NOTE | 2024-09-04 11:42 | PM.IMPN1 ---
Subjective Date Seen: 09/04/24 Interval history: Gladys was admitted to the hospital last night for acute hypoxic respiratory failure, appeared to be fluid overloaded on admission and received diuresis. Also has history of COPD per chart review (patient unsure of this diagnosis) + wheezing, receiving steroids and nebulizer treatments. This morning, she is having significantly increased work of breathing. Was initially not hypoxic, but then did become hypoxic, requiring high-flow oxygen supplementation. This 78-year-old female is coming in with shortness of breath and difficulty breathing for last couple days. She denies a history of COPD or wheezing but it reportedly is a diagnosis in her chart. She has been coughing, has had some low back pain. Nursing staff called me to see her shortly after arrival due to her work of breathing, audible wheezing and wet sounding lungs. She has had a history of lung cancer per her about 8 years ago, was treated with radiation and reportedly has been in remission. She is being treated for pancreatic cancer currently. She had lunch recently was someone that had tested positive for COVID about 9 days prior to that lunch. Patient has not had any fevers. She is followed here with oncology. 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 She is getting gemcitabine and Abraxane, reportedly had a a treatment just recently per . Cycle 2 is noted in the last note to a been scheduled for 08/21/2024, could not do it on the as she required 2 units of packed red blood cells due to hemoglobin of 7.5. Patient has known ha antibody. Has a history of smoking. Exam Const: Vital Signs, click to edit/add: Vital Signs - 24 hr 09/03/24 11:49 09/03/24 11:52 09/03/24 12:00 Temperature Pulse Rate 117 H 114 H Pulse Rate [Pulse Oximeter] Respiratory Rate 32 H Blood Pressure Blood Pressure [Le ft Arm] Blood Pressure [Ri ght Arm] Pulse Oximetry 98 98 Oxygen Delivery Me thod Nasal Cannula Nasal Cannula Oxygen Flow Rate 1 1 Fraction of Inspir ed Oxygen 09/03/24 12:01 09/03/24 12:05 09/03/24 12:15 Temperature Pulse Rate 113 H 112 H 110 H Pulse Rate [Pulse Oximeter] Respiratory Rate Blood Pressure Blood Pressure [Le ft Arm] Blood Pressure [Ri ght Arm] Pulse Oximetry 96 96 96 Oxygen Delivery Me thod Nasal Cannula Nasal Cannula Nasal Cannula Oxygen Flow Rate 1 1 1 Fraction of Inspir ed Oxygen 09/03/24 12:23 09/03/24 12:30 09/03/24 12:31 Temperature Pulse Rate 107 H 105 H 106 H Pulse Rate [Pulse Oximeter] Respiratory Rate Blood Pressure 117/70 118/78 Blood Pressure [Le ft Arm] Blood Pressure [Ri ght Arm] Pulse Oximetry 96 97 98 Oxygen Delivery Me thod Nasal Cannula Nasal Cannula Nasal Cannula Oxygen Flow Rate 1 1 1 Fraction of Inspir ed Oxygen 09/03/24 12:45 09/03/24 13:00 09/03/24 13:01 Temperature Pulse Rate 101 H 98 98 Pulse Rate [Pulse Oximeter] Respiratory Rate Blood Pressure 92/75 Blood Pressure [Le ft Arm] Blood Pressure [Ri ght Arm] Pulse Oximetry 98 99 99 Oxygen Delivery Me thod Nasal Cannula Nasal Cannula Nasal Cannula Oxygen Flow Rate 1 1 1 Fraction of Inspir ed Oxygen 09/03/24 14:21 09/03/24 14:21 09/03/24 15:00 Temperature 98.2 F 97.5 F L Pulse Rate Pulse Rate [Pulse Oximeter] 97 87 Respiratory Rate 20 20 20 Blood Pressure Blood Pressure [Le ft Arm] Blood Pressure [Ri ght Arm] 135/86 98/78 Pulse Oximetry 98 98 99 Oxygen Delivery Me thod Nasal Cannula Nasal Cannula Room Air Oxygen Flow Rate 1 1 Fraction of Inspir ed Oxygen 09/03/24 15:55 09/03/24 18:25 09/03/24 19:00 Temperature 97.6 F Pulse Rate 99 Pulse Rate [Pulse Oximeter] 90 Respiratory Rate 20 22 Blood Pressure Blood Pressure [Le ft Arm] Blood Pressure [Ri ght Arm] 94/74 Pulse Oximetry 99 95 Oxygen Delivery Me thod Room Air Room Air Oxygen Flow Rate 1 Fraction of Inspir ed Oxygen 09/03/24 19:37 09/03/24 23:00 09/04/24 06:48 Temperature 97.6 F 97.5 F L 98.2 F Pulse Rate Pulse Rate [Pulse Oximeter] 90 122 H 112 H Respiratory Rate 22 24 26 H Blood Pressure Blood Pressure [Le ft Arm] Blood Pressure [Ri ght Arm] 94/74 149/90 H 141/72 H Pulse Oximetry 95 94 95 Oxygen Delivery Me thod Room Air Room Air Nasal Cannula Oxygen Flow Rate 1 Fraction of Inspir ed Oxygen 09/04/24 06:52 09/04/24 07:00 09/04/24 07:31 Temperature 100.2 F H Pulse Rate 118 H Pulse Rate [Pulse Oximeter] 133 H 120 H Respiratory Rate 33 H 30 H Blood Pressure Blood Pressure [Le ft Arm] 110/77 Blood Pressure [Ri ght Arm] Pulse Oximetry 89 Oxygen Delivery Me thod Nasal Cannula Oxygen Flow Rate 1 Fraction of Inspir ed Oxygen 09/04/24 09:48 09/04/24 10:02 09/04/24 10:37 Temperature 98.7 F 99.3 F Pulse Rate Pulse Rate [Pulse Oximeter] 139 H 142 H Respiratory Rate 30 H 33 H Blood Pressure Blood Pressure [Le ft Arm] Blood Pressure [Ri ght Arm] 135/79 136/103 H Pulse Oximetry 80 L 99 Oxygen Delivery Me thod High Flow Nasal Ca nnula High Flow Nasal Ca nnula Oxygen Flow Rate 40 40 40 Fraction of Inspir ed Oxygen 25 30 30 09/04/24 11:00 09/04/24 11:35 Temperature Pulse Rate Pulse Rate [Pulse Oximeter] 131 H Respiratory Rate 33 H Blood Pressure Blood Pressure [Le ft Arm] Blood Pressure [Ri ght Arm] 117/72 Pulse Oximetry 90 Oxygen Delivery Me thod High Flow Nasal Ca nnula Oxygen Flow Rate 40 Fraction of Inspir ed Oxygen 30 30 Labs Labs: Laboratory Results - last 24 hr 09/03/24 09/03/24 09/03/24 10:47 15:55 16:15 WBC RBC Hgb Hct MCV MCH MCHC Plt Count VBG pH VBG pCO2 VBG pO2 VBG HCO3 Sodium 127 L Potassium 4.9 Chloride 92 L Carbon Dioxide 22 Anion Gap 13 BUN 23 Creatinine 0.8 Estimated Creat Clear 34.99 Estimated GFR 75 Glucose 146 H Lactate 2.0 H Calcium 9.0 Magnesium 2.0 Total Bilirubin 2.6 H Direct Bilirubin 2.1 H AST 35 ALT 23 Alkaline Phosphatase 272 H Troponin I 0.02 C-Reactive Protein 26.1 H NT-Pro-B Natriuret Pep 8770 Total Protein 6.9 Albumin 3.8 Procalcitonin 2.25 H Urine Color Urine Appearance Urine pH Ur Specific [place] Urine Protein Urine Glucose (UA) Urine Ketones Urine Blood Urine Nitrite Urine Bilirubin Urine Urobilinogen Ur Leukocyte Esterase Urine RBC Urine WBC Ur Squamous Epith Cells Amorphous Sediment Urine Bacteria Urine Mucus Urine L. pneumophilia Ag Urine Strep pneumoniae Ag Lab Acknowledgement Test Added 09/03/24 09/04/24 09/04/24 23:40 06:41 07:19 WBC 14.29 H RBC 3.44 L Hgb 9.8 L Hct 30.1 L MCV 88 MCH 29 MCHC 33 Plt Count 159 VBG pH VBG pCO2 VBG pO2 VBG HCO3 Sodium 127 L Potassium 4.3 Chloride 91 L Carbon Dioxide 19 L Anion Gap 17 H BUN 28 Creatinine 0.7 Estimated Creat Clear 34.99 Estimated GFR 88 Glucose 145 H Lactate Calcium 9.1 Magnesium Total Bilirubin 2.2 H Direct Bilirubin 1.9 H AST 31 ALT 22 Alkaline Phosphatase 271 H Troponin I C-Reactive Protein 34.1 H NT-Pro-B Natriuret Pep Total Protein 7.2 Albumin 3.9 Procalcitonin 3.80 H Urine Color Yellow Urine Appearance Slightly Cloudy A Urine pH 5.5 Ur Specific [place] 1.015 Urine Protein Negative Urine Glucose (UA) Negative Urine Ketones Negative Urine Blood Negative Urine Nitrite Negative Urine Bilirubin Negative Urine Urobilinogen 1.0 Ur Leukocyte Esterase Negative Urine RBC 0-2 Urine WBC 2-5 Ur Squamous Epith Cells Moderate A Amorphous Sediment Few A Urine Bacteria Few A Urine Mucus Few A Urine L. pneumophilia Ag L. pneumo Negative Urine Strep pneumoniae Ag S. pneumo Negative Lab Acknowledgement New Spec Needed 09/04/24 09/04/24 08:03 09:39 WBC RBC Hgb Hct MCV MCH MCHC Plt Count VBG pH 7.170 L* 7.032 L* VBG pCO2 50 48 VBG pO2 51.1 H 47.3 H VBG HCO3 18 L 13 L Sodium 128 L Potassium 5.4 H Chloride 92 L Carbon Dioxide 11 L Anion Gap 25 H BUN 28 Creatinine 1.0 Estimated Creat Clear 34.99 Estimated GFR 58 Glucose 82 Lactate 11.4 H* Calcium 9.0 Magnesium Total Bilirubin 2.5 H Direct Bilirubin AST 40 H ALT 28 Alkaline Phosphatase 259 H Troponin I C-Reactive Protein 33.2 H NT-Pro-B Natriuret Pep Total Protein 7.4 Albumin 4.1 Procalcitonin 3.64 H Urine Color Urine Appearance Urine pH Ur Specific [place] Urine Protein Urine Glucose (UA) Urine Ketones Urine Blood Urine Nitrite Urine Bilirubin Urine Urobilinogen Ur Leukocyte Esterase Urine RBC Urine WBC Ur Squamous Epith Cells Amorphous Sediment Urine Bacteria Urine Mucus Urine L. pneumophilia Ag Urine Strep pneumoniae Ag Lab Acknowledgement
--- NOTE | 2024-09-04 11:58 | REH.OT ---
OT consuilt order received. Pt. not able to participate in OT eval today d/t medical condition. Will reattempt when appropriate.
[2024-09-04 12:07] LABS: HCO3 VBG 15 mmol/L (21-28); PO2 VBG 34.8 mmHG (25-47)
[2024-09-04 12:12] LABS: Lactate* 9.4 mmol/L (0.5-1.9)
[2024-09-04 12:13] LABS: PCO2 VBG 64 mmHG (40-50)
[2024-09-04] MEDS: MORPHINE 2 MG/ML inj IVP (12:20)
[2024-09-04 12:34] LABS: Chloride* 93 mmol/L (96-114); Potassium* 5.5 mmol/L (3.6-5.1); Sodium* 127 mmol/L (135-149)
[2024-09-04 12:37] LABS: Anion Gap 19 mEq/L (7-15); Blood Urea Nitrogen* 29 mg/dL (7-30); Calcium* 8.4 mg/dL (8.4-10.6); Carbon Dioxide* 15 mmol/L (20-32); Creatinine* 1.2 mg/dL (0.5-1.5); Est. Creatinine Clearance* 29.16; Estimated Glomerular Filt Rate 46 ml/min
[2024-09-04 12:52] LABS: Glucose* 24 mg/dL (60-115)
--- NOTE | 2024-09-04 12:59 | PM.DN ---
Pronouncement Note Date and Time of Date of : 09/04/24 PCOD Preliminary cause of : Acute respiratory distress Contributing Factors (1) Acute respiratory distress: (2) CAP (community acquired pneumonia): (3) COPD (chronic obstructive pulmonary disease): (4) Pancreatic cancer: (5) Low back pain: (6) Hypertension: (7) Anemia: (8) Adenocarcinoma, lung: (9) Hyponatremia: (10) Pruritus: Summary Additional details: Patient was admitted to the hospital last night for acute hypoxic respiratory failure and [place] with concern for pneumonia and pulmonary edema. Known history of lung cancer and recently diagnosed pancreatic cancer. Treated with Levaquin, Lasix, Steroids, nebs. This morning, she was more dyspneic with mild metabolic acidosis; care escalated to CCU status and family called to bedside for goals of care discussion. RT consulted. Received an IVF bolus with close monitoring of lactate, VBG, and electrolytes. Repeat CXR revealed a developing infiltrate, Vancomycin added to Levaquin for antibiotic coverage. Patient continued to have increased needs for supplemental oxygen, decreased mentation, mild agitation, tachypnea. Daughter and updated at bedside, decided against aggressive interventions/transfer. Morphine given x1 for dyspnea/agitation. She comfortably with and daughter at bedside. Additional Data Confirmation of : no pulse and no respirations Family: at bedside Attending physician: Rosalinda Tejeda MD Time Seen by Provider: 12:24 Date Seen: 09/04/24 Was code activated?: No
--- NOTE | 2024-09-04 15:21 | PC.NURSE ---
Nursing Care Hours: [id number] Report from NOC taken. Pt required 1L O2 NOC after using the bathroom. Some point in race board attendant, pt became tachycardic, tachypneic. Arcgis Developer assessed pt and pt was cool and clammy, restless and tripoding at edge of bed. BP stable Assist x1 into chair. Verbal order to administer continuos nebulizers received d/t pt not able to keep mouthpiece in mouth, taking frequent breaks and not receiving the medication. Spo2 stable with 1L NC. solumedrol administered via chest port. Arcgis Developer noted the tegaderm was peeling away. Dressing change done, following sterile technique. Blood draw via chest port done and sent to lab, filter cap changed. Pt transferred to CCU room via recliner chair. VS tracking Q30min. Started on High flow. Attempt to use BSC but no output. Assisted into bed. ABX infused via chest port. 500ml bolus started in new R AC IV. Noted decrease in blood pressure and increased restlessness and confusion, also noted mottling of bilat LE. UE became cool and dry. EKG done. tele showing Sinus tach. Pt has no c/o chest pain or nausea. Lab draw from port repeated x2. Hospitalist discussed pt condition with family in room as BP continue to decrease, report writer increased VS tracking to Q5min, pulse decreasing and pt becoming less responsive. Morphine administered for comfort/ air hunger. As report writer was pushing the morphine, noted agonal breathing. Arcgis Developer, hospitalist allowed family to be with pt at bedside. Arcgis Developer called all necessary people, pt not a canidate for organ donation d/t cancer and cataracts.
== END 2024-09-04 15:40 | disposition expired | DRG 193 ==
LOC: ED 10:52 → MEDSURG 13:14
PROVIDERS: Family Medicine; Admitting Provider Physician Assistant; Emergency Provider Family Medicine; PCP Family Medicine; Visit Provider Family Medicine
DX: J18.9 Pneumonia, unspecified organism (principal); J96.01 Acute respiratory failure with hypoxia; J44.0 Chronic obstructive pulmonary disease with (acute) lower respiratory infection; E87.1 Hypo-osmolality and hyponatremia; N17.9 Acute kidney failure, unspecified; E87.20 Acidosis, unspecified; C25.0 Malignant neoplasm of head of pancreas; J44.1 Chronic obstructive pulmonary disease with (acute) exacerbation; M54.50 Low back pain, unspecified; I10 Essential (primary) hypertension; D64.9 Anemia, unspecified; L29.9 Pruritus, unspecified; Z85.118 Personal history of other malignant neoplasm of bronchus and lung; Z87.891 Personal history of nicotine dependence
CPT/HCPCS: 36415; 71045; 71275; 80048; 80053; 80076; 81001; 82248; 82803; 83605; 83735; 83880; 84145; 84484; 85025; 85027; 85379; 86140; 87070; 87086; 87186; 87449; 87631; 87899; 93005; 94640; 94761; 99285; A9270; J1642; J1650; J1940; J1956; J2270; J2919; J3372; J3475; J7030; Q9967

== ENCOUNTER 2024-09-04 10:30 | Outpatient (RCR) | payer MEDICARE, BC, SELFPAY ==
[2024-07-07 12:13] LABS: Basophils Percent Auto 0.2 % (0.0-3.0); Eosinophils Percent Auto 0.4 % (0.0-7.0); Hematocrit 24.3 % (33.0-51.0); Hemoglobin* 8.5 gm/dL (12.0-16.0); Immature Granulocytes Pct Auto 1.8 %; Lymphocytes Percent Auto 3.7 % (20-44); Mean Corpuscular HGB Conc 35 gm/dL (32-36); Mean Corpuscular Hemoglobin 28 pg (26-34); Mean Corpuscular Volume 80 fL (80-100); Monocytes Percent Auto 10.2 % (0.0-11.0); Neutrophils Percent Auto 83.7 % (42.0-72.0); Platelet Count* 393 K/uL (140-440); RDW Coefficient of Variation % 19.5 % (11.5-15.5); Red Blood Count 3.05 m/uL (4.00-5.20); White Blood Count* 13.51 K/uL (4.50-11.00)
[2024-07-07 12:15] LABS: Slide Review Reflex No
[2024-07-07 12:27] LABS: Chloride* 96 mmol/L (96-114)
[2024-07-07 12:28] LABS: Albumin* 3.4 g/dL (3.3-5.0); Sodium* 133 mmol/L (135-149)
[2024-07-07 12:31] LABS: Alanine Aminotransferase* 13 U/L (4-35); Alkaline Phosphatase* 570 U/L (40-150); Anion Gap 13 mEq/L (7-15); Aspartate Amino Transferase* 41 U/L (12-35); Blood Urea Nitrogen* 18 mg/dL (7-30); Calcium* 8.1 mg/dL (8.4-10.6); Carbon Dioxide* 24 mmol/L (20-32); Creatinine* 0.6 mg/dL (0.5-1.5); Est. Creatinine Clearance* 34.99; Estimated Glomerular Filt Rate 92 ml/min; Glucose* 135 mg/dL (60-115); Total Protein* 6.7 g/dL (6.0-8.3)
[2024-07-07 12:38] LABS: Potassium* 2.1 mmol/L (3.6-5.1)
[2024-07-07 13:21] LABS: Partial Thromboplastin Time* 25 Seconds (23-33); Prothrombin Time 12.7 Seconds
[2024-07-08 21:52] LABS: Cancer Antigen-GI (CA 19-9) 376 U/mL (<=35)
--- NOTE | 2024-07-11 09:15 | ONC.NURNOTE ---
Addendum entered and electronically signed by Aidee Crain APRN 07/14/24 14:03: Mr. Tejada called today to update the clinic that his Gladys has follow up appointment with Dr. Campbell, GI service at [facility], for repeat lab work and follow up on Sunday07/15/24. He reports that Ms. Tejada continues to experience jaundice and pruritis and bilateral lower extremity edema. Her bilirubin is trending downward as of discharge from [facility] and they are anxiously awaiting lab results tomorrow. He inquires what the next steps are for possible treatment for his 's pancreatic cancer. Practice Business Asst requested for Mr. Tejada or his to give the clinic an update after GI follow up and lab work at [facility]. The oncology team plan is dependent on the GI team plan at this time. Her bilirubin as of Sunday at 19 is still to high to treat. Mr. Tejada is agreeable to this plan for his Gladys. Original Note: Received call from Brendan/Lori regarding Gladys getting discharged this weekend. Practice Business Asst called back and spoke with Lori who stated oncology team was ready to discharge her back to her local oncologist. Practice Business Asst let Collette know to pass along at this point bilirubin still quite high at 20 on 07/10 and patient still with some medical issues needing addressing such as, labs to monitor potassium/hemoglobin etc. Patient has GI consult in week so recommended at this time patient will not have appointment this week with oncology until bilirubin lower and patient meets with primary MD post hospitalization as our recommendations when patient discharge from hospital. Anxious to get her started with chemotherapy but needs to meet parameters for treatment. If labs within parameters could start this week but needs to see primary first.
--- NOTE | 2024-07-17 12:52 | URNOTE ---
Request received for authorization for Gemcitabine Hcl (Gemzar) ([id number]) and Abraxane ([id number]). Prior authorization is not required as services are based on medical necessity and follow Medicare guidelines.
--- NOTE | 2024-07-18 15:29 | ONC.NURNOTE ---
Received call from [facility] pharmacy regarding Prochlorperazine and drug interactions with hydroxyzine, lisinopril, and sertraline. Lisinopril with prochlorperazine can cause syncopal episodes and hydroxyzine/Prochlorperazine/Sertraline can cause delirium. Discussed with Aidee Crain APRN and [facility]perazine [facility]
[2024-07-21 08:29] LABS: Basophils Absolute Auto 0.04 K/uL (0.00-0.30); Basophils Percent Auto 0.6 % (0.0-3.0); Eosinophils Absolute Auto 0.08 K/uL (0.00-0.50); Eosinophils Percent Auto 1.2 % (0.0-7.0); Hematocrit 29.2 % (33.0-51.0); Hemoglobin* 9.3 gm/dL (12.0-16.0); Immature Granulocytes Abs Auto 0.02 K/uL (0.00-0.30); Immature Granulocytes Pct Auto 0.3 %; Lymphocytes Percent Auto 9.3 % (20-44); Mean Corpuscular HGB Conc 32 gm/dL (32-36); Mean Corpuscular Hemoglobin 28 pg (26-34); Mean Corpuscular Volume 89 fL (80-100); Monocytes Percent Auto 13.5 % (0.0-11.0); Neutrophils Percent Auto 75.1 % (42.0-72.0); Platelet Count* 328 K/uL (140-440); RDW Coefficient of Variation % 14.7 % (11.5-15.5); Red Blood Count 3.29 m/uL (4.00-5.20); White Blood Count* 6.44 K/uL (4.50-11.00)
[2024-07-21 08:32] LABS: Slide Review Reflex No
[2024-07-21 08:39] LABS: Chloride* 98 mmol/L (96-114)
[2024-07-21 08:40] LABS: Albumin* 3.5 g/dL (3.3-5.0); Sodium* 138 mmol/L (135-149)
[2024-07-21 08:43] LABS: Alanine Aminotransferase* 18 U/L (4-35); Alkaline Phosphatase* 339 U/L (40-150); Anion Gap 7 mEq/L (7-15); Aspartate Amino Transferase* 34 U/L (12-35); Blood Urea Nitrogen* 22 mg/dL (7-30); Carbon Dioxide* 33 mmol/L (20-32); Creatinine* 0.8 mg/dL (0.5-1.5); Est. Creatinine Clearance* 34.99; Estimated Glomerular Filt Rate 75 ml/min; Glucose* 163 mg/dL (60-115); Total Protein* 6.6 g/dL (6.0-8.3)
[2024-07-21 08:44] LABS: Calcium* 8.2 mg/dL (8.4-10.6)
[2024-07-21 09:36] LABS: Bilirubin Direct* 5.4 mg/dL (0.0-0.5)
[2024-07-21 09:39] LABS: Bilirubin Total* 5.9 mg/dL (0.1-1.5)
[2024-07-21] MEDS: SODIUM CHLORIDE 0.9 % (FLUSH) 10 ML SYRINGE IVF (10:35)
[2024-07-21] MEDS: 0.9 % SODIUM CHLORIDE 500 ML IV (10:35)
[2024-07-21] MEDS: dexAMETHasone 10 MG/ML inj IVP (10:41)
[2024-07-21] MEDS: POTASSIUM CHLORIDE 10 MEQ/100 ML PIGGYBACK 100 MEQ IVPB (10:44)
[2024-07-21] MEDS: POTASSIUM CHLORIDE 10 MEQ CAPSULE ER 20 MEQ PO ×2 (12:14→12:55)
--- NOTE | 2024-07-22 13:27 | PC.NURSE ---
Called pt today to check in after her first chemo yesterday. She has no concerns at this time. Encouraged pt to call should anything change.
[2024-07-28 11:16] LABS: Basophils Absolute Auto 0.02 K/uL (0.00-0.30); Basophils Percent Auto 0.4 % (0.0-3.0); Eosinophils Absolute Auto 0.03 K/uL (0.00-0.50); Eosinophils Percent Auto 0.5 % (0.0-7.0); Hematocrit 27.1 % (33.0-51.0); Hemoglobin* 8.9 gm/dL (12.0-16.0); Immature Granulocytes Abs Auto 0.05 K/uL (0.00-0.30); Immature Granulocytes Pct Auto 0.9 %; Mean Corpuscular HGB Conc 33 gm/dL (32-36); Mean Corpuscular Hemoglobin 29 pg (26-34); Mean Corpuscular Volume 88 fL (80-100); Monocytes Percent Auto 13.3 % (0.0-11.0); Neutrophils Percent Auto 73.9 % (42.0-72.0); Platelet Count* 297 K/uL (140-440); RDW Coefficient of Variation % 13.8 % (11.5-15.5); Red Blood Count 3.09 m/uL (4.00-5.20); White Blood Count* 5.55 K/uL (4.50-11.00)
[2024-07-28 11:30] LABS: Slide Review Reflex No
[2024-07-28 11:34] LABS: Albumin* 3.8 g/dL (3.3-5.0); Chloride* 98 mmol/L (96-114); Sodium* 134 mmol/L (135-149)
[2024-07-28 11:36] LABS: Creatinine* 0.8 mg/dL (0.5-1.5); Est. Creatinine Clearance* 34.99; Estimated Glomerular Filt Rate 75 ml/min
[2024-07-28 11:37] LABS: Alanine Aminotransferase* 24 U/L (4-35); Alkaline Phosphatase* 300 U/L (40-150); Anion Gap 8 mEq/L (7-15); Aspartate Amino Transferase* 36 U/L (12-35); Blood Urea Nitrogen* 16 mg/dL (7-30); Calcium* 9.4 mg/dL (8.4-10.6); Carbon Dioxide* 28 mmol/L (20-32); Glucose* 161 mg/dL (60-115); Total Protein* 7.1 g/dL (6.0-8.3)
[2024-07-28 11:47] VITALS: BP 60/44; PULSE 88; RESP 16; TEMP 36; O2SAT 99
[2024-07-28 12:11] VITALS: BP 69/44
[2024-07-28 12:12] VITALS: BP 105/62
[2024-07-28] MEDS: SODIUM CHLORIDE 0.9 % (FLUSH) 10 ML SYRINGE IVF (12:57)
[2024-07-28] MEDS: 0.9 % SODIUM CHLORIDE 500 ML IV (12:57)
[2024-07-28] MEDS: dexAMETHasone 10 MG/ML inj IVP (12:58)
[2024-07-28 13:09] LABS: Bilirubin Direct* 3.8 mg/dL (0.0-0.5)
[2024-07-28 13:12] LABS: Bilirubin Total* 4.1 mg/dL (0.1-1.5)
[2024-08-04 13:50] VITALS: BP 114/69; PULSE 83; RESP 16; TEMP 36.4; O2SAT 100
[2024-08-04 13:53] LABS: Basophils Absolute Auto 0.02 K/uL (0.00-0.30); Basophils Percent Auto 0.4 % (0.0-3.0); Eosinophils Absolute Auto 0.02 K/uL (0.00-0.50); Eosinophils Percent Auto 0.4 % (0.0-7.0); Hematocrit 26.8 % (33.0-51.0); Hemoglobin* 8.9 gm/dL (12.0-16.0); Lymphocytes Percent Auto 8.3 % (20-44); Mean Corpuscular HGB Conc 33 gm/dL (32-36); Mean Corpuscular Hemoglobin 29 pg (26-34); Mean Corpuscular Volume 87 fL (80-100); Monocytes Percent Auto 10.5 % (0.0-11.0); Neutrophils Percent Auto 74.4 % (42.0-72.0); Platelet Count* 177 K/uL (140-440); RDW Coefficient of Variation % 13.9 % (11.5-15.5); Red Blood Count 3.07 m/uL (4.00-5.20); White Blood Count* 5.03 K/uL (4.50-11.00)
[2024-08-04 13:56] LABS: Slide Review Reflex Yes
[2024-08-04 14:09] LABS: Albumin* 3.9 g/dL (3.3-5.0)
[2024-08-04 14:10] LABS: Chloride* 101 mmol/L (96-114); Potassium* 4.5 mmol/L (3.6-5.1); Sodium* 136 mmol/L (135-149)
[2024-08-04 14:12] LABS: Anion Gap 11 mEq/L (7-15); Aspartate Amino Transferase* 34 U/L (12-35); Bilirubin Total* 2.9 mg/dL (0.1-1.5); Carbon Dioxide* 24 mmol/L (20-32); Creatinine* 0.7 mg/dL (0.5-1.5); Est. Creatinine Clearance* 34.99; Estimated Glomerular Filt Rate 88 ml/min; Total Protein* 7.2 g/dL (6.0-8.3)
[2024-08-04 14:13] LABS: Alanine Aminotransferase* 19 U/L (4-35); Alkaline Phosphatase* 253 U/L (40-150); Blood Urea Nitrogen* 15 mg/dL (7-30); Calcium* 9.4 mg/dL (8.4-10.6); Glucose* 129 mg/dL (60-115)
[2024-08-04 14:38] LABS: Slide Review Acceptable Review (Acceptable)
[2024-08-04] MEDS: dexAMETHasone 10 MG/ML inj IVP (15:02)
[2024-08-04] MEDS: SODIUM CHLORIDE 0.9 % (FLUSH) 10 ML SYRINGE IVF (15:02)
--- NOTE | 2024-08-04 16:31 | ONC.NURNOTE ---
Per DR. Vazquez note and Oncology coworker. Ok to treat today bili in coming down. pt has diff IV start intending on getting a port. rle 1+ edema. states out of Lasix. enc her to contact her primary or find a primary. gave her the name and number to [facility].
[2024-08-18 08:17] LABS: Basophils Absolute Auto 0.04 K/uL (0.00-0.30); Basophils Percent Auto 0.4 % (0.0-3.0); Eosinophils Absolute Auto 0.09 K/uL (0.00-0.50); Hematocrit 23.9 % (33.0-51.0); Immature Granulocytes Abs Auto 0.42 K/uL (0.00-0.30); Immature Granulocytes Pct Auto 4.5 %; Lymphocytes Percent Auto 9.2 % (20-44); Mean Corpuscular HGB Conc 31 gm/dL (32-36); Mean Corpuscular Hemoglobin 28 pg (26-34); Mean Corpuscular Volume 90 fL (80-100); Monocytes Percent Auto 16.6 % (0.0-11.0); Neutrophils Absolute Auto 6.31 K/uL (1.7-7.0); Neutrophils Percent Auto 68.3 % (42.0-72.0); Platelet Count* 498 K/uL (140-440); RDW Coefficient of Variation % 17.1 % (11.5-15.5); Red Blood Count 2.66 m/uL (4.00-5.20); White Blood Count* 9.25 K/uL (4.50-11.00)
[2024-08-18 08:35] LABS: Albumin* 3.4 g/dL (3.3-5.0); Chloride* 101 mmol/L (96-114); Hemoglobin* 7.5 gm/dL (12.0-16.0)
[2024-08-18 08:36] LABS: Potassium* 3.8 mmol/L (3.6-5.1); Slide Review Reflex Yes; Sodium* 136 mmol/L (135-149)
[2024-08-18 08:38] LABS: Alkaline Phosphatase* 216 U/L (40-150); Anion Gap 11 mEq/L (7-15); Aspartate Amino Transferase* 21 U/L (12-35); Bilirubin Total* 1.7 mg/dL (0.1-1.5); Blood Urea Nitrogen* 15 mg/dL (7-30); Carbon Dioxide* 24 mmol/L (20-32); Creatinine* 0.5 mg/dL (0.5-1.5); Est. Creatinine Clearance* 34.99; Estimated Glomerular Filt Rate 96 ml/min; Total Protein* 6.1 g/dL (6.0-8.3)
[2024-08-18 08:39] LABS: Alanine Aminotransferase* 14 U/L (4-35); Calcium* 8.6 mg/dL (8.4-10.6); Glucose* 125 mg/dL (60-115)
[2024-08-18 08:55] LABS: Bilirubin Direct* 1.4 mg/dL (0.0-0.5)
[2024-08-18] MEDS: SODIUM CHLORIDE 0.9 % (FLUSH) 10 ML SYRINGE IVF (09:12)
[2024-08-18] MEDS: HEPARIN 500 UNIT/5 ML SYRINGE IVF (09:13)
[2024-08-18 09:42] LABS: Slide Review Acceptable Review (Acceptable)
[2024-08-19] VITALS (12 sets, daily range): BP systolic 95–115; BP diastolic 60–75; PULSE 83–95; RESP 16–20; TEMP 36.3–37.3; O2SAT 98–100
[2024-08-21 10:02] VITALS: BP 105/70; PULSE 86; RESP 16; TEMP 36.6; O2SAT 99
[2024-08-21 10:29] LABS: Basophils Absolute Auto 0.05 K/uL (0.00-0.30); Basophils Percent Auto 0.6 % (0.0-3.0); Eosinophils Absolute Auto 0.14 K/uL (0.00-0.50); Eosinophils Percent Auto 1.5 % (0.0-7.0); Hematocrit 32.3 % (33.0-51.0); Hemoglobin* 10.3 gm/dL (12.0-16.0); Immature Granulocytes Abs Auto 0.24 K/uL (0.00-0.30); Immature Granulocytes Pct Auto 2.6 %; Lymphocytes Percent Auto 8.4 % (20-44); Mean Corpuscular HGB Conc 32 gm/dL (32-36); Mean Corpuscular Hemoglobin 29 pg (26-34); Mean Corpuscular Volume 89 fL (80-100); Monocytes Percent Auto 17.6 % (0.0-11.0); Neutrophils Absolute Auto 6.28 K/uL (1.7-7.0); Neutrophils Percent Auto 69.3 % (42.0-72.0); Platelet Count* 511 K/uL (140-440); RDW Coefficient of Variation % 16.3 % (11.5-15.5); Red Blood Count 3.62 m/uL (4.00-5.20); White Blood Count* 9.07 K/uL (4.50-11.00)
[2024-08-21 10:34] LABS: Slide Review Reflex No
[2024-08-21] MEDS: SODIUM CHLORIDE 0.9 % (FLUSH) 10 ML SYRINGE IVF ×2 (11:17→12:30)
[2024-08-21] MEDS: 0.9 % SODIUM CHLORIDE 500 ML IV (11:17)
[2024-08-21] MEDS: dexAMETHasone 10 MG/ML inj IVP (11:17)
[2024-08-21] MEDS: HEPARIN 500 UNIT/5 ML SYRINGE IVF (12:30)
[2024-08-28 09:58] LABS: Basophils Absolute Auto 0.03 K/uL (0.00-0.30); Basophils Percent Auto 0.6 % (0.0-3.0); Eosinophils Absolute Auto 0.02 K/uL (0.00-0.50); Eosinophils Percent Auto 0.4 % (0.0-7.0); Hematocrit 30.8 % (33.0-51.0); Hemoglobin* 9.7 gm/dL (12.0-16.0); Immature Granulocytes Abs Auto 0.19 K/uL (0.00-0.30); Lymphocytes Percent Auto 6.9 % (20-44); Mean Corpuscular HGB Conc 32 gm/dL (32-36); Mean Corpuscular Hemoglobin 29 pg (26-34); Mean Corpuscular Volume 91 fL (80-100); Monocytes Percent Auto 17.8 % (0.0-11.0); Neutrophils Absolute Auto 3.35 K/uL (1.7-7.0); Neutrophils Percent Auto 70.3 % (42.0-72.0); Platelet Count* 272 K/uL (140-440); RDW Coefficient of Variation % 15.5 % (11.5-15.5); White Blood Count* 4.77 K/uL (4.50-11.00)
[2024-08-28] MEDS: SODIUM CHLORIDE 0.9 % (FLUSH) 10 ML SYRINGE IVF ×2 (10:00→13:39)
[2024-08-28 10:22] LABS: Slide Review Reflex Yes
[2024-08-28 10:30] LABS: Slide Review Acceptable Review (Acceptable)
[2024-08-28 10:36] LABS: Albumin* 3.4 g/dL (3.3-5.0)
[2024-08-28 10:37] LABS: Chloride* 100 mmol/L (96-114); Potassium* 3.7 mmol/L (3.6-5.1); Sodium* 135 mmol/L (135-149)
[2024-08-28 10:39] LABS: Anion Gap 11 mEq/L (7-15); Bilirubin Total* 1.3 mg/dL (0.1-1.5); Carbon Dioxide* 24 mmol/L (20-32); Creatinine* 0.6 mg/dL (0.5-1.5); Est. Creatinine Clearance* 34.99; Estimated Glomerular Filt Rate 92 ml/min
[2024-08-28 10:40] LABS: Alanine Aminotransferase* 16 U/L (4-35); Alkaline Phosphatase* 254 U/L (40-150); Aspartate Amino Transferase* 22 U/L (12-35); Blood Urea Nitrogen* 15 mg/dL (7-30); Glucose* 169 mg/dL (60-115); Total Protein* 6.3 g/dL (6.0-8.3)
[2024-08-28 11:27] VITALS: BP 101/66; PULSE 92; RESP 15; TEMP 36.1; O2SAT 99
[2024-08-28] MEDS: dexAMETHasone 10 MG/ML inj IVP (12:19)
[2024-08-28] MEDS: 0.9 % SODIUM CHLORIDE 500 ML IV (13:39)
[2024-08-28] MEDS: HEPARIN 500 UNIT/5 ML SYRINGE IVF (13:39)
--- NOTE | 2024-08-28 16:19 | ONC.NURNOTE ---
New start Abraxane- handout reviewed possible side effects discussed suggested she take her ondansetron for 24 hours as a preventative for N/V questions addressed consent signed
--- NOTE | 2024-08-29 09:55 | ONC.NURNOTE ---
check in on chemo tolerance after first dose abraxane (w/gemzar) reports no nausea, ate shake and a bagel taking ondansetron this am before breakfast slept well
--- OUTSIDE RECORDS SUMMARY | 2024-09-04 07:01 | XMS_ITS | Clinical Summary ---
Author Organization [facility] Address [address] [place] [address] Care Team Providers Care Medical Detailist Name Role Phone Elsewhere, Pcp Primary Care Provider Unavailabl e Source Comments Patient records contain information from all sites at [facility]. For routine questions regarding patient records, call [phone] during business hours, M-F 8:00 AM - 5:00 PM Central Time. Record requests for emergency care only can be directed to [phone] at any time.[facility] Allergies Active Allergy Reactions Criticality Noted Date [...] Allergy Penicillin Antibiotic Personal History 1 Other Mcc Current Drug Therapy 06/26/2024 Nodule Pulmonary 03/14/2022 Overview (03/14/2022): Added automatically from request for surgery [id number] Rupture Breast Implant Subsequent 07/22/2018 Lymphadenopathy Axillary [...] organization. Date Type Department Care Team Description 09/04/2024 Refill Division of Gastroenterology in [place], [place] [address] [place] [address] Shira Mendiola M.B.B.S., M.S. Med Refill 08/21/2024 Clinical Communication Division of Hepatobiliary and Pancreas Surgery in [place], [place] [address] [place] [address] Asiya Catalan M.D. 07/15/2024 2:20 PM CAVITY PUMP OPERATOR Office Visit Division of Gastroenterology in [place], [place] [address] [place] [address] Shira Mendiola M.B.B.S., M.S. Obstruction Common Bile Duct (HCC) (Primary Dx) 07/15/2024 10:40 AM CAVITY PUMP OPERATOR Office Visit Department of Oncology in [place], [place] [address] [place] [address] Alexia Aguilar APRN C.N.P., M.S. 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 07/11/2024 Orders Only Pharmacy Prior Auth [phone] Riya Armijo 07/11/2024 Clinical Communication [facility] [address] [place] [phone] Benjamin Hart P.A.-C., M.S. 07/10/2024 Clinical Communication Division of Gastroenterology in [place], [place] [address] [place] [address] Tia Reynaga M.D. 07/09/2024 Orders Only Department of Medical Genetics in [place], [place] [address] [place] [address] Stefani Montenegro M.S., [facility] 07/07/2024 3:23 PM CAVITY PUMP OPERATOR - 07/11/2024 2:11 PM CAVITY PUMP OPERATOR Hospital Encounter [facility], Fifth Floor [address] [place] [address] Jeovany Padilla M.D. Sandy Beal M.B., B.Ch., Ph.D. Ely Alves M.D., M.B.A. Jaundice (Primary Dx); Hypokalemia; Hypomagnesemia; Cancer Pancreas Primary Personal History Discharge Disposition: Home or Self Care 07/02/2024 12:59 PM CDT Anesthesia Event [facility] [address] [place] [address] Paresh Isabel APRN, CRNA, DNAP Randell Jovel M.D. 07/02/2024 12:10 PM CDT Ancillary Procedure Department of Gastroenterology 07/02/2024 11:56 AM CDT - 07/02/2024 11:59 PM CDT Hospital Encounter Department of Radiology, [facility] in [address] [address] Katia Issa APRN, C.NFlower, M.S.N. Malignant Neoplasm Of Pancreas Head (HCC) Discharge Disposition: Home or Self Care 07/02/2024 10:04 AM CDT - 07/02/2024 3:24 PM CDT Hospital Encounter Division of Gastroenterology in [address] [address] Katia Issa APRN, Shyla.N.P., M.S.N. Paresh Isabel APRN, CRNA, DNAP Malignant Neoplasm Of Pancreas Head (HCC) Discharge Disposition: Home or Self Care 07/02/2024 Orders Only Division of Hepatobiliary and Pancreas Surgery in [place], [place] [address] [place] [address] Katia Issa APRN, C.NFlower, M.S.N. 07/02/2024 Orders Only Division of Hepatobiliary and Pancreas Surgery in [place], [place] [address] [place] [address] Katia Issa APRN, C.N.P., M.S.N. 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 Mass Pancreas Discharge Disposition: Home or Self Care 07/01/2024 2:30 PM CDT Comprehensive Visit Division of Hepatobiliary and Pancreas Surgery in [place], [place] [address] [place] [phone] Asiya Catalan M.D. Mass Pancreas (Primary Dx) 07/01/2024 8:54 AM CDT - 07/01/2024 4:08 PM CDT Hospital Encounter Department of Laboratory Medicine and Pathology, [facility] in [place], [place] [address] [place] [phone] Radha Najera APRN, C.N.P., D.N.P. Anemia Discharge Disposition: Home or Self Care 07/01/2024 8:00 AM CDT Comprehensive Visit Preoperative Evaluation Center in [address] [address] Asiya Catalan M.D. Nelson, Janelle R, APRN, C.N.P. Preanesthetic Medical Exam (Primary Dx); Mass Pancreas; Malignant Neoplasm Of Pancreas Head (HCC); Chronic Obstructive Pulmonary Disease (HCC); Cancer Lung Primary Personal History; Anemia; Hypertension Essential Primary; Allergy Penicillin Antibiotic Personal History 06/30/2024 Orders Only Department of Oncology in [address] [phone] Leo Cervantes M.D., Ph.D. 06/30/2024 Clinical Communication Department of Oncology in [address] [address] Leo Cervantes M.D., Ph.D. 06/26/2024 11:50 AM CDT Comprehensive Visit Department of Oncology in [address] [place] [address] Leo Cervantes M.D., Ph.D. 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 Anemia (Primary Dx) 06/26/2024 Orders Only Preoperative Evaluation Center in [address] [address] Bertha Norman APRN CSaloN.P. Anemia (Primary Dx); Allergy Penicillin Antibiotic Personal History 06/26/2024 Clinical Communication Division of Hepatobiliary and Pancreas Surgery in [address] [address] Asiya Catalan M.D. 06/25/2024 1:35 PM CDT Ancillary Procedure Department of Gastroenterology 06/25/2024 1:31 PM CDT Anesthesia Event Division of Gastroenterology in [place], [place] [address] [place] [phone] Bridget Almonte APRN, LASHAWN, Aziza Aden M.D. 06/25/2024 1:30 PM CDT Ancillary Procedure Department of Gastroenterology 06/25/2024 12:22 PM CDT - 06/25/2024 11:59 PM CDT Hospital Encounter Department of Radiology, [facility], in [address] [address] Magali Cui M.D. Mass Pancreas Discharge Disposition: Home or Self Care 06/25/2024 10:13 AM CDT - 06/25/2024 12:21 PM CDT Hospital Encounter Division of Gastroenterology in [address] [address] Magali Cui M.D. Law, Ryan J, D.O. Ballenger, Erin R, APRN, CRNA, DNAP Mass Pancreas Discharge Disposition: Home or Self Care 06/23/2024 12:50 PM CDT - 06/23/2024 11:59 PM CDT Hospital Encounter Department of Radiology, [facility] in [place], [place] [address] [place] [phone] Alexia Aguilar APRN, C.N.P., M.S. Mass Pancreas Discharge Disposition: Home or Self Care 06/20/2024 Orders Only Department of Oncology in [place], [place] [address] [place] [phone] Alexia Aguilar APRN, C.N.P., M.S. Mass Pancreas (Primary Dx) 06/19/2024 10:22 AM CDT - 06/19/2024 11:59 PM CDT Hospital Encounter Department of Laboratory Medicine and Pathology, [facility] in [place], [place] [address] [place] [phone] Eddy Byrd M.D. 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 Hanson Ruchi Mass Pancreas 06/19/2024 7:40 AM CDT Comprehensive Visit Division of Gastroenterology in [place], [place] [address] [place] [phone] Shira Mendiola M.B.B.S., M.S. Mass Pancreas (Primary Dx) 06/19/2024 Clinical Communication Department of Medical Genetics in [place], [place] [address] [place] [address] Stefani Montenegro M.S., [facility] genetic testing 06/18/2024 11:03 AM CDT - 06/18/2024 11:59 PM CDT Hospital Encounter Department of Radiology, [facility], in [place], [place] [address] [place] [address] Magali Cui M.D. Mass Pancreas Discharge Disposition: Home or Self Care 06/18/2024 8:44 AM CDT - 06/18/2024 11:02 AM CDT Hospital Encounter Department of Laboratory Medicine and Pathology, [facility] in [place], [place] [address] [place] [address] Magali Cui M.D. Mass Pancreas Discharge Disposition: Home or Self Care 06/12/2024 1:20 PM CDT Virtual Visit Division of Gastroenterology in [place], [place] [address] [place] [phone] Rochelle Mejia R.N. Mass Pancreas 06/10/2024 Clinical Communication Division of Gastroenterology in [place], [place] [address] [place] [phone] Prescheduling, Provider 06/10/2024 Orders Only Division of Gastroenterology in [place], [place] [address] [place] [phone] [facility], Provider, Mass Pancreas from Last 3 Months [...] drink = 0.6 oz pur e alcohol) [facility] [employer] Answer Date Recorded In the past [address] [facility] [employer], gas, oil, or water [employer] threatened to shut off services in your [...] your living situation today? I have a [facility] place to live 07/11/2024 Comments No Sex and Gender Information Value Date Recorded Sex Assigned at Female 01/29/2018 3:57 PM CDT Legal Sex Female 11:37 PM CAVITY PUMP OPERATOR Gender Identity Female 01/29/2018 3:57 PM CDT Sexual Orientation Straight 01/29/2018 3: 57 PM CDT Last Filed Vital Signs Vital Sign Reading Time Taken Comments Blood Pressure 92/67 07/11/2024 1:46 PM CAVITY PUMP OPERATOR Pulse 67 07/11/2024 1:46 PM CAVITY PUMP OPERATOR Temperature 36.5 C (97.7 F) 07/11/2024 1:46 PM CAVITY PUMP OPERATOR Respiratory Rate 19 07/11/2024 1:46 PM CAVITY PUMP OPERATOR Oxygen Saturation 97% 07/11/2024 1:46 PM CAVITY PUMP OPERATOR Inhaled Oxygen Concentration - - Weight 54.4 kg (119 lb 14.9 oz) 07/11/2024 3:38 AM CAVITY PUMP OPERATOR Height 154 cm (5' 0.63) 07/08/2024 3:57 PM CAVITY PUMP OPERATOR Body Mass Index 22.94 07/08/2024 3:57 PM CAVITY PUMP OPERATOR Plan of Treatment Upcoming Encounters Date Type Department Care Team (Latest Contact Info) Description 09/11/2024 11:30 AM CAVITY PUMP OPERATOR Clinical Communication Virtual Review in [place], [place] [address] [place] [address] 09/15/2024 7:50 AM CAVITY PUMP OPERATOR Lab Department of Laboratory Medicine and Pathology, [facility] in [place], [place] [address] [place] [phone] Alexia Aguilar APRN C.N.P., M.S. [address] [place] [phone] 09/15/2024 9:45 AM CAVITY PUMP OPERATOR Appointment Department of Radiology, [facility] in [place], [place] [address] [place] [phone] Alexia Aguilar APRN, C.N.P., M.S. [address] [place] [phone] 09/15/2024 10:30 AM CAVITY PUMP OPERATOR Office Visit Department of Medical Genetics in [place], [place] [address] [place] [phone] Eddy Byrd M.D. [address] [place] [phone] Stefani Montenegro M.S., [facility] [address] [place] [phone] 09/15/2024 12:00 PM CAVITY PUMP OPERATOR Appointment Department of Radiology, [facility], in [place], [place] [address] [place] [phone] Alexia Aguilar APRN, C.N.P., M.S. [address] [place] [phone] 09/16/2024 9:20 AM CAVITY PUMP OPERATOR Office Visit Department of Oncology in [place], [place] [address] [place] [address] Alexia Aguilar, Ra WORRELLNPierce., M.S. [address] [place] [phone] 09/16/2024 11:00 AM CAVITY PUMP OPERATOR Comprehensive Visit Division of Hepatobiliary and Pancreas Surgery in [place], [place] [address] [place] [phone] Asiya Catalan M.D. [address] [place] [phone] 09/17/2024 10:42 AM CAVITY PUMP OPERATOR Hospital Encounter [facility] 01 4 AM ADMIT [address] [place] [phone] Asiya Catalan M.D. [address] [place] [phone] 09/17/2024 10:42 AM CAVITY PUMP OPERATOR - 09/17/2024 12:22 PM CAVITY PUMP OPERATOR Surgery [facility] MAIN OR [address] [place] [address] Asiya Catalan M.D. [address] [place] [phone] LAPAROSCOPIC EXPLORATION - DIAGNOSTIC - cytology - including peritoneal CEA, CA 19-9 & KRAS 10/30/2024 2:20 PM CAVITY PUMP OPERATOR Virtual Visit Division of Gastroenterology in [place], [place] [address] [place] [phone] Shira Mendiola M.B.BSaloS., M.S. [address] [place] [phone] Scheduled Procedures Name Priority Associated Diagnoses Date/Ti me LAPAROSCOPIC EXPLORATION - DIAGNOSTIC Malignant Neoplasm Of Pancreas Head (HCC) 09/17/2024 10:42 AM CAVITY PUMP OPERATOR Health Maintenance Due Date Last Done Comments Hepatitis C Screening 1945 RSV vaccine - (32-36 weeks) or 60+ years (1 - 1-dose 75+ series) 2020 COVID-19 Vaccine (7 - 2023- season) 2024 06/18/2023, 05/30/2022, 12/27/2021, Additional history exists DTaP,Tdap,and Td Vaccines (2 - Td or Tdap) 05/27/2024 05/27/2014, 10/08/2007 Influenza Vaccine (#1) 2024 , 07/28/2022, 06/23/2021, Additional history exists Depression Screening (Annual PHQ-2) 09/03/2024 Fall Risk Screen (Annual) 09/03/2024 Office Visit for Blood Pressure Check / Re-check 07/01/2025 07/01/2024 Creatinine Level (Kidney Function Test) 07/15/2025 07/15/2024, 07/11/2024, 07/10/2024, Additional history exists Potassium Level 07/15/2025 07/15/2024, 04/2024, 07/10/2024, Additional history exists Sodium Level 07/15/2025 07/15/2024, 110 04/2024, 07/10/2024, Additional history exists Pneumococcal vaccine (50+ years) Completed 07/22/2015, 07/20/2011 Bone Density Scan (Osteoporosis Screen) Discontinued 08/03/2015 Mammogram Discontinued 03/14/2022, 11/02, 03/28/2021, Additional history exists Zoster Vaccines Completed 03/24/2024, 12/03, 06/03/2012 IPV Vaccines Aged Out No longer eligi ble based on patient's age to complete this topic Medical Devices Implanted Type Area Poll Clerk Device Identifier Shelf Expiration Date Model / Serial / Lot Stnt Phuc Vbl Shrt Wr 10x40 - [id number] Implanted:Qty : 1 on 07/02/2024 by Sonu Correa M.D. at [facility] Biliary Stent N/A: Bile Duct Sipsey [id number] / / Stnt Zmm Otw 7x7 - [id number] Implanted:Qty : 1 on 07/02/2024 by Sonu Correa M.D. at [facility] Biliary Stent N/A: Bile Duct [employer] 12/30/2026 [id number] / / [id number] Breast Implant Breast Implant Bilateral : Breast Explanted Type Area Poll Clerk Device Identifier Shelf Expiration Date Model / Serial / Lot Stnt [facility]uc [facility] - [id number] - [id number] Implanted:Qty: 1 on 06/25/2024 by Leo Rockwell D.O. at [facility] Dial/Gonda Explanted:Qty: 1 on 07/02/2024 by Sonu Correa M.D. at [facility] Biliary Stent Sipsey 04/06/2027 [id number] / [id number] / Procedures Procedure Name Priority Date/Time Associated Diagnosis Comments PROTHROMBIN TIME (PT), P Routine 07/15/2024 11:49 AM CAVITY PUMP OPERATOR Jaundice COMPREHENSIVE METABOLIC PANEL, S/P Routine 07/15/2024 11:49 AM CAVITY PUMP OPERATOR Jaundice COMPREHENSIVE METABOLIC PANEL, S/P Timed 07/11/2024 8:06 AM CAVITY PUMP OPERATOR CBC NO CALL BACK, REFLEX T/S Timed 07/11/2024 8:06 AM CAVITY PUMP OPERATOR DX CHEST AP OR PA AND LATERAL 2 VIEWS RAD - Emergent (Fastest; for the most critically ill patients) 07/11/2024 3:34 AM CAVITY PUMP OPERATOR DX CHEST PORTABLE 1 VIEW RAD - Semiurgent (Fast; most ED patients; some inpatients) 07/11/2024 1:25 AM CAVITY PUMP OPERATOR CBC NO CALL BACK, REFLEX T/S Routine 07/10/2024 12:17 AM CAVITY PUMP OPERATOR COMPREHENSIVE METABOLIC PANEL, S/P Routine 07/10/2024 12:17 AM CAVITY PUMP OPERATOR LACTATE DEHYDROGENASE (LD), S Routine 07/10/2024 12:17 AM CAVITY PUMP OPERATOR TRANSFUSE RED BLOOD CELLS Routine 07/09/2024 8:38 PM CAVITY PUMP OPERATOR PREPARE RED BLOOD CELLS Routine 07/09/2024 3:37 PM CAVITY PUMP OPERATOR ANTIBODY IDENTIFICATION STAT 07/09/2024 3:37 PM CAVITY PUMP OPERATOR TYPE AND SCREEN STAT 07/09/2024 3:37 PM CAVITY PUMP OPERATOR MR ABDOMEN MRCP WITHOUT AND WITH IV CONTRAST RAD - Routine (most inpatients and all outpatients) 07/09/2024 2:04 PM CAVITY PUMP OPERATOR MAGNESIUM, S Routine 07/09/2024 11:22 AM CAVITY PUMP OPERATOR PHOSPHORUS (INORGANIC), S Routine 07/09/2024 11:22 AM CAVITY PUMP OPERATOR CBC NO CALL BACK, REFLEX T/S Routine 07/09/2024 11:22 AM CAVITY PUMP OPERATOR COMPREHENSIVE METABOLIC PANEL, S/P Routine 07/09/2024 11:22 AM CAVITY PUMP OPERATOR US THORACENTESIS LEFT WITH IMAGING GUIDANCE RAD - Routine (most inpatients and all outpatients) 07/08/2024 11:17 AM CAVITY PUMP OPERATOR CYTOLOGY NON-HYDRO STATION SUPERVISOR Timed 07/08/2024 10:54 AM CAVITY PUMP OPERATOR Jaundice Hypokalemia Hypomagnesemia Cancer Pancreas Primary Personal History CELL COUNT AND DIFFERENTIAL, BF Timed 07/08/2024 10:54 AM CAVITY PUMP OPERATOR Jaundice Hypokalemia Hypomagnesemia Cancer Pancreas Primary Personal History PROTEIN, TOTAL, BF Timed 07/08/2024 10:54 AM CAVITY PUMP OPERATOR Jaundice Hypokalemia Hypomagnesemia Cancer Pancreas Primary Personal History LACTATE DEHYDROGENASE (LD), BF Timed 07/08/2024 10:54 AM CAVITY PUMP OPERATOR Jaundice Hypokalemia Hypomagnesemia Cancer Pancreas Primary Personal History BACTERIAL CULTURE, AEROBIC + SUSC Timed 07/08/2024 10:54 AM CAVITY PUMP OPERATOR Jaundice Hypokalemia Hypomagnesemia Cancer Pancreas Primary Personal History GRAM STAIN Timed 07/08/2024 10:54 AM CAVITY PUMP OPERATOR Jaundice Hypokalemia Hypomagnesemia Cancer Pancreas Primary Personal History PROTHROMBIN TIME (PT), P STAT 07/08/2024 10:13 AM CAVITY PUMP OPERATOR (TTE) 2D ECHO DOPPLER COLOR Routine 07/08/2024 9:40 AM CAVITY PUMP OPERATOR PROCALCITONIN, S STAT 07/08/2024 12:53 AM CAVITY PUMP OPERATOR NT-PRO B-TYPE NATRIURETIC PEPTIDE (BNP), S Routine 07/08/2024 12:53 AM CAVITY PUMP OPERATOR POTASSIUM, S/P STAT 07/08/2024 12:53 AM CAVITY PUMP OPERATOR CORTISOL, FREE AND TOTAL Routine 07/08/2024 12:53 AM CAVITY PUMP OPERATOR ACTH, P Routine 07/08/2024 12:53 AM CAVITY PUMP OPERATOR MAGNESIUM, S Routine 07/08/2024 12:53 AM CAVITY PUMP OPERATOR CBC WITH DIFFERENTIAL, B Routine 07/08/2024 12:53 AM CAVITY PUMP OPERATOR COMPREHENSIVE METABOLIC PANEL, S/P Routine 07/08/2024 12:53 AM CAVITY PUMP OPERATOR POTASSIUM, S/P STAT 07/07/2024 8:03 PM CAVITY PUMP OPERATOR DIPSTICK, U STAT 07/07/2024 5:11 PM CAVITY PUMP OPERATOR HC OSMOLALITY ASSAY URINE STAT 07/07/2024 5:11 PM CAVITY PUMP OPERATOR MICROSCOPIC MANUAL STAT 07/07/2024 5: 11 PM CAVITY PUMP OPERATOR PH, RANDOM, U STAT 07/07/2024 5:11 PM CAVITY PUMP OPERATOR URINALYSIS WITH MICROSCOPIC STAT 07/07/2024 5:11 PM CAVITY PUMP OPERATOR BACTERIAL CULTURE, AEROBIC + SUSC, URINE STAT 07/07/2024 5:11 PM CAVITY PUMP OPERATOR HEPATIC FUNCTION PANEL, S STAT 07/07/2024 4:52 PM CAVITY PUMP OPERATOR DX CHEST PORTABLE 1 VIEW RAD - Semiurgent (Fast; most ED patients; some inpatients) 07/07/2024 4:20 PM CAVITY PUMP OPERATOR VBG & LYTES CG8+, POCT, B STAT 07/07/2024 3:44 PM CAVITY PUMP OPERATOR GLUCOSE POCT, B STAT 07/07/2024 3:44 PM CAVITY PUMP OPERATOR MAGNESIUM, S STAT 07/07/2024 3:44 PM CAVITY PUMP OPERATOR CBC WITH DIFFERENTIAL, B STAT 07/07/2024 3:44 PM CAVITY PUMP OPERATOR BASIC METABOLIC PANEL, S/P STAT 07/07/2024 3:44 PM CAVITY PUMP OPERATOR ECG STAT 07/07/2024 3:33 PM CAVITY PUMP OPERATOR FL FLUORO LESS THAN 1 HOUR RAD [...] outpatients) 06/23/2024 3:29 PM CDT Mass Pancreas [facility] [employer] Routine 06/19/2024 10:43 AM CDT [...] * Prothrombin Time (PT) (07/15/2024 11:49 AM CAVITY PUMP OPERATOR) Only the most recent of4 resultswithin the time period is included. Prothrombin Time, P 11.2 9.4 - 12.5 sec 07/15/2024 12:03 PM CAVITY PUMP OPERATOR METH INR 1.0 0.9 - 1.1 07/15/2024 12:03 PM CAVITY PUMP OPERATOR METH Comment: ----ADDITIONAL INFORMATION---- Standard intensity warfarin therapeutic range: 2.0 to 3.0 High intensity warfarin therapeutic range: 2.5 to 3.5 Blood (Blood, Venous) 07/15/2024 11:49 AM CAVITY PUMP OPERATOR 07/15/2024 11:55 AM CAVITY PUMP OPERATOR Benjamin Hart P.A.-C., M.S. LAB BLOOD ADD-ON Fin al Result [facility] [address] [place] [address], [facility] METH [facility] [address] [place] [address] * (ABNORMAL) Comprehensive Metabolic Panel (07/15/2024 11:49 AM CAVITY PUMP OPERATOR) Only the most recent of6 resultswithin the time period is included. Potassium, S 3.6 3.6 - 5.2 mmol/L 07/15/2024 12:40 PM CAVITY PUMP OPERATOR DTL Sodium, S 141 135 - 145 mmol/L 07/15/2024 12:40 PM CAVITY PUMP OPERATOR DTL Chloride, S 107 98 - 107 mmol/L 07/15/2024 12:40 PM CAVITY PUMP OPERATOR DTL Bicarbonate, S 22 22 - 29 mmol/L 07/15/2024 12:40 PM CAVITY PUMP OPERATOR DTL Anion Gap 12 7 - 15 07/15/2024 12:40 PM CAVITY PUMP OPERATOR DTL BUN (Blood Urea Nitrogen), S 19 6 - 21 mg/dL 07/15/2024 12:40 PM CAVITY PUMP OPERATOR DTL Creatinine 0.76 0.59 - 1.04 mg/dL 07/15/2024 12:40 PM CAVITY PUMP OPERATOR DTL Estimated GFR (eGFR) 80 >=60 mL/min/BS A 07/15/2024 12:40 PM CAVITY PUMP OPERATOR DTL Comment: Estimated GFR calculated using the 2020 CKD_EPI creatinine equation. Calcium, Total, S 8.6(L) 8.8 - 10.2 mg/dL 07/15/2024 12:40 PM CAVITY PUMP OPERATOR DTL Glucose, S 104 70 - 140 mg/dL 07/15/2024 12:40 PM CAVITY PUMP OPERATOR DTL Protein, Total, S 5.6(L) 6.3 - 7.9 g/dL 07/15/2024 12:40 PM CAVITY PUMP OPERATOR DTL Albumin, S 3.5 3.5 - 5.0 g/dL 07/15/2024 12:40 PM CAVITY PUMP OPERATOR DTL Aspartate Aminotransferase (AST), S 34 8 - 43 U/L 07/15/2024 12:40 PM CAVITY PUMP OPERATOR DTL Alkaline Phosphatase, S 506(H) 35 - 104 U/L 07/15/2024 12:40 PM CAVITY PUMP OPERATOR DTL Alanine Aminotransferase (ALT), S 16 7 - 45 U/L 07/15/2024 12:40 PM CAVITY PUMP OPERATOR DTL Bilirubin, Total, S 12.1(H) 0.0 - 1.2 mg/dL 07/15/2024 12:40 PM CAVITY PUMP OPERATOR DTL Blood (Blood, Venous) 07/15/2024 11:49 AM CAVITY PUMP OPERATOR 07/15/2024 12:22 PM CAVITY PUMP OPERATOR Benjamin Hart P.A.-C., M.S. LAB BLOOD ADD-ON Fin al Result [facility] [address] [place] [address], [facility] [address] [place] [address] * (ABNORMAL) CBC no call back, reflex T/S HGB <8 (07/11/2024 8:06 AM CAVITY PUMP OPERATOR) Only the most recent of3 resultswithin the time period is included. Hemoglobin 8.0(L) 11.6 - 15.0 g/dL 07/11/2024 8:38 AM CAVITY PUMP OPERATOR DTL Hematocrit 23.6(L) 35.5 - 44.9 % 07/11/2024 8:38 AM CAVITY PUMP OPERATOR DTL Erythrocytes 2.81(L) 3.92 - 5.13 x10(12)/L 07/11/2024 8:38 AM CAVITY PUMP OPERATOR DTL MCV 84.0 78.2 - 97.9 fL 07/11/2024 8:38 AM CAVITY PUMP OPERATOR DTL RBC Distrib Width 18.7(H) 12.2 - 16.1 % 07/11/2024 8:38 AM CAVITY PUMP OPERATOR DTL Platelet Count 341 157 - 371 x10(9)/L 07/11/2024 8:38 AM CAVITY PUMP OPERATOR DTL Leukocytes 8.7 3.4 - 9.6 x10(9)/L 07/11/2024 8:38 AM [employer] OPERATOR DTL Neutrophils 6.92(H) 1.56 - 6.45 x10(9)/L 07/11/2024 8:38 AM [employer] OPERATOR PM Lymphocytes 0.64(L) 0.95 - 3.07 x10(9)/L 07/11/2024 8:38 AM [employer] OPERATOR DTL Monocytes 1.01(H) 0.26 - 0.81 x10(9)/L 07/11/2024 8:38 AM [employer] OPERATOR DTL Eosinophils 0.10 0.03 - 0.48 x10(9)/L 07/11/2024 8:38 AM CAVITY PUMP OPERATOR DTL Basophils 0.04 0.01 - 0.08 x10(9)/L 07/11/2024 8:38 AM CAVITY PUMP OPERATOR DTL Blood (Blood, Venous) 07/11/2024 8:06 AM CAVITY PUMP OPERATOR 07/11/2024 8:22 AM CAVITY PUMP OPERATOR us Benjamin Hrat P.A.-C., M.S. LAB BLOOD NON ADD-ON Final Result [facility] [address] [place] [address], [place] DTL [facility] [address] [place] [address] DHPM [facility] [address] [place] [address] * DX Chest AP or PA and Lateral 2 Views (07/11/2024 3:34 AM CAVITY PUMP OPERATOR) Anatomical Region Laterality Modality Chest, Thoracic RST LOS, Tho racic ARZ LOS, Thoracic FLA LOS N/A Digital Radiography Impressions 07/11/2024 9:36 AM CAVITY PUMP OPERATOR Since earlier today, resolved apparent widening of [...] coils and stent. Narrative 07/11/2024 9:36 AM CAVITY PUMP OPERATOR EXAM: DX CHEST AP OR PA AND [...] Chest Portable 1 View (07/11/2024 1:25 AM CAVITY PUMP OPERATOR) Only the most recent of2 resultswithin the time period is included. Anatomical Region Laterality Modality Chest, Thoracic RST LOS, Tho racic ARZ LOS, Thoracic FLA LOS N/A Digital Radiography Impressions 07/11/2024 9:52 AM CAVITY PUMP OPERATOR Since 07/07/2024, mild relative widening of the [...] with peripheral calcifications. Narrative 07/11/2024 9:52 AM CAVITY PUMP OPERATOR EXAM: DX CHEST PORTABLE 1 VIEW Procedure [...] * LD (Lactate Dehydrogenase) (07/10/2024 12:17 AM CAVITY PUMP OPERATOR) [facility] Rhonda LD 208 122 - 222 U/L 07/10/2024 1:16 AM CAVITY PUMP OPERATOR DTL Blood (Blood, Venous) 07/10/2024 12:17 AM CAVITY PUMP OPERATOR 07/10/2024 1:00 AM CAVITY PUMP OPERATOR Benjamin Hart P.A.-C., M.S. LAB BLOOD NON ADD-ON Final Result [facility] [address] [place] [address], [place] [facility] [address] [place] [address] * Transfuse Red Blood Cells : (07/09/2024 10:48 PM CAVITY PUMP OPERATOR) Benjamin Hart P.A.-C., M.S. BLOOD TRANSFUSION OR DERABLES Final Result * Antibody Identification, Erythrocytes (07/09/2024 3:37 PM CAVITY PUMP OPERATOR) Antibody Identification Anti-Jkb, Anti-K 07/09/2024 8:26 PM CAVITY PUMP OPERATOR DTL 07/09/2024 3:37 PM CAVITY PUMP OPERATOR 07/09/2024 3:48 PM CAVITY PUMP OPERATOR Narrative [facility] - 07/09/2024 8:26 PM CAVITY PUMP OPERATOR Specimen Information: Specimen ID: [id number] Specimen Collection Start Date: 07/09/2024 3:37 PM Specimen Received Date: 07/09/2024 3:48 PM Specimen ID: [id number] Specimen Collection Start Date: 07/09/2024 3:37 PM Specimen Received Date: 07/09/2024 3:48 PM us Benjamin Hart P.A.-C., M.S. LAB BLOOD BANK TEST ORDERABLES Final Result Performing Organization Address City/[facility]/ZIP Co de Phone Number [facility] [address] [place] [address], [facility] DTL [facility] [address] [place] [address] * Type and Screen (with Reflex Antibody ID) (07/09/2024 3:37 PM CAVITY PUMP OPERATOR) ABORh O Neg Not applicable 07/09/2024 4:50 PM CAVITY PUMP OPERATOR ETRM Antibody Screen Positive Negative 07/09/2024 5:26 PM CAVITY PUMP OPERATOR ETRM Type & Screen Expiration 07/12/2024 23:59 07/09/2024 4:50 PM CAVITY PUMP OPERATOR ETRM Testing Location [place] DEFAULT 07/09/2024 3:48 PM CAVITY PUMP OPERATOR ETRM Blood 07/09/2024 3:37 PM CAVITY PUMP OPERATOR 07/09/2024 3:48 PM CAVITY PUMP OPERATOR Benjamin Hart P.A.-C., M.S. LAB BLOOD BANK TEST ORDERABLES Final Result Performing Organization Address City/[facility]/ZIP Co de Phone Number [facility] [address] [place] [address], [facility] ETRM [facility] [address] [place] [address] * MR Abdomen MRCP without and with IV Contrast (07/09/2024 2:04 PM CAVITY PUMP OPERATOR) Anatomical Region Laterality Modality Abdomen, Abdominal RST LOS, Abdominal ARZ LOS, Abdominal FLA LOS N/A Magnetic Resonance Impressions 07/09/2024 3:14 PM CAVITY PUMP OPERATOR 1. Redemonstrated is mass in the pancreatic [...] in the abdomen. Narrative 07/09/2024 3:14 PM CAVITY PUMP OPERATOR EXAM: MR ABDOMEN MRCP WITHOUT AND WITH [...] Result * Phosphorus Inorganic (07/09/2024 11:22 AM CAVITY PUMP OPERATOR) Phosphorus (Inorganic), S 3.5 2.5 - 4.5 mg/dL 07/09/2024 12:14 PM CAVITY PUMP OPERATOR DTL Blood (Blood, Venous) 07/09/2024 11:22 AM CAVITY PUMP OPERATOR 07/09/2024 11:52 AM CAVITY PUMP OPERATOR us Benjamin Hart P.A.-C., M.S. LAB BLOOD ADD-ON Fin al Result Performing Organization Address City/[facility] Co de Phone Number [facility] [address] [place] [address] * Magnesium (07/09/2024 11:22 AM CAVITY PUMP OPERATOR) Only the most recent of3 resultswithin the time period is included. Magnesium, S 1.9 1.7 - 2.3 mg/dL 07/09/2024 12:14 PM CAVITY PUMP OPERATOR DT Blood (Blood, Venous) 07/09/2024 11:22 AM CAVITY PUMP OPERATOR 07/09/2024 11:52 AM CAVITY PUMP OPERATOR us Benjamin Hart P.A.-C., M.S. LAB BLOOD ADD-ON Fin al Result Performing Organization Address [facility] Co de Phone Number [facility] [address] [place] [address] * US Thoracentesis Left with Imaging Guidance (07/08/2024 11:17 AM CAVITY PUMP OPERATOR) Anatomical Region Laterality Modality Chest, Ultrasound RST LOS, U ltrasound ARZ LOS, Procedure FLA LOS, Abdominal FLA LOS, Procedural, Procedural NWWI LOS Left Ultrasound Impressions 07/08/2024 11:43 AM CAVITY PUMP OPERATOR Ultrasound-guided left pleural space thoracentesis. EP Narrative 07/08/2024 11:43 AM CAVITY PUMP OPERATOR EXAM: US THORACENTESIS LEFT WITH IMAGING GUIDANCE [...] US PROCEDURES Fi nal Result * Cytology Non-HYDRO STATION SUPERVISOR (07/08/2024 10:54 AM CAVITY PUMP OPERATOR) 07/09/2024 3:07 PM CAVITY PUMP OPERATOR DTL Participated in the Interpretation Alex LiraS. -Pathology Resident 07/09/2024 3:07 PM CAVITY PUMP OPERATOR DTL Report electronically signed by Hernan Espino, M.Yadira. I verify that I have examined all relevant slides/materi als for the specimen(s) and rendered or confirmed the diagnosis. 07/09/2024 3:07 PM CAVITY PUMP OPERATOR DTL Gross Description Received 100 cc of bloody fluid. 07/09/2024 3:07 PM CAVITY PUMP OPERATOR DTL Source A. Pleural, Left, fluid 07/09/2024 3:07 PM CAVITY PUMP OPERATOR DTL Interpretation A. Pleural, Left, fluid (ThinPrep): Negative for malignancy. Acute on chronic inflammation. 07/09/2024 3:07 PM CAVITY PUMP OPERATOR DTL Fluid (Pleural Fluid, Left) 07/08/2024 10:54 AM CAVITY PUMP OPERATOR us Kasia Zamora P.A.-C.S. LAB SURG PATH ORDERA BLES Final Result [facility] [address] [place] [address], [facility] DT [address] [facility] [address] [place] [address] * Protein, Total, Body Fluid (07/08/2024 10:54 AM CAVITY PUMP OPERATOR) Pathologist [facility] Protein, Total, BF See Below See Comment g/dL 07/08/2024 2:11 PM CAVITY PUMP OPERATOR DTL Comment: Sample received icteric. The measured total protein was 1.8 g/dL, however, internal [facility] validation studies show this values to be [...] clinical findings. All other fluids refer to www.[employer].com for further interpretive information. This test has been modified from the lockstitch pocket setter's instructions. Its performance characteristics were determined by [facility] in a manner consistent with CLIA requirements. This test has not been cleared or approved by the U.S. Food and Drug Administration. Fluid Type, Protein, Total Fluid, Pleural Fluid, Left 07/08/2024 11:28 AM CAVITY PUMP OPERATOR DTL Fluid (Pleural Fluid, Left) 07/08/2024 10:54 AM CAVITY PUMP OPERATOR Benjamin Hart P.A.-C., M.S. LAB BODY FLUIDS AND STOOLS ORDERABLES Final Result Performing Organization Address City/[facility]/ZIP Co de Phone Number [place] [address] [place] [address] * Bacterial Culture, Aerobic + Susceptibility (07/08/2024 10:54 AM CAVITY PUMP OPERATOR) Bacterial Culture, Aerobic + Susc No growth after 5 days of incubation. 07/13/2024 8:48 AM CAVITY PUMP OPERATOR DTL Fluid (Pleural Fluid, Left) 07/08/2024 10:54 AM CAVITY PUMP OPERATOR Narrative [facility] - 07/13/2024 8:48 AM CAVITY PUMP OPERATOR Bacterial Culture: Received Bactec aerobic and Bactec anaerobic bottles Benjamin Hart P.A.-C., M.S. LAB MICROBIOLOGY - G ENERAL ORDERABLES Final Result Performing Organization Address City/[facility]/ZIP Co de Phone Number [facility] [address] [place] [address] * Cell Count and Differential, Body Fluid (07/08/2024 10:54 AM CAVITY PUMP OPERATOR) Fluid Type Left; Pleural/Th oracentesi s 07/08/2024 11:51 AM CAVITY PUMP OPERATOR DHPM Gross Appearance Serous 07/08/20 11:51 AM CAVITY PUMP OPERATOR DHPM Total Nucleated Cells 570 /mcL 07/08/2024 11:51 AM CAVITY PUMP OPERATOR DHPM Comment: ----REFERENCE VALUE---- Synovial: <150 /mcL Peritoneal: <500 /mcL Pleural: <500 /mcL Pericardial: <500 /mcL ----ADDITIONAL INFORMATION---- This test has been modified from the lockstitch pocket setter's instructions. Its performance characteristics were determined by [facility] in a manner consistent with CLIA requirements. This test has not been cleared or approved by the U.S. Food and Drug Administration. Neutrophils 34 % 07/08/2024 12:20 PM CAVITY PUMP OPERATOR DHPM Comment: ----REFERENCE VALUE---- Synovial: <25% Peritoneal: <25% Pleural: <25% Pericardial: <25% Lymphocytes 34 Synovial <75% % 07/08/2024 12:20 PM CAVITY PUMP OPERATOR DHPM Monocytes/Macropha ges 32 Synovial <70% % 07/08/2024 12:20 PM CAVITY PUMP OPERATOR DHPM Comment See Comment 07/08/2024 12:20 PM CAVITY PUMP OPERATOR DHPM Comment:No blasts or maligna nt cells seen. Reviewed by: Tech 07/08/2024 12:20 PM CAVITY PUMP OPERATOR DHPM Fluid (Pleural Fluid, Left) 07/08/2024 10:54 AM CAVITY PUMP OPERATOR Benjamin Hart P.A.-C., M.S. LAB BODY FLUIDS AND STOOLS ORDERABLES Final Result [facility] [address] [place] [address], [facility] [address] [place] [address] * Gram Stain (07/08/2024 10:54 AM CAVITY PUMP OPERATOR) Gram Stain No organisms seen. White blood cells, Rare 07/08/2024 5:25 PM CAVITY PUMP OPERATOR DTL Fluid (Pleural Fluid, Left) 07/08/2024 10:54 AM CAVITY PUMP OPERATOR Narrative [facility] - 07/08/2024 5:25 PM CAVITY PUMP OPERATOR Bacterial Culture: Received Bactec aerobic and Bactec anaerobic bottles Benjamin Hart P.A.-C. M.S. LAB MICROBIOLOGY - G ENERAL ORDERABLES Final Result Performing Organization Address City/[facility] Co de Phone Number [facility] [address] [place] [address], [facility] [address] [place] [address] * Lactate Dehydrogenase (LD), Body Fluid (07/08/2024 10:54 AM CAVITY PUMP OPERATOR) Lactate Dehydrogenase (LD), BF 157 See Comment U/L 07/08/2024 12:38 PM CAVITY PUMP OPERATOR DTL Comment: ----ADDITIONAL INFORMATION---- Pleural fluid lactate [...] clinical findings. All other fluids refer to www.[employer].com for further interpretive information. This test has been modified from the lockstitch pocket setter's instructions. Its performance characteristics were determined by [facility] in a manner consistent with CLIA requirements. This test has not been cleared or approved by the U.S. Food and Drug Administration. Fluid Type, Lactate Dehydrogenase Fluid, Pleural Fluid, Left 07/08/2024 11:28 AM CAVITY PUMP OPERATOR DTL Fluid (Pleural Fluid, Left) 07/08/2024 10:54 AM CAVITY PUMP OPERATOR Benjamin Hart P.A.-C., M.S. LAB BODY FLUIDS AND STOOLS ORDERABLES Final Result Performing Organization Address City/[facility]/ZIP Co de Phone Number [facility] [address] [place] [address], [facility] [address] [place] [address] * (TTE) 2D ECHO DOPPLER COLOR (07/08/2024 9:40 AM CAVITY PUMP OPERATOR) [facility] Ejection Fraction 65 MC CV EIMS Mid-Ascending [...] Region Laterality Modality Other 07/08/2024 8:02 AM CAVITY PUMP OPERATOR Impressions 07/08/2024 10:35 AM CAVITY PUMP OPERATOR There are no previous [facility] echocardiograms available for comparison. LEFT VENTRICLE:Normal left [...] per Echocardiography Contrast Administration Protocol Reference Document [id number] Rev 12/15/2021. Patient met an inclusion criterion and did not have contraindications in screening sections. For the complete report, see the Order-Level Documents. Narrative 07/08/2024 10:35 AM CAVITY PUMP OPERATOR For the complete report, see the Order-Level [...] pericardial effusion. 8. There are no previous [facility] echocardiograms available for comparison. Comments Focal thickening of the mid anterior and lateral levy of unclear clinical significance. Artifactual changes not excluded, particularly when we take the short axis ultrasound-enhanced images into account. Clinical and radiographic correlation recommended. [facility] Procedure Note Chong Bailey M.D. - 07/08/2024 [...] pericardial effusion. 8. There are no previous [facility] echocardiograms available forcomparison. Comments Focal thickening of the mid anterior and lateral levy of unclear clinicalsignificance. Artifactual changes not excluded, particularly when we takethe short axis ultrasound-enhanced images into account. Clinical andradiographic correlation recommended. [facility] Findings There are no previous [facility] echocardiograms available forcomparison. LEFT VENTRICLE:Normal left ventricular [...] administered per EchocardiographyContrast Administration Protocol Reference Document [id number] Rev12/15/2021. Patient met an inclusion criterion and did not havecontraindications in screening sections. For the complete report, see the Order-Level Documents. us Feroz Tierney M.D. CV ECHO PROCEDURES Final Result * (ABNORMAL) Cortisol, Free and Total (07/08/2024 12:53 AM CAVITY PUMP OPERATOR) Cortisol, Free, S 1.455(H) 6:00-10:30 AM Collection 0.121-1.065 mcg/dL mcg/dL 07/15/2024 4:01 PM CAVITY PUMP OPERATOR [facility] Comment: ----ADDITIONAL INFORMATION---- This test was developed and its performance characteristics determined by [facility] in a manner consistent with CLIA requirements. This test has not been cleared or approved by the U.S. Food and Drug Administration. Cortisol, S, LC-MS/MS 25 mcg/dL 07/08/2024 11:18 PM CAVITY PUMP OPERATOR [facility] Comment: ----REFERENCE VALUE---- Pediatric ranges not established Adult ranges: a.m.: 5-25 p.m.: 2-14 Blood (Blood, Venous) 07/08/2024 12:53 AM CAVITY PUMP OPERATOR 07/08/2024 12:06 PM CAVITY PUMP OPERATOR us Feroz Tierney M.D. LAB BLOOD NON ADD-ON Final Resul t Performing Organization Address City/[facility]/ZIP Co de Phone Number [facility] [address] [place] [address] [facility] [address] [place] [address] [place] [address] * (ABNORMAL) NT-Pro B-Type Natriuretic Peptide (BNP) (07/08/2024 12:53 AM CAVITY PUMP OPERATOR) NT-Pro BNP 2036(H) <=540 pg/mL 07/08/2024 3:29 AM CAVITY PUMP OPERATOR DTL Comment: NT-proBNP values less than 300 [...] failure. Blood (Blood, Venous) 07/08/2024 12:53 AM CAVITY PUMP OPERATOR 07/08/2024 1:23 AM CAVITY PUMP OPERATOR Feroz Tierney M.D. LAB BLOOD ADD-ON Final Result Performing Organization Address [facility] Co de Phone Number [facility] [address] [place] [address], [facility] DTL [facility] [address] [place] [address] * Procalcitonin (07/08/2024 12:53 AM CAVITY PUMP OPERATOR) Procalcitonin, S 0.18 0.00 - 0.24 ng/mL 07/08/2024 1:48 AM CAVITY PUMP OPERATOR DTL Comment: Procalcitonin <0.25 ng/mL may indicate lower probability of bacteremia or bacterial pneumonia. Intracellular bacteria, viruses, and fungi do not cause elevation of procalcitonin, so low values (<0.25 ng/mL) do not rule out other infections. Blood (Blood, Venous) 07/08/2024 12:53 AM CAVITY PUMP OPERATOR 07/08/2024 1:23 AM CAVITY PUMP OPERATOR Feroz Tierney M.D. LAB BLOOD ADD-ON Final Result Performing Organization Address City/[facility]/ZIP Co de Phone Number [facility] [address] [place] [address], [facility] DTL [facility] [address] [place] [address] * ACTH (Adrenocorticotropic Hormone) (07/08/2024 12:53 AM CAVITY PUMP OPERATOR) [facility] Adrenocorticotropic Hormone, P 26 7.2-63 (a.m. collectio n) pg/mL 07/08/2024 3:57 PM CAVITY PUMP OPERATOR [facility] Blood (Blood, Venous) 07/08/2024 12:53 AM CAVITY PUMP OPERATOR 07/08/2024 7:56 AM CAVITY PUMP OPERATOR Feroz Tierney M.D. LAB BLOOD NON ADD-ON Final Resul t Performing Organization Address [facility] Co de Phone Number [facility] [address] [place] [address] [facility] [address] [place] [address] * (ABNORMAL) CBC with Differential, Blood (07/08/2024 12:53 AM CAVITY PUMP OPERATOR) Only the most recent of3 resultswithin the time period is included. [facility] Hemoglobin 8.0(L) 11.6 - 15.0 g/dL 07/08/2024 1:14 AM CAVITY PUMP OPERATOR DTL Hematocrit 22.7(L) 35.5 - 44.9 % 07/08/2024 1:14 AM CAVITY PUMP OPERATOR DTL Erythrocytes 2.93(L) 3.92 - 5.13 x10(12)/L 07/08/2024 1:14 AM CAVITY PUMP OPERATOR DTL MCV 77.5(L) 78.2 - 97.9 fL 07/08/2024 1:14 AM CAVITY PUMP OPERATOR DTL RBC Distrib Width 19.9(H) 12.2 - 16.1 % 07/08/2024 1:14 AM CAVITY PUMP OPERATOR DTL Platelet Count 418(H) 157 - 371 x10(9)/L 07/08/2024 1:14 AM CAVITY PUMP OPERATOR DTL Leukocytes 13.1(H) 3.4 - 9.6 x10(9)/L 07/08/2024 1:14 AM CAVITY PUMP OPERATOR DTL Neutrophils 11.06(H) 1.56 - 6.45 x10(9)/L 07/08/2024 1:14 AM CAVITY PUMP OPERATOR DHPM Lymphocytes 0.54(L) 0.95 - 3.07 x10(9)/L 07/08/2024 1:14 AM CAVITY PUMP OPERATOR DTL Monocytes 1.40(H) 0.26 - 0.81 x10(9)/L 07/08/2024 1:14 AM CAVITY PUMP OPERATOR DTL Eosinophils 0.07 0.03 - 0.48 x10(9)/L 07/08/2024 1:14 AM CAVITY PUMP OPERATOR DTL Basophils 0.05 0.01 - 0.08 x10(9)/L 07/08/2024 1:14 AM CAVITY PUMP OPERATOR DTL Blood (Blood, Venous) 07/08/2024 12:53 AM CAVITY PUMP OPERATOR 07/08/2024 1:08 AM CAVITY PUMP OPERATOR Feroz Tierney M.D. LAB BLOOD ADD-ON Final Result [facility] [address] [place] [address], [facility] DTL [facility] [address] [place] [address] DHPM [facility] [address] [place] [address] * (ABNORMAL) Potassium (07/08/2024 12:53 AM CAVITY PUMP OPERATOR) Only the most recent of2 resultswithin the time period is included. Potassium, P 3.1(L) 3.6 - 5.2 mmol/L 07/08/2024 1:12 AM CAVITY PUMP OPERATOR [facility] Blood (Blood, Venous) 07/08/2024 12:53 AM CAVITY PUMP OPERATOR 07/08/2024 1:12 AM CAVITY PUMP OPERATOR us Feroz Tierney M.D. LAB BLOOD ADD-ON Final Result [facility] [address] [place] [address], [place] METH [facility] [address] [place] [address] * Osmolality, Urine (07/07/2024 5:11 PM CAVITY PUMP OPERATOR) Osmolality, U 512 150 - 1150 mOsm/kg 07/07/2024 6:15 PM CAVITY PUMP OPERATOR DTL Urine 07/07/2024 5:11 PM CAVITY PUMP OPERATOR 07/07/2024 5:39 PM CAVITY PUMP OPERATOR Danny Michel Olea.A.-C. LAB URINE ORDERABLES Jazzmine l Result [facility] [address] [place] [address], [facility] [address] [place] [address] * (ABNORMAL) Dipstick, Urine (07/07/2024 5:11 PM CAVITY PUMP OPERATOR) Pathologist [facility] Hemoglobin, QL, U Negative Negative 07/07/2024 5:54 PM CAVITY PUMP OPERATOR DTL Leukocyte Esterase, U Trace(A) Negative 07/07/2024 5:54 PM CAVITY PUMP OPERATOR DTL Nitrite, U Negative Negative 07/07/2024 5:54 PM CAVITY PUMP OPERATOR DTL Ketone, U Negative Negative mg/dL 07/07/2024 5:54 PM CAVITY PUMP OPERATOR DTL Glucose, U 70(A) Negative mg/dL 07/07/2024 5:54 PM CAVITY PUMP OPERATOR DTL Urine 07/07/2024 5:11 PM CAVITY PUMP OPERATOR 07/07/2024 5:39 PM CAVITY PUMP OPERATOR Danny Pearson P.A.-C. LAB URINE ORDERABLES Jazzmine l Result [facility] [address] [place] [address], [facility] [address] [place] [address] * pH, Random, Urine (07/07/2024 5:11 PM CAVITY PUMP OPERATOR) pH, Random, U 5.9 4.5 - 8.0 07/07/2024 6:15 PM CAVITY PUMP OPERATOR DTL Urine 07/07/2024 5:11 PM CAVITY PUMP OPERATOR 07/07/2024 5:39 PM CAVITY PUMP OPERATOR Danny JaffeC. LAB URINE ORDERABLES Jazzmine l Result Performing Organization Address City/[facility]/ZIP Co de Phone Number [facility] [address] [place], [place] [id number] [place] [address] [facility] [address] [place] [address] * (ABNORMAL) Microscopic Manual (07/07/2024 5:11 PM CAVITY PUMP OPERATOR) Microscopy Abnormal 07/07/2024 6:19 PM CAVITY PUMP OPERATOR DTL RBC <3 <3 /hpf 07/07/2024 6:19 PM CAVITY PUMP OPERATOR DTL WBC 4-10 /hpf 07/07/2024 6:19 PM CAVITY PUMP OPERATOR DTL Comment: ----REFERENCE VALUE---- <4 (Males) <11 (Females) Casts, Hyaline 1-3 /lpf 07/07/2024 6:19 PM CAVITY PUMP OPERATOR DTL Renal Epithelial Cells 1-3(A) /hpf 07/07/2024 6:19 PM CAVITY PUMP OPERATOR DTL Squamous Epithelial Cells, U 4-10 /hpf 07/07/2024 6:19 PM CAVITY PUMP OPERATOR DTL Bacteria Present(A) 07/07/2024 6:19 PM CAVITY PUMP OPERATOR DTL Crystals Leucine crystals present 07/07/2024 6:19 PM CAVITY PUMP OPERATOR DTL Urine 07/07/2024 5:11 PM CAVITY PUMP OPERATOR 07/07/2024 5:39 PM CAVITY PUMP OPERATOR Danny JaffeCSalo LAB URINE ORDERABLES Jazzmine l Result Performing Organization Address City/[facility]/ZIP Co de Phone Number [facility] [address] [place] [address], [facility] DTL [facility] [address] [place] [address] * Bacterial Culture, Aerobic + Susceptibility, Urine (07/07/2024 5:11 PM CAVITY PUMP OPERATOR) Urine Culture No growth after 1 day of incubation. 07/09/2024 7:10 AM CAVITY PUMP OPERATOR DTL Urine (Urine, Midstream) 07/07/2024 5:11 PM CAVITY PUMP OPERATOR 07/07/2024 7:40 PM CAVITY PUMP OPERATOR Comment:Specimen Source Site : Urine Jeovany Padilla M.D. LAB MICROBIOLOGY - GENERAL ORDERABLES Final Result Performing Organization Address City/[facility]/ZIP Co de Phone Number [facility] [address] [place] [address], [facility] DTL [facility] [address] [place] [address] * (ABNORMAL) Urinalysis, with Microscopic: Urine, Midstream (07/07/2024 5:11 PM CAVITY PUMP OPERATOR) Source Urine, Urine, Midstream 07/07/2024 5:38 PM CAVITY PUMP OPERATOR DTL Color, U Anika(A) 07/07/2024 5:39 PM CAVITY PUMP OPERATOR DTL Clarity, U Cloudy(A) 07/07/2024 5:39 PM CAVITY PUMP OPERATOR DTL Protein, U 47(H) <26 mg/dL 07/07/2024 6:25 PM CAVITY PUMP OPERATOR DTL Protein/Osmol ality 0.92(H) <0.42 ratio 07/07/2024 6:25 PM CAVITY PUMP OPERATOR DTL Predicted 24 HR Protein, U 619(H) <229 mg/24 h 07/07/2024 6:25 PM CAVITY PUMP OPERATOR DTL Predicted Range 153-2506 mg/24 h 07/07/2024 6:25 PM CAVITY PUMP OPERATOR DTL Urine (Urine, Midstream) 07/07/2024 5:11 PM CAVITY PUMP OPERATOR 07/07/2024 5:38 PM CAVITY PUMP OPERATOR us Jeovany Padilla M.D. LAB URINE ORDERABLE S Final Result Performing Organization Address [facility]/ZIP Co de Phone Number [facility] [address] [place] [address], [facility] DTL [facility] [address] [place] [address] * (ABNORMAL) Hepatic Function Panel (07/07/2024 4:52 PM CAVITY PUMP OPERATOR) Only the most recent of2 resultswithin the time period is included. Bilirubin, Total, S 23.8(H) 0.0 - 1.2 mg/dL 07/07/2024 5:49 PM CAVITY PUMP OPERATOR DTL Bilirubin, Direct, S 20.7(H) 0.0 - 0.3 mg/dL 07/07/2024 7:05 PM CAVITY PUMP OPERATOR DTL Aspartate Aminotransferase (AST), S 36 8 - 43 U/L 07/07/2024 5:49 PM CAVITY PUMP OPERATOR DTL Alanine Aminotransferase (ALT), S 14 7 - 45 U/L 07/07/2024 5:49 PM CAVITY PUMP OPERATOR DTL Alkaline Phosphatase, S 623(H) 35 - 104 U/L 07/07/2024 5:49 PM CAVITY PUMP OPERATOR DTL Albumin, S 3.2(L) 3.5 - 5.0 g/dL 07/07/2024 5:49 PM CAVITY PUMP OPERATOR DTL Protein, Total, S 4.7(L) 6.3 - 7.9 g/dL 07/07/2024 5:49 PM CAVITY PUMP OPERATOR DTL Blood (Blood, Venous) 07/07/2024 4:52 PM CAVITY PUMP OPERATOR 07/07/2024 5:19 PM CAVITY PUMP OPERATOR us Tricia Steele M.D. LAB BLOOD ADD-ON Final Re sult [facility] [address] [place] [address], [facility] [address] [place] [address] * (ABNORMAL) Venous Blood Gas and Electrolytes CG8+, POCT (07/07/2024 3:44 PM CAVITY PUMP OPERATOR) Pathologist [facility] Sample Site, POCT Venstick 07/07/2024 3:53 PM CAVITY PUMP OPERATOR PCSM Comment: ----ADDITIONAL INFORMATION---- Performed at the Point of Care pH, Venous, POCT, B 7.38 7.32 - 7.43 07/07/2024 3:53 PM CAVITY PUMP OPERATOR PCSM Comment: ----ADDITIONAL INFORMATION---- Performed at the Point of Care pCO2, Venous, POCT, B 41 41 - 51 mm Hg 07/07/2024 3:53 PM CAVITY PUMP OPERATOR PCSM Comment: ----ADDITIONAL INFORMATION---- Performed at the Point of Care pO2, Venous, POCT, B 23 Not Applicable mm Hg 07/07/2024 3:53 PM CAVITY PUMP OPERATOR PCSM Comment: ----ADDITIONAL INFORMATION---- Performed at the Point of Care Base Excess, Venous, POCT, B -1 Not Applicable mmol/L 07/07/2024 3:53 PM CAVITY PUMP OPERATOR PCSM Comment: ----ADDITIONAL INFORMATION---- Performed at the Point of Care HCO3, Venous, POCT, B 24 Not Applicable mmol/L 07/07/2024 3:53 PM CAVITY PUMP OPERATOR PCSM Comment: ----ADDITIONAL INFORMATION---- Performed at the Point of Care Sodium, POCT, B 137 135 - 145 mmol/L 07/07/2024 3:53 PM CAVITY PUMP OPERATOR PCSM Comment: ----ADDITIONAL INFORMATION---- Performed at the Point of Care Potassium, POCT, B 2.2(CL) 3.6 - 5.2 mmol/L 07/07/2024 3:53 PM CAVITY PUMP OPERATOR PCSM Comment: ----ADDITIONAL INFORMATION---- Performed at the Point of Care Calcium, Ionized, POCT, B 4.30(L) 4.65 - 5.30 mg/dL 07/07/2024 3:53 PM CAVITY PUMP OPERATOR PCSM Comment: ----ADDITIONAL INFORMATION---- Performed at the Point of Care Glucose, POCT, B 136 70 - 140 mg/dL 07/07/2024 3:53 PM CAVITY PUMP OPERATOR PCSM Comment: ----ADDITIONAL INFORMATION---- Performed at the Point of Care Hematocrit, POCT, B 27.0(L) 35.5 - 44.9 % 07/07/2024 3:53 PM CAVITY PUMP OPERATOR PCSM Comment: ----ADDITIONAL INFORMATION---- Performed at the Point of Care Blood (Blood, Venous) 07/07/2024 3:44 PM CAVITY PUMP OPERATOR 07/07/2024 3:45 PM CAVITY PUMP OPERATOR Danny Pearson P.A.-C. LAB POCT ORDERABLES - DEV ICE Final Result Performing Organization Address City/[facility]/ZIP Co de Phone Number POC RST [facility] [address] PCSM [facility] POC [address] [place] [address] * Glucose, POCT (07/07/2024 3:44 PM CAVITY PUMP OPERATOR) Glucose, POCT, B 139 70 - 140 mg/dL 07/07/2024 3:48 PM CAVITY PUMP OPERATOR PCLX Site Artstick 07/07/2024 3:48 PM CAVITY PUMP OPERATOR PCLX Blood (Blood, Capillary) 07/07/2024 3:44 PM CAVITY PUMP OPERATOR 07/07/2024 3:44 PM CAVITY PUMP OPERATOR Jeovany Padilla M.D. LAB POCT ORDERABLES -MANUAL Final Result Performing Organization Address [facility]/ZIP Co de Phone Number POC [facility] [address] [place] [address], [facility] PCLX [facility] POC 200 [place] [address] * (ABNORMAL) Basic Metabolic Panel (07/07/2024 3:44 PM CAVITY PUMP OPERATOR) Pathologist [facility] Potassium, P 2.3(CL) 3.6 - 5.2 mmol/L 07/07/2024 4:53 PM CAVITY PUMP OPERATOR STMA Sodium, P 136 135 - 145 mmol/L 07/07/2024 4:53 PM CAVITY PUMP OPERATOR STMA Chloride, P 97(L) 98 - 107 mmol/L 07/07/2024 4:53 PM CAVITY PUMP OPERATOR STMA Bicarbonate, P 24 22 - 29 mmol/L 07/07/2024 4:40 PM CAVITY PUMP OPERATOR STMA Anion Gap, P 15 7 - 15 07/07/2024 4:53 PM CAVITY PUMP OPERATOR STMA BUN (Blood Urea Nitrogen), P 17 6 - 21 mg/dL 07/07/2024 4:40 PM CAVITY PUMP OPERATOR STMA Creatinine 0.63 0.59 - 1.04 mg/dL 07/07/2024 5:22 PM CAVITY PUMP OPERATOR DTL Estimated GFR (eGFR) >90 >=60 mL/min/BSA 07/07/2024 5:22 PM CAVITY PUMP OPERATOR DTL Comment: Estimated GFR calculated using the 2020 CKD_EPI creatinine equation. Calcium, Total, P 8.0(L) 8.8 - 10.2 mg/dL 07/07/2024 4:40 PM CAVITY PUMP OPERATOR STMA Glucose, P 142(H) 70 - 140 mg/dL 07/07/2024 4:40 PM CAVITY PUMP OPERATOR STMA Blood (Blood, Venous) 07/07/2024 3:44 PM CAVITY PUMP OPERATOR 07/07/2024 3:54 PM CAVITY PUMP OPERATOR Jeovany Padilla M.D. LAB BLOOD ADD-ON Fi nal Result [facility] [address] [place] [address], [facility] STMA [facility] [address] [place] [address] DTL [facility] [address] [place] [address] * ECG 12 Lead (07/07/2024 3:33 PM CAVITY PUMP OPERATOR) Ventricular Rate ECG/Min 71 BPM MUSE [place] Interval 156 ms MUSE QRSD Interval 90 ms MUSE QT Interval 362 ms MUSE QTC Interval 393 ms MUSE P [place] 98 degrees MUSE R [place] 80 degrees MUSE T Wave [place] 143 degrees MUSE 07/07/2024 3:33 PM CAVITY PUMP OPERATOR 07/07/2024 3:47 PM CAVITY PUMP OPERATOR Impressions MUSE - 07/07/2024 3:47 PM CAVITY PUMP OPERATOR Normal sinus rhythm ST and T wave [...] in Inferior leads Reviewed by PRATIMA York Christopher R Padilla M.D. ECG ORDERABLES Fin al Result Performing Organization Address City/[facility] Co de Phone Number MUSE NA * [...] M.S.N. IMG FLUOROS COPY PROCEDURES Final Result Performing Organization Address [facility] de Phone Number ERCP LOS RST * LDA ANE ENDOTRACHEAL [...] ETT location: oral VL device: glide scope Sheldon scope blade size: 3 Tube size: 7 [...] resultswithin the time period is included. Narrative [facility] - 07/02/2024 5:09 PM CDT This order has been created and auto-finalized to support the import of images acquired without order. The clinical documentation to support these images can be found on the encounter that produced images. us Provider Not In System IMG NON RAD IMAGING PROCE DURES Final Result [facility] NA * ERCP (07/02/2024 12:07 PM CDT) 07/02/2024 12:0 7 PM CDT Impressions [facility] - 07/02/2024 5:00 PM CDT Post-op Diagnoses: [...] to prevent upward or downward impaction. Narrative [facility] - 07/02/2024 5:00 PM CDT Jac 6 [...] metal biliary stent was visible on the tube room supervisor film. The esophagus was successfully intubated under [...] minimal. Complications: No immediate complications. 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 Sonu Correa MD 07/02/2024 5:00:01 PM This report has been signed electronically. Number of Addenda: 0 us Katia Issa APRN, C.N.P., M.S.N. GI PROCEDUR E ORDERABLES Final Result [facility] NA * (ABNORMAL) Reticulocyte Profile (07/01/2024 9:07 [...] 9:07 AM CDT 07/01/2024 9:29 AM CDT Radha Najera APRN, C.N.P., D.N.P. LAB BLOO D ADD-ON Final Result [facility] [address] [place] [address], [facility] DTL [facility] [address] [place] [address] * (ABNORMAL) CBC-Preop with reflex anemia panel [...] AM CDT 07/01/2024 9:39 AM CDT Narrative [facility] - 07/01/2024 10:44 AM CDT Specimen Information: Specimen ID: [id number] Specimen Type: Blood Specimen Collection Start Date: 07/01/2024 9:07 AM Specimen Received Date: 07/01/2024 9:39 AM Specimen ID: [id number] Specimen Type: Blood Specimen Collection Start Date: 07/01/2024 9:07 AM Specimen Received Date: 07/01/2024 9:29 AM Radha Najera APRN, C.N.P., D.N.P. LAB BLOO D ADD-ON Final Result Performing Organization Address [facility] de Phone Number [facility] [address] [facility] [address] [place] [address] * Iron and Total Iron-Binding Capacity (07/01/2024 [...] D ADD-ON Final Result Performing Organization Address [facility] de Phone Number [facility] [address] [facility] [address] [place] [address] * CRP (C-Reactive Protein) (07/01/2024 9:07 AM CDT) C-Reactive Protein (CRP), S <3.0 <5.0 mg/L 07/01/2024 11:09 AM CDT DTL Blood 07/01/2024 9:07 AM CDT 07/01/2024 9:39 AM CDT Radha Najera APRN, C.N.P., D.N.P. LAB BLOO D ADD-ON Final Result Performing Organization Address City/[facility]/[place] [address] * (ABNORMAL) Ferritin (07/01/2024 9:07 AM CDT) Ferritin, S 2488(H) 11 - 328 mcg/L 07/01/2024 11:28 AM CDT DTL Blood 07/01/2024 9:07 AM CDT 07/01/2024 9:39 AM CDT Radha Najera APRN C.N.P., D.N.P. LAB BLOO D ADD-ON Final Result Performing Organization Address [facility] [place] [address] * (ABNORMAL) Cytology Fine Needle Aspiration (including core biopsies) (06/25/2024 2:10 PM CDT) Pathologist [facility] (A ) 06/27/2024 4:06 PM CDT DTL [...] a. Immunohistoch emical stains were performed at [facility] (block A1). Neoplastic cells are positive for [...] pancreas primary. Immunohistochemical stains were performed at [facility] (block A1). Neoplastic cells are positive for CDX2 and negative for TTF1(8G7G3/1), supporting the above diagnosis. Flagged as: Abnormal (Reported 06/26/2024 17:50) Aspirate (Pancreas) 06/25/2024 2:10 PM CDT us Leo Rockwell D.O. LAB SURG PATH ORDERABLES Edited Result - Final [facility] [address] [place] [address], [place] DTL [address] [place] [address] * LDA ANE ENDOTRACHEAL AIRWAY (06/25/2024 1:39 PM CDT) Narrative Bridget Almonte APRN, MIGRANT LEADER, DNAP - 06/25/2024 1:39 PM CDT Bridget Almonte APRN, MIGRANT LEADER, DNAP 06/25/2024 1:49 PM Airway Date/Time: 06/25/2024 [...] ETT location: oral VL device: glide scope Sheldon scope blade size: 3 Tube size: 7 [...] Procedure outcome: successful Notable Events: no complications Bridget Almonte APRN, CRNA, DNAP ANESTHESIA ORD ERABLES Final Result * ERCP (06/25/2024 1:30 PM CDT) 06/25/2024 1:30 PM CDT Impressions [facility] - 06/25/2024 5:43 PM CDT Post-op Diagnoses: - Distal malignant biliary stricture - Sphincterotomy and 10mm x 4cm covered metal stent (Viabil) placed - There was excellent flow of bile and contrast endoscopically and radiographically at the conclusion of the procedure. Narrative [facility] - 06/25/2024 5:43 PM CDT Gonda [...] symptoms or liver enzyme abnormalities. Findings: The tube room supervisor film was normal. The esophagus was successfully [...] M.D. GI PROCEDURE ORDERABLES Final Result [facility] NA * Upper EUS (06/25/2024 1:30 PM CDT) 06/25/2024 1:30 PM CDT Impressions [facility] - 06/25/2024 5:43 PM CDT Post-op Diagnoses: - 26mm pancreatic uncinate mass with upstream biliary dilation - preliminary cytology diagnostic for adenocarcinoma - Benign-appearing esophageal stenosis which prevented initial passage of endosonoscope (14.7mm maximum diameter) - dilated to 15mm with gastroscope prior to EUS exam Narrative [facility] - 06/25/2024 5:43 PM CDT Gonda 2 [...] transduodenal approach. A stylet was used. A bag loader machine operator was present to evaluate the adequacy of [...] Cui M.D. GI PROCEDURE ORDERABLES Final Result [facility] NA * Mismatch Repair (MMR) Protein Immunohistochemistry Only, Tumor (06/25/2024 10:27 AM CDT) MLH1 IHC Performed 07/10/2024 4:50 PM CAVITY PUMP OPERATOR DTL MSH2 IHC Performed 07/10/2024 4:50 PM CAVITY PUMP OPERATOR DTL MSH6 IHC Performed 07/10/2024 4:50 PM CAVITY PUMP OPERATOR DTL PMS2 IHC Performed 07/10/2024 4:50 PM CAVITY PUMP OPERATOR DTL Result Provided diagnosis: pancreas adenocarcinoma IHC: Normal expression of MLH1, MSH2, MSH6, and PMS2 07/10/2024 4:50 PM CAVITY PUMP OPERATOR DTL Specimen Tissue, Tumor 07/10/2024 4:50 PM CAVITY PUMP OPERATOR DTL Tissue ID [id number] 07/10/2024 4:50 PM CAVITY PUMP OPERATOR DTL Released By Sabine Leija M.D., Ph.D. 07/10/2024 4:50 PM CAVITY PUMP OPERATOR DTL Result Summary INTACT PROTEIN EXPRESSION 07/10/2024 4:50 PM CAVITY PUMP OPERATOR DTL Interpretation These results suggest the presence of normal DNA mismatch repair function within the tumor. However, these results do not completely rule out the possibility of defective DNA mismatch repair within the tumor because approximately 5% of cases with defective mismatch repair do not show absence of protein expression by IHC (Mod Pathol. 2020 January;33(5):871-879 (PMID: [id number])). THERAPEUTIC IMPLICATIONS Current data suggest that in advanced stage solid tumors, targeted immunotherapies such as anti-PD-1 therapies are more likely to be effective in mismatch repair-deficient tumors than in mismatch repair-proficient tumors (Science. 2017 Mar 30;357(5796):409- 413 (PMID 75193518); J Clin Oncol. 2018 Sep 22:[id number] (PMID [id number])). For interpretation of therapeutic implications of these [...] may be ordered separately. 07/10/2024 4:50 PM CAVITY PUMP OPERATOR DTL Comment: ----ADDITIONAL INFORMATION---- Immunohistochemical staining (IHC) [...] developed and its performance characteristics determined by [facility] in a manner consistent with CLIA requirements. This test has not been cleared or approved by the U.S. Food and Drug Administration. 06/25/2024 10:2 7 AM CDT 07/09/2024 11:51 AM CAVITY PUMP OPERATOR us Ryan Fried M.D. LAB GENETIC TESTING Fin al Result [facility] [address] [place] [address], [facility] [address] [place] [address] * PET CT Skull to Thigh FDG [...] RADIOPHARMACEUTICAL/MEDS: Route: intravenous fludeoxyglucose F 18 injection INTERMEDIATE (FDG F-18),14.92 millicurie TECHNIQUE: F-18 FDG PET/CT [...] RADIOPHARMACEUTICAL/MEDS: Route: intravenous fludeoxyglucose F 18 injection INTERMEDIATE (FDG F-18),14.92 millicurie TECHNIQUE: F-18 FDG PET/CT [...] of FDG avid metastatic disease. Alexia Aguilar APRN, C.N.P., M.S. [facility] FABRIZIO DOBBS Final Result * [facility] [employer] (06/19/2024 10:43 AM CDT) Test Name CustomNext- Cancer +RNAinsight 06/19/2024 2:48 PM CDT AMBR Result SEE COMMENT 07/25/2024 10:14 AM CAVITY PUMP OPERATOR AMBR Comment: REVISED RESULTS Revised Report has been issued by performing laboratory. The revision has been sent to the patient record. ----PREVIOUSLY REPORTED ---- For final report, select Lab-Send Out Lab Results hyperlink below. Flagged as: N/A (Reported 07/08/2024 14:28) 06/19/2024 10:4 3 AM CDT 06/19/2024 2:48 PM CDT us Eddy Byrd M.D. LAB MISC ORDERABLES Edited Result - Final vivio 7 [place] [address], [facility] [employer] 7 [facility] [place] [address] * CT Abdomen Pelvis with IV Contrast [...] x 2.3 x 1.7 cm (series 3, [id number]; series 5, image 72). The full extent [...] 2. No thoracic lymphadenopathy. Magali Cui M.D. [facility] CT PROCEDURES Final Result * Cell-free DNA KRAS 12, 13, 61,146, Blood (06/18/2024 9:05 AM CDT) Result Summary NEGATIVE 06/25/2024 1:47 PM CDT DTL Result Negative 06/25/2024 1:47 PM CDT DTL Specimen WB, Whole Blood 06/25/2024 1:47 PM CDT DTL Released By Andry Pierce MSc., Ph.D. 06/25/2024 1:47 PM CDT DTL [...] developed and its performance characteristics determined by [facility] in a manner consistent with CLIA requirements. This test has not been cleared or approved by the U.S. Food and Drug Administration. Blood (Blood, Venous) 06/18/2024 9:05 AM CDT 06/18/2024 10:48 AM CDT Narrative [facility] - 06/25/2024 1:47 PM CDT Specimen Information: Specimen ID: [id number] Specimen Type: Blood Specimen Collection Start Date: 06/18/2024 9:05 AM Specimen Received Date: 06/18/2024 10:48 AM Specimen ID: [id number] Specimen Type: Blood Specimen Collection Start Date: 06/18/2024 9:05 AM Specimen Received Date: 06/18/2024 10:48 AM Magali Cui M.D. LAB GENETIC TESTING Fin al Result Performing Organization Address [facility] Co de Phone Number [facility] [address] [place] [address], [facility] DTL 200 [facility] 200 [place] [address] * (ABNORMAL) Carbohydrate Antigen 19-9 (CA 19-9) (06/18/2024 9:05 AM CDT) Pathologist [facility] Carbohydrate Ag 19-9, S 519(H) <35 U/mL 06/18/2024 3:08 PM CDT [facility] Comment: ----ADDITIONAL INFORMATION---- The testing method is an immunoenzymatic assay manufactured by [employer] and performed on the [employer] DxI 800. Values obtained with different assay methods or kits may be different and cannot be used interchangeably. Test results cannot be interpreted as absolute evidence for the presence or absence of malignant disease. Blood (Blood, Venous) 06/18/2024 9:05 AM CDT 06/18/2024 2:15 PM CDT Magali Cui M.D. LAB BLOOD ADD-ON Final Result Performing Organization Address City/[facility]/ZIP Co de Phone Number [facility] [address] [place] [address] [facility] [address] [place] [address] * (ABNORMAL) Prealbumin (PAB) (06/18/2024 9:05 AM CDT) Prealbumin (PAB), S 15(L) 19 - 38 mg/dL 06/19/2024 10:08 AM CDT [facility] Blood (Blood, Venous) 06/18/2024 9:05 AM CDT 06/19/2024 6:13 AM CDT Magali Cui M.D. LAB BLOOD ADD-ON Final Result [facility] [address] [place] [address] [facility] [address] [place] [address] * Hemoglobin A1c (06/18/2024 9:05 AM CDT) Pathologist [facility] Hemoglobin A1c, B 4.9 4.0 - 5.6 % 06/18/2024 10:24 AM CDT COUNT INCLUDES THE [facility] Blood (Blood, Venous) 06/18/2024 9:05 AM CDT 06/18/2024 9:31 AM CDT Magali Cui M.D. LAB BLOOD ADD-ON Final Result Performing Organization Address City/[facility]/ZIP Co de Phone Number [facility] [address] [place] [address], [facility] [address] [place] [address] * (ABNORMAL) Bilirubin, Direct (06/18/2024 9:05 AM CDT) Bilirubin, Direct, S 15.7(H) 0.0 - 0.3 mg/dL 06/18/2024 11:32 AM CDT DT Blood (Blood, Venous) 06/18/2024 9:05 AM CDT 06/18/2024 9:49 AM CDT Magali Cui M.D. LAB BLOOD ADD-ON Final Result [facility] [address] [place] [address], [place] DTL [facility] [address] [place] [address] * CT chest abdomen pelv w con-Outside [...] System IMG CT PROCEDURES Final R esult [facility] NA * (ABNORMAL) MR Breast Bilateral without [...] unchanged since outside MRI. Procedure Note Kaity Quinonse M.D. - 03/14/2022 EXAM: MR BREAST BILATERAL [...] BI-RADS: 3: Probably Benign. Jodee Macedo M.D. [facility] MRI PROCEDURES Final R esult from Last 3 Months or Most Recently Relevant to Health Maintenance Insurance [facility] MEDICARE Advance Directives For more information, please contact: [phone] * Full Code (Latest Code Status on File) Date Activated Date Inactivated Comments 07/08/2024 12:31 AM 07/11/2024 4:16 PM Question Answer Comments Full Code: Discussed * Full Code Date Activated Date Inactivated Comments 03/23/2022 11:46 AM 03/24/2022 4:08 PM Question Answer Comments Full Code: Not Discussed Due to: Patient not available Care Teams Medical Detailist Relationship Specialty Start Date End Date Elsewhere, Pcp PCP - General Internal Medicine 11/14/21
--- OUTSIDE RECORDS SUMMARY | 2024-09-04 07:01 | XMS_ITS | Continuity of Care Document ---
Author Name NwHIN User [email or web address] Address Unknown Organization Unknown Address Unknown Procedures FILTER APPLIED:Only known Procedures with Onset Date within the last 5 years Procedure Date Procedure Provider Additional Inform ation Status CT THORAX DX C- (63368) Completed Encounters FILTER APPLIED:Only known Encounters with Admission Date within the last 5 years Encounter Location Admission Discharge Billing Code [facility] [facility] A [facility] Outpatient Kevin Minor Inpatient
--- OUTSIDE RECORDS SUMMARY | 2024-09-04 07:01 | XMS_ITS | Clinical Summary ---
Author Organization [employer] [facility] [employer] [facility] Address [place], [place] [address] Care Team Providers Care Senior Operations Manager Name Role Phone Candis Mars DO Primary Care Provider [phone] Allergies Active Allergy Reactions Criticality Noted Date [...] Documents: Health Care Directive - old, from [place] Patient has identified Specific Treatment Preferences: Yes Specific Treatment Preferences: a.) Code Status: CPR/Attempt Resuscitation Hypertension 06/05/2011 History of colon cancer 06/09/2010 Overview (09/30/2015): Colonoscopy 06/09/10 - repeat in 5 years Colonoscopy 09/2015 polyp repeat in 5 years Encounters Date Type Department Care Team Description 08/14/2024 9:00 AM ENGRAVER JEWELRY Office Visit [facility] [address] [place] [phone] Domi Luna MD 08/14/2024 Orders Only [facility] Scanner 1 scan: (1-Ord) [facility], RT IJ POWER PORT PLACEMENT WITH US AND FLUOROSCOPIC GUIDANCE, 08/14/2024 08/13/2024 3:00 PM ENGRAVER JEWELRY Office Visit [facility] [address] [place] [address] Candis Mars, DO Preoperative Exam (08/14/24 - Port placement - [facility] - Dr. 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) 08/13/2024 Travel 08/12/2024 Telephone [facility] [address] [place] [address] Domi Luna MD 08/04/2024 Refill [facility] [address] [place] [address] Candis Mars, Refill Request (Hydroxyzine Hcl) 06/09/2024 Nurse Triage [facility] Centralized Nurse Triage Pcp, [...] on file Legal Sex Female 7:15 AM ENGRAVER JEWELRY Gender Identity Not on file Sexual Orientation Not on file Obstetrics History Last Filed Vital Signs Vital Sign Reading Time Taken Comments Blood Pressure 138/73 08/13/2024 3:17 PM ENGRAVER JEWELRY Pulse 92 08/13/2024 3:17 PM ENGRAVER JEWELRY Temperature 36.6 C (97.9 F) 01/06/2019 2:34 PM CDT Respiratory Rate 18 07/22/2015 1:00 PM ENGRAVER JEWELRY Oxygen Saturation 100% 08/13/2024 3:17 PM ENGRAVER JEWELRY Inhaled Oxygen Concentration - - Weight 52 kg (114 lb 9.6 oz) 08/13/2024 3:17 PM ENGRAVER JEWELRY Height 160 cm (5' 2.99) 09/10/2023 3:28 PM ENGRAVER JEWELRY Body Mass Index 20.31 09/10/2023 3:28 PM ENGRAVER JEWELRY Plan of Treatment Health Maintenance Due Date [...] Comments SCAN-OPERATIVE/PROC EDURE REPORT 08/14/2024 12:00 AM ENGRAVER JEWELRY ANTI HCV Routine 01/06/2019 3:23 PM CDT Need for hepatitis C screening test XR DXA BONE DENSITY 2 SITES AXIAL Routine 08/03/2015 3:32 PM ENGRAVER JEWELRY Osteopenia from Last 3 Months or Most Recently Relevant to Health Maintenance Results * SCAN-OPERATIVE/PROCEDURE REPORT (08/14/2024 12:00 AM ENGRAVER JEWELRY) us Scanner OTHER Final Result * ANTI HCV (01/06/2019 3:23 PM CDT) HEPATITIS C ANTIBODY Non-React lforence Non-React [place] 01/06/2019 8:29 PM CDT [facility] Comment:Antibodies to HCV no t detected; does not exclude the possibility of exposure to HCV. Blood BLOOD SPECIMEN / Unknown Venipuncture / Unknown 01/06/2019 3:23 PM CDT 01/06/2019 3:23 PM CDT Digna Barney MD SEND OUTS Final Result [facility] [address] [place] [address], [place] * (ABNORMAL) XR DEXA BONE DENSITY 2 SITES [07569.1] (08/03/2015 3:32 PM ENGRAVER JEWELRY) Anatomical Region Laterality Modality Spine, HIPS, HIPL, HIPR Other Narrative 08/04/2015 8:02 AM ENGRAVER JEWELRY Please see scanned document for results of this study. Digna Barney MD DEXA Final Result from Last 3 Months or Most Recently Relevant to Health Maintenance Insurance MEDICARE PART A HB ONLY [place] BLUE MR PB ONLY MEDICARE PART B HB ONLY [place] BLUE HB ONLY Advance Directives * Full Code (Latest Code Status on File) Date Activated Date Inactivated Comments 06/23/2013 6:16 PM 07/04/2013 3:49 PM Care Teams Senior Operations Manager Relationship Specialty Start Date End Date Candis Mars DO [address] [place] [address] PCP - General Family Practice 08/13/24
--- OUTSIDE RECORDS SUMMARY | 2024-09-04 07:02 | XMS_ITS | Encounter Summary ---
Author Organization [facility] Address [address] [place] [address] Care Team Providers Care Country Director Name Role Phone Elsewhere, Pcp Primary Care Provider Unavailabl e Encounter Details Date Type Department Care Team (Late st Contact Info) Description 06/30/2024 Clinical Communication Department of Oncology in [place], [place] [address] [place] [phone] Leo Cervantes M.D., Ph.D. [address] [place] [phone] Social History Tobacco Use Types Packs/Day Years Used Date Smoking Tobacco: Former Cigarettes 1 15 0 01/31/1988 - 01/30/2003 Smokeless Tobacco: Never Alcohol Use Standard Drinks/Week Comments Yes 7 (1 standard drink = 0.6 oz pur e alcohol) [facility] Utilities Answer Date Recorded In the past 12 months has e [employer], gas, oil, or water [employer] threatened to shut off services in your [...] your living situation today? I have a [facility] place to live 07/11/2024 Comments No Sex and Gender Information Value Date Recorded Sex Assigned at Female 01/29/2018 3:57 PM CDT Legal Sex Female 11:37 PM PARTS ORDER AND STOCK CLERK Gender Identity Female 01/29/2018 3:57 PM CDT Sexual Orientation Straight 01/29/2018 3: 57 PM CDT documented as of this encounter Plan of Treatment Upcoming Encounters Date Type Department Care Team (Latest Contact Info) Description 09/11/2024 11:30 AM PARTS ORDER AND STOCK CLERK Clinical Communication Virtual Review in [place] [address] [place] [address] 09/15/2024 7:50 AM PARTS ORDER AND STOCK CLERK Lab Department of Laboratory Medicine and Pathology, [facility], in [place], [place] [address] [place] [phone] Alexia Aguilar APRN, C.N.P., M.S. [address] [place] [phone] 09/15/2024 9:45 AM PARTS ORDER AND STOCK CLERK Appointment Department of Radiology, [facility], in [place], [place] [address] [place] [address] Alexia Aguilar APRN, C.N.P., M.S. [address] [place] [phone] 09/15/2024 10:30 AM PARTS ORDER AND STOCK CLERK Office Visit Department of Medical Genetics in [place], [place] [address] [place] [phone] Eddy Byrd M.D. [address] [place] [phone] Stefani Montenegro M.S., [facility] [address] [place] [phone] 09/15/2024 12:00 PM PARTS ORDER AND STOCK CLERK Appointment Department of Radiology, [facility], in [place], [place] [address] [place] [phone] Alexia Aguilar APRN, C.N.P., M.S. [address] [place] [phone] 09/16/2024 9:20 AM PARTS ORDER AND STOCK CLERK Office Visit Department of Oncology in [place], [place] [address] [place] [phone] Alexia Aguilar APRN, C.NPierce., M.S. [address] [place] [phone] 09/16/2024 11:00 AM PARTS ORDER AND STOCK CLERK Comprehensive Visit Division of Hepatobiliary and Pancreas Surgery in [place], [place] [address] [place] [phone] Asiya Catalan M.D. [address] [place] [phone] 09/17/2024 10:42 AM PARTS ORDER AND STOCK CLERK Hospital Encounter [facility] 01 4 AM ADMIT [address] [place] [address] Asiya Catalan M.D. [address] [place] [phone] 09/17/2024 10:42 AM PARTS ORDER AND STOCK CLERK - 09/17/2024 12:22 PM PARTS ORDER AND STOCK CLERK Surgery [facility] MAIN OR [address] [place] [address] Asiya Catalan M.D. [address] [place] [phone] LAPAROSCOPIC EXPLORATION - DIAGNOSTIC - cytology - including peritoneal CEA, CA 19-9 & KRAS 10/30/2024 2:20 PM PARTS ORDER AND STOCK CLERK Virtual Visit Division of Gastroenterology in [place], [place] [address] [place] [phone] Shira Mendiola M.B.B.S., M.S. [address] [place] [phone] Scheduled Procedures Name Priority Associated Diagnoses Date/Ti me LAPAROSCOPIC EXPLORATION - DIAGNOSTIC Malignant Neoplasm Of Pancreas Head (HCC) 09/17/2024 10:42 AM PARTS ORDER AND STOCK CLERK documented as of this encounter Visit Diagnoses Not on filedocumented in this encounter Care Teams Country Director Relationship Specialty Start Date End Date Elsewhere, Pcp PCP - General Internal Medicine 11/14/21 documented as of this encounter
--- OUTSIDE RECORDS SUMMARY | 2024-09-04 07:02 | XMS_ITS | Referral Summary ---
Author Organization [facility] Address [address] [place] [id number] Care Team Providers Care Grommet Machine Operator Name Role Phone Elsewhere, Pcp Primary Care Provider Unavailabl e Source Comments Patient records contain information from all sites at [facility]. For routine questions regarding patient records, call [phone] during business hours, M-F 8:00 AM - 5:00 PM Central Time. Record requests for emergency care only can be directed to [phone] at any time.[facility] Encounters * This document contains information received from the source organization and may not represent a complete record from that organization. Date Type Department Care Team Description 09/04/2024 Refill Division of Gastroenterology in [place], [place] [address] [place] [phone] Shira Mendiola M.B.B.S., M.S. Med Refill 08/21/2024 Clinical Communication Division of Hepatobiliary and Pancreas Surgery in [place], [place] [address] [place] [phone] Asiya Catalan M.D. 07/15/2024 10:40 AM HOUSE WIRER HELPER Office Visit Department of Oncology in [place], [place] [address] [place] [phone] Alexia Aguilar APRN CSaloN.P., M.S. 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 Obstruction Common Bile Duct (HCC) (Primary Dx) 07/11/2024 Orders Only Department of Oncology in [place], [place] [address] [place] [phone] Octavio Maciel M.D. 07/11/2024 Orders Only Pharmacy Prior Auth [id number] Riya Armijo 07/11/2024 Clinical Communication [facility] [address] [place] [phone] Benjamin Hart P.A.-C., M.S. 07/07/2024 3:23 PM HOUSE WIRER HELPER - 07/11/2024 2:11 PM HOUSE WIRER HELPER Hospital Encounter [facility], [facility], Fifth Floor [address] [place] [address] Jeovany Padilla M.D. Meehan, Anne M, M.B., B.Ch., Ph.D. Ely Alves M.D., M.B.A. Jaundice (Primary Dx); Hypokalemia; Hypomagnesemia; Cancer Pancreas Primary Personal History Discharge Disposition: Home or Self Care 07/10/2024 Clinical Communication Division of Gastroenterology in [place], [place] [address] [place] [phone] Tia Reynaga M.D. 07/09/2024 Orders Only Department of Medical Genetics in [place], [place] [address] [place] [phone] Stefani Montenegro M.S., [facility] 07/02/2024 12:10 PM CDT Ancillary Procedure Department of Gastroenterology 07/02/2024 11:56 AM CDT - 07/02/2024 11:59 PM CDT Hospital Encounter Department of Radiology, [facility], in [place], [place] [address] [place] [address] Katia sIsa APRN, C.N.P., M.S.N. Malignant Neoplasm Of Pancreas Head (HCC) Discharge Disposition: Home or Self Care 07/02/2024 Orders Only Division of Hepatobiliary and Pancreas Surgery in [place], [place] [address] [place] [address] Katia Issa APRN, C.NFlower, M.S.N. 07/02/2024 10:04 AM CDT - 07/02/2024 3:24 PM CDT Hospital Encounter Division of Gastroenterology in [place], [place] [address] [place] [address] Katia Issa APRN, C.N.Emmie., M.S.N. Paresh Isabel APRN, LASHAWN, DNAP Malignant Neoplasm Of Pancreas Head (HCC) Discharge Disposition: Home or Self Care 07/02/2024 Orders Only Division of Hepatobiliary and Pancreas Surgery in [place], [place] [address] [place] [address] Katia Issa APRN, C.NFlower, M.S.N. 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 07/01/2024 4:09 PM CDT - 07/01/2024 11:59 PM CDT Hospital Encounter Department of Laboratory Medicine and Pathology, [place], [place] [address] [place] [address] Asiya Catalan M.D. Mass Pancreas Discharge Disposition: Home or Self Care 07/01/2024 8:54 AM CDT - 07/01/2024 4:08 PM CDT Hospital Encounter Department of Laboratory Medicine and Pathology, [place], [place] [address] [place] [address] Radha Najera APRN C.N.PSalo, D.N.P. Anemia Discharge Disposition: Home or Self Care 07/01/2024 8:00 AM CDT Comprehensive Visit Preoperative Evaluation Center in [place], [place] [address] [place] [phone] Asiya Catalan M.D. Nelson, Janelle R, APRN, C.N.P. Preanesthetic Medical Exam (Primary Dx); Mass Pancreas; Malignant Neoplasm Of Pancreas Head (HCC); Chronic Obstructive Pulmonary Disease (HCC); Cancer Lung Primary Personal History; Anemia; Hypertension Essential Primary; Allergy Penicillin Antibiotic Personal History 07/01/2024 2:30 PM CDT Comprehensive Visit Division of Hepatobiliary and Pancreas Surgery in [place], [place] [address] [place] [phone] Asiya Catalan M.D. Mass Pancreas (Primary Dx) 06/30/2024 Orders Only Department of Oncology in [address] [phone] Leo Cervantes M.D., Ph.D. 06/30/2024 Clinical Communication Department of Oncology in [address] [phone] Leo Cervantes M.D., Ph.D. 06/26/2024 Orders Only Preoperative Evaluation Center in [place], [place] [address] [place] [phone] Abdullahi Conner M.SJasper., R.N. Anemia (Primary Dx) 06/26/2024 Orders Only Preoperative Evaluation Center in [place], [place] [address] [place] [phone] Bertha Norman APRN, C.N.P. Anemia (Primary Dx); Allergy Penicillin Antibiotic Personal History 06/26/2024 Clinical Communication Division of Hepatobiliary and Pancreas Surgery in [place], [place] [address] [place] [phone] Asiya Catalan M.D. 06/26/2024 11:50 AM CDT Comprehensive Visit Department of Oncology in [address] [phone] Leo Cervantes M.D., Ph.D. 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 Mass Pancreas Discharge Disposition: Home or Self Care 06/25/2024 10:13 AM CDT - 06/25/2024 12:21 PM CDT Hospital Encounter Division of Gastroenterology in [place], [place] [address] [place] [address] Magali Cui M.D. Law, Ryan J, D.O. Ballenger, Erin R, APRN, LASHAWN, DNAP Mass Pancreas Discharge Disposition: Home or Self Care 06/25/2024 1:31 PM CDT Anesthesia Event Division of Gastroenterology in [place], [place] [address] [place] [address] Bridget Almonte APRN, LASHAWN, DNAP Aziza Catalan M.D. 06/23/2024 12:50 PM CDT - 06/23/2024 11:59 PM CDT Hospital Encounter Department of Radiology, [facility] in [place], [place] [address] [place] [address] Alexia Aguilar APRN C.N.P., M.S. Mass Pancreas Discharge Disposition: Home or Self Care 06/20/2024 Orders Only Department of Oncology in [place], [place] [address] [place] [address] Alexia Aguilar APRN, C.N.P., M.S. Mass Pancreas (Primary Dx) 06/19/2024 10:22 AM CDT - 06/19/2024 11:59 PM CDT Hospital Encounter Department of Laboratory Medicine and Pathology, [facility] in [place], [place] [address] [place] [address] Eddy Byrd M.D. 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 HansRuchi rodas Mass Pancreas 06/19/2024 7:40 AM CDT Comprehensive Visit Division of Gastroenterology in [place], [place] [address] [place] [phone] Shira Mendiola M.B.B.S., M.S. Mass Pancreas (Primary Dx) 06/18/2024 8:44 AM CDT - 06/18/2024 11:02 AM CDT Hospital Encounter Department of Laboratory Medicine and Pathology, [facility] in [place], [place] [address] [place] [phone] Magali Cui M.D. Mass Pancreas Discharge Disposition: Home or Self Care 06/18/2024 11:03 AM CDT - 06/18/2024 11:59 PM CDT Hospital Encounter Department of Radiology, [facility] in [place], [place] [address] [place] [phone] Magali Cui M.D. Mass Pancreas Discharge Disposition: Home or Self Care 06/12/2024 1:20 PM CDT Virtual Visit Division of Gastroenterology in [place], [place] [address] [place] [phone] Rochelle Mejia R.N. 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 threatened to shut off services in your [...] your living situation today? I have a [facility] place to live 07/11/2024 Comments No Sex and Gender Information Value Date Recorded Sex Assigned at Female 01/29/2018 3:57 PM CDT Legal Sex Female 11:37 PM HOUSE WIRER HELPER Gender Identity Female 01/29/2018 3:57 PM CDT Sexual Orientation Straight 01/29/2018 3: 57 PM CDT Last Filed Vital Signs Vital Sign Reading Time Taken Comments Blood Pressure 92/67 07/11/2024 1:46 PM HOUSE WIRER HELPER Pulse 67 07/11/2024 1:46 PM HOUSE WIRER HELPER Temperature 36.5 C (97.7 F) 07/11/2024 1:46 PM HOUSE WIRER HELPER Respiratory Rate 19 07/11/2024 1:46 PM HOUSE WIRER HELPER Oxygen Saturation 97% 07/11/2024 1:46 PM HOUSE WIRER HELPER Inhaled Oxygen Concentration - - Weight 54.4 kg (119 lb 14.9 oz) 07/11/2024 3:38 AM HOUSE WIRER HELPER Height 154 cm (5' 0.63) 07/08/2024 3:57 PM HOUSE WIRER HELPER Body Mass Index 22.94 07/08/2024 3:57 PM HOUSE WIRER HELPER Plan of Treatment Upcoming Encounters Date Type Department Care Team (Latest Contact Info) Description 09/11/2024 11:30 AM HOUSE WIRER HELPER Clinical Communication Virtual Review in [place], [place] [address] [place] [phone] 09/15/2024 7:50 AM HOUSE WIRER HELPER Lab Department of Laboratory Medicine and Pathology, [facility], in [place], [place] [address] [place] [phone] Alexia Aguilar, GM, C.N.P., M.S. [address] [place] [phone] 09/15/2024 9:45 AM HOUSE WIRER HELPER Appointment Department of Radiology, [facility], in [place], [place] [address] [place] [address] Alexia Aguilar APRN, C.N.P., M.S. [address] [place] [phone] 09/15/2024 10:30 AM HOUSE WIRER HELPER Office Visit Department of Medical Genetics in [place], [place] [address] [place] [address] Eddy Byrd M.D. [address] [place] [phone] Stefani Montenegro, M.S., [facility] [address] [place] [phone] 09/15/2024 12:00 PM HOUSE WIRER HELPER Appointment Department of Radiology, [facility], in [place], [place] [address] [place] [address] Alexia Aguilar APRN, C.N.Emmie., M.S. [address] [place] [phone] 09/16/2024 9:20 AM HOUSE WIRER HELPER Office Visit Department of Oncology in [place], [place] [address] [place] [address] Alexia Aguilar APRN, C.N.Emmie., M.S. [address] [place] [phone] 09/16/2024 11:00 AM HOUSE WIRER HELPER Comprehensive Visit Division of Hepatobiliary and Pancreas Surgery in [place], [place] [address] [place] [address] Asiya Catalan M.D. [address] [place] [phone] 09/17/2024 10:42 AM HOUSE WIRER HELPER Hospital Encounter [facility] 01 4 AM ADMIT [address] [place] [address] Asiya Catalan M.D. [address] [place] [address] 09/17/2024 10:42 AM HOUSE WIRER HELPER - 09/17/2024 12:22 PM HOUSE WIRER HELPER Surgery [facility] RO MAIN OR [address] [place] [address] Asiya Catalan M.D. [address] [place] [address] LAPAROSCOPIC EXPLORATION - DIAGNOSTIC - cytology - including peritoneal CEA, CA 19-9 & KRAS 10/30/2024 2:20 PM HOUSE WIRER HELPER Virtual Visit Division of Gastroenterology in [place], [place] [address] [place] [address] Shira Mendiola M.B.B.S., M.S. [address] [place] [address] Scheduled Procedures Name Priority Associated Diagnoses Date/Ti me LAPAROSCOPIC EXPLORATION - DIAGNOSTIC Malignant Neoplasm Of Pancreas Head (HCC) 09/17/2024 10:42 AM HOUSE WIRER HELPER Medical Devices Implanted Type Area Sign Builder Device Identifier Shelf Expiration Date Model / Serial / Lot Stnt Phuc Vbl Shrt Wr 10x40 - [id number] Implanted:Qty : 1 on 07/02/2024 by Sonu Correa M.D. at [facility] Biliary Stent N/A: Bile Duct [employer]ing [id number] / / Stnt Zmm Otw 7x7 - [id number] Implanted:Qty : 1 on 07/02/2024 by Sonu Correa M.D. at [facility] Biliary Stent N/A: Bile Duct [employer] 12/30/2026 [id number] / / [id number] Breast Implant Breast Implant Bilateral : Breast Explanted Type Area Sign Builder Device Identifier Shelf Expiration Date Model / Serial / Lot Stnt Phuc Vbl Shrt Wr 10x40 - [id number] - [id number] Implanted:Qty: 1 on 06/25/2024 by Leo Rockwell D.O. at [facility]/[employer]onda Explanted:Qty: 1 on 07/02/2024 by Sonu Correa M.D. at [facility] Biliary Stent Downing 04/06/2027 [id number] / [id number] / Procedures Procedure Name Priority Date/Time Associated Diagnosis Comments PROTHROMBIN TIME (PT), P Routine 07/15/2024 11:49 AM HOUSE WIRER HELPER Jaundice COMPREHENSIVE METABOLIC PANEL, S/P Routine 07/15/2024 11:49 AM HOUSE WIRER HELPER Jaundice COMPREHENSIVE METABOLIC PANEL, S/P Timed 07/11/2024 8:06 AM HOUSE WIRER HELPER CBC NO CALL BACK, REFLEX T/S Timed 07/11/2024 8:06 AM HOUSE WIRER HELPER DX CHEST AP OR PA AND LATERAL 2 VIEWS RAD - Emergent (Fastest; for the most critically ill patients) 07/11/2024 3:34 AM HOUSE WIRER HELPER DX CHEST PORTABLE 1 VIEW RAD - Semiurgent (Fast; most ED patients; some inpatients) 07/11/2024 1:25 AM HOUSE WIRER HELPER CBC NO CALL BACK, REFLEX T/S Routine 07/10/2024 12:17 AM HOUSE WIRER HELPER COMPREHENSIVE METABOLIC PANEL, S/P Routine 07/10/2024 12:17 AM HOUSE WIRER HELPER LACTATE DEHYDROGENASE (LD), S Routine 07/10/2024 12:17 AM HOUSE WIRER HELPER TRANSFUSE RED BLOOD CELLS Routine 07/09/2024 8:38 PM HOUSE WIRER HELPER PREPARE RED BLOOD CELLS Routine 07/09/2024 3:37 PM HOUSE WIRER HELPER ANTIBODY IDENTIFICATION STAT 07/09/2024 3:37 PM HOUSE WIRER HELPER TYPE AND SCREEN STAT 07/09/2024 3:37 PM HOUSE WIRER HELPER MR ABDOMEN MRCP WITHOUT AND WITH IV CONTRAST RAD - Routine (most inpatients and all outpatients) 07/09/2024 2:04 PM HOUSE WIRER HELPER MAGNESIUM, S Routine 07/09/2024 11:22 AM HOUSE WIRER HELPER PHOSPHORUS (INORGANIC), S Routine 07/09/2024 11:22 AM HOUSE WIRER HELPER CBC NO CALL BACK, REFLEX T/S Routine 07/09/2024 11:22 AM HOUSE WIRER HELPER COMPREHENSIVE METABOLIC PANEL, S/P Routine 07/09/2024 11:22 AM HOUSE WIRER HELPER US THORACENTESIS LEFT WITH IMAGING GUIDANCE RAD - Routine (most inpatients and all outpatients) 07/08/2024 11:17 AM HOUSE WIRER HELPER CYTOLOGY NON-BRICK LOADER Timed 07/08/2024 10:54 AM HOUSE WIRER HELPER Jaundice Hypokalemia Hypomagnesemia Cancer Pancreas Primary Personal History CELL COUNT AND DIFFERENTIAL, BF Timed 07/08/2024 10:54 AM HOUSE WIRER HELPER Jaundice Hypokalemia Hypomagnesemia Cancer Pancreas Primary Personal History PROTEIN, TOTAL, BF Timed 07/08/2024 10:54 AM HOUSE WIRER HELPER Jaundice Hypokalemia Hypomagnesemia Cancer Pancreas Primary Personal History LACTATE DEHYDROGENASE (LD), BF Timed 07/08/2024 10:54 AM HOUSE WIRER HELPER Jaundice Hypokalemia Hypomagnesemia Cancer Pancreas Primary Personal History BACTERIAL CULTURE, AEROBIC + SUSC Timed 07/08/2024 10:54 AM HOUSE WIRER HELPER Jaundice Hypokalemia Hypomagnesemia Cancer Pancreas Primary Personal History GRAM STAIN Timed 07/08/2024 10:54 AM HOUSE WIRER HELPER Jaundice Hypokalemia Hypomagnesemia Cancer Pancreas Primary Personal History PROTHROMBIN TIME (PT), P STAT 07/08/2024 10:13 AM HOUSE WIRER HELPER (TTE) 2D ECHO DOPPLER COLOR Routine 07/08/2024 9:40 AM HOUSE WIRER HELPER PROCALCITONIN, S STAT 07/08/2024 12:53 AM HOUSE WIRER HELPER NT-PRO B-TYPE NATRIURETIC PEPTIDE (BNP), S Routine 07/08/2024 12:53 AM HOUSE WIRER HELPER POTASSIUM, S/P STAT 07/08/2024 12:53 AM HOUSE WIRER HELPER CORTISOL, FREE AND TOTAL Routine 07/08/2024 12:53 AM HOUSE WIRER HELPER ACTH, P Routine 07/08/2024 12:53 AM HOUSE WIRER HELPER MAGNESIUM, S Routine 07/08/2024 12:53 AM HOUSE WIRER HELPER CBC WITH DIFFERENTIAL, B Routine 07/08/2024 12:53 AM HOUSE WIRER HELPER COMPREHENSIVE METABOLIC PANEL, S/P Routine 07/08/2024 12:53 AM HOUSE WIRER HELPER POTASSIUM, S/P STAT 07/07/2024 8:03 PM HOUSE WIRER HELPER DIPSTICK, U STAT 07/07/2024 5:11 PM HOUSE WIRER HELPER HC OSMOLALITY ASSAY URINE STAT 07/07/2024 5:11 PM HOUSE WIRER HELPER MICROSCOPIC MANUAL STAT 07/07/2024 5: 11 PM HOUSE WIRER HELPER PH, RANDOM, U STAT 07/07/2024 5:11 PM HOUSE WIRER HELPER URINALYSIS WITH MICROSCOPIC STAT 07/07/2024 5:11 PM HOUSE WIRER HELPER BACTERIAL CULTURE, AEROBIC + SUSC, URINE STAT 07/07/2024 5:11 PM HOUSE WIRER HELPER HEPATIC FUNCTION PANEL, S STAT 07/07/2024 4:52 PM HOUSE WIRER HELPER DX CHEST PORTABLE 1 VIEW RAD - Semiurgent (Fast; most ED patients; some inpatients) 07/07/2024 4:20 PM HOUSE WIRER HELPER VBG & LYTES CG8+, POCT, B STAT 07/07/2024 3:44 PM HOUSE WIRER HELPER GLUCOSE POCT, B STAT 07/07/2024 3:44 PM HOUSE WIRER HELPER MAGNESIUM, S STAT 07/07/2024 3:44 PM HOUSE WIRER HELPER CBC WITH DIFFERENTIAL, B STAT 07/07/2024 3:44 PM HOUSE WIRER HELPER BASIC METABOLIC PANEL, S/P STAT 07/07/2024 3:44 PM HOUSE WIRER HELPER ECG STAT 07/07/2024 3:33 PM HOUSE WIRER HELPER FL FLUORO LESS THAN 1 HOUR RAD [...] outpatients) 06/23/2024 3:29 PM CDT [facility] Routine 06/19/2024 10:43 AM [...] * Prothrombin Time (PT) (07/15/2024 11:49 AM HOUSE WIRER HELPER) Only the most recent of4 resultswithin the time period is included. Prothrombin Time, P 11.2 9.4 - 12.5 sec 07/15/2024 12:03 PM HOUSE WIRER HELPER METH INR 1.0 0.9 - 1.1 07/15/2024 12:03 PM HOUSE WIRER HELPER METH Comment: ----ADDITIONAL INFORMATION---- Standard intensity warfarin therapeutic range: 2.0 to 3.0 High intensity warfarin therapeutic range: 2.5 to 3.5 Blood (Blood, Venous) 07/15/2024 11:49 AM HOUSE WIRER HELPER 07/15/2024 11:55 AM HOUSE WIRER HELPER us Benjamin Hart P.A.-C., M.S. LAB BLOOD ADD-ON Fin al Result [facility] [address] [place] [address], [facility] METH [facility] [address] [place] [address] * (ABNORMAL) Comprehensive Metabolic Panel (07/15/2024 11:49 AM HOUSE WIRER HELPER) Only the most recent of6 resultswithin the time period is included. Pathologist [facility] Potassium, S 3.6 3.6 - 5.2 mmol/L 07/15/2024 12:40 PM HOUSE WIRER HELPER DTL Sodium, S 141 135 - 145 mmol/L 07/15/2024 12:40 PM HOUSE WIRER HELPER DTL Chloride, S 107 98 - 107 mmol/L 07/15/2024 12:40 PM HOUSE WIRER HELPER DTL Bicarbonate, S 22 22 - 29 mmol/L 07/15/2024 12:40 PM HOUSE WIRER HELPER DTL Anion Gap 12 7 - 15 07/15/2024 12:40 PM HOUSE WIRER HELPER DTL BUN (Blood Urea Nitrogen), S 19 6 - 21 mg/dL 07/15/2024 12:40 PM HOUSE WIRER HELPER DTL Creatinine 0.76 0.59 - 1.04 mg/dL 07/15/2024 12:40 PM HOUSE WIRER HELPER DTL Estimated GFR (eGFR) 80 >=60 mL/min/BS A 07/15/2024 12:40 PM HOUSE WIRER HELPER DTL Comment: Estimated GFR calculated using the 2020 CKD_EPI creatinine equation. Calcium, Total, S 8.6(L) 8.8 - 10.2 mg/dL 07/15/2024 12:40 PM HOUSE WIRER HELPER DTL Glucose, S 104 70 - 140 mg/dL 07/15/2024 12:40 PM HOUSE WIRER HELPER DTL Protein, Total, S 5.6(L) 6.3 - 7.9 g/dL 07/15/2024 12:40 PM HOUSE WIRER HELPER DTL Albumin, S 3.5 3.5 - 5.0 g/dL 07/15/2024 12:40 PM HOUSE WIRER HELPER DTL Aspartate Aminotransferase (AST), S 34 8 - 43 U/L 07/15/2024 12:40 PM HOUSE WIRER HELPER DTL Alkaline Phosphatase, S 506(H) 35 - 104 U/L 07/15/2024 12:40 PM HOUSE WIRER HELPER DTL Alanine Aminotransferase (ALT), S 16 7 - 45 U/L 07/15/2024 12:40 PM HOUSE WIRER HELPER DTL Bilirubin, Total, S 12.1(H) 0.0 - 1.2 mg/dL 07/15/2024 12:40 PM HOUSE WIRER HELPER DTL Blood (Blood, Venous) 07/15/2024 11:49 AM HOUSE WIRER HELPER 07/15/2024 12:22 PM HOUSE WIRER HELPER us Benjamin Hart P.A.-C., M.S. LAB BLOOD ADD-ON Fin al Result [facility] [address] [place] [address], [facility] [address] [place] [address] * (ABNORMAL) CBC no call back, reflex T/S HGB <8 (07/11/2024 8:06 AM HOUSE WIRER HELPER) Only the most recent of3 resultswithin the time period is included. Hemoglobin 8.0(L) 11.6 - 15.0 g/dL 07/11/2024 8:38 AM HOUSE WIRER HELPER DTL Hematocrit 23.6(L) 35.5 - 44.9 % 07/11/2024 8:38 AM HOUSE WIRER HELPER DTL Erythrocytes 2.81(L) 3.92 - 5.13 x10(12)/L 07/11/2024 8:38 AM HOUSE WIRER HELPER DTL MCV 84.0 78.2 - 97.9 fL 07/11/2024 8:38 AM HOUSE WIRER HELPER DTL RBC Distrib Width 18.7(H) 12.2 - 16.1 % 07/11/2024 8:38 AM HOUSE WIRER HELPER DTL Platelet Count 341 157 - 371 x10(9)/L 07/11/2024 8:38 AM HOUSE WIRER HELPER DTL Leukocytes 8.7 3.4 - 9.6 x10(9)/L 07/11/2024 8:38 AM HOUSE WIRER HELPER DTL Neutrophils 6.92(H) 1.56 - 6.45 x10(9)/L 07/11/2024 8:38 AM HOUSE WIRER HELPER DHPM Lymphocytes 0.64(L) 0.95 - 3.07 x10(9)/L 07/11/2024 8:38 AM HOUSE WIRER HELPER DTL Monocytes 1.01(H) 0.26 - 0.81 x10(9)/L 07/11/2024 8:38 AM HOUSE WIRER HELPER DTL Eosinophils 0.10 0.03 - 0.48 x10(9)/L 07/11/2024 8:38 AM HOUSE WIRER HELPER DTL Basophils 0.04 0.01 - 0.08 x10(9)/L 07/11/2024 8:38 AM HOUSE WIRER HELPER DTL Blood (Blood, Venous) 07/11/2024 8:06 AM HOUSE WIRER HELPER 07/11/2024 8:22 AM HOUSE WIRER HELPER Benjamin Hart P.A.-C., M.S. LAB BLOOD NON ADD-ON Final Result [facility] [address] [place] [address], [facility] DTL [facility] [address] [place] [address] DHPM [facility] [address] [place] [address] * DX Chest AP or PA and Lateral 2 Views (07/11/2024 3:34 AM HOUSE WIRER HELPER) Anatomical Region Laterality Modality Chest, Thoracic RST LOS, Tho racic ARZ LOS, Thoracic FLA LOS N/A Digital Radiography Impressions 07/11/2024 9:36 AM HOUSE WIRER HELPER Since earlier today, resolved apparent widening of [...] coils and stent. Narrative 07/11/2024 9:36 AM HOUSE WIRER HELPER EXAM: DX CHEST AP OR PA AND [...] Chest Portable 1 View (07/11/2024 1:25 AM HOUSE WIRER HELPER) Only the most recent of2 resultswithin the time period is included. Anatomical Region Laterality Modality Chest, Thoracic RST LOS, Tho racic ARZ LOS, Thoracic FLA LOS N/A Digital Radiography Impressions 07/11/2024 9:52 AM HOUSE WIRER HELPER Since 07/07/2024, mild relative widening of the [...] with peripheral calcifications. Narrative 07/11/2024 9:52 AM HOUSE WIRER HELPER EXAM: DX CHEST PORTABLE 1 VIEW Procedure [...] * LD (Lactate Dehydrogenase) (07/10/2024 12:17 AM HOUSE WIRER HELPER) [facility] LD 208 122 - 222 U/L 07/10/2024 1:16 AM HOUSE WIRER HELPER DTL Blood (Blood, Venous) 07/10/2024 12:17 AM HOUSE WIRER HELPER 07/10/2024 1:00 AM HOUSE WIRER HELPER Benjamin Hart P.A.-C., M.S. LAB BLOOD NON ADD-ON Final Result [facility] [address] [place] [address], [facility] [address] [place] [address] * Transfuse Red Blood Cells : (07/09/2024 10:48 PM HOUSE WIRER HELPER) Benjamin Hart P.A.-C., M.S. BLOOD TRANSFUSION OR DERABLES Final Result * Antibody Identification, Erythrocytes (07/09/2024 3:37 PM HOUSE WIRER HELPER) [facility] Antibody Identification Anti-Jkb, Anti-K 07/09/2024 8:26 PM HOUSE WIRER HELPER DTL 07/09/2024 3:37 PM HOUSE WIRER HELPER 07/09/2024 3:48 PM HOUSE WIRER HELPER Narrative [facility] - 07/09/2024 8:26 PM HOUSE WIRER HELPER Specimen Information: Specimen ID: [id number] Specimen Collection Start Date: 07/09/2024 3:37 PM Specimen Received Date: 07/09/2024 3:48 PM Specimen ID: [id number] Specimen Collection Start Date: 07/09/2024 3:37 PM Specimen Received Date: 07/09/2024 3:48 PM Benjamin Hart P.A.-C., M.S. LAB BLOOD BANK TEST ORDERABLES Final Result Performing Organization Address [facility] Co de Phone Number [facility] [address] [place] [address], [facility] DTL [facility] [address] [place] [address] * Type and Screen (with Reflex Antibody ID) (07/09/2024 3:37 PM HOUSE WIRER HELPER) ABORh O Neg Not applicable 07/09/2024 4:50 PM HOUSE WIRER HELPER ETRM Antibody Screen Positive Negative 07/09/2024 5:26 PM HOUSE WIRER HELPER ETRM Type & Screen Expiration 07/12/2024 23:59 07/09/2024 4:50 PM HOUSE WIRER HELPER ETRM Testing Location Beau DEFAULT 07/09/2024 3:48 PM HOUSE WIRER HELPER ETRM Blood 07/09/2024 3:37 PM HOUSE WIRER HELPER 07/09/2024 3:48 PM HOUSE WIRER HELPER Benjamin Hart P.A.-C., M.S. LAB BLOOD BANK TEST ORDERABLES Final Result Performing Organization Address [facility] Co de Phone Number [facility] [address] [place] [address], [facility] ETRM [facility] [address] [place] [address] * MR Abdomen MRCP without and with IV Contrast (07/09/2024 2:04 PM HOUSE WIRER HELPER) Anatomical Region Laterality Modality Abdomen, Abdominal RST LOS, Abdominal ARZ LOS, Abdominal FLA LOS N/A Magnetic Resonance Impressions 07/09/2024 3:14 PM HOUSE WIRER HELPER 1. Redemonstrated is mass in the pancreatic [...] in the abdomen. Narrative 07/09/2024 3:14 PM HOUSE WIRER HELPER EXAM: MR ABDOMEN MRCP WITHOUT AND WITH [...] Result * Phosphorus Inorganic (07/09/2024 11:22 AM HOUSE WIRER HELPER) Phosphorus (Inorganic), S 3.5 2.5 - 4.5 mg/dL 07/09/2024 12:14 PM HOUSE WIRER HELPER DTL Blood (Blood, Venous) 07/09/2024 11:22 AM HOUSE WIRER HELPER 07/09/2024 11:52 AM HOUSE WIRER HELPER Benjamin Hart P.A.-C., M.S. LAB BLOOD ADD-ON Fin al Result [id number] [place] [address] [address] [place] [address] * Magnesium (07/09/2024 11:22 AM HOUSE WIRER HELPER) Only the most recent of3 resultswithin the time period is included. Magnesium, S 1.9 1.7 - 2.3 mg/dL 07/09/2024 12:14 PM HOUSE WIRER HELPER DTL Blood (Blood, Venous) 07/09/2024 11:22 AM HOUSE WIRER HELPER 07/09/2024 11:52 AM HOUSE WIRER HELPER us Benjamin Hart P.A.-C., M.S. LAB BLOOD ADD-ON Fin al Result [facility] [address] [place], [place] [id number] [place] [address] [address] [place] [address] * US Thoracentesis Left with Imaging Guidance (07/08/2024 11:17 AM HOUSE WIRER HELPER) Anatomical Region Laterality Modality Chest, Ultrasound RST LOS, U ltrasound ARZ LOS, Procedure FLA LOS, Abdominal FLA LOS, Procedural, Procedural NWWI LOS Left Ultrasound Impressions 07/08/2024 11:43 AM HOUSE WIRER HELPER Ultrasound-guided left pleural space thoracentesis. EP Narrative 07/08/2024 11:43 AM HOUSE WIRER HELPER EXAM: US THORACENTESIS LEFT WITH IMAGING GUIDANCE [...] US PROCEDURES Fi nal Result * Cytology Non-BRICK LOADER (07/08/2024 10:54 AM HOUSE WIRER HELPER) 07/09/2024 3:07 PM HOUSE WIRER HELPER DTL Participated in the Interpretation Patricia LiraB.S. -Pathology Resident 07/09/2024 3:07 PM HOUSE WIRER HELPER DTL Report electronically signed by Hernan Espino, MGi I verify that I have examined all relevant slides/materi als for the specimen(s) and rendered or confirmed the diagnosis. 07/09/2024 3:07 PM HOUSE WIRER HELPER DTL Gross Description Received 100 cc of bloody fluid. 07/09/2024 3:07 PM HOUSE WIRER HELPER DTL Source A. Pleural, Left, fluid 07/09/2024 3:07 PM HOUSE WIRER HELPER DTL Interpretation A. Pleural, Left, fluid (ThinPrep): Negative for malignancy. Acute on chronic inflammation. 07/09/2024 3:07 PM HOUSE WIRER HELPER DTL Fluid (Pleural Fluid, Left) 07/08/2024 10:54 AM HOUSE WIRER HELPER us Benjamin Hart P.A.-C., M.S. LAB SURG PATH ORDERA BLES Final Result [facility] [address] [place] [address], [facility] DTL [address] [facility] [address] [place] [address] * Protein, Total, Body Fluid (07/08/2024 10:54 AM HOUSE WIRER HELPER) Protein, Total, BF See Below See Comment g/dL 07/08/2024 2:11 PM HOUSE WIRER HELPER DTL Comment: Sample received icteric. The measured total protein was 1.8 g/dL, however, internal [facility] validation studies show this values to [...] clinical findings. All other fluids refer to www.[employer].com for further interpretive information. This test has been modified from the faculty instructor's instructions. Its performance characteristics were determined by [facility] in a manner consistent with CLIA requirements. This test has not been cleared or approved by the U.S. Food and Drug Administration. Fluid Type, Protein, Total Fluid, Pleural Fluid, Left 07/08/2024 11:28 AM HOUSE WIRER HELPER DTL Fluid (Pleural Fluid, Left) 07/08/2024 10:54 AM HOUSE WIRER HELPER Benjamin Hart P.A.-C., M.S. LAB BODY FLUIDS AND STOOLS ORDERABLES Final Result Performing Organization Address [facility] Co de Phone Number [facility] [address] [place] [address] * Bacterial Culture, Aerobic + Susceptibility (07/08/2024 10:54 AM HOUSE WIRER HELPER) Bacterial Culture, Aerobic + Susc No growth after 5 days of incubation. 07/13/2024 8:48 AM HOUSE WIRER HELPER DTL Fluid (Pleural Fluid, Left) 07/08/2024 10:54 AM HOUSE WIRER HELPER Narrative [facility] - 07/13/2024 8:48 AM HOUSE WIRER HELPER Bacterial Culture: Received Bactec aerobic and Bactec anaerobic bottles Benjamin Hart P.A.-C., M.S. LAB MICROBIOLOGY - G ENERAL ORDERABLES Final Result Performing Organization Address [facility] de Phone Number [facility] [address] [place] [address] * Cell Count and Differential, Body Fluid (07/08/2024 10:54 AM HOUSE WIRER HELPER) Fluid Type Left; Pleural/Th oracentesi s 07/08/2024 11:51 AM HOUSE WIRER HELPER DHPM Gross Appearance Serous 07/08/20 24 11:51 AM HOUSE WIRER HELPER DHPM Total Nucleated Cells 570 /mcL 07/08/2024 11:51 AM HOUSE WIRER HELPER DHPM Comment: ----REFERENCE VALUE---- Synovial: <150 /mcL Peritoneal: <500 /mcL Pleural: <500 /mcL Pericardial: <500 /mcL ----ADDITIONAL INFORMATION---- This test has been modified from the faculty instructor's instructions. Its performance characteristics were determined by [facility] in a manner consistent with CLIA requirements. This test has not been cleared or approved by the U.S. Food and Drug Administration. Neutrophils 34 % 07/08/2024 12:20 PM HOUSE WIRER HELPER DHPM Comment: ----REFERENCE VALUE---- Synovial: <25% Peritoneal: <25% Pleural: <25% Pericardial: <25% Lymphocytes 34 Synovial <75% % 07/08/2024 12:20 PM HOUSE WIRER HELPER DHPM Monocytes/Macropha ges 32 Synovial <70% % 07/08/2024 12:20 PM HOUSE WIRER HELPER DHPM Comment See Comment 07/08/2024 12:20 PM HOUSE WIRER HELPER DHPM Comment:No blasts or maligna nt cells seen. Reviewed by: Paulina 07/08/2024 12:20 PM HOUSE WIRER HELPER DHPM Fluid (Pleural Fluid, Left) 07/08/2024 10:54 AM HOUSE WIRER HELPER Benjamin Hart P.A.-C., M.S. LAB BODY FLUIDS AND STOOLS ORDERABLES Final Result Performing Organization Address City/[facility]/ZIP Co de Phone Number [facility] [address] [place] [address] * Gram Stain (07/08/2024 10:54 AM HOUSE WIRER HELPER) Gram Stain No organisms seen. White blood cells, Rare 07/08/2024 5:25 PM HOUSE WIRER HELPER DTL Fluid (Pleural Fluid, Left) 07/08/2024 10:54 AM HOUSE WIRER HELPER Narrative [facility] - 07/08/2024 5:25 PM HOUSE WIRER HELPER Bacterial Culture: Received Bactec aerobic and Bactec anaerobic bottles Benjamin Hart P.A.-C., M.S. LAB MICROBIOLOGY - G ENERAL ORDERABLES Final Result Performing Organization Address City/[facility]/ZIP Co de Phone Number [facility] [address] DTL [facility] [address] [place] [address] * Lactate Dehydrogenase (LD), Body Fluid (07/08/2024 10:54 AM HOUSE WIRER HELPER) Lactate Dehydrogenase (LD), BF 157 See Comment U/L 07/08/2024 12:38 PM HOUSE WIRER HELPER DTL Comment: ----ADDITIONAL INFORMATION---- Pleural fluid lactate [...] clinical findings. All other fluids refer to www.[employer] for further interpretive information. This test has been modified from the faculty instructor's instructions. Its performance characteristics were determined by [facility] in a manner consistent with CLIA requirements. This test has not been cleared or approved by the U.S. Food and Drug Administration. Fluid Type, Lactate Dehydrogenase Fluid, Pleural Fluid, Left 07/08/2024 11:28 AM HOUSE WIRER HELPER DTL Fluid (Pleural Fluid, Left) 07/08/2024 10:54 AM HOUSE WIRER HELPER Benjamin Hart P.A.-C., M.S. LAB BODY FLUIDS AND STOOLS ORDERABLES Final Result [facility] [address] [place] [address], [facility] [address] [place] [address] * (TTE) 2D ECHO DOPPLER COLOR (07/08/2024 9:40 AM HOUSE WIRER HELPER) Pathologist [facility] Ejection Fraction 65 MC CV EIMS Mid-Ascending [...] Region Laterality Modality Other 07/08/2024 8:02 AM HOUSE WIRER HELPER Impressions 07/08/2024 10:35 AM HOUSE WIRER HELPER There are no previous [facility] echocardiograms available for comparison. LEFT VENTRICLE:Normal [...] per Echocardiography Contrast Administration Protocol Reference Document [id number] Rev 12/15/2021. Patient met an inclusion criterion and did not have contraindications in screening sections. For the complete report, see the Order-Level Documents. Narrative 07/08/2024 10:35 AM HOUSE WIRER HELPER For the complete report, see the Order-Level [...] pericardial effusion. 8. There are no previous [facility] echocardiograms available for comparison. Comments Focal thickening of the mid anterior and lateral levy of unclear clinical significance. Artifactual changes not excluded, particularly when we take the short axis ultrasound-enhanced images into account. Clinical and radiographic correlation recommended. [facility] Procedure Note Chong Bailey M.D. - 07/08/2024 For the complete report, see the Order-Level Documents. Hemodynamics Heart Rate: 65 BPM Blood Pressure: 117 / 60 mmHg ECG: Sinus rhythm with ectopics Final Impressions 1. Normal left ventricular chamber size , no regional wall motionabnormalities. Calculated ejection fraction 65%. 2. Focal thickening of the mid anterior and lateral lvey of unclearclinical significance suspected. Se comments. 3. [...] pericardial effusion. 8. There are no previous [facility] echocardiograms available forcomparison. Comments Focal thickening of the mid anterior and lateral levy of unclear clinicalsignificance. Artifactual changes not excluded, particularly when we takethe short axis ultrasound-enhanced images into account. Clinical andradiographic correlation recommended. Bssp Findings There are no previous [facility] echocardiograms available forcomparison. LEFT VENTRICLE:Normal left [...] administered per EchocardiographyContrast Administration Protocol Reference Document [id number] Rev12/15/2021. Patient met an inclusion criterion and did not havecontraindications in screening sections. For the complete report, see the Order-Level Documents. us Feroz Tierney M.D. CV ECHO PROCEDURES Final Result * (ABNORMAL) Cortisol, Free and Total (07/08/2024 12:53 AM HOUSE WIRER HELPER) [facility] Cortisol, Free, S 1.455(H) 6:00-10:30 AM Collection 0.121-1.065 mcg/dL mcg/dL 07/15/2024 4:01 PM [facility] Comment: ----ADDITIONAL INFORMATION---- This test was developed and its performance characteristics determined by [facility] in a manner consistent with CLIA requirements. This test has not been cleared or approved by the U.S. Food and Drug Administration. Cortisol, S, LC-MS/MS 25 mcg/dL 07/08/2024 11:18 PM [facility] Comment: ----REFERENCE VALUE---- Pediatric ranges not established Adult ranges: a.m.: 5-25 p.m.: 2-14 Blood (Blood, Venous) 07/08/2024 12:53 AM HOUSE WIRER HELPER 07/08/2024 12:06 PM HOUSE WIRER HELPER us Feroz Tierney M.D. LAB BLOOD NON ADD-ON Final Resul t [facility] [address] [place] [address] [facility] [address] [place] [address] [place] [address] * (ABNORMAL) NT-Pro B-Type Natriuretic Peptide (BNP) (07/08/2024 12:53 AM HOUSE WIRER HELPER) [facility] NT-Pro BNP 2035(H) <=540 pg/mL 07/08/2024 3:29 AM HOUSE WIRER HELPER DTL Comment: NT-proBNP values less than 300 [...] failure. Blood (Blood, Venous) 07/08/2024 12:53 AM HOUSE WIRER HELPER 07/08/2024 1:23 AM HOUSE WIRER HELPER Feroz Tierney M.D. LAB BLOOD ADD-ON Final Result Performing Organization Address [facility] Co de Phone Number [address] [place] [address] * Procalcitonin (07/08/2024 12:53 AM HOUSE WIRER HELPER) Pathologist [facility] Procalcitonin, S 0.18 0.00 - 0.24 ng/mL 07/08/2024 1:48 AM HOUSE WIRER HELPER DTL Comment: Procalcitonin <0.25 ng/mL may indicate lower probability of bacteremia or bacterial pneumonia. Intracellular bacteria, viruses, and fungi do not cause elevation of procalcitonin, so low values (<0.25 ng/mL) do not rule out other infections. Blood (Blood, Venous) 07/08/2024 12:53 AM HOUSE WIRER HELPER 07/08/2024 1:23 AM HOUSE WIRER HELPER Feroz Tierney M.D. LAB BLOOD ADD-ON Final Result Performing Organization Address City/[facility]/ZIP Co de Phone Number [facility] [address] [place] [address], [facility] [address] [address] * ACTH (Adrenocorticotropic Hormone) (07/08/2024 12:53 AM HOUSE WIRER HELPER) [facility] Adrenocorticotropic Hormone, P 26 7.2-63 (a.m. collectio n) pg/mL 07/08/2024 3:57 PM HOUSE WIRER HELPER [facility] Blood (Blood, Venous) 07/08/2024 12:53 AM HOUSE WIRER HELPER 07/08/2024 7:56 AM HOUSE WIRER HELPER Feroz Tierney M.D. LAB BLOOD NON ADD-ON Final Resul t [facility] [address] [place] [address] [facility] [address] [place] [address] * (ABNORMAL) CBC with Differential, Blood (07/08/2024 12:53 AM HOUSE WIRER HELPER) Only the most recent of3 resultswithin the time period is included. [facility] Hemoglobin 8.0(L) 11.6 - 15.0 g/dL 07/08/2024 1:14 AM HOUSE WIRER HELPER DTL Hematocrit 22.7(L) 35.5 - 44.9 % 07/08/2024 1:14 AM HOUSE WIRER HELPER DTL Erythrocytes 2.93(L) 3.92 - 5.13 x10(12)/L 07/08/2024 1:14 AM HOUSE WIRER HELPER DTL MCV 77.5(L) 78.2 - 97.9 fL 07/08/2024 1:14 AM HOUSE WIRER HELPER DTL RBC Distrib Width 19.9(H) 12.2 - 16.1 % 07/08/2024 1:14 AM HOUSE WIRER HELPER DTL Platelet Count 418(H) 157 - 371 x10(9)/L 07/08/2024 1:14 AM HOUSE WIRER HELPER DTL Leukocytes 13.1(H) 3.4 - 9.6 x10(9)/L 07/08/2024 1:14 AM HOUSE WIRER HELPER DTL Neutrophils 11.06(H) 1.56 - 6.45 x10(9)/L 07/08/2024 1:14 AM HOUSE WIRER HELPER DHPM Lymphocytes 0.54(L) 0.95 - 3.07 x10(9)/L 07/08/2024 1:14 AM HOUSE WIRER HELPER DTL Monocytes 1.40(H) 0.26 - 0.81 x10(9)/L 07/08/2024 1:14 AM HOUSE WIRER HELPER DTL Eosinophils 0.07 0.03 - 0.48 x10(9)/L 07/08/2024 1:14 AM HOUSE WIRER HELPER DTL Basophils 0.05 0.01 - 0.08 x10(9)/L 07/08/2024 1:14 AM HOUSE WIRER HELPER DTL Blood (Blood, Venous) 07/08/2024 12:53 AM HOUSE WIRER HELPER 07/08/2024 1:08 AM HOUSE WIRER HELPER Feroz Tierney M.D. LAB BLOOD ADD-ON Final Result Performing Organization Address City/[facility]/ZIP Co de Phone Number [facility] [address] DTL [facility] [address] [place] [address] [place] [address] * (ABNORMAL) Potassium (07/08/2024 12:53 AM HOUSE WIRER HELPER) Only the most recent of2 resultswithin the time period is included. Potassium, P 3.1(L) 3.6 - 5.2 mmol/L 07/08/2024 1:12 AM HOUSE WIRER HELPER METH Blood (Blood, Venous) 07/08/2024 12:53 AM HOUSE WIRER HELPER 07/08/2024 1:12 AM HOUSE WIRER HELPER Feroz Tierney M.D. LAB BLOOD ADD-ON Final Result Performing Organization Address City/[facility]/ZIP Co de Phone Number [facility] [address] [place] [address], [facility] [place] [address] * Osmolality, Urine (07/07/2024 5:11 PM HOUSE WIRER HELPER) Osmolality, U 512 150 - 1150 mOsm/kg 07/07/2024 6:15 PM HOUSE WIRER HELPER DTL Urine 07/07/2024 5:11 PM HOUSE WIRER HELPER 07/07/2024 5:39 PM HOUSE WIRER HELPER Danny Pearson P.A.-C. LAB URINE ORDERABLES Jazzmine l Result Performing Organization Address City/[facility] Co de Phone Number [facility] [address] [place] [address], [facility] [address] [place] [address] * (ABNORMAL) Dipstick, Urine (07/07/2024 5:11 PM HOUSE WIRER HELPER) Hemoglobin, QL, U Negative Negative 07/07/2024 5:54 PM HOUSE WIRER HELPER DTL Leukocyte Esterase, U Trace(A) Negative 07/07/2024 5:54 PM HOUSE WIRER HELPER DTL Nitrite, U Negative Negative 07/07/2024 5:54 PM HOUSE WIRER HELPER DTL Ketone, U Negative Negative mg/dL 07/07/2024 5:54 PM HOUSE WIRER HELPER DTL Glucose, U 70(A) Negative mg/dL 07/07/2024 5:54 PM HOUSE WIRER HELPER DTL Urine 07/07/2024 5:11 PM HOUSE WIRER HELPER 07/07/2024 5:39 PM HOUSE WIRER HELPER Danny Pearson P.A.-C. LAB URINE ORDERABLES Jazzmine l Result Performing Organization Address [facility] Co de Phone Number [facility] [address] [place] [address], [facility] [address] [place] [address] * pH, Random, Urine (07/07/2024 5:11 PM HOUSE WIRER HELPER) pH, Random, U 5.9 4.5 - 8.0 07/07/2024 6:15 PM HOUSE WIRER HELPER DTL Urine 07/07/2024 5:11 PM HOUSE WIRER HELPER 07/07/2024 5:39 PM HOUSE WIRER HELPER Danny Pearson P.A.-C. LAB URINE ORDERABLES Jazzmine l Result [facility] [address] [place] [address], [facility] [address] [place] [address] * (ABNORMAL) Microscopic Manual (07/07/2024 5:11 PM HOUSE WIRER HELPER) Microscopy Abnormal 07/07/2024 6:19 PM HOUSE WIRER HELPER DTL RBC <3 <3 /hpf 07/07/2024 6:19 PM HOUSE WIRER HELPER DTL WBC 4-10 /hpf 07/07/2024 6:19 PM HOUSE WIRER HELPER DTL Comment: ----REFERENCE VALUE---- <4 (Males) <11 (Females) Casts, Hyaline 1-3 /lpf 07/07/2024 6:19 PM HOUSE WIRER HELPER DTL Renal Epithelial Cells 1-3(A) /hpf 07/07/2024 6:19 PM HOUSE WIRER HELPER DTL Squamous Epithelial Cells, U 4-10 /hpf 07/07/2024 6:19 PM HOUSE WIRER HELPER DTL Bacteria Present(A) 07/07/2024 6:19 PM HOUSE WIRER HELPER DTL Crystals Leucine crystals present 07/07/2024 6:19 PM HOUSE WIRER HELPER DTL Urine 07/07/2024 5:11 PM HOUSE WIRER HELPER 07/07/2024 5:39 PM HOUSE WIRER HELPER Danny Pearson P.A.-C. LAB URINE ORDERABLES Jazzmine l Result Performing Organization Address City/State/[facility] Co de Phone Number [facility] [address] [place], [place] [address] [address] [place] [address] * Bacterial Culture, Aerobic + Susceptibility, Urine (07/07/2024 5:11 PM HOUSE WIRER HELPER) Urine Culture No growth after 1 day of incubation. 07/09/2024 7:10 AM HOUSE WIRER HELPER DTL Urine (Urine, Midstream) 07/07/2024 5:11 PM HOUSE WIRER HELPER 07/07/2024 7:40 PM HOUSE WIRER HELPER Comment:Specimen Source Site : Urine Jeovany Padilla M.D. LAB MICROBIOLOGY - GENERAL ORDERABLES Final Result Performing Organization Address [facility] Co de Phone Number [facility] [address] [place] [address], [facility] [address] [place] [address] * (ABNORMAL) Urinalysis, with Microscopic: Urine, Midstream (07/07/2024 5:11 PM HOUSE WIRER HELPER) Source Urine, Urine, Midstream 07/07/2024 5:38 PM HOUSE WIRER HELPER DTL Color, U Anika(A) 07/07/2024 5:39 PM HOUSE WIRER HELPER DTL Clarity, U Cloudy(A) 07/07/2024 5:39 PM HOUSE WIRER HELPER DTL Protein, U 47(H) <26 mg/dL 07/07/2024 6:25 PM HOUSE WIRER HELPER DTL Protein/Osmol ality 0.92(H) <0.42 ratio 07/07/2024 6:25 PM HOUSE WIRER HELPER DTL Predicted 24 HR Protein, U 619(H) <229 mg/24 h 07/07/2024 6:25 PM HOUSE WIRER HELPER DTL Predicted Range 153-2506 mg/24 h 07/07/2024 6:25 PM HOUSE WIRER HELPER DTL Urine (Urine, Midstream) 07/07/2024 5:11 PM HOUSE WIRER HELPER 07/07/2024 5:38 PM HOUSE WIRER HELPER Jeovany Padilla M.D. LAB URINE ORDERABLE S Final Result Performing Organization Address [facility] Co de Phone Number [facility] [address] [place] [address], [facility] [address] [place] [address] * (ABNORMAL) Hepatic Function Panel (07/07/2024 4:52 PM HOUSE WIRER HELPER) Only the most recent of2 resultswithin the time period is included. Bilirubin, Total, S 23.8(H) 0.0 - 1.2 mg/dL 07/07/2024 5:49 PM HOUSE WIRER HELPER DTL Bilirubin, Direct, S 20.7(H) 0.0 - 0.3 mg/dL 07/07/2024 7:05 PM HOUSE WIRER HELPER DTL Aspartate Aminotransferase (AST), S 36 8 - 43 U/L 07/07/2024 5:49 PM HOUSE WIRER HELPER DTL Alanine Aminotransferase (ALT), S 14 7 - 45 U/L 07/07/2024 5:49 PM HOUSE WIRER HELPER DTL Alkaline Phosphatase, S 623(H) 35 - 104 U/L 07/07/2024 5:49 PM HOUSE WIRER HELPER DTL Albumin, S 3.2(L) 3.5 - 5.0 g/dL 07/07/2024 5:49 PM HOUSE WIRER HELPER DTL Protein, Total, S 4.7(L) 6.3 - 7.9 g/dL 07/07/2024 5:49 PM HOUSE WIRER HELPER DTL Blood (Blood, Venous) 07/07/2024 4:52 PM HOUSE WIRER HELPER 07/07/2024 5:19 PM HOUSE WIRER HELPER us Tricia Steele M.D. LAB BLOOD ADD-ON Final Re sult [address] [address], [facility] [address] [place] [address] * (ABNORMAL) Venous Blood Gas and Electrolytes CG8+, POCT (07/07/2024 3:44 PM HOUSE WIRER HELPER) [facility] Sample Site, POCT Venstick 07/07/2024 3:53 PM HOUSE WIRER HELPER PCSM Comment: ----ADDITIONAL INFORMATION---- Performed at the Point of Care pH, Venous, POCT, B 7.38 7.32 - 7.43 07/07/2024 3:53 PM HOUSE WIRER HELPER PCSM Comment: ----ADDITIONAL INFORMATION---- Performed at the Point of Care pCO2, Venous, POCT, B 41 41 - 51 mm Hg 07/07/2024 3:53 PM HOUSE WIRER HELPER PCSM Comment: ----ADDITIONAL INFORMATION---- Performed at the Point of Care pO2, Venous, POCT, B 23 Not Applicable mm Hg 07/07/2024 3:53 PM HOUSE WIRER HELPER PCSM Comment: ----ADDITIONAL INFORMATION---- Performed at the Point of Care Base Excess, Venous, POCT, B -1 Not Applicable mmol/L 07/07/2024 3:53 PM HOUSE WIRER HELPER PCSM Comment: ----ADDITIONAL INFORMATION---- Performed at the Point of Care HCO3, Venous, POCT, B 24 Not Applicable mmol/L 07/07/2024 3:53 PM HOUSE WIRER HELPER PCSM Comment: ----ADDITIONAL INFORMATION---- Performed at the Point of Care Sodium, POCT, B 137 135 - 145 mmol/L 07/07/2024 3:53 PM HOUSE WIRER HELPER PCSM Comment: ----ADDITIONAL INFORMATION---- Performed at the Point of Care Potassium, POCT, B 2.2(CL) 3.6 - 5.2 mmol/L 07/07/2024 3:53 PM HOUSE WIRER HELPER PCSM Comment: ----ADDITIONAL INFORMATION---- Performed at the Point of Care Calcium, Ionized, POCT, B 4.30(L) 4.65 - 5.30 mg/dL 07/07/2024 3:53 PM HOUSE WIRER HELPER PCSM Comment: ----ADDITIONAL INFORMATION---- Performed at the Point of Care Glucose, POCT, B 136 70 - 140 mg/dL 07/07/2024 3:53 PM HOUSE WIRER HELPER PCSM Comment: ----ADDITIONAL INFORMATION---- Performed at the Point of Care Hematocrit, POCT, B 27.0(L) 35.5 - 44.9 % 07/07/2024 3:53 PM HOUSE WIRER HELPER PCSM Comment: ----ADDITIONAL INFORMATION---- Performed at the Point of Care Blood (Blood, Venous) 07/07/2024 3:44 PM HOUSE WIRER HELPER 07/07/2024 3:45 PM HOUSE WIRER HELPER us Danny Pearson P.A.-C. LAB POCT ORDERABLES - DEV ICE Final Result POC RST [facility] IN[facility]IENT [facility] [address] [place] [address], [facility] [address] [place] [address] * Glucose, POCT (07/07/2024 3:44 PM HOUSE WIRER HELPER) [facility] Glucose, POCT, B 139 70 - 140 mg/dL 07/07/2024 3:48 PM HOUSE WIRER HELPER PCLX Site Artstick 07/07/2024 3:48 PM HOUSE WIRER HELPER PCLX Blood (Blood, Capillary) 07/07/2024 3:44 PM HOUSE WIRER HELPER 07/07/2024 3:44 PM HOUSE WIRER HELPER us Jeovany Padilla M.D. LAB POCT ORDERABLES -MANUAL Final Result POC [facility] [address] [place] [address], [facility] PCLX [facility] [place] POC [address] [place] [address] * (ABNORMAL) Basic Metabolic Panel (07/07/2024 3:44 PM HOUSE WIRER HELPER) Potassium, P 2.3(CL) 3.6 - 5.2 mmol/L 07/07/2024 4:53 PM HOUSE WIRER HELPER STMA Sodium, P 136 135 - 145 mmol/L 07/07/2024 4:53 PM HOUSE WIRER HELPER STMA Chloride, P 97(L) 98 - 107 mmol/L 07/07/2024 4:53 PM HOUSE WIRER HELPER STMA Bicarbonate, P 24 22 - 29 mmol/L 07/07/2024 4:40 PM HOUSE WIRER HELPER STMA Anion Gap, P 15 7 - 15 07/07/2024 4:53 PM HOUSE WIRER HELPER [facility] BUN (Blood Urea Nitrogen), P 17 6 - 21 mg/dL 07/07/2024 4:40 PM HOUSE WIRER HELPER STMA Creatinine 0.63 0.59 - 1.04 mg/dL 07/07/2024 5:22 PM HOUSE WIRER HELPER DTL Estimated GFR (eGFR) >90 >=60 mL/min/BSA 07/07/2024 5:22 PM HOUSE WIRER HELPER DTL Comment: Estimated GFR calculated using the 2020 CKD_EPI creatinine equation. Calcium, Total, P 8.0(L) 8.8 - 10.2 mg/dL 07/07/2024 4:40 PM HOUSE WIRER HELPER STMA Glucose, P 142(H) 70 - 140 mg/dL 07/07/2024 4:40 PM HOUSE WIRER HELPER STMA Blood (Blood, Venous) 07/07/2024 3:44 PM HOUSE WIRER HELPER 07/07/2024 3:54 PM HOUSE WIRER HELPER Jeovany Padilla M.D. LAB BLOOD ADD-ON Fi nal Result Performing Organization Address [facility] de Phone Number [facility] [address] [place] [address], [facility] STMA [facility] [address] [place] [address] DTL [facility] [address] [place] [address] * ECG 12 Lead (07/07/2024 3:33 PM HOUSE WIRER HELPER) Ventricular Rate ECG/Min 71 BPM MUSE MD Interval 156 ms MUSE QRSD Interval 90 ms MUSE QT Interval 362 ms MUSE QTC Interval 393 ms MUSE P [place] 98 degrees MUSE R [place] 80 degrees MUSE T Wave [place] 143 degrees MUSE 07/07/2024 3:33 PM HOUSE WIRER HELPER 07/07/2024 3:47 PM HOUSE WIRER HELPER Impressions MUSE - 07/07/2024 3:47 PM HOUSE WIRER HELPER Normal sinus rhythm ST and T wave [...] ORDERABLES Fin al Result Performing Organization Address City/[facility]/ZIP Co de Phone Number MUSE NA * FL Fluoro Less Than 1 Hour (07/02/2024 1:48 PM CDT) Only the most recent of2 resultswithin the time period is included. Narrative ERCP LOS RST - 07/02/2024 1:57 PM CDT This exam does not require a radiologist review or interpretation. Please refer to the patient's medical record on this date for clinical details. us Katia Issa APRN C.N.P., M.S.N. IMG FLUOROS COPY PROCEDURES Final [...] ETT location: oral VL device: glide scope Brownwood scope blade size: 3 Tube size: 7 [...] CDT) 07/02/2024 12:0 7 PM CDT Impressions [facility] - 07/02/2024 5:00 PM CDT Post-op [...] to prevent upward or downward impaction. Narrative [facility] - 07/02/2024 5:00 PM CDT Jac [...] metal biliary stent was visible on the machine tool builder film. The esophagus was successfully intubated under [...] minimal. Complications: No immediate complications. Sedation: General lightning rod erector Participation: I personally performed the entire procedure. Sonu Correa MD 07/02/2024 5:00:01 PM This report has been signed electronically. Number of Addenda: 0 us Katia Issa APRN, C.N.P., M.S.N. GI PROCEDUR E ORDERABLES Final Result Performing Organization Address [facility] Co de Phone Number [facility] NA * (ABNORMAL) Reticulocyte Profile (07/01/2024 [...] D ADD-ON Final Result Performing Organization Address City/[facility]/ZIP Co de Phone Number [address] [address] DTL [facility] [address] [place] [address] * (ABNORMAL) CBC-Preop with reflex anemia panel [...] AM CDT 07/01/2024 9:39 AM CDT Narrative [facility] - 07/01/2024 10:44 AM CDT Specimen Information: Specimen ID: [id number] Specimen Type: Blood Specimen Collection Start Date: 07/01/2024 9:07 AM Specimen Received Date: 07/01/2024 9:39 AM Specimen ID: [id number] Specimen Type: Blood Specimen Collection Start Date: 07/01/2024 9:07 AM Specimen Received Date: 07/01/2024 9:29 AM us Radha Najera APRN, C.N.P., D.N.P. LAB BLOO D ADD-ON Final Result [facility] [address] [place] [address], [facility] [address] [place] [address] * Iron and Total Iron-Binding Capacity (07/01/2024 9:07 AM CDT) Pathologist [facility] Iron 75 35 - 145 mcg/dL 07/01/2024 11:09 AM CDT DT Total Iron Binding Capacity 300 250 - 400 mcg/dL 07/01/2024 11:09 AM CDT DT Percent Saturation 25 14 - 50 % 07/01/2024 11:09 AM CDT DT Blood 07/01/2024 9:07 AM CDT 07/01/2024 9:39 AM CDT Radha Najera APRN, C.N.P., D.N.P. LAB BLOO D ADD-ON Final Result [facility] [address] [place], [place] [address] [place] [address] [address] [place] [address] * CRP (C-Reactive Protein) (07/01/2024 9:07 AM CDT) [facility] C-Reactive Protein (CRP), S <3.0 <5.0 mg/L 07/01/2024 11:09 AM CDT DT Blood 07/01/2024 9:07 AM CDT 07/01/2024 9:39 AM CDT Radha Najera APRN, C.N.P., D.N.P. LAB BLOO D ADD-ON Final Result [facility] [address] [place], [place] [address] [address] [place] [address] * (ABNORMAL) Ferritin (07/01/2024 9:07 AM CDT) Pathologist [facility] Ferritin, S 2488(H) 11 - 328 mcg/L 07/01/2024 11:28 AM CDT DTL Blood 07/01/2024 9:07 AM CDT 07/01/2024 9:39 AM CDT Radha Najera APRN, C.N.P., D.N.P. LAB BLOO D ADD-ON Final Result [facility] [address] [place] [address], [facility] DTL [facility] [address] [place] [address] * (ABNORMAL) Cytology Fine Needle Aspiration (including core biopsies) (06/25/2024 2:10 PM CDT) Pathologist [facility] (A ) 06/27/2024 4:06 PM CDT DTL [...] a. Immunohistoch emical stains were performed at [facility] (block A1). Neoplastic cells are positive [...] pancreas primary. Immunohistochemical stains were performed at [facility] (block A1). Neoplastic cells are positive for CDX2 and negative for TTF1(8G7G3/1), supporting the above diagnosis. Flagged as: Abnormal (Reported 06/26/2024 17:50) Aspirate (Pancreas) 06/25/2024 2:10 PM CDT us Leo Rockwell D.O. LAB SURG PATH ORDERABLES Edited Result - Final [facility] [address] [place] [address], [facility] DT [address] [place] [address] * LDA ANE ENDOTRACHEAL AIRWAY (06/25/2024 1:39 [...] ETT location: oral VL device: glide scope Brownwood scope blade size: 3 Tube size: 7 [...] Notable Events: no complications us Bridget Almonte VICTIM WITNESS ADMINISTRATOR, PROSTHETIC TECHNICIAN, DNAP ANESTHESIA ORD ERABLES Final Result * ERCP (06/25/2024 1:30 PM CDT) 06/25/2024 1:30 PM CDT Impressions [facility] - 06/25/2024 5:43 PM CDT Post-op Diagnoses: - Distal malignant biliary stricture - Sphincterotomy and 10mm x 4cm covered metal stent (Viabil) placed - There was excellent flow of bile and contrast endoscopically and radiographically at the conclusion of the procedure. Narrative [facility] - 06/25/2024 5:43 PM CDT Gonda [...] symptoms or liver enzyme abnormalities. Findings: The machine tool builder film was normal. The esophagus was successfully [...] Cui M.D. GI PROCEDURE ORDERABLES Final Result [facility] NA * Upper EUS (06/25/2024 1:30 PM CDT) 06/25/2024 1:30 PM CDT Impressions [facility] - 06/25/2024 5:43 PM CDT Post-op Diagnoses: - 26mm pancreatic uncinate mass with upstream biliary dilation - preliminary cytology diagnostic for adenocarcinoma - Benign-appearing esophageal stenosis which prevented initial passage of endosonoscope (14.7mm maximum diameter) - dilated to 15mm with gastroscope prior to EUS exam Narrative [facility] - 06/25/2024 5:43 PM CDT Gonda [...] transduodenal approach. A stylet was used. A net c developer was present to evaluate the adequacy of [...] PROCEDURE ORDERABLES Final Result Performing Organization Address City/State/ZIP Co pr Phone Number [facility] NA * Mismatch Repair (MMR) Protein Immunohistochemistry Only, Tumor (06/25/2024 10:27 AM CDT) MLH1 IHC Performed 07/10/2024 4:50 PM HOUSE WIRER HELPER DTL MSH2 IHC Performed 07/10/2024 4:50 PM HOUSE WIRER HELPER DTL MSH6 IHC Performed 07/10/2024 4:50 PM HOUSE WIRER HELPER DTL PMS2 IHC Performed 07/10/2024 4:50 PM HOUSE WIRER HELPER DTL Result Provided diagnosis: pancreas adenocarcinoma IHC: Normal expression of MLH1, MSH2, MSH6, and PMS2 07/10/2024 4:50 PM HOUSE WIRER HELPER DTL Specimen Tissue, Tumor 07/10/2024 4:50 PM HOUSE WIRER HELPER DTL Tissue ID [id number] 07/10/2024 4:50 PM HOUSE WIRER HELPER DTL Released By Sabine Leija M.D., Ph.D. 07/10/2024 4:50 PM HOUSE WIRER HELPER DTL Result Summary INTACT PROTEIN EXPRESSION 07/10/2024 4:50 PM HOUSE WIRER HELPER DTL Interpretation These results suggest the presence of normal DNA mismatch repair function within the tumor. However, these results do not completely rule out the possibility of defective DNA mismatch repair within the tumor because approximately 5% of cases with defective mismatch repair do not show absence of protein expression by IHC (Mod Pathol. 2019;33(5):871-879 (PMID: 03802149)). THERAPEUTIC IMPLICATIONS Current data suggest that in advanced stage solid tumors, targeted immunotherapies such as anti-PD-1 therapies are more likely to be effective in mismatch repair-deficient tumors than in mismatch repair-proficient tumors (Science. 2017 Mar 30;357(8800):409- 413 (PMID 63678167); J Clin Oncol. 2018 Sep 22:CMX5808623910 (PMID 21183769)). For interpretation of therapeutic implications of these [...] may be ordered separately. 07/10/2024 4:50 PM HOUSE WIRER HELPER DTL Comment: ----ADDITIONAL INFORMATION---- Immunohistochemical staining (IHC) [...] developed and its performance characteristics determined by [facility] in a manner consistent with CLIA requirements. This test has not been cleared or approved by the U.S. Food and Drug Administration. 06/25/2024 10:2 7 AM CDT 07/09/2024 11:51 AM HOUSE WIRER HELPER us Ryan Fried M.D. LAB GENETIC TESTING Fin al Result Performing Organization Address City/State/[facility] Co de Phone Number [facility] [address] [place] [address], [facility] DT [address] [place] [address] * PET CT Skull to Thigh FDG [...] RADIOPHARMACEUTICAL/MEDS: Route: intravenous fludeoxyglucose F 18 injection HALF-WAY (FDG F-18),14.92 millicurie TECHNIQUE: F-18 FDG PET/CT [...] RADIOPHARMACEUTICAL/MEDS: Route: intravenous fludeoxyglucose F 18 injection HALF-WAY (FDG F-18),14.92 millicurie TECHNIQUE: F-18 FDG PET/CT [...] metastatic disease. Alexia Aguilar APRN C.N.P., M.S. [facility] FABRIZIO DOBBS Final Result * [facility] (06/19/2024 10:43 AM CDT) Test Name CustomNext- Cancer +RNAinsight 06/19/2024 2:48 PM CDT AMBR Result SEE COMMENT 07/25/2024 10:14 AM HOUSE WIRER HELPER AMBR Comment: REVISED RESULTS Revised Report has been issued by performing laboratory. The revision has been sent to the patient record. ----PREVIOUSLY REPORTED ---- For final report, select Lab-Send Out Lab Results hyperlink below. Flagged as: N/A (Reported 07/08/2024 14:28) 06/19/2024 10:4 3 AM CDT 06/19/2024 2:48 PM CDT Eddy Byrd M.D. LAB MISC ORDERABLES Edited Result - Final [facility] Jeaneth Weber, [place] [address], [facility] AMBR Stephany Big [address], [place] [address] * CT Abdomen Pelvis with IV Contrast [...] the abdomen or pelvis. Magali Cui M.D. [facility] CT PROCEDURES Final Result * CT Chest [...] 2. No thoracic lymphadenopathy. Magali Cui M.D. Maru CT PROCEDURES Final Result * Cell-free DNA KRAS 12, 13, 61,146, Blood (06/18/2024 9:05 AM CDT) Pathologist [facility] Result Summary NEGATIVE 06/25/2024 1:47 PM CDT DTL Result Negative 06/25/2024 1:47 PM CDT DTL Specimen WB, Whole Blood 06/25/2024 1:47 PM CDT DTL Released By Andry Pierce, Vanessa., Ph.D. 06/25/2024 1:47 PM CDT DTL Interpretation [...] developed and its performance characteristics determined by [facility] in a manner consistent with CLIA requirements. This test has not been cleared or approved by the U.S. Food and Drug Administration. Blood (Blood, Venous) 06/18/2024 9:05 AM CDT 06/18/2024 10:48 AM CDT [facility] - 06/25/2024 1:47 PM CDT Specimen Information: Specimen ID: [id number] Specimen Type: Blood Specimen Collection Start Date: 06/18/2024 9:05 AM Specimen Received Date: 06/18/2024 10:48 AM Specimen ID: [id number] Specimen Type: Blood Specimen Collection Start Date: 06/18/2024 9:05 AM Specimen Received Date: 06/18/2024 10:48 AM Result [facility] Magali Cui M.D. LAB GENETIC TESTING Fin al Result Performing Organization Address City/[facility]/ZIP Co de Phone Number [facility] [address] [place] [address], [facility] DTL 200 [facility] 200 [place] [address] * (ABNORMAL) Carbohydrate Antigen 19-9 (CA 19-9) (06/18/2024 9:05 AM CDT) Carbohydrate Ag 19-9, S 519(H) <35 U/mL 06/18/2024 3:08 PM CDT [facility] Comment: ----ADDITIONAL INFORMATION---- The testing method is an immunoenzymatic assay manufactured by [employer]. and performed on the [employer] DxI 800. Values obtained with different assay methods or kits may be different and cannot be used interchangeably. Test results cannot be interpreted as absolute evidence for the presence or absence of malignant disease. Blood (Blood, Venous) 06/18/2024 9:05 AM CDT 06/18/2024 2:15 PM CDT Magali Cui M.D. LAB BLOOD ADD-ON Final Result Performing Organization Address City/[facility] Co de Phone Number [facility] [address] [place] [address] [place] [address] * (ABNORMAL) Prealbumin (PAB) (06/18/2024 9:05 AM CDT) Prealbumin (PAB), S 15(L) 19 - 38 mg/dL 06/19/2024 10:08 AM CDT [facility] Blood (Blood, Venous) 06/18/2024 9:05 AM CDT 06/19/2024 6:13 AM CDT Magali Cui M.D. LAB BLOOD ADD-ON Final Result [facility] [address] [place] [address] [facility] [address] [place] [address] * Hemoglobin A1c (06/18/2024 9:05 AM CDT) Hemoglobin A1c, B 4.9 4.0 - 5.6 % 06/18/2024 10:24 AM CDT DTL Blood (Blood, Venous) 06/18/2024 9:05 AM CDT 06/18/2024 9:31 AM CDT Magali Cui M.D. LAB BLOOD ADD-ON Final Result Performing Organization Address City/[facility]/ZIP Co de Phone Number [facility] [address] [place], [place] [address] [place] [address] [address] [place] [address] * (ABNORMAL) Bilirubin, Direct (06/18/2024 9:05 AM CDT) Bilirubin, Direct, S 15.7(H) 0.0 - 0.3 mg/dL 06/18/2024 11:32 AM CDT DTL Blood (Blood, Venous) 06/18/2024 9:05 AM CDT 06/18/2024 9:49 AM CDT Maagli Cui M.D. LAB BLOOD ADD-ON Final Result [facility] [address] [place], [place] [address] [place] [address] [address] [place] [address] * CT chest abdomen pelv w con-Outside [...] System IMG CT PROCEDURES Final R esult II NA * (ABNORMAL) MR Breast Bilateral without [...] Most Recently Relevant to Health Maintenance Insurance [facility] MEDICARE Advance Directives For more information, please contact: [phone] * Full Code (Latest Code Status on File) Date Activated Date Inactivated Comments 07/08/2024 12:31 AM 07/11/2024 4:16 PM Question Answer Comments Full Code: Discussed * Full Code Date Activated Date Inactivated Comments 03/23/2022 11:46 AM 03/24/2022 4:08 PM Question Answer Comments Full Code: Not Discussed Due to: Patient not available Care Teams Grommet Machine Operator Relationship Specialty Start Date End Date Elsewhere, Pcp PCP - General Internal Medicine 11/14/21
--- OUTSIDE RECORDS SUMMARY | 2024-09-04 07:02 | XMS_ITS ---
Author Organization [facility] Address [address] [place] [address] Care Team Providers Care Wrapper Stemmer Operator Name Role Phone Unavailable Unavailable Unavailable Surgery Details Not on file Complications Check Surgery Details section. Procedure Estimated Blood Loss Check Surgery Details section. Procedure Findings Check Surgery Details section. Procedure Specimens Taken Check Surgery Details section.
--- OUTSIDE RECORDS SUMMARY | 2024-09-04 07:02 | XMS_ITS | Encounter Summary ---
Author Organization [facility] Address [address] [place] [address] Care Team Providers Care Partition Assembly Machine Operator Name Role Phone Elsewhere, Pcp Primary Care Provider Unavailabl e Reason for Visit * Reason Comments Med Refill Encounter Details Date Type Department Care Team (Late st Contact Info) Description 09/04/2024 Refill Division of Gastroenterology in [place], [place] [address] [place] [phone] Shira Mendiola M.B.B.S., M.S. [address] [place] [phone] Med Refill Social History Tobacco Use Types Packs/Day Years Used Date Smoking Tobacco: Former Cigarettes 1 15 0 01/31/1988 - 01/30/2003 Smokeless Tobacco: Never Alcohol Use Standard Drinks/Week Comments Not Currently 7 (1 standard drink = 0.6 oz pur e alcohol) [facility] Utilities Answer Date Recorded In the past [...] your living situation today? I have a [facility] place to live 07/11/2024 Comments No Sex and Gender Information Value Date Recorded Sex Assigned at Female 01/29/2018 3:57 PM CDT Legal Sex Female 11:37 PM COGNOS DEVELOPER Gender Identity Female 01/29/2018 3:57 PM CDT Sexual Orientation Straight 01/29/2018 3: 57 PM CDT documented as of this encounter Plan of Treatment Upcoming Encounters Date Type Department Care Team (Latest Contact Info) Description 09/11/2024 11:30 AM COGNOS DEVELOPER Clinical Communication Virtual Review in [place], [place] 200 [place] [phone] 09/15/2024 7:50 AM COGNOS DEVELOPER Lab Department of Laboratory Medicine and Pathology, [facility], in [place], [place] [address] [place] [phone] Alexia Aguilar APRN, C.NPierce., M.S. [address] [place] [phone] 09/15/2024 9:45 AM COGNOS DEVELOPER Appointment Department of Radiology, [facility], in [place], [place] [address] [place] [phone] Alexia Aguilar APRN, C.NPierce., M.S. [address] [place] [phone] 09/15/2024 10:30 AM COGNOS DEVELOPER Office Visit Department of Medical Genetics in [place], [place] [address] [place] [phone] Eddy Byrd M.D. [address] [place] [phone] Stefani Montenegro M.S., [facility] [address] [place] [phone] 09/15/2024 12:00 PM COGNOS DEVELOPER Appointment Department of Radiology, [facility], in [place], [place] [address] [place] [phone] Alexia Aguilar APRN, C.N.P., M.S. [address] [place] [phone] 09/16/2024 9:20 AM COGNOS DEVELOPER Office Visit Department of Oncology in [place], [place] [address] [place] [phone] Alexia Aguilar APRN, C.Tiffany., M.S. [address] [place] [phone] 09/16/2024 11:00 AM COGNOS DEVELOPER Comprehensive Visit Division of Hepatobiliary and Pancreas Surgery in [place], [place] [address] [place] [phone] Asiya Catalan M.D. [address] [place] [phone] 09/17/2024 10:42 AM COGNOS DEVELOPER Hospital Encounter [facility] 01 4 AM ADMIT [address] [place] [phone] Asiya Catalan M.D. [address] [place] [phone] 09/17/2024 10:42 AM COGNOS DEVELOPER - 09/17/2024 12:22 PM COGNOS DEVELOPER Surgery [facility] RO MAIN OR [address] [place] [address] Asiya Catalan M.D. [address] [place] [phone] LAPAROSCOPIC EXPLORATION - DIAGNOSTIC - cytology - including peritoneal CEA, CA 19-9 & KRAS 10/30/2024 2:20 PM COGNOS DEVELOPER Virtual Visit Division of Gastroenterology in [place], [place] [address] [place] [phone] Shira Mendiola M.B.B.S., M.S. [address] [place] [phone] Scheduled Procedures Name Priority Associated Diagnoses Date/Ti me LAPAROSCOPIC EXPLORATION - DIAGNOSTIC Malignant Neoplasm Of Pancreas Head (HCC) 09/17/2024 10:42 AM COGNOS DEVELOPER documented as of this encounter Visit Diagnoses Not on filedocumented in this encounter Care Teams Partition Assembly Machine Operator Relationship Specialty Start Date End Date Elsewhere, Pcp PCP - General Internal Medicine 11/14/21 documented as of this encounter
--- OUTSIDE RECORDS SUMMARY | 2024-09-04 07:02 | XMS_ITS | Encounter Summary ---
Author Organization [facility] Address [address] [place] [address] Care Team Providers Care Mechanical Insulator Name Role Phone Elsewhere, Pcp Primary Care Provider Unavailabl e Reason for Referral * Outpatient (Routine) - Authorized Specialty Diagnoses / Procedures Referred By Contact Referred To Contact Gastroenterology and Hepatology Ivan Mendiola M.B.B.S., M.S. [address] [place] [phone] Phone: tel: fax: [facility] Referral ID Status Reason Start Date Expiration Date V isits Requested Visits Authorized [id number] Authorized 07/23/2024 01/22/2026 1 1 ET CLERK Encounter Details Date Type Department Care Team (Latest Contact Info) Description 07/15/2024 2:20 PM TICKET CLERK Office Visit Division of Gastroenterology in [place], [place] [address] [place] [phone] Ivan Mendiola M.B.BSaloS., M.S. [address] [place] [phone] Obstruction Common Bile Duct (HCC) (Primary Dx) Social History Tobacco Use Types Packs/Day Years Used Date Smoking Tobacco: Former Cigarettes 1 15 0 01/31/1988 - 01/30/2003 Smokeless Tobacco: Never Alcohol Use Standard Drinks/Week Comments Not Currently 7 (1 standard drink = 0.6 oz pur e alcohol) [facility] Utilities Answer Date Recorded In the [...] living situation today? I have a [facility] place to live 07/11/2024 Comments No Sex and Gender Information Value Date Recorded Sex Assigned at Female 01/29/2018 3:57 PM CDT Legal Sex Female 11:37 PM TICKET CLERK Gender Identity Female 01/29/2018 3:57 PM CDT Sexual Orientation Straight 01/29/2018 3: 57 PM CDT documented as of this encounter Consult Notes * Ivan Mendiola M.B.B.S., M.S. - 07/15/2024 2:20 PM CST Gastroenterology & Hepatology Clinic Note DATE: 07/15/2024 REFERRING PROVIDER: No ref. provider found PRIMARY CARE PROVIDER: Primary Care Providers: Elsewhere, Pcp (General) No address on file SUBJECTIVE Supervising Senior Consumer Insights Consultant: Dr. Brandt CHIEF COMPLAINT / REASON FOR VISIT Follow up for biliary obstruction secondary to pancreatic cancer HISTORY OF PRESENT ILLNESS Ms. Tejada is a 78 y.o. female from [facility] [place] who presents to [facility] for follow up of pancreatic cancer. I met with Gladys 06/19/2024 when she presented to [facility] for second opinion regarding obstructive jaundice in [...] to start neoadjuvant gemcitabine and nab-paclitaxel and [place] and is followingwith [facility] surgeon Dr. Catalan. OBJECTIVE VITAL SIGNS There were no vitals filed for this visit. PHYSICAL EXAMINATION Physical Exam DIAGNOSTIC WORKUP: Labs: Reviewed. ASSESSMENT / PLAN It was a pleasure to meet Ms. Tejada, a 78 y.o. female who presents to [facility] for evaluation of biliary obstruction in the [...] planned to receive local neoadjuvant therapy at [place]. I have ordered next ERCP for end [...] Carlisle, MSc PGY-4 Gastroenterology and Hepatology Fellow ET CLERK ET CLERK ET CLERK documented in this encounter Miscellaneous Notes * Addendum Note - Ivan Mendiola M.B.B.S., M.S. - 07/15/2024 2:20 PM TICKET CLERK Addended by: IVAN MENDIOLA on: 07/23/2024 11:37 AM Modules accepted: Orders ET CLERK documented in this encounter Plan of Treatment Upcoming Encounters Date Type Department Care Team (Latest Contact Info) Description 09/11/2024 11:30 AM TICKET CLERK Clinical Communication Virtual Review in [place], [place] [address] [place] [phone] 09/15/2024 7:50 AM TICKET CLERK Lab Department of Laboratory Medicine and Pathology, [facility], in [place], [place] [address] [place] [phone] Alexia Aguilar APRN, C.NPirece., M.S. [address] [place] [phone] 09/15/2024 9:45 AM TICKET CLERK Appointment Department of Radiology, [facility], in [place], [place] [address] [place] [phone] Alexia Aguilar APRN, C.NPierce., M.S. [address] [place] [phone] 09/15/2024 10:30 AM TICKET CLERK Office Visit Department of Medical Genetics in [place], [place] [address] [place] [phone] Eddy Byrd M.D. [address] [place] [phone] Stefani Montenegro M.S., [facility] [address] [place] [phone] 09/15/2024 12:00 PM TICKET CLERK Appointment Department of Radiology, [facility], in [place], [place] [address] [place] [phone] Alexia Aguilar APRN, C.N.P., M.S. [address] [place] [phone] 09/16/2024 9:20 AM TICKET CLERK Office Visit Department of Oncology in [place], [place] [address] [place] [phone] Alexia Aguilar APRN, C.Tiffany., M.S. [address] [place] [phone] 09/16/2024 11:00 AM TICKET CLERK Comprehensive Visit Division of Hepatobiliary and Pancreas Surgery in [place], [place] [address] [place] [phone] Asiya Catalan M.D. [address] [place] [phone] 09/17/2024 10:42 AM TICKET CLERK [facility] 4 AM ADMIT [address] [place] [phone] Asiya Catalan M.D. [address] [place] [phone] 09/17/2024 10:42 AM TICKET CLERK - 09/17/2024 12:22 PM TICKET CLERK Surgery [facility] MA[facility] OR [address] [place] [phone] Asiya Catalan M.D. [address] [place] [phone] LAPAROSCOPIC EXPLORATION - DIAGNOSTIC - cytology - including peritoneal CEA, CA 19-9 & KRAS 10/30/2024 2:20 PM TICKET CLERK Virtual Visit Division of Gastroenterology in [place], [place] [address] [place] [phone] Ivan Mendiola M.B.B.S., M.S. [address] [place] [phone] Scheduled Procedures Name Priority Associated Diagnoses Date/Ti me LAPAROSCOPIC EXPLORATION - DIAGNOSTIC Malignant Neoplasm Of Pancreas Head (HCC) 09/17/2024 10:42 AM TICKET CLERK Scheduled Referrals Name Type Priority Associated Diagnoses Order Schedule Gastroenterology and Hepatology office visit (clinic) Outpatient Referral Routine Expected: 10/23/2024, Expires: 10/23/2025 documented as of this encounter Visit Diagnoses Diagnosis Obstruction Common Bile Duct (HCC)- Primary Malignant Neoplasm Of Pancreas Head (HCC) documented in this encounter Care Teams Mechanical Insulator Relationship Specialty Start Date End Date Elsewhere, Pcp PCP - General Internal Medicine 11/14/21 documented as of this encounter
--- OUTSIDE RECORDS SUMMARY | 2024-09-04 07:02 | XMS_ITS ---
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 on 02/13/2022 Cancer Lung Primary Personal History 08/21/2016 Cancer Staging:Clinical:Stage IIIA(T2b, N2, M0) - Signed by Alka Collier M.SSkyal, R.N., C.M.S.R.N. on 02/13/2022 Anemia 06/23/2013 Hypertension [...] treatments are documented for this patient in [facility]. Treatments may have been administered in another system. Lifetime Dose Tracking * Chemical Lifetime Dose Automatic Entry Manual Entr y Radiation 309.12 mGy 309.12 mGy 0 mGy Fluoro Time 23.95 minutes 23.95 minutes 0 minutes Resolved Problems Problem Noted Date Diagnosed Date Resolved Date Malignant Neoplasm Of Unspec ified Part Of Lung Laterality Unknown 08/16/2016 10/06/2021
--- OUTSIDE RECORDS SUMMARY | 2024-09-04 07:02 | XMS_ITS | Encounter Summary ---
Author Organization [facility] Address [address] [place] [address] Care Team Providers Care Glass Smoother Name Role Phone Elsewhere, Pcp Primary Care Provider Unavailabl e Reason for Referral * Outpatient (Routine) - Authorized Specialty Diagnoses / Procedures Referred By Contgil t Referred To Contact Diagnoses Mass Pancreas Alonoz Candelaria MD [facility] Referral ID Status Reason Start Date Expiration Date V isits Requested Visits Authorized [id number] Authorized 06/10/2024 12/10/2025 1 1 Encounter Details Date Type Department Care Team (Late st Contact Info) Description 06/10/2024 Orders Only Division of Gastroenterology in [place], [place] [address] [place] [phone] Dial Alonzo Bowles MD Mass Pancreas Social [...] PM CDT Legal Sex Female 11:37 PM PRINTED CIRCUIT PHOTOGRAPHER Gender Identity Female 01/29/2018 3:57 PM CDT Sexual Orientation Straight 01/29/2018 3: 57 PM CDT documented as of this encounter Plan of Treatment Upcoming Encounters Date Type Department Care Team (Latest Contact Info) Description 09/11/2024 11:30 AM PRINTED CIRCUIT PHOTOGRAPHER Clinical Communication Virtual Review in [place], [place] 200 [place] [phone] 09/15/2024 7:50 AM PRINTED CIRCUIT PHOTOGRAPHER Lab Department of Laboratory Medicine and Pathology, [facility] in [place], [place] [address] [place] [phone] Alexia Aguilar APRN, C.N.P., M.S. [address] [place] [phone] 09/15/2024 9:45 AM PRINTED CIRCUIT PHOTOGRAPHER Appointment Department of Radiology, [facility] in [place], [place] [address] [place] [phone] Alexia Aguilar APRN, C.N.P., M.S. [address] [place] [phone] 09/15/2024 10:30 AM PRINTED CIRCUIT PHOTOGRAPHER Office Visit Department of Medical Genetics in [address] [phone] Eddy Byrd M.D. [address] [place] [phone] Stefani Montenegro M.S., [facility] [address] [place] [phone] 09/15/2024 12:00 PM PRINTED CIRCUIT PHOTOGRAPHER Appointment Department of Radiology, [facility], in [place], [place] [address] [place] [phone] Alexia Aguilar APRN, C.N.P., M.S. [address] [place] [phone] 09/16/2024 9:20 AM PRINTED CIRCUIT PHOTOGRAPHER Office Visit Department of Oncology in [place], [place] [address] [place] [phone] Alexia Aguilar, GM CSaloNSaloP., M.S. [address] [place] [phone] 09/16/2024 11:00 AM PRINTED CIRCUIT PHOTOGRAPHER Comprehensive Visit Division of Hepatobiliary and Pancreas Surgery in [place], [place] [address] [place] [phone] Asiya Catalan M.D. [address] [place] [phone] 09/17/2024 10:42 AM PRINTED CIRCUIT PHOTOGRAPHER Hospital Encounter [facility] 01 4 AM ADMIT [address] [place] [phone] Asiya Catalan M.D. [address] [place] [phone] 09/17/2024 10:42 AM PRINTED CIRCUIT PHOTOGRAPHER - 09/17/2024 12:22 PM PRINTED CIRCUIT PHOTOGRAPHER Surgery [facility] MAIN OR [address] [place] [phone] Asiya Catalan M.D. [address] [place] [phone] LAPAROSCOPIC EXPLORATION - DIAGNOSTIC - cytology - including peritoneal CEA, CA 19-9 & KRAS 10/30/2024 2:20 PM PRINTED CIRCUIT PHOTOGRAPHER Virtual Visit Division of Gastroenterology in [place], [place] [address] [place] [phone] Shira Mendiola M.B.B.S., M.S. 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
--- OUTSIDE RECORDS SUMMARY | 2024-09-04 07:02 | XMS_ITS | Encounter Summary ---
Author Organization [facility] Address [address] [place] [address] Care Team Providers Care Freight Hustler Name Role Phone Elsewhere, Pcp Primary Care Provider Unavailabl e Encounter Details Date Type Department Care Team (Latest Contact Info) Description 08/21/2024 Clinical Communication Division of Hepatobiliary and Pancreas Surgery in [place], [place] [address] [place] [phone] Asiya Catalan M.D. [address] [place] [phone] Social History Tobacco Use Types Packs/Day Years Used Date Smoking Tobacco: Former Cigarettes 1 15 0 01/31/1988 - 01/30/2003 Smokeless Tobacco: Never Alcohol Use Standard Drinks/Week Comments Not Currently 7 (1 standard drink = 0.6 oz pur e alcohol) [facility] Utilities Answer Date Recorded In the past 12 months has e [employer], gas, oil, or water [employer] threatened to shut off services in your [...] your living situation today? I have a [facility] place to live 07/11/2024 Comments No Sex and Gender Information Value Date Recorded Sex Assigned at Female 01/29/2018 3:57 PM CDT Legal Sex Female 11:37 PM CAFE HELPER Gender Identity Female 01/29/2018 3:57 PM CDT Sexual Orientation Straight 01/29/2018 3: 57 PM CDT documented as of this encounter Miscellaneous Notes * Telephone Encounter - Jocelin Vidal R.N. - 08/21/2024 12:14 PM CAFE HELPER SUBJECTIVE CHIEF COMPLAINT / REASON FOR CALL [...] following references were used: nursing clinical judgement HELPER documented in this encounter Plan of Treatment Upcoming Encounters Date Type Department Care Team (Latest Contact Info) Description 09/11/2024 11:30 AM CAFE HELPER Clinical Communication Virtual Review in [address] [phone] 09/15/2024 7:50 AM CAFE HELPER Lab Department of Laboratory Medicine and Pathology, [address] [phone] Alexia Aguilar, GM, C.N.P., M.S. [address] [place] [phone] 09/15/2024 9:45 AM CAFE HELPER Appointment Department of Radiology, [facility], in [address] [phone] Alexia Aguilar APRN, C.N.P., M.S. [address] [place] [phone] 09/15/2024 10:30 AM CAFE HELPER Office Visit Department of Medical Genetics in [place], [place] [address] [place] [phone] Eddy Byrd M.D. [address] [place] [phone] Stefani Montenegro, M.S., [facility] [address] [place] [phone] 09/15/2024 12:00 PM CAFE HELPER Appointment Department of Radiology, [facility], in [place], [place] [address] [place] [phone] Alexia Aguilar APRN, C.N.P., M.S. [address] [place] [phone] 09/16/2024 9:20 AM CAFE HELPER Office Visit Department of Oncology in [place], [place] [address] [place] [phone] Alexia Aguilar APRN, C.NPierce., M.S. [address] [place] [phone] 09/16/2024 11:00 AM CAFE HELPER Comprehensive Visit Division of Hepatobiliary and Pancreas Surgery in [place], [place] [address] [place] [phone] Asiya Catalan M.D. [address] [place] [phone] 09/17/2024 10:42 AM CAFE HELPER Hospital Encounter [facility] 01 4 AM ADMIT 200 [facility] [place] [address] Asiya Catalan M.D. [address] [place] [phone] 09/17/2024 10:42 AM CAFE HELPER - 09/17/2024 12:22 PM CAFE HELPER Surgery [facility] [address] [place] [phone] Asiya Catalan M.D. [address] [place] [phone] LAPAROSCOPIC EXPLORATION - DIAGNOSTIC - cytology - including peritoneal CEA, CA 19-9 & KRAS 10/30/2024 2:20 PM CAFE HELPER Virtual Visit Division of Gastroenterology in [place], [place] [address] [place] [phone] Shira Mnediola M.B.B.S., M.S. 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
--- NOTE | 2024-09-04 09:09 | PC.NURSE ---
Pt's called to inform [facility] that Gladys is currently admitted to the [facility] with pneumonia. RN offered support and will cancel pt's appointments. Pt is scheduled for labs/DAVY/chemo in 2 weeks.
== END 2024-09-04 23:59 | disposition home or self-care (01) ==
LOC: CCIC 10:30
PROVIDERS: Clinical Nurse Specialist; PCP Family Medicine; Referring Provider Family Medicine; Visit Provider Internal Medicine Hematology & Oncology
DX: C25.9 Malignant neoplasm of pancreas, unspecified (principal)
CPT/HCPCS: 36415; 36430; 36591; 80053; 82248; 85025; 85610; 85730; 86301; 86850; 86870; 86880; 86900; 86901; 86922; 96361; 96366; 96375; 96376; 96409; 96413; 96417; 99202; 99205; 99214; 99215; G0463; A9270; J1100; J1642; J3480; J7030; J7050; J9201; J9264; P9016